=== PATIENT | female | born 1960 | race Caucasian/White ===

== ENCOUNTER → 2019-03-03 | Outpatient (CLI) | payer MEDICARE, MEDICAID, SELFPAY | PROVIDERS: PCP Internal Medicine; Visit Provider Obstetrics & Gynecology | DX: N95.9 Unspecified menopausal and perimenopausal disorder (principal); M79.10 Myalgia, unspecified site; R53.83 Other fatigue; E53.8 Deficiency of other specified B group vitamins | CPT/HCPCS: 86038; 85025; 86430; 84443; 36415; 82746; 82607; 84403; 85652; 84402; 85610; 86039 ==

== ENCOUNTER 2019-06-01 11:57 | Outpatient (RCR) | payer MEDICARE, MEDICAID, SELFPAY ==
[2019-04-03 13:41] LABS: INR 1.4; Prothrombin Time 16.4 Seconds (11.1-14.7)
[2019-04-26 13:43] LABS: INR 1.3; Prothrombin Time 15.7 Seconds (11.1-14.7)
[2019-06-01 12:40] LABS: INR 1.7; Prothrombin Time 19.4 Seconds (11.1-14.7)
== END 2019-07-02 23:59 | disposition home or self-care (01) ==
LOC: ANHWCLAB 11:57
PROVIDERS: PCP Internal Medicine; Visit Provider Internal Medicine
DX: Z51.81 Encounter for therapeutic drug level monitoring (principal); Z79.01 Long term (current) use of anticoagulants
CPT/HCPCS: 36415; 85610

== ENCOUNTER 2019-07-19 08:31 | Outpatient (CLI) | payer MEDICARE, MEDICAID, SELFPAY ==
[2019-07-19 13:38] LABS: Cholesterol 189 mg/dL (0-200); HDL Direct 54 mg/dL; Hematocrit 37.4 % (37.0-47.0); Hemoglobin 11.7 g/dL (12.0-15.0); Magnesium 1.3 mg/dL (1.6-2.3); Mean Corpuscular HGB Conc 31.3 g/dl (32-36); Mean Corpuscular Hemoglobin 28.9 pg (26-34); Mean Corpuscular Volume 92.3 fl (80-100); Mean Platelet Volume 8.9 fl (7.4-10.4); Platelet Count Result 399 k/mm3 (150-375); Red Blood Count 4.05 M/mm3 (4.2-5.4); Red Cell Distribution Width 14.7 % (11.5-14.5); Triglycerides 376 mg/dL (<150); White Blood Count 8.3 K/mm3 (4.5-10.0)
[2019-07-19 13:39] LABS: Rheumatoid Factor < 8.6 IU/ML (<12)
[2019-07-19 13:42] LABS: Hemoglobin A1C 7.7 % (<5.7)
[2019-07-19 13:49] LABS: LDL Cholesterol Direct 90 mg/dL
[2019-07-19 13:53] LABS: Free T4 Free Thyroxine 1.42 ng/mL (0.78-2.19); Vitamin D 25 Hydroxy 38.7 ng/mL
[2019-07-19 14:11] LABS: Erythrocyte Sedimentation Rate 101 mm/hr (0-20)
[2019-07-19 14:44] LABS: Alanine Aminotransferase 35 U/L (4-35); Albumin Level 4.3 g/dL (3.5-5.1); Alkaline Phosphatase 112 U/L (38-126); Aspartate Amino Transferase 34 U/L (14-36); Bilirubin,Total 0.3 mg/dL (0.2-1.3); Blood Urea Nitrogen 15 mg/dL (7-17); Carbon Dioxide 22 mmol/L (22-30); Chloride 95 mmol/L (98-107); Estimated Glomerular Filt Rate 57; Glucose 162 mg/dL (65-105); Potassium 4.2 mmol/L (3.4-5.0); Sodium 137 mmol/L (137-145)
[2019-07-19 15:48] LABS: Folic Acid > 20.0 ng/mL (2.76->20)
[2019-07-24 12:07] LABS: Anti Nuclear Antibody Titer 1:40 (Negative)
== END 2019-07-19 08:32 | disposition home or self-care (01) ==
PROVIDERS: Referring Provider Internal Medicine; Visit Provider Internal Medicine
DX: M79.10 Myalgia, unspecified site (principal); R53.83 Other fatigue; E11.9 Type 2 diabetes mellitus without complications; E78.5 Hyperlipidemia, unspecified; I10 Essential (primary) hypertension; E03.9 Hypothyroidism, unspecified; E53.8 Deficiency of other specified B group vitamins; E55.9 Vitamin D deficiency, unspecified; Z79.01 Long term (current) use of anticoagulants
CPT/HCPCS: 36415; 80053; 80061; 82306; 82607; 82746; 83036; 83735; 84439; 84443; 85027; 85652; 86038; 86039; 86430

== ENCOUNTER 2019-07-19 09:00 | Outpatient (RCR) | payer MEDICARE, MEDICAID, SELFPAY ==
[2019-07-03 13:12] LABS: INR 3.6
[2019-07-19 13:59] LABS: INR 3.5; Prothrombin Time 34.5 Seconds (11.1-14.7)
== END 2019-10-01 23:59 | disposition home or self-care (01) ==
LOC: ANHLAB 09:00
PROVIDERS: Referring Provider Internal Medicine Infectious Disease; Visit Provider Internal Medicine
DX: N39.0 Urinary tract infection, site not specified (principal); Z79.01 Long term (current) use of anticoagulants
CPT/HCPCS: 36415; 85610; 87086; 87088

== ENCOUNTER 2019-08-14 10:06 | Outpatient (RCR) | payer MEDICARE, MEDICAID, SELFPAY ==
[2019-08-14 11:15] LABS: INR 1.9; Prothrombin Time 20.9 Seconds (11.1-14.7)
== END 2019-11-12 23:59 | disposition home or self-care (01) ==
LOC: ANHWCLAB 10:06
PROVIDERS: Visit Provider Internal Medicine
DX: Z51.81 Encounter for therapeutic drug level monitoring (principal); Z79.01 Long term (current) use of anticoagulants
CPT/HCPCS: 36415; 85610

== ENCOUNTER 2019-10-08 11:37 | Emergency (ER) | payer MEDICARE, MEDICAID, SELFPAY ==
--- NOTE | 2019-10-08 11:56 | ED.NECK ---
HPI - Neck Pain/Injury General Stated Complaint: neck pain Time Seen by Provider: 10/08/19 11:45 Source: patient History of Present Illness HPI Narrative: Patient initially came to the desk, complaining of chest pain. Provider spoke to the patient regarding her chest pain and she changed her complaint from chest pain to upper shoulder and neck pain. Patient was advised to be taken to a room for an EKG and possible transfer to the emergency room. Patient refused an EKG and states that the chest pain was approximately 4 to 5 days ago and now it is just in her shoulders and neck. Patient was advised several times to be seen, even just to rule out the EKG. Patient was adamant and refused care and did not want to be seen at the [facility] or in the emergency room. Patient states that she has a follow-up with labs on Wednesday with her PCP and will discuss her symptoms then. Patient states that she does not want any other medication because she has several at home for both pain and muscle relaxers . Patient states that her daughter made her come to our facility . Again patient was advised several times to be seen and she refused. Patient was stable and in no apparent distress. Related Data Home Medications Medication Instructions Recorded Confirmed albuterol sulfate [ProAir HFA] 2 inh INHALATION Q4-6H 04/11/19 04/11/19 amlodipine 5 mg DAILY 04/11/19 04/11/19 baclofen 10 mg DAILY 04/11/19 04/11/19 celecoxib 200 mg DAILY 04/11/19 04/11/19 duloxetine 30 mg PO DAILY 04/11/19 04/11/19 levothyroxine 200 mcg DAILY 04/11/19 04/11/19 magnesium oxide 400 mg BID 04/11/19 04/11/19 nortriptyline 75 mg DAILY 04/11/19 04/11/19 oxycodone-acetaminophen 10 - 325 Q4-6H PRN 04/11/19 fluticasone fur. 100 mcg-umeclid 1 inhalation INHALATION DAILY 05/03/19 62.5 mcg-vilant 25 mcg inhalat.powder melatonin 5 mg capsule mg PO 05/03/19 sucralfate 1 gram tablet PO 05/03/19 travoprost 0.004 % eye drops 1 drop EACH EYE QPM 05/03/19 diclofenac sodium 2 % topical 1 packet TOPICAL BID PRN 07/05/19 solution in packet folic acid 1 mg tablet 1 mg PO DAILY 07/05/19 methotrexate sodium 2.5 mg tablet 7.5 mg PO WEEKLY tablet 07/05/19 hydroxychloroquine 200 mg tablet 200 mg PO BID 07/24/19 Allergies Allergy/AdvReac Type Severity Reaction Status Date / Time bupropion Allergy Mild Other Verified 07/24/19 14:24 ipratropium Allergy Mild Dyspnea / Verified 07/24/19 14:24 SOB adhesive Allergy Unknown unknown Verified 07/24/19 14:24 adhesive tape Allergy Unknown BLISTERS Verified 07/24/19 14:24 aloe vera Allergy Unknown unknpown Verified 07/24/19 14:24 benzocaine Allergy Unknown unknown Verified 07/24/19 14:24 cefuroxime Allergy Unknown unknown Verified 07/24/19 14:24 chlordiazepoxide Allergy Unknown unknown Verified 07/24/19 14:24 codeine Allergy Unknown unknown Verified 07/24/19 14:24 dextromethorphan Allergy Unknown unknown Verified 07/24/19 14:24 diazepam Allergy Unknown unknown Verified 07/24/19 14:24 guaifenesin Allergy Unknown unknown Verified 07/24/19 14:24 latex Allergy Unknown unknown Verified 07/24/19 14:24 meperidine Allergy Unknown unknown Verified 07/24/19 14:24 morphine Allergy Unknown unknwon Verified 07/24/19 14:24 nitrofurantoin Allergy Unknown unknown Verified 07/24/19 14:24 piroxicam Allergy Unknown MILD SIDE Verified 07/24/19 14:24 EFFECT PER DIAZEPAM TEXT pregabalin Allergy Unknown unknown Verified 07/24/19 14:24 resorcinol Allergy Unknown unknown Verified 07/24/19 14:24 simvastatin Allergy Unknown unknown Verified 07/24/19 14:24 Sulfa (Sulfonamide Allergy Unknown unknown Verified 07/24/19 14:24 Antibiotics) theophylline Allergy Unknown unknonw Verified 07/24/19 14:24 trimethoprim Allergy Unknown unknown Verified 07/24/19 14:24 valsartan Allergy Unknown unknown Verified 07/24/19 14:24 Xanthines Allergy Unknown unknown Verified 07/24/19 14:24 nickel AdvReac Unknown RASH Verified 07/24/19 14:24 CHLORDIAZEPOXIDE HCL Allergy M
--- NOTE | 2019-10-08 13:01 | PC.NURSE ---
provider spoke with pt. not seen in triage
== END 2019-10-08 12:15 | disposition left against medical advice (07) ==
PROVIDERS: Emergency Provider Nurse Practitioner Family
DX: M54.2 Cervicalgia (principal)
CPT/HCPCS: 99199

== ENCOUNTER 2019-10-10 01:19 | Emergency (ER) | payer MEDICARE, MEDICAID, SELFPAY ==
--- NOTE | ~2019-10-10 | CT_ITS ---
EXAMINATION: CTA chest PE protocol DATE: 10/10/2019 04:32 INDICATION: Chest pain and dyspnea with exertion. TECHNIQUE: Computed tomography (CT) pulmonary angiogram of the chest was performed with 100 mL Omnipa que-350 intravenous contrast. Additional 3D reconstructions utilizing coronal maximum intensity proje ction (MIP) were performed. Automated exposure control and iterative reconstruction technique were em ployed. The dose-length product was 936.70 mGy-cm. COMPARISON: 01/31/2016 FINDINGS: Excellent contrast opacification of the pulmonary arteries. There is mild streak artifact from dense contrast in the superior vena cava and right atrium. Minimal scattered respiratory motion artifact wh ich does not significantly limit evaluation. No pulmonary embolism. Mild emphysema at the apices. A f ew small calcified nodules in the right lung consistent with old granulomatous disease. Mild discoid atelectasis at the lingula. No pneumonia, pulmonary edema, pleural effusion or pneumothorax. Heart si ze is normal. No pericardial effusion. Thoracic aorta is normal in caliber with no dissection. No pat hologically enlarged thoracic lymphadenopathy. Diffuse hepatic steatosis. Mild thoracic spondylosis. IMPRESSION: 1. No pulmonary embolism or other acute cardiopulmonary disease. Reviewed, dictated and finalized at location A.
--- NOTE | ~2019-10-10 | XR_ITS ---
EXAMINATION: XR chest 2V DATE: 10/10/2019 02:24 INDICATION: Chest pain TECHNIQUE: PA and lateral views of the chest were obtained. COMPARISON: Chest radiograph dated Chest CT dated 10/31/2018 FINDINGS: Chronic mild lingular discoid atelectasis/scarring in the lingula. Remainder of the lungs are clear. No pulmonary edema, pleural effusion or pneumothorax. The cardiomediastinal silhouette is normal. Mil d thoracic spondylosis. IMPRESSION: 1. No acute cardiopulmonary disease. Reviewed, dictated and finalized at location A.
[2019-10-10 01:24] VITALS: BP 150/109; PULSE 115; RESP 20; TEMP 36.7; O2SAT 98; O2SAT 99
--- NOTE | 2019-10-10 01:36 | ECG_ITS ---
Measurements Intervals [place] Rate: 106 P: 52 VA: 163 QRS: -33 QRSD: 113 T: 41 QT: 313 QTc: 417 Interpretive Statements SINUS TACHYCARDIA LEFT AXIS DEVIATION INCOMPLETE RIGHT BUNDLE BRANCH BLOCK BASELINE WANDER- V3-V6 ABNORMAL ECG Electronically Signed On 10-10-2019 7:10:02 CDT by David Go D.O.
--- NOTE | 2019-10-10 01:38 | ED.CHESTPAIN ---
HPI - Chest Pain General Chief Complaint: Chest Pain Stated Complaint: chest neck pain Time Seen by Provider: 10/10/19 01:25 Source: RN notes reviewed History of Present Illness HPI narrative: Patient presents emergency department from home for chest pain. Patient states she has pain across the bilateral midsternal chest is described as aching. Patient states the pain began 4 days ago and has been constant since that time pain radiates up into the bilateral shoulders and the neck. Patient states that she sleeps in the recliner and the pain began upon awakening after sleeping in her recliner. Patient states that this time the pain is more in her shoulders and neck. Patient notes mild shortness of breath. She denies any fevers or chills cough abdominal pain nausea vomiting or any other symptoms. She states she has been taking her own pain medications for her chronic back and neck pain including Percocet muscle relaxers and Celebrex and is followed by pain management who she called this evening and was recommended come to the ER for further evaluation Related Data Home Medications Medication Instructions Recorded Confirmed albuterol sulfate [ProAir HFA] 2 inh INHALATION Q4-6H 04/11/19 04/11/19 amlodipine 5 mg DAILY 04/11/19 04/11/19 baclofen 10 mg DAILY 04/11/19 04/11/19 celecoxib 200 mg DAILY 04/11/19 04/11/19 duloxetine 30 mg PO DAILY 04/11/19 04/11/19 levothyroxine 200 mcg DAILY 04/11/19 04/11/19 magnesium oxide 400 mg BID 04/11/19 04/11/19 nortriptyline 75 mg DAILY 04/11/19 04/11/19 oxycodone-acetaminophen 10 - 325 Q4-6H PRN 04/11/19 fluticasone fur. 100 mcg-umeclid 1 inhalation INHALATION DAILY 05/03/19 62.5 mcg-vilant 25 mcg inhalat.powder melatonin 5 mg capsule mg PO 05/03/19 sucralfate 1 gram tablet PO 05/03/19 travoprost 0.004 % eye drops 1 drop EACH EYE QPM 05/03/19 diclofenac sodium 2 % topical 1 packet TOPICAL BID PRN 07/05/19 solution in packet folic acid 1 mg tablet 1 mg PO DAILY 07/05/19 methotrexate sodium 2.5 mg tablet 7.5 mg PO WEEKLY tablet 07/05/19 hydroxychloroquine 200 mg tablet 200 mg PO BID 07/24/19 Allergies Allergy/AdvReac Type Severity Reaction Status Date / Time bupropion Allergy Mild Other Verified 10/10/19 01:33 ipratropium Allergy Mild Dyspnea / Verified 10/10/19 01:33 SOB adhesive Allergy Unknown unknown Verified 10/10/19 01:33 adhesive tape Allergy Unknown BLISTERS Verified 10/10/19 01:33 aloe vera Allergy Unknown unknpown Verified 10/10/19 01:33 benzocaine Allergy Unknown unknown Verified 10/10/19 01:33 cefuroxime Allergy Unknown unknown Verified 10/10/19 01:33 chlordiazepoxide Allergy Unknown unknown Verified 10/10/19 01:33 codeine Allergy Unknown unknown Verified 10/10/19 01:33 dextromethorphan Allergy Unknown unknown Verified 10/10/19 01:33 diazepam Allergy Unknown unknown Verified 10/10/19 01:33 guaifenesin Allergy Unknown unknown Verified 10/10/19 01:33 latex Allergy Unknown unknown Verified 10/10/19 01:33 meperidine Allergy Unknown unknown Verified 10/10/19 01:33 morphine Allergy Unknown unknwon Verified 10/10/19 01:33 nitrofurantoin Allergy Unknown unknown Verified 10/10/19 01:33 piroxicam Allergy Unknown MILD SIDE Verified 10/10/19 01:33 EFFECT PER DIAZEPAM TEXT pregabalin Allergy Unknown unknown Verified 10/10/19 01:33 resorcinol Allergy Unknown unknown Verified 10/10/19 01:33 simvastatin Allergy Unknown unknown Verified 10/10/19 01:33 Sulfa (Sulfonamide Allergy Unknown unknown Verified 10/10/19 01:33 Antibiotics) theophylline Allergy Unknown unknonw Verified 10/10/19 01:33 trimethoprim Allergy Unknown unknown Verified 10/10/19 01:33 valsartan Allergy Unknown unknown Verified 10/10/19 01:33 Xanthines Allergy Unknown unknown Verified 10/10/19 01:33 nickel AdvReac Unknown RASH Verified 10/10/19 01:33 CHLORDIAZEPOXIDE HCL Allergy Mild READY TO Uncoded 10/10/19 01:33 [facility] VITAMIN D Allergy Unknown RASH Uncoded 10/10/19 01:33 THEOPHYLLIN
[2019-10-10 01:51] LABS: Basophils Absolute Auto 0.1 K/mm3 (0.0-0.1); Basophils Percent Auto 0.9 % (0.2-1.2); Eosinophils Absolute Auto 0.3 K/mm3 (0-0.3); Eosinophils Percent Auto 3.4 % (0-4.4); Hematocrit 37.7 % (37.0-47.0); Hemoglobin 12.1 g/dL (12.0-15.0); Immature Granulocyte Absolute 0.04 K/mm3 (0.00-0.031); Immature Granulocyte Percent A 0.4 % (0-0.5); Lymphocytes Absolute Auto 2.25 K/mm3 (0.9-3.2); Lymphocytes Percent Auto 23.7 % (18.3-44.2); Mean Corpuscular HGB Conc 32.1 g/dl (32-36); Mean Corpuscular Hemoglobin 29.2 pg (26-34); Mean Corpuscular Volume 90.8 fl (80-100); Monocytes Absolute Auto 1.1 K/mm3 (0.1-0.6); Monocytes Percent Auto 11.7 % (2.6-8.5); Neutrophils Absolute Auto 5.7 K/mm3 (1.3-6.7); Neutrophils Percent Auto 59.9 % (45.5-73.1); Platelet Count Result 363 k/mm3 (150-375); Red Blood Count 4.15 M/mm3 (4.2-5.4); Red Cell Distribution Width 15.3 % (11.5-14.5); White Blood Count 9.5 K/mm3 (4.5-10.0)
[2019-10-10 02:01] LABS: INR 2.6; Prothrombin Time 27.2 Seconds (11.1-14.7)
[2019-10-10 02:02] LABS: Partial Thromboplastin Time 48.7 SECONDS (22.3-36.8)
[2019-10-10 02:06] VITALS: BP 130/71; PULSE 109; RESP 19; O2SAT 97
[2019-10-10 02:08] LABS: Blood Urea Nitrogen 18 mg/dL (7-17); Calcium 9.1 mg/dL (8.4-10.2); Carbon Dioxide 25 mmol/L (22-30); Chloride 99 mmol/L (98-107); Estimated Glomerular Filt Rate 51; Glucose 160 mg/dL (65-105); Potassium 4.2 mmol/L (3.4-5.0); Sodium 135 mmol/L (137-145)
[2019-10-10 02:20] LABS: Troponin I < 0.012 ng/mL (0.000-0.034)
[2019-10-10 04:07] VITALS: PULSE 100; RESP 20; O2SAT 97
[2019-10-10 05:05] LABS: Troponin I < 0.012 ng/mL (0.000-0.034)
[2019-10-10 05:26] VITALS: BP 125/76; PULSE 94; RESP 20; O2SAT 98
== END 2019-10-10 05:29 | disposition home or self-care (01) ==
PROVIDERS: Emergency Provider Emergency Medicine; PCP Internal Medicine
DX: S16.1XXA Strain of muscle, fascia and tendon at neck level, initial encounter (principal); R07.89 Other chest pain; M19.90 Unspecified osteoarthritis, unspecified site; J44.9 Chronic obstructive pulmonary disease, unspecified; Z85.41 Personal history of malignant neoplasm of cervix uteri; E11.9 Type 2 diabetes mellitus without complications; Z86.718 Personal history of other venous thrombosis and embolism; N80.9 Endometriosis, unspecified; I10 Essential (primary) hypertension; K21.9 Gastro-esophageal reflux disease without esophagitis; M79.7 Fibromyalgia; H40.9 Unspecified glaucoma; E78.00 Pure hypercholesterolemia, unspecified; Z86.711 Personal history of pulmonary embolism; K58.9 Irritable bowel syndrome, unspecified; Z87.442 Personal history of urinary calculi; G47.30 Sleep apnea, unspecified; Z87.891 Personal history of nicotine dependence; F41.9 Anxiety disorder, unspecified; F32.9 Major depressive disorder, single episode, unspecified; R00.0 Tachycardia, unspecified; I45.10 Unspecified right bundle-branch block
CPT/HCPCS: 36415; 71046; 71275; 80048; 84484; 85025; 85610; 85730; 93005; 96374; 96375; 99284; J0131; J3010; Q9967

== ENCOUNTER 2019-11-23 19:57 | Emergency (ER) | payer MEDICARE, MEDICAID, SELFPAY ==
[2019-11-23 19:59] VITALS: BP 162/115; PULSE 128; RESP 18; TEMP 35.6; O2SAT 100
--- NOTE | 2019-11-23 20:02 | ED.GENADULT ---
HPI - General Adult General Chief complaint: Unspecified Stated complaint: breast is burning Time Seen by Provider: 11/23/19 20:01 Source: patient Mode of arrival: ambulatory Limitations: no limitations History of Present Illness HPI narrative: Patient is a 59-year-old female with a history of COPD, rheumatoid arthritis on Plaquenil, recurrent DVT, PE on Coumadin, who presents for evaluation of breast pain. Patient reports left-sided breast pain that begins in her axilla and radiates under the breast. She reports she has felt some associated swollen lymph nodes. She denies any rashes, blisters or lesions. No nipple discharge. No ecchymoses. Denies new soaps, lotions or detergents. Denies new chest pain or shortness of breath. No fever, chills, rhinorrhea. No new exposures with chemical cleaning agents or outside line agents that the patient has been in contact with. Patient states she spoke with her handle bender who urged her to seek care in an emergency department. Patient reports burning pain in the left breast that wraps around her side. Related Data Home Medications Medication Instructions Recorded Confirmed albuterol sulfate [ProAir HFA] 2 inh INHALATION Q4-6H 04/11/19 04/11/19 amlodipine 5 mg DAILY 04/11/19 04/11/19 baclofen 10 mg DAILY 04/11/19 04/11/19 celecoxib 200 mg DAILY 04/11/19 04/11/19 duloxetine 30 mg PO DAILY 04/11/19 04/11/19 levothyroxine 200 mcg DAILY 04/11/19 04/11/19 magnesium oxide 400 mg BID 04/11/19 04/11/19 nortriptyline 75 mg DAILY 04/11/19 04/11/19 oxycodone-acetaminophen 10 - 325 Q4-6H PRN 04/11/19 fluticasone fur. 100 mcg-umeclid 1 inhalation INHALATION DAILY 05/03/19 62.5 mcg-vilant 25 mcg inhalat.powder melatonin 5 mg capsule mg PO 05/03/19 sucralfate 1 gram tablet PO 05/03/19 travoprost 0.004 % eye drops 1 drop EACH EYE QPM 05/03/19 diclofenac sodium 2 % topical 1 packet TOPICAL BID PRN 07/05/19 solution in packet folic acid 1 mg tablet 1 mg PO DAILY 07/05/19 methotrexate sodium 2.5 mg tablet 7.5 mg PO WEEKLY tablet 07/05/19 hydroxychloroquine 200 mg tablet 200 mg PO BID 07/24/19 Allergies Allergy/AdvReac Type Severity Reaction Status Date / Time bupropion Allergy Mild Other Verified 10/10/19 01:33 ipratropium Allergy Mild Dyspnea / Verified 10/10/19 01:33 SOB adhesive Allergy Unknown unknown Verified 10/10/19 01:33 adhesive tape Allergy Unknown BLISTERS Verified 10/10/19 01:33 aloe vera Allergy Unknown unknpown Verified 10/10/19 01:33 benzocaine Allergy Unknown unknown Verified 10/10/19 01:33 cefuroxime Allergy Unknown unknown Verified 10/10/19 01:33 chlordiazepoxide Allergy Unknown unknown Verified 10/10/19 01:33 codeine Allergy Unknown unknown Verified 10/10/19 01:33 dextromethorphan Allergy Unknown unknown Verified 10/10/19 01:33 diazepam Allergy Unknown unknown Verified 10/10/19 01:33 guaifenesin Allergy Unknown unknown Verified 10/10/19 01:33 latex Allergy Unknown unknown Verified 10/10/19 01:33 meperidine Allergy Unknown unknown Verified 10/10/19 01:33 morphine Allergy Unknown unknwon Verified 10/10/19 01:33 nitrofurantoin Allergy Unknown unknown Verified 10/10/19 01:33 piroxicam Allergy Unknown MILD SIDE Verified 10/10/19 01:33 EFFECT PER DIAZEPAM TEXT pregabalin Allergy Unknown unknown Verified 10/10/19 01:33 resorcinol Allergy Unknown unknown Verified 10/10/19 01:33 simvastatin Allergy Unknown unknown Verified 10/10/19 01:33 Sulfa (Sulfonamide Allergy Unknown unknown Verified 10/10/19 01:33 Antibiotics) theophylline Allergy Unknown unknonw Verified 10/10/19 01:33 trimethoprim Allergy Unknown unknown Verified 10/10/19 01:33 valsartan Allergy Unknown unknown Verified 10/10/19 01:33 Xanthines Allergy Unknown unknown Verified 10/10/19 01:33 nickel AdvReac Unknown RASH Verified 10/10/19 01:33 CHLORDIAZEPOXIDE HCL Allergy Mild READY TO Uncoded 10/10/19 01:33 [facility] VITAMIN D Allergy Unknown RASH Uncoded 10/10/19 01:33 THEOPHYLLIN
[2019-11-23 20:27] LABS: Basophils Absolute Auto 0.1 K/mm3 (0.0-0.1); Eosinophils Absolute Auto 0.3 K/mm3 (0-0.3); Eosinophils Percent Auto 2.6 % (0-4.4); Hematocrit 38.1 % (37.0-47.0); Hemoglobin 12.5 g/dL (12.0-15.0); Immature Granulocyte Absolute 0.04 K/mm3 (0.00-0.031); Immature Granulocyte Percent A 0.4 % (0-0.5); Lymphocytes Absolute Auto 2.36 K/mm3 (0.9-3.2); Mean Corpuscular HGB Conc 32.8 g/dl (32-36); Mean Corpuscular Hemoglobin 29.3 pg (26-34); Mean Corpuscular Volume 89.2 fl (80-100); Mean Platelet Volume 8.7 fl (7.4-10.4); Monocytes Absolute Auto 1.3 K/mm3 (0.1-0.6); Monocytes Percent Auto 12.2 % (2.6-8.5); Neutrophils Absolute Auto 6.6 K/mm3 (1.3-6.7); Neutrophils Percent Auto 61.8 % (45.5-73.1); Platelet Count Result 379 k/mm3 (150-375); Red Blood Count 4.27 M/mm3 (4.2-5.4); Red Cell Distribution Width 15.1 % (11.5-14.5); White Blood Count 10.7 K/mm3 (4.5-10.0)
[2019-11-23 20:40] LABS: Alanine Aminotransferase 33 U/L (4-35); Albumin Level 4.5 g/dL (3.5-5.1); Alkaline Phosphatase 121 U/L (38-126); Aspartate Amino Transferase 41 U/L (14-36); Bilirubin,Total 0.1 mg/dL (0.2-1.3); Blood Urea Nitrogen 18 mg/dL (7-17); CRP 1.6 mg/dL (<1.0); Carbon Dioxide 22 mmol/L (22-30); Chloride 100 mmol/L (98-107); Estimated Glomerular Filt Rate 42; Glucose 168 mg/dL (65-105); Potassium 4.1 mmol/L (3.4-5.0); Sodium 137 mmol/L (137-145)
[2019-11-23 20:53] LABS: Erythrocyte Sedimentation Rate 70 mm/hr (0-20)
[2019-11-23 21:14] VITALS: BP 164/95; PULSE 101; RESP 20; TEMP 35.9; O2SAT 100
== END 2019-11-23 21:15 | disposition home or self-care (01) ==
PROVIDERS: Emergency Provider Emergency Medicine; PCP Internal Medicine
DX: N64.4 Mastodynia (principal); M79.2 Neuralgia and neuritis, unspecified; J44.9 Chronic obstructive pulmonary disease, unspecified; M06.9 Rheumatoid arthritis, unspecified; Z86.718 Personal history of other venous thrombosis and embolism; Z86.711 Personal history of pulmonary embolism; Z79.01 Long term (current) use of anticoagulants; Z85.41 Personal history of malignant neoplasm of cervix uteri; F41.9 Anxiety disorder, unspecified; F32.9 Major depressive disorder, single episode, unspecified; E78.00 Pure hypercholesterolemia, unspecified; E11.9 Type 2 diabetes mellitus without complications; I10 Essential (primary) hypertension; K58.9 Irritable bowel syndrome, unspecified; M81.0 Age-related osteoporosis without current pathological fracture; G47.30 Sleep apnea, unspecified; Z87.891 Personal history of nicotine dependence
CPT/HCPCS: 36415; 80053; 85025; 85652; 86140; 99283

== ENCOUNTER 2019-12-11 12:29 | Outpatient (CLI) | payer MEDICARE, MEDICAID, SELFPAY ==
--- NOTE | 2019-12-11 12:44 | ECG_ITS ---
Measurements Intervals [place] Rate: 104 P: 47 AK: 147 QRS: -28 QRSD: 106 T: 37 QT: 315 QTc: 415 Interpretive Statements SINUS TACHYCARDIA ATRIAL PREMATURE COMPLEX INCOMPLETE RIGHT BUNDLE BRANCH BLOCK ABNORMAL ECG Electronically Signed On 12-11-2019 14:12:03 CDT by David Go D.O.
== END 2019-12-11 12:30 | disposition home or self-care (01) ==
PROVIDERS: PCP Internal Medicine; Visit Provider Physician Assistant
DX: I45.10 Unspecified right bundle-branch block (principal)
CPT/HCPCS: 93005

== ENCOUNTER 2019-12-29 07:26 | Outpatient (RCR) | payer MEDICARE, MEDICAID, SELFPAY ==
[2019-12-14 13:14] VITALS: BMI 39.8
== END 2020-03-04 09:50 | disposition home or self-care (01) ==
LOC: ANHWOC 07:26
PROVIDERS: PCP Internal Medicine; Visit Provider Internal Medicine
DX: S21.002D Unspecified open wound of left breast, subsequent encounter (principal)
CPT/HCPCS: 99212; G0463

== ENCOUNTER 2020-06-05 12:20 | Outpatient (CLI) | payer MEDICARE, MEDICAID, SELFPAY ==
--- NOTE | 2020-06-07 06:19 | P.PCNPFT_ITS ---
PFT Interpretation This is a pulmonary function test with pre and post-bronchodilator spirometry, plethysmography and diffusing capacity. The test was performed and results interpreted in accordance with the 2019 and 2005 ATS/ERS Task Force guidelines respectively using the Bassam/Claribel reference equations. Findings: Spirometry: The contour of the inspiratory and expiratory flow tracing are normal. The pre-bronchodilator FVC is 2.85, 85% predicted. The pre- bronchodilator FEV1 is 2.26 L, 91% predicted. The FEV1:FVC ratio is 80%. The post-bronchodilator FVC is 2.76 L, representing a 3% decrease. The post- bronchodilator FEV1 is 2.31 L, representing a 2% increase. Plethysmography: The total lung capacity is 3.90 L, 73% predicted. The functional residual capacity is 1.29 L, 56% predicted. The residual volume is 1.06 L, 53% predicted. Diffusing capacity: The absolute diffusing capacity is 17.0, 62% predicted. The diffusing capacity corrected for alveolar volume is 4.21, 109% predicted. Impression: The spirometry is normal without evidence of an obstructive abnormality. There is no significant improvement after inhaling a single dose of albuterol. There is a mild restrictive ventilatory abnormality. The absolute diffusing capacity is mildly decreased but normalizes when corrected for alveolar volume. There are no prior studies for comparison
== END 2020-06-05 12:21 | disposition home or self-care (01) ==
PROVIDERS: PCP Internal Medicine; Visit Provider Internal Medicine Critical Care Medicine
DX: J44.9 Chronic obstructive pulmonary disease, unspecified (principal)
CPT/HCPCS: 94060; 94726; 94729

== ENCOUNTER 2020-07-10 11:13 | Outpatient (CLI) | payer MEDICARE, MEDICAID, SELFPAY ==
--- NOTE | ~2020-07-10 | US_ITS ---
US breast LT complete 07/10/2020 12:01 Indication: Palpable left breast mass Procedure: High-resolution ultrasound of the left breast. Patient refused mammography. Comparison: Mammogram dated 04/13/2013 Findings: At 3:00, 9 cm from the nipple there is an irregular shaped hypoechoic mass near the area of palpable concern. This mass measures 2.8 x 1.2 x 1.1 cm with mixed posterior attenuation. At 12:00 t here is a 5 mm cyst. Impression: 1: Complex predominantly hypoechoic lobulated left breast mass at 3:00, 9 cm from the nipple measurin g up to 2.8 cm maximum dimension. This corresponds to the area of palpable concern. BI-RADS CATEGORY 4-SUSPICIOUS ABNORMALITY RECOMMENDATION: Ultrasound-guided left breast biopsy recommended. Reviewed, dictated and finalized at location A. OPERATOR Impression: 1: Complex predominantly hypoechoic lobulated left breast mass at 3:00, 9 cm fr om the nipple measuring up to 2.8 cm maximum dimension. This corresponds to the area of palpable concern. BI-RADS CATEGORY 4-SUSPICIOUS ABNORMALITY RECOMMENDATION: Ultrasound-guided left breast biopsy recommended.
== END 2020-07-10 11:14 | disposition home or self-care (01) ==
PROVIDERS: PCP Internal Medicine; Visit Provider Surgery
DX: N64.59 Other signs and symptoms in breast (principal)
CPT/HCPCS: 76641

== ENCOUNTER 2020-07-26 09:55 | Outpatient (CLI) | payer MEDICARE, MEDICAID, SELFPAY ==
--- NOTE | ~2020-07-26 | MMUS_ITS ---
US breast biopsy LT w image, MM post biopsy invasive LT EXAMINATION: US GUIDED NEEDLE BIOPSY WITH VAC UUM ASSISTANCE DATE: 07/26/2020 11:49 SUBSTANCE ABUSE SPECIALIST INDICATION: Left breast mass seen on prior ultrasound. Ultrasound-guided core biopsy is requested to evaluate for malignancy. TECHNIQUE AND FINDINGS: The risks and potential benefits of the procedure were discussed with the patient, and written inform ed consent was obtained. After sterile preparation of the left breast, 1% lidocaine was utilized for local anesthesia. 1% lidocaine with epinephrine was used for deep anesthesia. A 10G vacuum-assisted biopsy gun needle was advanced through to the outer edge of the region of inter est from a lateral approach utilizing sonographic guidance. A total of three tissue core samples wer e obtained through the lesion. An Inrad tissue marker clip was then placed at the biopsy site. Hemos tasis was achieved. The patient tolerated procedure well and there was no evidence of immediate complication. The patien t was given verbal instructions partly is from the department. Left breast mammograms to document ti ssue marker clip placement. The tissue samples were submitted to surgical pathology for histologic an alysis. IMPRESSION: 1. Successful ultrasound-guided vacuum-assisted biopsy of left breast mass with tissue marker placem ent. Please refer to pathology report for histologic analysis. Reviewed, dictated and finalized at location A. TANCE ABUSE SPECIALIST IMPRESSION: 1. Successful ultrasound-guided vacuum-assisted biopsy of left breast mass wit h tissue marker placement. Please refer to pathology report for histologic anal ysis.
== END 2020-07-26 09:56 | disposition home or self-care (01) ==
PROVIDERS: PCP Internal Medicine; Visit Provider Surgery
DX: N63.21 Unspecified lump in the left breast, upper outer quadrant (principal); N64.1 Fat necrosis of breast
CPT/HCPCS: 19083; 88305; A4648

== ENCOUNTER 2020-07-27 13:38 | Emergency (ER) | payer MEDICARE, MEDICAID, SELFPAY ==
--- NOTE | 2020-07-27 13:40 | ED.GENADULT ---
HPI - General Adult General Chief complaint: Skin/Abscess/Foreign Body Stated complaint: Rash Time Seen by Provider: 07/27/20 13:59 Source: patient Mode of arrival: ambulatory Limitations: no limitations History of Present Illness HPI narrative: 60-year-old female patient presents to the [facility] with complaints of a rash to the face x1 week. Patient states it is been very itchy. Denies any trouble swallowing, swelling or trouble breathing. Patient also states she has had some psoriasis to bilateral bends of her elbows but states that that is not necessarily new. Denies trying to put any creams on the face but states she has been taking Benadryl that really has not helped much. Patient states that she has recently started using some disposable K N95 mask for the past week and a half prior to the rash starting. Related Data Home Medications Medication Instructions Recorded Confirmed albuterol sulfate [ProAir HFA] 2 inh INHALATION Q4-6H 04/11/19 07/05/20 baclofen 5 mg TID 04/11/19 07/05/20 duloxetine 60 mg PO DAILY 04/11/19 07/05/20 magnesium oxide 400 mg BID 04/11/19 07/05/20 nortriptyline 25 mg TID 04/11/19 07/05/20 fluticasone fur. 100 mcg-umeclid 1 inhalation INHALATION DAILY 05/03/19 07/05/20 62.5 mcg-vilant 25 mcg inhalat.powder melatonin 5 mg capsule 5 - 10 mg PO PRN PRN 05/03/19 07/05/20 travoprost 0.004 % eye drops 1 drop EACH EYE QPM 05/03/19 07/05/20 hydroxychloroquine 200 mg tablet 200 mg PO BID 07/24/19 07/05/20 Astepro 0.15%(205.5mcg) 1 spray INTRANASAL DAILY 12/14/19 07/05/20 cyanocobalamin (vitamin B-12) 1,000 mcg PO DAILY 12/14/19 07/05/20 [Vitamin B-12] doxycycline hyclate 100 mg PO DAILY 12/14/19 07/05/20 ferrous sulfate 325 mg PO DAILY 12/14/19 07/05/20 leflunomide 20 mg PO DAILY 12/14/19 07/05/20 oxycodone-acetaminophen 10 mg-325 1 tablet PO Q4-6H PRN tablet 04/17/20 07/05/20 mg tablet Allergies Allergy/AdvReac Type Severity Reaction Status Date / Time bupropion Allergy Mild Other Verified 07/05/20 09:59 ipratropium Allergy Mild Dyspnea / Verified 07/05/20 09:59 SOB adhesive Allergy Unknown unknown Verified 07/05/20 09:59 adhesive tape Allergy Unknown BLISTERS Verified 07/05/20 09:59 aloe vera Allergy Unknown unknpown Verified 07/05/20 09:59 benzocaine Allergy Unknown unknown Verified 07/05/20 09:59 cefuroxime Allergy Unknown unknown Verified 07/05/20 09:59 chlordiazepoxide Allergy Unknown unknown Verified 07/05/20 09:59 codeine Allergy Unknown unknown Verified 07/05/20 09:59 dextromethorphan Allergy Unknown unknown Verified 07/05/20 09:59 diazepam Allergy Unknown unknown Verified 07/05/20 09:59 guaifenesin Allergy Unknown unknown Verified 07/05/20 09:59 latex Allergy Unknown unknown Verified 07/05/20 09:59 meperidine Allergy Unknown unknown Verified 07/05/20 09:59 morphine Allergy Unknown unknwon Verified 07/05/20 09:59 nitrofurantoin Allergy Unknown unknown Verified 07/05/20 09:59 piroxicam Allergy Unknown MILD SIDE Verified 07/05/20 09:59 EFFECT PER DIAZEPAM TEXT pregabalin Allergy Unknown unknown Verified 07/05/20 09:59 resorcinol Allergy Unknown unknown Verified 07/05/20 09:59 simvastatin Allergy Unknown unknown Verified 07/05/20 09:59 Sulfa (Sulfonamide Allergy Unknown unknown Verified 07/05/20 09:59 Antibiotics) theophylline Allergy Unknown unknonw Verified 07/05/20 09:59 trimethoprim Allergy Unknown unknown Verified 07/05/20 09:59 valsartan Allergy Unknown unknown Verified 07/05/20 09:59 Xanthines Allergy Unknown unknown Verified 07/05/20 09:59 nickel AdvReac Unknown RASH Verified 07/05/20 09:59 CHLORDIAZEPOXIDE HCL Allergy Mild READY TO Uncoded 04/17/20 13:12 [facility] VITAMIN D Allergy Unknown RASH Uncoded 04/17/20 13:12 THEOPHYLLINE ANHYDROUS Allergy Unknown unknown Uncoded 04/17/20 13:12 DULOXETINE HCL AdvReac Unknown DIZZY Uncoded 04/17/20 13:12 Review of Systems Review of Systems: Narrative: CONSTITUTIONAL: Denies fever, chills, or sweats.
[2020-07-27 13:58] VITALS: BP 146/102; PULSE 110; RESP 18; TEMP 36.7; O2SAT 97
== END 2020-07-27 14:13 | disposition home or self-care (01) ==
PROVIDERS: Emergency Provider Nurse Practitioner Family; PCP Internal Medicine
DX: L24.9 Irritant contact dermatitis, unspecified cause (principal); Z87.891 Personal history of nicotine dependence; I20.9 Angina pectoris, unspecified; M19.90 Unspecified osteoarthritis, unspecified site; J45.909 Unspecified asthma, uncomplicated; Z85.41 Personal history of malignant neoplasm of cervix uteri; J44.9 Chronic obstructive pulmonary disease, unspecified; E11.9 Type 2 diabetes mellitus without complications; N80.9 Endometriosis, unspecified; I10 Essential (primary) hypertension; M79.7 Fibromyalgia; K21.9 Gastro-esophageal reflux disease without esophagitis; E11.39 Type 2 diabetes mellitus with other diabetic ophthalmic complication; H42 Glaucoma in diseases classified elsewhere; Z86.711 Personal history of pulmonary embolism; Z86.718 Personal history of other venous thrombosis and embolism; E78.00 Pure hypercholesterolemia, unspecified; M81.0 Age-related osteoporosis without current pathological fracture; G47.30 Sleep apnea, unspecified; Z96.659 Presence of unspecified artificial knee joint
CPT/HCPCS: 99213; G0463

== ENCOUNTER 2020-08-29 14:23 | Outpatient (CLI) | payer MEDICARE, MEDICAID, SELFPAY ==
[2020-08-29 15:22] LABS: Partial Thromboplastin Time 37.1 SECONDS (22.3-36.8); Prothrombin Time 22.9 Seconds (11.1-14.7)
== END 2020-08-29 14:24 | disposition home or self-care (01) ==
PROVIDERS: Anesthesiology; PCP Internal Medicine; Visit Provider Surgery
DX: Z01.812 Encounter for preprocedural laboratory examination (principal); Z51.81 Encounter for therapeutic drug level monitoring; Z79.899 Other long term (current) drug therapy
CPT/HCPCS: 36415; 85610; 85730

== ENCOUNTER → 2020-08-31 00:58 | Outpatient (CLI) | payer MEDICARE, MEDICAID, SELFPAY ==
[2020-08-31 18:53] LABS: SARS-CoV-2 RNA PCR Negative
== END ==
PROVIDERS: PCP Internal Medicine; Visit Provider Surgery
DX: Z01.812 Encounter for preprocedural laboratory examination (principal); Z20.822 Contact with and (suspected) exposure to COVID-19
CPT/HCPCS: C9803; U0003; U0005

== ENCOUNTER 2020-09-03 01:26 | Day surgery (SDC) | payer MEDICARE, MEDICAID, SELFPAY ==
[2020-08-27 15:03] VITALS: BMI 39.1
[2020-09-03] VITALS (8 sets, daily range): BP systolic 113–171; BP diastolic 67–96; PULSE 97–108; RESP 14–20; TEMP 36.3–36.5; O2SAT 94–100
[2020-09-03] MEDS: LACTATED RINGERS 1,000 ML 30 ML IV CONT (09:51)
[2020-09-03 10:03] LABS: Glucose Point of Care 158 (65-105)
[2020-09-03 10:12] LABS: INR 0.9; Prothrombin Time 12.9 Seconds (11.1-14.7)
[2020-09-03 10:13] LABS: Partial Thromboplastin Time 23.6 SECONDS (22.3-36.8)
--- NOTE | 2020-09-03 10:33 | WPDANESEPPF ---
Anes - Initial Pre Proc Eval Procedure: Operation Date: 09/03/20 11:00 Proposed Procedures p Excisional Debridement Chronic Non Healing Left Breast Wound - Philip Yost DO Date/Time: 09/03/20 10:33 Surgeon: Philip Yost DO Pre Op Diagnosis: Left breast skin ulcer Patient Data Age: 60 Gender: F Height: 5 ft 6 in Weight: 109.4 kg Last Vital Signs Temp 36.3 C L 09/03/20 09:02 Pulse 103 H 09/03/20 09:02 Resp 16 09/03/20 09:02 BP 152/67 H 09/03/20 09:02 Pulse Ox 98 09/03/20 09:02 Allergies Allergy/AdvReac Type Severity Reaction Status Date / Time pregabalin Allergy Severe Anaphylaxis Verified 09/03/20 09:19 codeine Allergy Intermediate Nausea Verified 09/03/20 09:19 diazepam Allergy Intermediate Agitated Verified 09/03/20 09:19 morphine Allergy Intermediate unknwon Verified 09/03/20 09:19 Sulfa (Sulfonamide Allergy Intermediate Hives Verified 09/03/20 09:19 Antibiotics) adhesive tape Allergy Mild BLISTERS Verified 09/03/20 09:19 bupropion Allergy Mild Other Verified 09/03/20 09:19 ipratropium Allergy Mild Dyspnea / Verified 09/03/20 09:19 SOB cefuroxime Allergy Unknown unknown Verified 09/03/20 09:19 chlordiazepoxide Allergy Unknown unknown Verified 09/03/20 09:19 dextromethorphan Allergy Unknown unknown Verified 09/03/20 09:19 guaifenesin Allergy Unknown unknown Verified 09/03/20 09:19 meperidine Allergy Unknown Hives Verified 09/03/20 09:19 nitrofurantoin Allergy Unknown unknown Verified 09/03/20 09:19 piroxicam Allergy Unknown MILD SIDE Verified 09/03/20 09:19 EFFECT PER DIAZEPAM TEXT resorcinol Allergy Unknown unknown Verified 09/03/20 09:19 simvastatin Allergy Unknown unknown Verified 08/12/20 14:23 theophylline Allergy Unknown unknonw Verified 09/03/20 09:19 trimethoprim Allergy Unknown unknown Verified 09/03/20 09:19 valsartan Allergy Unknown unknown Verified 09/03/20 09:19 Xanthines Allergy Unknown unknown Verified 09/03/20 09:19 nickel AdvReac Unknown RASH Verified 09/03/20 09:19 CHLORDIAZEPOXIDE HCL Allergy Mild READY TO Uncoded 09/03/20 09:19 [facility] V[facility] Allergy Unknown RASH Uncoded 09/03/20 09:19 THEOPHYLLINE ANHYDROUS Allergy Unknown unknown Uncoded 09/03/20 09:19 DULOXETINE HCL AdvReac Unknown DIZZY Uncoded 08/12/20 14:23 Home Medications Medication Instructions Recorded Confirmed Type albuterol sulfate [ProAir HFA] 2 inh INHALATION Q4-6H 04/11/19 09/03/20 History baclofen 5 mg PO TID PRN 04/11/19 09/03/20 History duloxetine 30 mg PO TID 04/11/19 09/03/20 History nortriptyline 25 mg PO TID 04/11/19 09/03/20 History fluticasone fur. 100 mcg-umeclid 1 inhalation INHALATION DAILY PRN 05/03/19 09/03/20 History 62.5 mcg-vilant 25 mcg inhalat.powder melatonin 5 mg capsule 10 mg PO PRN PRN 05/03/19 09/03/20 History travoprost 0.004 % eye drops 1 drop EACH EYE QPM 05/03/19 09/03/20 History azelastine 137 mcg (0.1 %) nasal 137 mcg NASAL Q12H #30 ml 05/26/19 09/03/20 Rx spray aerosol hydroxychloroquine 200 mg tablet 200 mg PO BID 07/24/19 09/03/20 History Astepro 0.15%(205.5mcg) 1 spray INTRANASAL DAILY 12/14/19 09/03/20 History cyanocobalamin (vitamin B-12) 1,000 mcg PO DAILY 12/14/19 09/03/20 History [Vitamin B-12] doxycycline hyclate 100 mg PO DAILY 12/14/19 09/03/20 History leflunomide 20 mg PO DAILY 12/14/19 09/03/20 History fluticasone propionate 50 1 spray NASAL BID PRN #18.2 ml 01/08/20 09/03/20 Rx mcg/actuation nasal spray,suspension oxycodone-acetaminophen 10 mg-325 2 tablet PO Q4-6H PRN tablet 04/17/20 09/03/20 History mg tablet lisinopril 20 20 - 25 tablet PO DAILY #90 tablet 04/29/20 09/03/20 Rx mg-hydrochlorothiazide 25 mg tablet omeprazole 40 mg capsule,delayed 40 mg PO BID #180 cap 05/06/20 09/03/20 Rx release warfarin 4 mg tablet 4 mg PO DAILY #30 tablet 05/14/20 09/03/20 Rx atorvastatin 10 mg tablet 10 mg PO DAILY #90 tablet 08/02/20 09/03/20 Rx betamethasone valerate 0.1 % 1 applic TO
--- NOTE | 2020-09-03 11:10 | SUR.PREOP ---
pt informed delay in procedure.
--- NOTE | 2020-09-03 11:18 | PM.IMHP ---
H&P: HPI History of Present Illness Date/Time: 09/03/20 11:18 Chief Complaint: left breast skin ulcer Narrative: 60-year-old woman presents for excisional debridement of left breast chronic nonhealing skin ulcer. Prior biopsies deep to this area showed evidence of fat necrosis and no evidence of cancer. She now presents for excision to cook helper meat with healing. Review of Systems Review of Systems: All systems reviewed & are unremarkable except as noted in HPI and below Constitutional: Constitutional: Denies chills, Denies fever(s), Denies headache(s) and Denies weight loss Eyes: Eyes: Denies change in vision ENT: Denies dizziness, Denies headache(s), Denies neck mass and Denies throat swelling Cardiovascular: Cardiovascular: Denies chest pain, Denies lightheadedness and Denies dyspnea Respiratory: Respiratory: Denies cough, Denies dyspnea and Denies wheezing Gastrointestinal: Gastrointestinal: Denies abdominal pain, Denies change in bowel habits, Denies nausea and Denies vomiting Genitourinary: Genitourinary: Denies hematuria and Denies dysuria Musculoskeletal: Musculoskeletal: Reports as per HPI Integumentary/Breasts: Skin/Breast: Reports as per HPI Neurologic: Denies dizziness and Denies headache(s) Allergic/Immunologic: Allergic/Immunologic: Denies throat swelling and Denies wheezing PMF Past Medical History Medical History Angina at rest Anxiety Arthritis Asthma Bronchitis Cervical cancer Chronic back pain COPD (chronic obstructive pulmonary disease) Degenerative disc disease Depression Diabetes DVT (deep venous thrombosis) Endometriosis Essential (primary) hypertension Fibromyalgia GERD (gastroesophageal reflux disease) Glaucoma Hx of pulmonary embolus Hypercholesterolemia Hypertension IBS (irritable bowel syndrome) Kidney stones Lupus Osteoporosis Other pulmonary embolism with acute cor pulmonale Ovarian cyst Panic disorder Postmenopausal Pulmonary embolism Sleep apnea Ventilatory defect Surgical History Surgical History H/O inguinal hernia repair H/O: hysterectomy History of bladder surgery History of knee replacement Hx of appendectomy Family History Family History Father Hypertension Family history of diabetes mellitus in first degree relative Family history of heart disease in male family member before age 55 Mother Hypertension Family history of diabetes mellitus in first degree relative Family history of heart disease in male family member before age 55 Diabetes mellitus, Onset Age: 62 Sibling Family history of malignant neoplasm of cervix Social History Social History Smoking packs per day: 3 Smoking cigarettes per day: 60.0 Years smoked: 10 Smoking pack-years: 30.00 Smoking status: Former smoker Tobacco type: cigarettes Second hand tobacco smoke exposure: No Smoking end date: 11/21/94 Alcohol intake: former Alcohol use details: FORMER ALCOHOLIC, STOPPED 25 YEARS AGO Substance use: never Substance use type: marijuana Living arrangements: alone Gender identity (if verbalized by the patient): Female Spiritual care concerns: No Meds Home Medications and Allergies Home Medications Medication Instructions Recorded Confirmed Type albuterol sulfate [ProAir HFA] 2 inh INHALATION Q4-6H 04/11/19 09/03/20 History baclofen 5 mg PO TID PRN 04/11/19 09/03/20 History duloxetine 30 mg PO TID 04/11/19 09/03/20 History nortriptyline 25 mg PO TID 04/11/19 09/03/20 History fluticasone fur. 100 mcg-umeclid 1 inhalation INHALATION DAILY PRN 05/03/19 09/03/20 History 62.5 mcg-vilant 25 mcg inhalat.powder melatonin 5 mg capsule 10 mg PO PRN PRN 05/03/19 09/03/20 History travoprost 0.004 % eye drops 1 lashon
--- NOTE | 2020-09-03 11:20 | WPDHPUPDATE1 ---
History and Physical Update Update Date/Time: 09/03/20 11:20 History and Physical has been reviewed, including an updated exam of the patient. There are NO changes in the patient's condition. Risks, benefits, and alternatives have been discussed and questions answered. Patient agrees to proceed with procedure.
[2020-09-03] MEDS: ACETAMINOPHEN 500 MG TABLET 1000 MG PO (11:36)
[2020-09-03] MEDS: CLINDAMYCIN 900 MG/D5W 50 ML 900 MG/50 ML PIGGYBACK 50 MG IVPB (11:51)
[2020-09-03] MEDS: BUPIVACAINE/EPINEPHRINE 0.5% 30 ML VIAL 25 ML INFILTRATE (12:07)
--- NOTE | 2020-09-03 12:19 | SUR.OPER ---
1219 left breast specimen to Pathology fresh per will Moore, given to Peppi in Pathology 12:20
[2020-09-03] MEDS: fentaNYL CITRATE INJ (*CRX) 100 MCG/2 ML VIAL 25 MCG IV PUSH ×8 (12:42→13:12)
--- NOTE | 2020-09-03 12:43 | P.OP_ITS ---
Procedure Note - Detailed Date of procedure: 09/03/20 Pre-op diagnosis: Left lower outer quadrant breast mass Post-op diagnosis: same Procedure performed: Left Breast Excisional Biopsy Description of procedure: * Procedure as well as risks, benefits, and alternatives were discussed with the patient. Written consent was obtained and placed in chart prior to procedure. Patient was brought back to surgical suite. She was placed supine on operating table. Time-out was done to confirm patient and procedure. IV sedation was then administered by the Anesthesia Department. Her left breast area was prepped and draped in sterile fashion using chlorhexidine prep. 1% lidocaine with epinephrine was infiltrated locally around the left breast wound. The chronic scar and ulcer were then excised in elliptical fashion using a 15 blade scalpel. There was a breast mass associated with this that was excised with the skin lesion using electrocautery. I dissected far enough into the subcu tissue to where I was within the breast tissue. The lump was excised completely using electrocautery. This was sent to the lab for pathology. Hemostasis was achieved with electrocautery. No other abnormalities were noted. The deep dermis was reapproximated using 3 0 Vicryl inverted interrupted sutures. The skin was then approximated using 4 Monocryl running subcuticular suture. Exofin glue was then applied on top. The patient was then awakened from anesthesia and transferred to recovery. Anesthesia: MAC and local (1% lidocaine with epinephrine) Surgeon: Philip Yost DO Estimated blood loss (mL): 10 Pathology: yes (Left breast mass and overlying skin) Complications: No immediate complications Condition: stable Disposition: same day Findings: This is a 60-year-old woman who presented with a painful left breast mass and overlying skin changes. She has previously dealt with an open wound on this area and it has been extremely painful to palpation. Previous imaging suggested a BI-RADS category 4 finding and ultrasound-guided biopsy was performed. This showed evidence of fat necrosis and fibrosis, but patient continued to have pain in the area. Discussions were made with the patient about treatment options and decision was made to proceed with left breast excisional biopsy, and I discussed excising the overlying skin to ensure that there is no malignancy invading into the skin. Left breast excisional biopsy was performed. The palpable area of concern with the overlying skin changes was noted in the left lower outer quadrant. An elliptical incision was made to include the skin changes and this was excised all the way down to the breast tissue where the palpable lump was noted. The lump was completely excised along with the skin and this was sent to the lab for pathology.
[2020-09-03 12:49] LABS: Glucose Point of Care 147 (65-105)
[2020-09-03] MEDS: oxyCODONE HCL (*CRX) 5 MG TAB IR PO (13:57)
== END 2020-09-03 15:05 | disposition home or self-care (01) ==
PROVIDERS: Anesthesiology; PCP Internal Medicine; Visit Provider Surgery
PROC: (CPT 19120; principal; 2020-09-03 11:00)
DX: L98.499 Non-pressure chronic ulcer of skin of other sites with unspecified severity (principal); N60.32 Fibrosclerosis of left breast; N60.42 Mammary duct ectasia of left breast; N60.82 Other benign mammary dysplasias of left breast; I10 Essential (primary) hypertension; J44.9 Chronic obstructive pulmonary disease, unspecified; E11.9 Type 2 diabetes mellitus without complications; K21.9 Gastro-esophageal reflux disease without esophagitis; F41.8 Other specified anxiety disorders; M79.7 Fibromyalgia; H40.9 Unspecified glaucoma; E78.00 Pure hypercholesterolemia, unspecified; K58.9 Irritable bowel syndrome, unspecified; M32.9 Systemic lupus erythematosus, unspecified; M81.0 Age-related osteoporosis without current pathological fracture; G47.30 Sleep apnea, unspecified; Z86.718 Personal history of other venous thrombosis and embolism; Z86.711 Personal history of pulmonary embolism; Z79.01 Long term (current) use of anticoagulants; Z79.84 Long term (current) use of oral hypoglycemic drugs; Z79.51 Long term (current) use of inhaled steroids; Z87.891 Personal history of nicotine dependence; E66.01 Morbid (severe) obesity due to excess calories; Z68.38 Body mass index [BMI] 38.0-38.9, adult
CPT/HCPCS: 19120; 36415; 82948; 85610; 85730; 88305; 88307; A9270; J2250; J2704; J3010; J7120

== ENCOUNTER 2020-09-19 17:39 | Outpatient (CLI) | payer MEDICARE, MEDICAID, SELFPAY ==
--- NOTE | ~2020-09-19 | CT_ITS ---
EXAMINATION: CT abdomen pelvis wo con DATE: 09/19/2020 18:12 INDICATION: Right lower quadrant abdominal pain. TECHNIQUE: Computed tomography (CT) of the abdomen and pelvis was performed without intravenous contr ast. Automated exposure control and iterative reconstruction technique were employed. The dose-length product was 1426.02 mGy-cm. COMPARISON: 08/18/2015 FINDINGS: Lung bases are clear. Heart size is normal. No pericardial or pleural effusion. Diffuse hepatic steat osis. Gallbladder, spleen, pancreas and bilateral adrenal glands are normal. Kidneys and ureters are normal with no urolithiasis, hydroureteronephrosis or perinephric/ureteral stranding. Bowels are norm al. The appendix is not visualized. No pericecal inflammatory change to suggest acute appendicitis. B ladder is normal. The uterus is not identified and has likely been surgically resected. Surgical clip s in the pelvis consistent with prior bilateral pelvic lymph node dissections. No free intraperitonea l gas or fluid. No pathologically enlarged abdominal or pelvic lymphadenopathy. Small amount of scatt ered atherosclerotic calcification along the aorta and bilateral iliac arteries. Mild to moderate lum bar spondylosis with grade 1 anterolisthesis L4 on L5. IMPRESSION: 1. No acute intra-abdominal/pelvic process. 2. Diffuse hepatic steatosis. Reviewed, dictated and finalized at location [facility].
--- NOTE | ~2020-09-19 | XR_ITS ---
EXAMINATION: XR abdomen/kub 1V DATE: 09/19/2020 17:59 INDICATION: Right lower quadrant abdominal pain. Nephrolithiasis. TECHNIQUE: A supine view of the abdomen on 2 radiographs was obtained. COMPARISON: CT dated 09/19/2020 and 08/18/2015 FINDINGS: Normal bowel gas pattern. Multiple surgical clips in the pelvis consistent with prior bilateral pelvi c lymph node dissection. No suspicious calcific lesions identified in the abdomen or pelvis. Lung bas es are clear. Heart size is normal. Moderate to severe lower lumbar facet osteoarthritis. IMPRESSION: 1. Normal bowel gas pattern. No evident urolithiasis. Reviewed, dictated and finalized at location [facility].
== END 2020-09-19 17:40 | disposition home or self-care (01) ==
PROVIDERS: PCP Internal Medicine; Visit Provider Nurse Practitioner Adult Health
DX: R10.31 Right lower quadrant pain (principal); K76.0 Fatty (change of) liver, not elsewhere classified
CPT/HCPCS: 74018; 74176

== ENCOUNTER 2020-11-05 16:13 | Emergency (ER) | payer MEDICARE, MEDICAID, SELFPAY ==
--- NOTE | ~2020-11-05 | CT_ITS ---
EXAMINATION: CT brain wo con DATE: 11/05/2020 19:16 INDICATION: Headache TECHNIQUE: Computed tomography (CT) of the head was performed without intravenous contrast. The mA wa s adjusted according to patient size. Iterative reconstruction technique was employed. Exam dose: 60 5.33 mGy-cm total exam DLP. COMPARISON: 12/28/2017 CT brain FINDINGS: No intracranial mass lesion or hemorrhage or cerebrovascular accident is evident. No midlin e shift or mass effect effect. No subdural or epidural hematoma. Vertebral and carotid siphon internal carotid artery calcifications are noted. There is nonspecific patchy diminished attenuation of cerebral white matter. No fracture or bone destruction of the cranial vault. Included paranasal sinuses and the mastoid air cells are normally developed and aerated. IMPRESSION: Nonspecific patchy diminished attenuation cerebral white matter, possibly due to chronic small vessel ischemic changes. Consider correlation with MR brain imaging. Reviewed, dictated and finalized at [facility]. Reviewed, dictated and finalized at location [facility]. IMPRESSION: Nonspecific patchy diminished attenuation cerebral white matter, p ossibly due to chronic small vessel ischemic changes. Consider correlation with MR brain imaging.
[2020-11-05 16:20] VITALS: BP 125/61; PULSE 95; RESP 16; TEMP 35.8; O2SAT 97
[2020-11-05 18:07] VITALS: BP 111/65; PULSE 85; RESP 16; O2SAT 97
[2020-11-05] MEDS: diphenhydrAMINE HCl INJ 50 MG/ML VIAL IV PUSH (18:47)
[2020-11-05] MEDS: PROCHLORPERAZINE EDISYLATE 10 MG/2 ML VIAL IV PUSH (18:47)
[2020-11-05] MEDS: LACTATED RINGERS 1,000 ML 999 ML IV CONT (18:47)
[2020-11-05 19:02] LABS: INR 0.9; Prothrombin Time 12.8 Seconds (11.1-14.7)
--- NOTE | 2020-11-05 19:15 | ED.HA ---
HPI - Headache General Chief Complaint: Headache Stated Complaint: headache, spinal injections yesterday Time Seen by Provider: 11/05/20 18:16 Source: patient Mode of arrival: ambulatory Limitations: no limitations History of Present Illness HPI Narrative: 60-year-old female History of diabetes She had some type of pain injection in her [facility] Do not have access to the record but there is no reason to suppose that it would have been an intentional intrathecal injection She woke up at 3 AM with a throbbing headache and a high blood sugar greater than 300 She is taking all of her pain medications but has not been able to relieve the headache, although her blood sugar has gone down to below 200 She does not have a fever, she does not have any neck pain, she does not have any focal neurologic symptoms, she does not have any visual changes Related Data Home Medications Medication Instructions Recorded Confirmed albuterol sulfate [ProAir HFA] 2 inh INHALATION Q4-6H 04/11/19 10/24/20 baclofen 5 mg PO TID PRN 04/11/19 10/24/20 duloxetine 30 mg PO TID 04/11/19 10/24/20 nortriptyline 25 mg PO TID 04/11/19 10/24/20 fluticasone fur. 100 mcg-umeclid 1 inhalation INHALATION DAILY PRN 05/03/19 10/24/20 62.5 mcg-vilant 25 mcg inhalat.powder melatonin 5 mg capsule 10 mg PO PRN PRN 05/03/19 10/24/20 travoprost 0.004 % eye drops 1 drop EACH EYE QPM 05/03/19 10/24/20 hydroxychloroquine 200 mg tablet 200 mg PO BID 07/24/19 10/24/20 Astepro 0.15%(205.5mcg) 1 spray INTRANASAL DAILY 12/14/19 10/24/20 cyanocobalamin (vitamin B-12) 1,000 mcg PO DAILY 12/14/19 10/24/20 [Vitamin B-12] leflunomide 20 mg PO DAILY 12/14/19 10/24/20 cranberry 4,200 mg PO TID 08/27/20 10/24/20 vitamin B complex [B 1 tablet PO DAILY 08/27/20 10/24/20 Complex-Vitamin B12] warfarin 5 mg tablet 5 mg PO DAILY 10/23/20 Allergies Allergy/AdvReac Type Severity Reaction Status Date / Time pregabalin Allergy Severe Anaphylaxis Verified 10/22/20 10:49 morphine Allergy Intermediate unknwon Verified 10/22/20 10:49 Sulfa (Sulfonamide Allergy Intermediate Hives Verified 10/22/20 10:49 Antibiotics) adhesive tape Allergy Mild BLISTERS Verified 10/22/20 10:49 bupropion Allergy Mild Other Verified 10/22/20 10:49 ipratropium Allergy Mild Dyspnea / Verified 10/22/20 10:49 SOB cefuroxime Allergy Unknown unknown Verified 10/22/20 10:49 chlordiazepoxide Allergy Unknown Irritable, Verified 11/05/20 18:31 AGGRESSION- SEE NOTE dextromethorphan Allergy Unknown unknown Verified 10/22/20 10:49 guaifenesin Allergy Unknown unknown Verified 10/22/20 10:49 meperidine Allergy Unknown Hives Verified 10/22/20 10:49 nitrofurantoin Allergy Unknown unknown Verified 10/22/20 10:49 resorcinol Allergy Unknown unknown Verified 10/22/20 10:49 simvastatin Allergy Unknown unknown Verified 10/22/20 10:49 theophylline Allergy Unknown unknonw Verified 10/22/20 10:49 trimethoprim Allergy Unknown unknown Verified 10/22/20 10:49 valsartan Allergy Unknown unknown Verified 10/22/20 10:49 Xanthines Allergy Unknown unknown Verified 10/22/20 10:49 codeine AdvReac Intermediate Nausea Verified 10/22/20 10:49 diazepam AdvReac Intermediate Agitated Verified 10/22/20 10:49 duloxetine AdvReac Unknown Dizziness Verified 11/05/20 18:31 nickel AdvReac Unknown RASH Verified 10/22/20 10:49 piroxicam AdvReac Unknown MILD SIDE Verified 10/22/20 10:49 EFFECT PER DIAZEPAM [facility] VITAMIN D Allergy Unknown RASH Uncoded 09/13/20 09:09 Review of Systems Review of Systems: All systems reviewed & are unremarkable except as noted in HPI and below Constitutional: Constitutional: Reports no additional constitutional complaints, Denies chills, Denies fever(s) and Denies headache(s) Eyes: Eyes: Reports no additional eye complaints and Denies change in vision ENT: Denies headache(s) and Denies sore throat Cardiovascular: Cardiovascular: Denies chest pain and Denies
[2020-11-05 19:47] LABS: Basophils Absolute Auto 0.1 K/mm3 (0.0-0.1); Basophils Percent Auto 0.4 % (0.2-1.2); Eosinophils Percent Auto 0.1 % (0-4.4); Hematocrit 37.5 % (37.0-47.0); Hemoglobin 12.1 g/dL (12.0-15.0); Immature Granulocyte Absolute 0.05 K/mm3 (0.00-0.031); Immature Granulocyte Percent A 0.4 % (0-0.5); Lymphocytes Absolute Auto 1.49 K/mm3 (0.9-3.2); Lymphocytes Percent Auto 12.5 % (18.3-44.2); Mean Corpuscular HGB Conc 32.3 g/dl (32-36); Mean Corpuscular Hemoglobin 31.3 pg (26-34); Mean Corpuscular Volume 97.2 fl (80-100); Mean Platelet Volume 8.5 fl (7.4-10.4); Monocytes Absolute Auto 1.3 K/mm3 (0.1-0.6); Monocytes Percent Auto 10.8 % (2.6-8.5); Neutrophils Absolute Auto 9.1 K/mm3 (1.3-6.7); Neutrophils Percent Auto 75.8 % (45.5-73.1); Platelet Count Result 384 k/mm3 (150-375); Red Blood Count 3.86 M/mm3 (4.2-5.4); Red Cell Distribution Width 15.3 % (11.5-14.5)
[2020-11-05 19:59] LABS: Anion Gap 8 mmol/L (8-16); Blood Urea Nitrogen 27 mg/dL (7-17); CRP 1.1 mg/dL (<1.0); Calcium 9.5 mg/dL (8.4-10.2); Carbon Dioxide 28 mmol/L (22-30); Chloride 99 mmol/L (98-107); Estimated CRCL calculation 52 ml/min; Estimated Glomerular Filt Rate 42; Glucose 184 mg/dL (65-105); Potassium 4.2 mmol/L (3.4-5.0); Sodium 135 mmol/L (137-145)
[2020-11-05 20:09] LABS: Erythrocyte Sedimentation Rate 53 mm/hr (0-20)
[2020-11-05] MEDS: KETOROLAC 30 MG/ML VIAL (*BKC) IV PUSH (20:11)
[2020-11-05 21:03] VITALS: BP 119/63; PULSE 87; RESP 16; O2SAT 98
== END 2020-11-05 21:04 | disposition home or self-care (01) ==
PROVIDERS: Emergency Provider Emergency Medicine; PCP Internal Medicine
DX: R51.9 Headache, unspecified (principal); G89.29 Other chronic pain; M54.9 Dorsalgia, unspecified; J44.9 Chronic obstructive pulmonary disease, unspecified; E11.9 Type 2 diabetes mellitus without complications; I10 Essential (primary) hypertension; E78.00 Pure hypercholesterolemia, unspecified; K21.9 Gastro-esophageal reflux disease without esophagitis; K58.9 Irritable bowel syndrome, unspecified; F41.9 Anxiety disorder, unspecified; F32.9 Major depressive disorder, single episode, unspecified; G47.30 Sleep apnea, unspecified; M79.7 Fibromyalgia; M81.0 Age-related osteoporosis without current pathological fracture; M19.90 Unspecified osteoarthritis, unspecified site; E07.9 Disorder of thyroid, unspecified; Z85.41 Personal history of malignant neoplasm of cervix uteri; Z86.718 Personal history of other venous thrombosis and embolism; Z86.711 Personal history of pulmonary embolism; Z79.84 Long term (current) use of oral hypoglycemic drugs; Z79.01 Long term (current) use of anticoagulants; H40.9 Unspecified glaucoma; Z87.442 Personal history of urinary calculi; Z96.659 Presence of unspecified artificial knee joint; Z87.891 Personal history of nicotine dependence
CPT/HCPCS: 36415; 70450; 80048; 85025; 85610; 85652; 86140; 96361; 96374; 96375; 99284; J0780; J1100; J1200; J1885; J7120

== ENCOUNTER 2020-11-19 13:08 | Emergency (ER) | payer MEDICARE, MEDICAID, SELFPAY ==
[2020-11-19 13:20] VITALS: BP 140/80; PULSE 86; RESP 20; TEMP 36.4; O2SAT 97
--- NOTE | 2020-11-19 13:23 | ED.GENADULT ---
HPI - General Adult General Chief complaint: Skin/Abscess/Foreign Body Stated complaint: infected ulcer on left breast Time Seen by Provider: 11/19/20 13:23 Source: patient and RN notes reviewed Mode of arrival: ambulatory Limitations: no limitations History of Present Illness HPI narrative: 60-year-old female presents with complaints of wounds to LT breast for the past 52 weeks. Dori reports increasing drainage, redness, swelling, and pain over the past 2 weeks. ?Routine care per wound nurse and PMD, removal of tape causes increasing irritation. History of diabetic ulcer current under treatment. ?No streaking. ?Denies fever or chills. ?Denies nausea, vomiting, and abdominal pain. Tolerating liquids well. Remains active. ?The patient reports she has not been diagnosed with COVID-19. ?The patient reports she is not waiting for the results of a COVID-19 lab test. ?The patient reports she does not have weakness, fatigue, or myalgia. ?The patient reports she does not have a new or worsening cough or shortness of breath. ?The patient reports she does not have any rhinorrhea, congestion, loss of taste, sore throat, and diarrhea. Denies recent traveling. Denies concerns for COVID-19 or exposures. ?At this time, the patient is not suspected of having COVID-19 Some parts of this dictation were generated by voice recognition software and may contain typographical and/or grammatical inaccuracies. Related Data Home Medications Medication Instructions Recorded Confirmed albuterol sulfate [ProAir HFA] 2 inh INHALATION Q4-6H 04/11/19 11/21/20 baclofen 5 mg PO TID PRN 04/11/19 11/21/20 duloxetine 30 mg PO TID 04/11/19 11/21/20 nortriptyline 25 mg PO TID 04/11/19 11/21/20 fluticasone fur. 100 mcg-umeclid 1 inhalation INHALATION DAILY PRN 05/03/19 11/21/20 62.5 mcg-vilant 25 mcg inhalat.powder melatonin 5 mg capsule 10 mg PO PRN PRN 05/03/19 11/21/20 travoprost 0.004 % eye drops 1 drop EACH EYE QPM 05/03/19 11/21/20 hydroxychloroquine 200 mg tablet 200 mg PO BID 07/24/19 11/21/20 Astepro 0.15%(205.5mcg) 1 spray INTRANASAL DAILY 12/14/19 11/21/20 cyanocobalamin (vitamin B-12) 1,000 mcg PO DAILY 12/14/19 11/21/20 [Vitamin B-12] leflunomide 20 mg PO DAILY 12/14/19 11/21/20 cranberry 4,200 mg PO TID 08/27/20 11/21/20 vitamin B complex [B 1 tablet PO DAILY 08/27/20 11/21/20 Complex-Vitamin B12] warfarin 5 mg tablet 5 mg PO DAILY 10/23/20 11/21/20 Allergies Allergy/AdvReac Type Severity Reaction Status Date / Time pregabalin Allergy Severe Anaphylaxis Verified 11/21/20 13:49 morphine Allergy Intermediate unknwon Verified 11/21/20 13:49 Sulfa (Sulfonamide Allergy Intermediate Hives Verified 11/21/20 13:49 Antibiotics) adhesive tape Allergy Mild BLISTERS Verified 11/21/20 13:49 bupropion Allergy Mild Other Verified 11/21/20 13:49 ipratropium Allergy Mild Dyspnea / Verified 11/21/20 13:49 SOB cefuroxime Allergy Unknown unknown Verified 11/21/20 13:49 chlordiazepoxide Allergy Unknown Irritable, Verified 11/21/20 13:49 AGGRESSION- SEE NOTE dextromethorphan Allergy Unknown unknown Verified 11/21/20 13:49 guaifenesin Allergy Unknown unknown Verified 11/21/20 13:49 meperidine Allergy Unknown Hives Verified 11/21/20 13:49 nitrofurantoin Allergy Unknown unknown Verified 11/21/20 13:49 resorcinol Allergy Unknown unknown Verified 11/21/20 13:49 simvastatin Allergy Unknown unknown Verified 11/21/20 13:49 theophylline Allergy Unknown unknonw Verified 11/21/20 13:49 trimethoprim Allergy Unknown unknown Verified 11/21/20 13:49 valsartan Allergy Unknown unknown Verified 11/21/20 13:49 Xanthines Allergy Unknown unknown Verified 11/21/20 13:49 codeine AdvReac Intermediate Nausea Verified 11/21/20 13:49 diazepam AdvReac Intermediate Agitated Verified 11/21/20 13:49 duloxetine AdvReac Unknown Dizziness Verified 11/21/20 13:49 nickel AdvReac Unknown RASH Verified 11/21/20 13:49 piroxicam AdvReac Unknown MILD SIDE Verified 11/21/20 13:49
== END 2020-11-19 13:58 | disposition home or self-care (01) ==
PROVIDERS: Emergency Provider Nurse Practitioner Family; PCP Internal Medicine
DX: N61.0 Mastitis without abscess (principal); S21.002A Unspecified open wound of left breast, initial encounter; X58.XXXA Exposure to other specified factors, initial encounter; F41.9 Anxiety disorder, unspecified; M19.90 Unspecified osteoarthritis, unspecified site; Z85.41 Personal history of malignant neoplasm of cervix uteri; J44.9 Chronic obstructive pulmonary disease, unspecified; F32.9 Major depressive disorder, single episode, unspecified; Z86.718 Personal history of other venous thrombosis and embolism; N80.9 Endometriosis, unspecified; I10 Essential (primary) hypertension; M79.7 Fibromyalgia; K21.9 Gastro-esophageal reflux disease without esophagitis; E11.622 Type 2 diabetes mellitus with other skin ulcer; E11.39 Type 2 diabetes mellitus with other diabetic ophthalmic complication; H40.9 Unspecified glaucoma; H42 Glaucoma in diseases classified elsewhere; Z86.711 Personal history of pulmonary embolism; E78.00 Pure hypercholesterolemia, unspecified; M81.0 Age-related osteoporosis without current pathological fracture; G47.30 Sleep apnea, unspecified; Z79.01 Long term (current) use of anticoagulants
CPT/HCPCS: 99213; G0463

== ENCOUNTER 2021-01-01 15:49 | Emergency (ER) | payer MEDICARE, MEDICAID, SELFPAY ==
--- NOTE | ~2021-01-01 | XR_ITS ---
EXAMINATION: XR chest 2V DATE: 01/01/2021 16:16 INDICATION: Shortness of breath and weakness TECHNIQUE: frontal and lateral views of the chest were obtained. COMPARISON: Chest radiograph and CT dated 10/10/2019 FINDINGS: Unchanged mild linear discoid atelectasis at the lingula. No other airspace opacities, pulmonary john a, pleural effusion or pneumothorax. The cardiomediastinal silhouette is normal. Mild thoracic spondy losis. IMPRESSION: 1. Chronic mild discoid atelectasis/scarring at the lingula. No other acute cardiopulmonary disease. Reviewed, dictated and finalized at location A. IMPRESSION: 1. Chronic mild discoid atelectasis/scarring at the lingula. No other acute car diopulmonary disease.
[2021-01-01 16:01] VITALS: BP 137/86; PULSE 106; RESP 20; TEMP 35.9; O2SAT 98
--- NOTE | 2021-01-01 16:04 | ECG_ITS ---
Measurements Intervals [place] Rate: 106 P: -1 NH: 152 QRS: -42 QRSD: 102 T: 28 QT: 318 QTc: 424 Interpretive Statements SINUS TACHYCARDIA VENTRICULAR PREMATURE COMPLEXES LEFT AXIS DEVIATION INCOMPLETE RIGHT BUNDLE BRANCH BLOCK CONSIDER INFERIOR INFARCT, AGE INDETERMINATE BASELINE ARTIFACT- I, II, III, AVR, AVL, AVF, V1-V6 ABNORMAL ECG Electronically Signed On 01-01-2021 20:10:42 CDT by David Go D.O.
[2021-01-01 16:17] LABS: Basophils Absolute Auto 0.1 K/mm3 (0.0-0.1); Basophils Percent Auto 1.3 % (0.2-1.2); Eosinophils Absolute Auto 0.1 K/mm3 (0-0.3); Eosinophils Percent Auto 1.7 % (0-4.4); Hematocrit 39.4 % (37.0-47.0); Hemoglobin 12.5 g/dL (12.0-15.0); Immature Granulocyte Absolute 0.03 K/mm3 (0.00-0.031); Immature Granulocyte Percent A 0.4 % (0-0.5); Lymphocytes Absolute Auto 1.64 K/mm3 (0.9-3.2); Lymphocytes Percent Auto 23.1 % (18.3-44.2); Mean Corpuscular HGB Conc 31.7 g/dl (32-36); Mean Corpuscular Hemoglobin 30.7 pg (26-34); Mean Corpuscular Volume 96.8 fl (80-100); Mean Platelet Volume 8.4 fl (7.4-10.4); Monocytes Absolute Auto 0.9 K/mm3 (0.1-0.6); Neutrophils Absolute Auto 4.3 K/mm3 (1.3-6.7); Neutrophils Percent Auto 60.5 % (45.5-73.1); Platelet Count Result 309 k/mm3 (150-375); Red Blood Count 4.07 M/mm3 (4.2-5.4); Red Cell Distribution Width 14.4 % (11.5-14.5); White Blood Count 7.1 K/mm3 (4.5-10.0)
[2021-01-01 16:28] LABS: Anion Gap 11 mmol/L (8-16); Blood Urea Nitrogen 17 mg/dL (7-17); Calcium 9.3 mg/dL (8.4-10.2); Carbon Dioxide 25 mmol/L (22-30); Chloride 99 mmol/L (98-107); Estimated CRCL calculation 58 ml/min; Estimated Glomerular Filt Rate 46; Glucose 237 mg/dL (65-110); Potassium 4.1 mmol/L (3.4-5.0); Sodium 135 mmol/L (137-145)
[2021-01-01 18:59] VITALS: BP 155/68; RESP 16; O2SAT 100
--- NOTE | 2021-01-01 19:25 | PCRCNOTE ---
Pt refused ABG. RN notified.
[2021-01-01 19:43] LABS: INR 2.4; Prothrombin Time 25.3 Seconds (11.1-14.7)
[2021-01-01 19:44] LABS: Partial Thromboplastin Time 46.2 SECONDS (22.3-36.8)
[2021-01-01 19:50] VITALS: BP 130/63; PULSE 102; RESP 15; O2SAT 96
[2021-01-01 19:50] LABS: NT Pro B Type Natriuretic Pept 20 pg/mL (5-100); Troponin I < 0.012 ng/mL (0.000-0.034)
--- NOTE | 2021-01-01 19:58 | ED.WEAKNESS ---
HPI - Weakness General Chief complaint: Weakness Stated complaint: weakness, sob, decreased energy Time Seen by Provider: 01/01/21 19:00 Source: patient and RN notes reviewed Mode of arrival: ambulatory Limitations: no limitations History of Present Illness HPI Narrative: This is a 60 year old female with history of DM, chronic anticoagulation, hypertension who presents for evaluation of fatigue and shortness of breath x 1 week. She reports shortness of breath with exertion and midsternal chest tightness. She reports chest tightness with exertion and it is nonradiating. Her tightness last for 1 hour and then it resolves. She denies fever but reports chills. She also reports left leg seems swollen but denies calf pain. She is also worried that she may have an infection. She has chronic left breast ulcer that she has been treating for several weeks. Stress test performed over 1 year ago. Related Data Home Medications Medication Instructions Recorded Confirmed baclofen 5 mg PO TID PRN 04/11/19 11/21/20 duloxetine 30 mg PO TID 04/11/19 11/21/20 nortriptyline 25 mg PO TID 04/11/19 11/21/20 fluticasone fur. 100 mcg-umeclid 1 inhalation INHALATION DAILY PRN 05/03/19 11/21/20 62.5 mcg-vilant 25 mcg inhalat.powder melatonin 5 mg capsule 10 mg PO PRN PRN 05/03/19 11/21/20 travoprost 0.004 % eye drops 1 drop EACH EYE QPM 05/03/19 11/21/20 hydroxychloroquine 200 mg tablet 200 mg PO BID 07/24/19 11/21/20 Astepro 0.15%(205.5mcg) 1 spray INTRANASAL DAILY 12/14/19 11/21/20 cyanocobalamin (vitamin B-12) 1,000 mcg PO DAILY 12/14/19 11/21/20 [Vitamin B-12] leflunomide 20 mg PO DAILY 12/14/19 11/21/20 cranberry 4,200 mg PO TID 08/27/20 11/21/20 vitamin B complex [B 1 tablet PO DAILY 08/27/20 11/21/20 Complex-Vitamin B12] warfarin 5 mg tablet 5 mg PO DAILY 10/23/20 11/21/20 Allergies Allergy/AdvReac Type Severity Reaction Status Date / Time pregabalin Allergy Severe Anaphylaxis Verified 01/01/21 19:02 morphine Allergy Intermediate unknwon Verified 01/01/21 19:02 Sulfa (Sulfonamide Allergy Intermediate Hives Verified 01/01/21 19:02 Antibiotics) adhesive tape Allergy Mild BLISTERS Verified 01/01/21 19:02 bupropion Allergy Mild Other Verified 01/01/21 19:02 ipratropium Allergy Mild Dyspnea / Verified 01/01/21 19:02 SOB cefuroxime Allergy Unknown unknown Verified 01/01/21 19:02 chlordiazepoxide Allergy Unknown Irritable, Verified 01/01/21 19:02 AGGRESSION- SEE NOTE dextromethorphan Allergy Unknown unknown Verified 01/01/21 19:02 guaifenesin Allergy Unknown unknown Verified 01/01/21 19:02 meperidine Allergy Unknown Hives Verified 01/01/21 19:02 nitrofurantoin Allergy Unknown unknown Verified 01/01/21 19:02 resorcinol Allergy Unknown unknown Verified 01/01/21 19:02 simvastatin Allergy Unknown unknown Verified 01/01/21 19:02 theophylline Allergy Unknown unknonw Verified 01/01/21 19:02 trimethoprim Allergy Unknown unknown Verified 01/01/21 19:02 valsartan Allergy Unknown unknown Verified 01/01/21 19:02 Xanthines Allergy Unknown unknown Verified 01/01/21 19:02 codeine AdvReac Intermediate Nausea Verified 01/01/21 19:02 diazepam AdvReac Intermediate Agitated Verified 01/01/21 19:02 duloxetine AdvReac Unknown Dizziness Verified 01/01/21 19:02 nickel AdvReac Unknown RASH Verified 01/01/21 19:02 piroxicam AdvReac Unknown MILD SIDE Verified 01/01/21 19:[address] [facility] VITAMIN D Allergy Unknown RASH Uncoded 01/01/21 19:02 Review of Systems Review of Systems: All systems reviewed & are unremarkable except as noted in HPI and below Constitutional: Constitutional: Reports fatigue Cardiovascular: Cardiovascular: Reports chest pain Respiratory: Respiratory: Reports cough and Reports dyspnea Gastrointestinal: Gastrointestinal: Denies abdominal pain, Denies nausea and Denies vomiting PMFSH Past Medical History Medical History (Reviewed 11/22/20 @ 09:31 by Oksana Guerrero
[2021-01-01 20:25] LABS: D Dimer < 0.22 ug/mL (<0.48)
[2021-01-01 21:16] LABS: Troponin I < 0.012 ng/mL (0.000-0.034)
[2021-01-01 21:59] VITALS: BP 167/90; PULSE 105; RESP 18; O2SAT 98
== END 2021-01-01 21:58 | disposition home or self-care (01) ==
PROVIDERS: Emergency Medicine; Emergency Provider General Practice; PCP Internal Medicine
DX: R06.00 Dyspnea, unspecified (principal); E11.9 Type 2 diabetes mellitus without complications; I10 Essential (primary) hypertension; M19.90 Unspecified osteoarthritis, unspecified site; J44.9 Chronic obstructive pulmonary disease, unspecified; E78.00 Pure hypercholesterolemia, unspecified; E07.9 Disorder of thyroid, unspecified; M79.7 Fibromyalgia; K21.9 Gastro-esophageal reflux disease without esophagitis; H40.9 Unspecified glaucoma; K58.9 Irritable bowel syndrome, unspecified; G47.30 Sleep apnea, unspecified; F41.9 Anxiety disorder, unspecified; F32.9 Major depressive disorder, single episode, unspecified; Z85.41 Personal history of malignant neoplasm of cervix uteri; Z86.718 Personal history of other venous thrombosis and embolism; Z86.711 Personal history of pulmonary embolism; Z79.01 Long term (current) use of anticoagulants; R00.0 Tachycardia, unspecified; I49.3 Ventricular premature depolarization; I45.10 Unspecified right bundle-branch block; R94.31 Abnormal electrocardiogram [ECG] [EKG]; F17.210 Nicotine dependence, cigarettes, uncomplicated; Z96.659 Presence of unspecified artificial knee joint; Z79.899 Other long term (current) drug therapy
CPT/HCPCS: 36415; 71046; 80048; 83880; 84484; 85025; 85380; 85610; 85730; 93005; 99284

== ENCOUNTER 2021-01-14 13:52 | Outpatient (CLI) | payer MEDICARE, MEDICAID, SELFPAY ==
--- NOTE | 2021-01-14 14:21 | ECHO_ITS ---
Patient Info Name: Dori Hayward Age: 60 years : 1960 Gender: Female Ht: 65 in Wt: 253 lbs BSA: 2.35 m2 HR: 107 bpm BP: 172 / 87 mmHg Heart Rhythm: Sinus Rhythm Technical Quality: Poor Exam Date: 01/14/2021 2:35 PM Exam Location: [facility] Patient Status: Outpatient Admit Date: 01/14/2021 Staff Ordering Physician: Norman Gaines APRN [employer] Water Installer: Michelle Lama RDCS Attending Provider: Norman Gaines APRN Referring Physician: Eder MARC; Exam Type: CA echo doppler color flow Study Info Indications R06.00 - Dyspnea, unspecified Complete two-dimensional, color flow and Doppler transthoracic echocardiogram is performed. Summary 1. Complete two-dimensional, color flow and Doppler transthoracic echocardiogram is performed. 2. Left ventricular chamber dimension is normal. 3. Left ventricular systolic function is normal, estimated at 55-60%. 4. The left ventricular diastolic function is grade I diastolic dysfunction. 5. E/e' 9 is minimally elevated. 6. There is small circumferential pericardial effusion. No cardiac tamponade. Left Ventricle E/e' 9 is minimally elevated. Left ventricular chamber dimension is normal. Left ventricular systolic function is normal, estimated at 55-60%. The left ventricular diastolic function is grade I diastolic dysfunction. Right Ventricle Right ventricular chamber dimension is normal. Right ventricular systolic function is normal. Left Atria Left atrial chamber dimension is normal. Right Atria Right atrial chamber dimension is normal. Aortic Valve The aortic valve is trileaflet. There is no aortic valve stenosis. There is no aortic valve regurgitation. Pulmonic Valve There is no pulmonic regurgitation. Mitral Valve There is no mitral valve stenosis. There is no mitral valve regurgitation. Tricuspid Valve There is no tricuspid valve regurgitation. Pericardium/Pleural There is small circumferential pericardial effusion. No cardiac tamponade. Inferior Vena Cava Normal inferior vena cava with >50% collapse upon inspiration consistent with normal right atrial pressure, 5 mmHg. Aorta The aortic root size at the sinus of Valsalva is normal. Left Ventricular Outflow Tract Name Value Normal LVOT 2D LVOT Diameter 2.0 cm LVOT Doppler LVOT Peak Gradient 5 mmHg LVOT Mean Gradient 2 mmHg LVOT VTI 21 cm LVOT VTI/AV VTI Ratio 0.7 LVOT Stroke Volume 68 ml LVOT CO 5.8 l/min LVOT CI 2.5 l/min/m2 Pulmonic Valve Name Value Normal RVOT Doppler RVOT Peak Gradient 2 mmHg PV Doppler
== END 2021-01-14 13:53 | disposition home or self-care (01) ==
LOC: ANHCARD 13:54
PROVIDERS: PCP Internal Medicine; Visit Provider Nurse Practitioner Family
DX: R06.00 Dyspnea, unspecified (principal); I31.3 Pericardial effusion (noninflammatory)
CPT/HCPCS: 93306

== ENCOUNTER 2021-02-17 16:22 | Outpatient (CLI) | payer MEDICARE, MEDICAID, SELFPAY ==
--- NOTE | ~2021-02-17 | US_ITS ---
US breast LT limited 02/17/2021 16:49 Indication: Breast pain. Procedure: High-resolution ultrasound of the left breast and axilla Comparison: 07/10/2020 Findings: At 3:00, 8 cm from the nipple, there is a complex mass with slightly irregular margins, and type parallel configuration measuring 1.7 x 1.7 cm. There is posterior acoustic enhancement. This is diminished in size compared with prior examination when it measured 2.8 x 1.2 x 1.1 cm. This was pre viously biopsied with diagnosis of fat necrosis. In the area of pain and burning sensation in the upp er outer quadrant of the left breast and axilla there is no discrete mass or edema. Impression: 1: No discrete mass identified in the area of patient's pain or symptoms. 2: Decreased size of complex mass at 3:00, 8 cm from the nipple in the area of ulceration, previousl y biopsy proven benign. Follow-up diagnostic mammogram is recommended for correlation. BI-RADS CATEGORY 0 - INCOMPLETE STUDY, NEED ADDITIONAL IMAGING EVALUATION. Reviewed, dictated and finalized at location A. Impression: 1: No discrete mass identified in the area of patient's pain or symptoms. 2: Decreased size of complex mass at 3:00, 8 cm from the nipple in the area of ulceration, previously biopsy proven benign. Follow-up diagnostic mammogram is recommended for correlation. BI-RADS CATEGORY 0 - INCOMPLETE STUDY, NEED ADDITIONAL IMAGING EVALUATION.
== END 2021-02-17 16:23 | disposition home or self-care (01) ==
LOC: ANHIMG 16:24
PROVIDERS: PCP Internal Medicine; Visit Provider Obstetrics & Gynecology
DX: N64.4 Mastodynia (principal)
CPT/HCPCS: 76642

== ENCOUNTER 2021-07-15 10:08 | Outpatient (CLI) | payer MEDICARE, MEDICAID, SELFPAY ==
--- NOTE | ~2021-07-15 | US_ITS ---
US breast LT limited DATE: 07/15/2021 10:45 INDICATION: Very tender left breast wound. Diabetic patient. TECHNIQUE: Real-time and color flow imaging targeted area of clinical complaint of left breast withou t COMPARISON: 02/17/2021 left breast Limited examination FINDINGS: There is diminished size of a previously reported complex mass in the lateral mid left r[address], 8 cm from nipple. The mass currently measures approximately 1.5 x 1.2 x 1.1 cm compared to previo us measurement of 1.7 x 1.7 cm on 02/17/2021 and 2.8 x 1.2 x 1.1 cm on 07/10/2020. This is reportedly b een biopsied with benign result, specifically fat necrosis. Currently there is a mixture of predomina ntly fatty and soft tissue density. There is some edge shadowing. IMPRESSION: Further decrease in size of mass at 02/17/2021, previously biopsied with diagnosis of fat necrosis. Serially decreasing size over time further suggests benign diagnosis. Reviewed, dictated and finalized at Location A. Reviewed, dictated and finalized at location A. ICULUM COACH IMPRESSION: Further decrease in size of mass at 02/17/2021, previously biopsied with diagnosis of fat necrosis. Serially decreasing size over time further sugg ests benign diagnosis.
== END 2021-07-15 10:09 | disposition home or self-care (01) ==
LOC: ANHIMG 10:09
PROVIDERS: PCP Internal Medicine
DX: S21.002D Unspecified open wound of left breast, subsequent encounter (principal); X58.XXXD Exposure to other specified factors, subsequent encounter; N60.12 Diffuse cystic mastopathy of left breast
CPT/HCPCS: 76642

== ENCOUNTER 2021-08-21 12:25 | Outpatient (CLI) | payer MEDICARE, MEDICAID, SELFPAY ==
--- NOTE | 2021-08-21 17:57 | WPDSIXMINUTE ---
Six Minute Walk Procedure Procedure Performed Pulmonary Stress Test (6 min walk) Six Minute Walk This is a 6 minute walk test. The test was performed and interpreted in accordance with the 2014 ERS/ATS task force guidelines. Of note the patient walked with a cane. The patient stopped the test at 4 minutes and 30 seconds due to shortness of breath, knee pain and hip pain. Findings: The patient's resting room air oxygen saturation measured by pulse oximetry was 99% and heart rate was 95 bpm. Patient ambulated for 152 meters and oxygen saturation remained 96 to 98%. Heart rate at the end of the study was 112 bpm. The patient did not qualify for supplemental oxygen at rest or with ambulation. There are no prior studies for comparison.
== END 2021-08-21 12:26 | disposition home or self-care (01) ==
PROVIDERS: PCP Internal Medicine; Visit Provider Physician Assistant
DX: J44.9 Chronic obstructive pulmonary disease, unspecified (principal)
CPT/HCPCS: 94618

== ENCOUNTER 2021-09-11 08:03 | Outpatient (CLI) | payer MEDICARE, MEDICAID, SELFPAY ==
[2021-09-11 08:54] LABS: Appearance Urine Clear (Clear); Bilirubin Urine Negative (Negative); Blood Urine Trace-lysed (Negative); Color Urine Yellow (Yellow); Glucose Urine UA Negative (Negative); Ketones Urine Negative (Negative); Leukocyte Esterase Ur Trace LEU/UL (Negative); Nitrate Urine Negative (Negative); Protein Urine Negative (Negative); Urobilinogen Urine 0.2 mg/dL (<2.0); pH Urine 5.5 (5.0-9.0)
[2021-09-11 09:00] LABS: Bacteria Urine Trace /hpf; Mucus Urine Rare /lpf; Squamous Epithelial Cell Urine Few /hpf (Few)
[2021-09-11 09:01] LABS: Add Urine Microscopic? YES
== END 2021-09-11 08:04 | disposition home or self-care (01) ==
LOC: ANHLAB 08:10
PROVIDERS: PCP Internal Medicine; Visit Provider Internal Medicine
DX: R30.0 Dysuria (principal)
CPT/HCPCS: 81001

== ENCOUNTER → 2022-02-14 00:44 | Outpatient (CLI) | payer MEDICARE, MEDICAID, SELFPAY ==
[2022-02-14 12:28] LABS: Influenza A QL RT-PCR Negative (Negative); Influenza B QL RT-PCR Negative (Negative); SARS-CoV-2 RNA PCR Negative
== END ==
PROVIDERS: PCP Internal Medicine; Visit Provider Internal Medicine
DX: R68.89 Other general symptoms and signs (principal); Z20.822 Contact with and (suspected) exposure to COVID-19
CPT/HCPCS: 87502; C9803; U0003; U0005

== ENCOUNTER 2022-03-03 10:00 | Outpatient (RCR) | payer MEDICARE, MEDICAID, SELFPAY ==
--- NOTE | 2022-01-08 10:44 | PTOPEVAL ---
PHYSICAL THERAPY INITIAL EVALUATION. Thank you for referring Dori Hayward to [facility].? The patient is scheduled to be seen for therapy? 2x/week for 4 weeks. Please review, sign, date and return this plan of care LUIS M. I agree with and certify that the following plan of care is medically necessary. Referring Physician Date Attending Provider: Kaleb Blum DPM *PT Outpatient Evaluation Start: 01/08/22 Evaluation Information Subjective Information Has had PT for knee Query Text:As Reported By Patient/ replacement on the same side. Family Has had pain in ankle ever since Reports had a cortisone shot and now the pain is no longer stabbing but throbs and is ache in nature. Has had a nn conduction test and states has some nn damage and also has neuropathy TKR 4 years ago, no therapy for foot. Cane started 2.5 years ago for pain on LEFT knee, will not be getting TKR for this side Feels unsteady with all the foot, and TOYIN knee pain Pain Assessment Right Foot/Feet Reported Pain Level 5 Pain Description Aching,Numbness,Shooting, Throbbing Pain Radiation Right Leg Radicular Pain Location numbness to medial calf Pain Frequency Chronic Other Pain Description current Lowest Pain Intensity 5 Greatest Pain Intensity 7 Pain Behaviors Guarding,Limping Additional Pain Comments Nothing makes it better, not STIM, topicals, ice or heat. Pain Score Pain Score 5: Self Report Additional Pain Score Comments Reports only able to stand 3 min then pain increases in knees and back Pain Relief Interventions Used By Heat,Ice,Position Change,TENS Patient Lower Extremity Range of Motion Ankle/Foot Range of Motion Right Reason Not Measured Pain Ankle Dorsiflexion With Knee Extension -20 active Ankle Dorsiflexion With Knee Extension -8 passive Ankle Dorsiflexion With Knee Flexed -6 active Ankle Dorsiflexion With Knee Flexed 0 passive Ankle Plantarflexion Range of Motion - 45 active Ankle Plantarflexion Range of Motion - 65 passive Ankle Eversion Range of Motion - Passive 15 Ankle Inversion Range of Motion - passive 17 Ankle/T
--- NOTE | 2022-01-16 11:45 | PCPTNOTE ---
Patient called & cancelled scheduled appointment this date due to food poisoning.
--- NOTE | 2022-02-10 12:53 | PTOPPROG ---
Assessment and note entered by Lubna Rees, PT, DPT Evaluation Information Assessment Status Progress Diagnosis R ankle pain and tarsal tunnel Subjective Information Pt states she is feeling crappy today. Pt states both knee and her COPD is bothering her today. She states her ankles gets better for a few days then it goes back to usual. Pt states her burning sensations have decreased. Pt reports 50% improvement in overall symptoms. She states whenever she has pain she can do her exercises and it will feel better. Pt reports hip, back, and knee pain after her assessment this date. She attributes her SOB, COPD, laziness, and deconditioning d/t the pandemic. Pt reports good compliance with her HEP but no activity outside of this. PT Clinical Summary Dori presents to therapy today for her progress report following 7 visits of therapy to treat her R ankle pain. Today she demonstrates improved active and passive ROM than is now almost equal to her L ankle. She also demonstrates improved strength but is still decreased comparably. She cannot perform a double leg heel raise without substitutions. Today she reports she is limited in her progress by knee, hip, and back pain, SOB, and decreased motivation. Continuation of skilled therapy services are indicated to improve functional ankle strength, improve functional mobility, and to return to baseline function. Treatment Frequency 1x/wk for 4 wks These treatments will address the objective and functional deficits as defined above. The patient will be advanced safely and appropriately in order for the patient to progress towards his/her prior level of function. Additional exercises will be introduced and as well as a comprehensive home exercise program upon discharge, if needed, ?to ensure carryover of functional gains achieved in the clinic. This treatment plan has been reviewed and agreement upon by the patient.
--- NOTE | 2022-03-03 10:51 | PTOPDC ---
Assessment and note entered by Lubna Rees, PT, DPT Evaluation Information Assessment Status Discharge Diagnosis R ankle pain and tarsal tunnel Subjective Information Pt states her ankles and knees are throbbing and she is out of breath today. She reports good compliance with her exercises at home, and states this keeps her ankle pain under control. She states she felt better last week when on an anti- inflammatory. Pt states she does not do any physical activity outside of her exercise because of her COPD. She states she only leaves her house for doctors appointments. Reported Pain Level Pain Score 6: Self Report Assessment PT Clinical Summary Dori presents to therapy today for her progress report following 10 visits of skilled therapy to treat her R ankle pain and tarsal tunnel . Today she demonstrates improved ankle ROM and improved ankle strength that is 80% of the uninvolved side. She demonstrates a good heel to toe pattern during ambulation. Her mobility is more limited by her L knee pain and SOB. Pt states she would like to be discharged at this time time and continue her HEP on her own. Therapist is agreeable with this POC and she will be discharged at this time. Pt also issued home walking program. Plan of Care PT Services Indicated No Treatment Frequency and to be discharged Duration
== END 2022-03-03 15:04 | disposition home or self-care (01) ==
LOC: ANHPT 10:00
PROVIDERS: PCP Internal Medicine; Referring Provider Physician Assistant Surgical; Visit Provider Podiatrist Foot & Ankle Surgery
DX: G57.51 Tarsal tunnel syndrome, right lower limb (principal)
CPT/HCPCS: 97014; 97110; 97112; 97140; 97161; 97530; G0283

== ENCOUNTER 2022-04-15 16:23 | Outpatient (CLI) | payer MEDICARE, MEDICAID, SELFPAY ==
--- NOTE | ~2022-04-15 | US_ITS ---
EXAMINATION: US pelvic complete w TV DATE: 04/15/2022 17:07 INDICATION: Pelvic pain. Status post hysterectomy and left oophorectomy. Comparison:No prior studies for comparison. TECHNIQUE: Multiple transabdominal and endovaginal sonographic images of the pelvis performed. FINDINGS: The uterus is surgically absent. The left ovary is surgically absent. The right ovary is no t visualized, likely atrophic. There is no free fluid in the pelvis. There are no abnormal masses se en on either side. IMPRESSION: 1. Unremarkable pelvic ultrasound. Reviewed, dictated and finalized at location A. 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
== END 2022-04-15 16:24 | disposition home or self-care (01) ==
LOC: ANHIMG 16:28
PROVIDERS: PCP Internal Medicine; Visit Provider Obstetrics & Gynecology
DX: R10.30 Lower abdominal pain, unspecified (principal)
CPT/HCPCS: 76830; 76856

== ENCOUNTER 2022-07-08 15:45 | Outpatient (RCR) | payer MEDICARE, MEDICAID, SELFPAY ==
--- NOTE | 2022-04-20 11:35 | PTOPEVAL1 ---
Assessment and note entered by Dinh Bella, PT Evaluation Information Assessment Status Evaluation Diagnosis L knee pain Onset chronic Subjective Information Butch reports that she has been dealing with multiple joint issues through the years involving the neck, back, R foot, R knee which she had replaced 4 years ago and reports it already breaking down, and most pressing is the L knee joint. She reports the knee is bone on bone and the doctor's want to do a replacement, but based on how short of time the R knee was feeling okay she does not want to do it. She has elected to do a genicular nerve ablation scheduled for . She has trouble with prolonged sitting, sleeping, and walking. 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 Reported Pain Level Pain Score 5,6: Self Report Additional Pain Score Comments Patient reports non radiating pain in the L knee, but does have radiating pain in the back and neck. Assessment PT Clinical Summary Butch is a 62 year old female coming into clinic with L knee pain. She also has chronic neck, back, R knee, hips, and R foot pain. She is trying to hold off getting a total knee replacement on the L knee even though she reports it is bone on bone. She is scheduled to get a L genicular nerve ablation on May 04, which this therapist is not familiar with. Plan is for the patient to be seen once a week to work on strengthening and stretching until the procedure and then re evaluate the patient after to see if there are new priorities. Modalities will also be done to help with reducing pain. Plan of Care Interventions Electrical Stimulation,Gait Training,Hot Pack/Cold Pack,Manual Therapy,Neuro Re-education,Patient/ Caregiver Education,Therapeutic Activities, Therapeutic Exercise,Ultrasound PT Services Indicated Yes Treatment Frequency and 1x/wk for 3 weeks Duration These treatments will address the objective and functional deficits as defined above. The patient will be advanced safely and appropriately in order for the patient to progress towards his/her prior level of function. Additional exercises will be introduced and as well as a comprehensive home exercise program upon discharge, if needed, ?to ensure carryover of functional gains achieved in the clinic. This treatment plan has been reviewed and agreement upon by the patient.
--- NOTE | 2022-04-27 16:38 | PCPTNOTE ---
Patient called & cancelled scheduled appointment this date due to not feeling well.
--- NOTE | 2022-06-03 15:48 | PTOPREEVAL ---
Assessment and note entered by Dinh Bella, PT Evaluation Information Assessment Status Re-evaluation Diagnosis L knee pain Onset chronic Subjective Information Patient reports that overall the pain in her knee is gone except for the inferior medial portion of the knee. She reports she has not had any call back or followup visit with the MD that did the knee ablation. L knee is more swollen than the R knee. Reported Pain Level Pain Score 6,5: Self Report Assessment PT Clinical Summary Butch is coming into the clinic for L knee pain. She was evaluated on April 20 and seen for one other visit before she had a knee ablation procedure on May 04. Compared to the evaluation the L knee is having significant decrease in range of motion and some decrease in strength. Patient also describing decreased stability in the knee and a potential meniscus tear, stating that she feels like there is a hooking feeling when she is bending and straightening out her L knee. Physical therapy recommends contacting the place she had the knee ablation done along with a referral for an ortho consult to have the knee checked out. Physical therapist feels okay with supine exercises, but would not want to progress to standing or balance activities. Plan of Care Interventions Electrical Stimulation,Gait Training,Hot Pack/Cold Pack,Manual Therapy,Neuro Re-education,Patient/ Caregiver Education,Therapeutic Activities, Therapeutic Exercise PT Services Indicated Yes Treatment Frequency and 1x/wk for 4 weeks Duration These treatments will address the objective and functional deficits as defined above. The patient will be advanced safely and appropriately in order for the patient to progress towards his/her prior level of function. Additional exercises will be introduced and as well as a comprehensive home exercise program upon discharge, if needed, ?to ensure carryover of functional gains achieved in the clinic. This treatment plan has been reviewed and agreement upon by the patient.
--- NOTE | 2022-06-16 16:09 | PCPTNOTE ---
Walked up to get Pt at 15:30. Pt was pale in complexion and clammy to the touch. Pt's Pulse 101 bpm, SpO2 98%, Temp 95.1 (tried several thermometers/forehead scanners temp was the same), BP mechanically 125/70, Manual 130/78;Per Pt her BP is usually higher. She stated her new medication causes decreased BP and has made her shaky, clammy, weak, thirsty, sleepy, forgetful, and unsteady. Encouraged Pt to go to ER due to Temp, symptoms, and decrease in her BP. She refused and chose to drive home against medical advice. Advised Pt she should go to ER.
--- NOTE | 2022-07-08 16:30 | PTOPDC ---
Assessment and note entered by Dinh Bella, PT Evaluation Information Assessment Status Discharge Diagnosis L knee pain Onset Chronic Subjective Information Patient had a L genicular ablation on May 04. The patient reports pain is better except on the medial portion of the knee. She is getting the procedure done again in another 6 months when they will do it again to see if the medial portion will be taken care of. Patient reports she feels the knee is as good as it will get right now and she is going to ask her doctor for a script to look at her R shoulder. Reported Pain Level Pain Score 5,5: Self Report Assessment PT Clinical Summary Butch is a 62 year old female coming in for L knee pain pre and post a genicular ablation. The patient has slightly better strength, but not as good of range of motion as initial evaluation. At this time the patient agree that it is best to just stick with her home exercise program and be discharged from physical therapy so she can do what is best for her pain tolerance on good days and bad days. Plan of Care PT Services Indicated No Treatment Frequency and discharged from skilled physical therapist. Duration
== END 2022-07-10 10:26 | disposition home or self-care (01) ==
LOC: ANHPT 15:45
PROVIDERS: PCP Internal Medicine; Visit Provider Physician Assistant Surgical
DX: M25.561 Pain in right knee (principal); M25.562 Pain in left knee
CPT/HCPCS: 97035; 97110; 97140; 97161

== ENCOUNTER 2022-08-25 12:30 | Outpatient (RCR) | payer MEDICARE, MEDICAID, SELFPAY ==
--- NOTE | 2022-07-27 10:56 | PTOPEVAL1 ---
Assessment and note entered by Kaylee Brown PT Evaluation Information Assessment Status Evaluation Diagnosis R shoulder Tendonitis Onset >1 month Subjective Information Pt wondering if pain is caused from using cane or how she is sleeping. They are wanting me to start using my walker' (referring to other therapist). Pt does not want to use a walker due to making her look old. Pt complains of shoulder pain with driving. Ho[place], pt did mention the shoulder pain goes to her neck. Reported Pain Level Pain Score 1: Self Report Additional Pain Score Comments Pt self reported pain lowest 1/10 and highest 5/10 Assessment PT Clinical Summary Pt is a 62 year old female who presents with R shoulder tendonitis. Pt demo reduce active R shoulder ROM when compared to the L. Pt reporting increase pain with active ROM. Pt has poor sitting /standing posture with rounded shoulders and forward head. Pt has a history of R chronic neck pain (pt noted to have pain from R side of neck to R glenohumeral joint). Pt educated on using walker vs cane to allow for not only a reduction in falls, but also better weight distribution between UE to reduce R shoulder pain - pt noted to lean heavily on cane which is used on R side. Pt educated on sleeping posture to decrease stress on joints. Pt will benefit from skilled therapy for increasing active R shoulder ROM, reducing R shoulder pain, improve posture and improving overall quality of active movements. Plan of Care Interventions Electrical Stimulation,Hot Pack/Cold Pack,Manual Therapy,Neuro Re-education,Therapeutic Activities, Therapeutic Exercise,Ultrasound PT Services Indicated Yes Treatment Frequency and 2x/week for 4 weeks. Duration These treatments will address the objective and functional deficits as defined above. The patient will be advanced safely and appropriately in order for the patient to progress towards his/her prior level of function. Additional exercises will be introduced and as well as a comprehensive home exercise program upon discharge, if needed, ?to ensure carryover of functional gains achieved in the clinic. This treatment plan has been reviewed and agreement upon by the patient.
--- NOTE | 2022-08-05 15:43 | PCPTNOTE ---
Patient called & cancelled scheduled appointment this date due to injuring her ankle.
--- NOTE | 2022-08-18 16:08 | PCPTNOTE ---
Pt cancelled her appt today due to plumbing issues.
--- NOTE | 2022-08-25 13:10 | PTOPDC ---
Assessment and note entered by Dinh Bella, PT Evaluation Information Assessment Status Discharge Diagnosis R rotator cuff tendinitis Onset >1 month Subjective Information Patient reports she is faithfully doing her exercises and not having issues with them, besides wall slides. Reports there is not much change in the pain as she has been sleeping at her daughter's house in a recliner and it puts her in a rounded posture. Reported Pain Level Pain Score 7,7,8: Self Report Assessment PT Clinical Summary Butch is a 62 year old female coming into the clinic with a diagnosis of R rotator cuff tendinitis. She was evaluated on 07/27/22 and attended 7 sessions with 2 cancelation. Patient has not met any goals and reports she would feel more comfortable doing the exercises at home. Discharged from skilled physical therapy. Plan of Care PT Services Indicated No
== END 2022-10-12 08:49 | disposition home or self-care (01) ==
LOC: ANHPT 12:30
PROVIDERS: PCP Internal Medicine
DX: M75.81 Other shoulder lesions, right shoulder (principal)
CPT/HCPCS: 97014; 97110; 97140; 97161; 97530; G0283

== ENCOUNTER 2022-11-19 13:21 | Outpatient (CLI) | payer MEDICARE, MEDICAID, SELFPAY ==
[2022-11-19 14:34] LABS: Appearance Urine Clear (Clear); Bacteria Urine None Seen /hpf; Bilirubin Urine Negative (Negative); Blood Urine Trace (Negative); Color Urine Yellow (Yellow); Glucose Urine UA Negative (Negative); Ketones Urine Negative (Negative); Leukocyte Esterase Ur Negative LEU/UL (Negative); Nitrate Urine Negative (Negative); Non Pathogenic Casts 0-2; Protein Urine Negative (Negative); RBC Urine 0-2 /hpf (0-2); Squamous Epithelial Cell Urine None seen /hpf (Few); Urobilinogen Urine 0.2 mg/dL (<2.0); WBC Urine 0-5 /hpf; pH Urine 5.5 (5.0-9.0)
[2022-11-19 14:36] LABS: Add Urine Microscopic? YES
[2022-11-19 14:42] LABS: INR 2.8; Prothrombin Time 31.4 Seconds (11.1-14.7)
== END 2022-11-19 13:22 | disposition home or self-care (01) ==
PROVIDERS: PCP Physician Assistant; Visit Provider Internal Medicine
DX: I82.409 Acute embolism and thrombosis of unspecified deep veins of unspecified lower extremity (principal); R30.0 Dysuria
CPT/HCPCS: 36415; 81001; 85610

== ENCOUNTER 2022-12-15 00:11 | Emergency (ER) | payer MEDICARE, MEDICAID, SELFPAY ==
[2022-12-15] VITALS (11 sets, daily range): BP systolic 114–167; BP diastolic 57–103; PULSE 97–102; RESP 12–22; TEMP 36.3; O2SAT 91–100
--- NOTE | ~2022-12-15 | XR_ITS ---
Clinical Indication: 01/01/2021 Dyspnea of the chest: Comparison: The lungs are clear, without focal consolidation or pleural effusion. Findings: The lungs are clear, without evidence of focal consolidation or pleural effusion. Cardiome diastinal silhouette is within normal limits. Bones and soft tissues are unremarkable. Impression: Normal chest. Reviewed, dictated and finalized at location . Impression: Normal chest.
--- NOTE | 2022-12-15 00:27 | ECG_ITS ---
Measurements Intervals [place] Rate: 97 P: 27 MD: 194 QRS: -36 QRSD: 98 T: 19 QT: 310 QTc: 395 Interpretive Statements SINUS RHYTHM LOW QRS VOLTAGE IN PRECORDIAL LEADS INCOMPLETE RIGHT BUNDLE BRANCH BLOCK POOR R WAVE PROGRESSION, ANTERIOR LEADS CONSIDER INFERIOR INFARCT, AGE INDETERMINATE ABNORMAL ECG COMPARED TO ECG 01/01/2021 19:02:25 SINUS RHYTHM NOW PRESENT Electronically Signed On 12-15-2022 6:39:12 CDT by David Go D.O.
[2022-12-15 01:05] LABS: Basophils Absolute Auto 0.1 K/mm3 (0.0-0.1); Basophils Percent Auto 0.8 % (0.2-1.2); Eosinophils Absolute Auto 0.1 K/mm3 (0-0.3); Eosinophils Percent Auto 1.2 % (0-4.4); Hematocrit 38.6 % (37.0-47.0); Immature Granulocyte Absolute 0.01 K/mm3 (0.00-0.031); Immature Granulocyte Percent A 0.2 % (0-0.5); Lymphocytes Absolute Auto 1.68 K/mm3 (0.9-3.2); Lymphocytes Percent Auto 27.8 % (18.3-44.2); Mean Corpuscular HGB Conc 33.7 g/dl (32-36); Mean Corpuscular Hemoglobin 31.7 pg (26-34); Mean Corpuscular Volume 94.1 fl (80-100); Mean Platelet Volume 9.5 fl (7.4-10.4); Monocytes Percent Auto 16.2 % (2.6-8.5); Neutrophils Absolute Auto 3.3 K/mm3 (1.3-6.7); Neutrophils Percent Auto 53.8 % (45.5-73.1); Platelet Count Result 259 k/mm3 (150-375); Red Cell Distribution Width 13.4 % (11.5-14.5)
--- NOTE | 2022-12-15 01:28 | ED.SOB ---
HPI - SOB/Dyspnea General Chief Complaint: Shortness of Breath/Dyspnea Stated Complaint: bilateral leg swelling, SOB Time Seen by Provider: 12/15/22 00:41 History of Present Illness HPI Narrative: This is a 62-year-old female, with past history of CKD, diastolic CHF, COPD, who presents to the emergency department with bilateral lower extremity swelling and progressive dyspnea on exertion for the past week. The patient denies associated chest pain, fevers or chills, cough or hemoptysis. She denies any known sick contacts or recent travel. Related Data Home Medications Medication Instructions Recorded Confirmed baclofen 10 mg tablet 5 mg PO TID PRN Muscle Spasm 04/11/19 10/25/22 duloxetine 30 mg capsule,delayed 30 mg PO TID 04/11/19 10/25/22 release nortriptyline 25 mg capsule 25 mg PO TID 04/11/19 10/25/22 melatonin 5 mg capsule 10 mg PO PRN PRN Insomnia 05/03/19 10/25/22 travoprost 0.004 % eye drops 1 drop ophthalmic (eye) QPM 05/03/19 10/25/22 (Travatan Z) hydroxychloroquine 200 mg tablet 200 mg PO BID 07/24/19 10/25/22 Astepro 0.15%(205.5mcg) 1 spray intranasal DAILY 12/14/19 10/25/22 cranberry 1,000 mg capsule 4,200 mg PO TID 08/27/20 10/25/22 oxycodone-acetaminophen 10 mg-325 1 tablet PO Q6H PRN 01/21/21 10/25/22 mg tablet gabapentin 100 mg capsule 100 mg PO TID 02/05/22 10/25/22 brimonidine 0.2 % eye drops 1 drp EACH EYE 03/18/22 10/25/22 dorzolamide 22.3 mg-timolol 6.8 1 drp EACH EYE 03/18/22 10/25/22 mg/mL eye drops Allergies Allergy/AdvReac Type Severity Reaction Status Date / Time pregabalin Allergy Severe Anaphylaxis Verified 10/23/22 09:18 morphine Allergy Intermediate unknwon Verified 10/23/22 09:18 Sulfa (Sulfonamide Allergy Intermediate Hives Verified 10/23/22 09:18 Antibiotics) adhesive tape Allergy Mild BLISTERS Verified 10/23/22 09:18 bupropion Allergy Mild Other Verified 10/23/22 09:18 ipratropium Allergy Mild Dyspnea / Verified 10/23/22 09:18 SOB cefuroxime Allergy Unknown unknown Verified 10/23/22 09:18 chlordiazepoxide Allergy Unknown Irritable, Verified 10/23/22 09:18 AGGRESSION- SEE NOTE dextromethorphan Allergy Unknown unknown Verified 10/23/22 09:18 guaifenesin Allergy Unknown unknown Verified 10/23/22 09:18 meperidine Allergy Unknown Hives Verified 10/23/22 09:18 nitrofurantoin Allergy Unknown unknown Verified 10/23/22 09:18 resorcinol Allergy Unknown unknown Verified 10/23/22 09:18 simvastatin Allergy Unknown unknown Verified 10/23/22 09:18 theophylline Allergy Unknown unknonw Verified 10/23/22 09:18 trimethoprim Allergy Unknown unknown Verified 10/23/22 09:18 valsartan Allergy Unknown unknown Verified 10/23/22 09:18 Xanthines Allergy Unknown unknown Verified 10/23/22 09:18 codeine AdvReac Intermediate Nausea Verified 10/23/22 09:18 diazepam AdvReac Intermediate Agitated Verified 10/23/22 09:18 duloxetine AdvReac Unknown Dizziness Verified 10/23/22 09:18 nickel AdvReac Unknown RASH Verified 10/23/22 09:18 piroxicam AdvReac Unknown MILD SIDE Verified 10/23/22 09:18 EFFECT PER [facility] VIT[facility] D Allergy Unknown RASH Uncoded 10/23/22 09:18 Review of Systems Review of Systems: CONSTITUTIONAL: Denies fever, chills, or sweats. EYES: Denies visual changes, redness, or discharge. ENT: Denies rhinorrhea, congestion, sore throat, or otalgia. CARDIOVASCULAR: Bilateral lower extremity swelling denies chest pain, palpitations RESPIRATORY: Dyspnea on exertion denies dyspnea. GASTROINTESTINAL: Denies abdominal pain, nausea, vomiting, or diarrhea. GENITOURINARY: Denies dysuria or hematuria. SKIN: Denies rash or itching. MUSCULOSKELETAL: Denies back pain, joint pain, or myalgia. NEUROLOGIC: Denies headache, numbness, dizziness, or weakness. PSYCHIATRIC: Denies anxiety or depression. [facility] Past Medical History Medical History Anemia Angina at rest Anxiety Arthritis Asthma Back pain of jailene
[2022-12-15 01:54] LABS: NT Pro B Type Natriuretic Pept 72 pg/mL (19.9-100); Troponin I < 0.012 ng/mL (0.000-0.034)
[2022-12-15 02:05] LABS: Alanine Aminotransferase 45 U/L (6-35); Albumin Level 4.1 g/dL (3.5-5.1); Alkaline Phosphatase 87 U/L (38-126); Anion Gap 9 mmol/L (8-16); Aspartate Amino Transferase 52 U/L (14-36); Bilirubin,Total 0.4 mg/dL (0.2-1.3); Blood Urea Nitrogen 19 mg/dL (7-17); Calcium 9.3 mg/dL (8.4-10.2); Carbon Dioxide 26 mmol/L (22-30); Chloride 97 mmol/L (98-107); Estimated CRCL calculation 69 ml/min; Estimated Glomerular Filt Rate 57; Glucose 274 mg/dL (65-110); Magnesium 1.4 mg/dL (1.6-2.3); Potassium 4.2 mmol/L (3.4-5.0); Sodium 132 mmol/L (137-145)
[2022-12-15] MEDS: FUROSEMIDE 20 MG TABLET PO (03:26)
== END 2022-12-15 03:45 | disposition home or self-care (01) ==
PROVIDERS: Emergency Provider Preventive Medicine Aerospace Medicine; PCP Physician Assistant
DX: R06.00 Dyspnea, unspecified (principal); R60.0 Localized edema; D64.9 Anemia, unspecified; R94.31 Abnormal electrocardiogram [ECG] [EKG]; I13.0 Hypertensive heart and chronic kidney disease with heart failure and stage 1 through stage 4 chronic kidney disease, or unspecified chronic kidney disease; E11.22 Type 2 diabetes mellitus with diabetic chronic kidney disease; N18.30 Chronic kidney disease, stage 3 unspecified; I50.9 Heart failure, unspecified; J44.9 Chronic obstructive pulmonary disease, unspecified; F32.A Depression, unspecified; K21.9 Gastro-esophageal reflux disease without esophagitis; Z79.01 Long term (current) use of anticoagulants; M19.90 Unspecified osteoarthritis, unspecified site; Z86.718 Personal history of other venous thrombosis and embolism; M32.9 Systemic lupus erythematosus, unspecified
CPT/HCPCS: 36415; 71046; 80053; 83735; 83880; 84484; 85025; 85380; 93005; 99284; A9270

== ENCOUNTER 2022-12-30 10:59 | Outpatient (CLI) | payer MEDICARE, MEDICAID, SELFPAY ==
[2022-12-30 12:16] LABS: Appearance Urine Clear (Clear); Bilirubin Urine Negative (Negative); Blood Urine Negative (Negative); Color Urine Yellow (Yellow); Glucose Urine UA Negative (Negative); Ketones Urine Negative (Negative); Leukocyte Esterase Ur Negative LEU/UL (NEGATIVE); Nitrate Urine Negative (Negative); Protein Urine Negative (Negative); Specific Grav Ur 1.012 (1.001-1.035); Urobilinogen Urine 0.2 mg/dL (<2.0); pH Urine 5.5 (5.0-9.0)
[2022-12-30 12:32] LABS: Add Urine Microscopic? NO
== END 2022-12-30 11:00 | disposition home or self-care (01) ==
PROVIDERS: PCP Internal Medicine; Visit Provider Physician Assistant
DX: R30.0 Dysuria (principal)
CPT/HCPCS: 36415; 81003; 85610; 87086

== ENCOUNTER 2022-12-30 11:35 | Outpatient (CLI) | payer MEDICARE, MEDICAID, SELFPAY ==
[2022-12-30 12:24] LABS: INR 2.2; Prothrombin Time 25.7 Seconds (11.1-14.7)
== END 2022-12-30 11:36 | disposition home or self-care (01) ==
PROVIDERS: PCP Internal Medicine; Visit Provider Physician Assistant
DX: I82.409 Acute embolism and thrombosis of unspecified deep veins of unspecified lower extremity (principal)
CPT/HCPCS: 36415; 85610

== ENCOUNTER 2023-01-06 12:39 | Emergency (ER) | payer MEDICARE, MEDICAID, SELFPAY ==
--- NOTE | ~2023-01-06 | CT_ITS ---
EXAMINATION: CT abdomen pelvis w con DATE: 01/06/2023 14:39 INDICATION: upper abdominal pain TECHNIQUE: Computed tomography (CT) of the abdomen and pelvis was performed with 100 mL Omnipaque-350 intravenous contrast. Automated exposure control and iterative reconstruction technique were employe d. The dose-length product was 1434.50 mGy-cm. COMPARISON: 09/19/2020. FINDINGS: Lower thorax: Coronary artery calcification. Liver: Enlarged. Diffuse fatty infiltration. Biliary/Gallbladder: Gallbladder is normal. No bile duct dilation. Pancreas: No mass or duct dilation. Spleen: Normal. Adrenals:No mass. Kidneys: No obstructing calculus. No hydronephrosis. No suspicious mass. Subcentimeter hypodensities, too small to characterize but most likely represent cysts. GI tract: No small or large bowel dilation. Appendix not visualized. Mesentery/Peritoneum: No ascites, mass, or free air. Retroperitoneum: No mass. Atherosclerotic abdominal aortic and/or arterial calcifications. Pelvis: Absent uterus. Bilateral pelvic surgical clips. Pelvic organs are otherwise within normal m[place]za its. Soft Tissues: Soft tissues and body wall unremarkable. Bones: No acute osseous finding. IMPRESSION: Hepatomegaly and steatosis. Otherwise unremarkable CT abdomen and pelvis findings. Reviewed, dictated and finalized at location K.
[2023-01-06 12:40] VITALS: BP 154/87; PULSE 104; RESP 18; TEMP 36.4; O2SAT 97
--- NOTE | 2023-01-06 12:48 | ECG_ITS ---
Measurements Intervals [place] Rate: 105 P: 42 AL: 161 QRS: -39 QRSD: 106 T: 28 QT: 346 QTc: 459 Interpretive Statements SINUS TACHYCARDIA WITH FREQUENT VENTRICULAR PREMATURE COMPLEXES MARKED LEFT AXIS DEVIATION [QRS AXIS < -30] S1-S2-S3 PATTERN, CONSISTENT WITH PULMONARY DISEASE, RVH, OR NORMAL VARIANT INCOMPLETE RIGHT BUNDLE BRANCH BLOCK [90+ ms QRS DURATION, TERMINAL R IN V1/V2, 40+ ms S IN I/aVL/V4/V5/V6] COMPARED TO ECG 12/15/2022 00:30:16 SINUS TACHYCARDIA NOW PRESENT Electronically Signed On 01-06-2023 15:26:14 CDT by Ray Driver M.D.
[2023-01-06 12:53] VITALS: BP 173/102; PULSE 107; RESP 24; O2SAT 98
[2023-01-06 13:31] VITALS: BP 161/83; PULSE 100; RESP 20; O2SAT 98
[2023-01-06] MEDS: ONDANSETRON INJ 4 MG/2 ML VIAL IV PUSH ×2 (13:34→16:11)
[2023-01-06] MEDS: SODIUM CHLORIDE 0.9% IV 1,000 ML 999 ML IV CONT (13:34)
[2023-01-06 13:36] LABS: Basophils Absolute Auto 0.1 K/mm3 (0.0-0.1); Basophils Percent Auto 0.9 % (0.2-1.2); Eosinophils Absolute Auto 0.1 K/mm3 (0-0.3); Eosinophils Percent Auto 0.9 % (0-4.4); Hematocrit 40.4 % (37.0-47.0); Hemoglobin 13.6 g/dL (12.0-15.0); Immature Granulocyte Absolute 0.02 K/mm3 (0.00-0.031); Immature Granulocyte Percent A 0.3 % (0-0.5); Lymphocytes Absolute Auto 1.52 K/mm3 (0.9-3.2); Lymphocytes Percent Auto 23.7 % (18.3-44.2); Mean Corpuscular HGB Conc 33.7 g/dl (32-36); Mean Corpuscular Hemoglobin 31.9 pg (26-34); Mean Corpuscular Volume 94.6 fl (80-100); Mean Platelet Volume 9.3 fl (7.4-10.4); Monocytes Percent Auto 15.1 % (2.6-8.5); Neutrophils Absolute Auto 3.8 K/mm3 (1.3-6.7); Neutrophils Percent Auto 59.1 % (45.5-73.1); Platelet Count Result 329 k/mm3 (150-375); Red Blood Count 4.27 M/mm3 (4.2-5.4); Red Cell Distribution Width 13.9 % (11.5-14.5); White Blood Count 6.4 K/mm3 (4.5-10.0)
[2023-01-06 13:46] LABS: INR 2.1; Partial Thromboplastin Time 37.8 SECONDS (22.3-36.8); Prothrombin Time 25.1 Seconds (11.1-14.7)
[2023-01-06 13:52] LABS: Alanine Aminotransferase 57 U/L (6-35); Albumin Level 4.2 g/dL (3.5-5.1); Alkaline Phosphatase 109 U/L (38-126); Anion Gap 11 mmol/L (8-16); Aspartate Amino Transferase 75 U/L (14-36); Bilirubin,Total 0.5 mg/dL (0.2-1.3); Blood Urea Nitrogen 9 mg/dL (7-17); Calcium 8.7 mg/dL (8.4-10.2); Carbon Dioxide 24 mmol/L (22-30); Chloride 102 mmol/L (98-107); Estimated Glomerular Filt Rate > 60; Glucose 198 mg/dL (65-110); Lipase 42 U/L (23-300); Potassium 3.2 mmol/L (3.4-5.0); Sodium 137 mmol/L (137-145)
--- NOTE | 2023-01-06 13:58 | ED.NAVMDI ---
HPI - Nausea/Vomiting/Diarrhea General Chief complaint: Nausea/Vomiting/Diarrhea Stated complaint: weakness/N/V Time Seen by Provider: 01/06/23 12:48 History of Present Illness HPI Narrative: Patient is a 62-year-old female who presents to the ER with nausea and vomiting. Ongoing for 6 days. Associated with diarrhea as well. She does have history of IBS. Due to her emesis she has been unable to keep down her chronic pain medication and her Coumadin. She reports last night she started having some chest pain that would last for 5 minutes at a time. Left side of her body overlying her breast. No pain with deep breath. No exertional chest discomfort. No aggravating or alleviating factors. Self-limiting. Patient has not been on antibiotics. Related Data Home Medications Medication Instructions Recorded Confirmed baclofen 10 mg tablet 5 mg PO TID PRN Muscle Spasm 04/11/19 12/30/22 duloxetine 30 mg capsule,delayed 30 mg PO TID 04/11/19 12/30/22 release nortriptyline 25 mg capsule 25 mg PO TID 04/11/19 12/30/22 melatonin 5 mg capsule 10 mg PO PRN PRN Insomnia 05/03/19 12/30/22 travoprost 0.004 % eye drops 1 drop ophthalmic (eye) QPM 05/03/19 12/30/22 (Travatan Z) hydroxychloroquine 200 mg tablet 200 mg PO BID 07/24/19 12/30/22 Astepro 0.15%(205.5mcg) 1 spray intranasal DAILY 12/14/19 12/30/22 cranberry 1,000 mg capsule 4,200 mg PO TID 08/27/20 12/30/22 oxycodone-acetaminophen 10 mg-325 1 tablet PO Q6H PRN 01/21/21 12/30/22 mg tablet gabapentin 100 mg capsule 100 mg PO TID 02/05/22 12/30/22 brimonidine 0.2 % eye drops 1 drp EACH EYE 03/18/22 12/30/22 dorzolamide 22.3 mg-timolol 6.8 1 drp EACH EYE 03/18/22 12/30/22 mg/mL eye drops Allergies Allergy/AdvReac Type Severity Reaction Status Date / Time pregabalin Allergy Severe Anaphylaxis Verified 01/06/23 17:38 morphine Allergy Intermediate unknwon Verified 01/06/23 17:38 Sulfa (Sulfonamide Allergy Intermediate Hives Verified 01/06/23 17:38 Antibiotics) adhesive tape Allergy Mild BLISTERS Verified 01/06/23 17:38 bupropion Allergy Mild Other Verified 01/06/23 17:38 ipratropium Allergy Mild Dyspnea / Verified 01/06/23 17:38 SOB cefuroxime Allergy Unknown unknown Verified 01/06/23 17:38 chlordiazepoxide Allergy Unknown Irritable, Verified 01/06/23 17:38 AGGRESSION- SEE NOTE dextromethorphan Allergy Unknown unknown Verified 01/06/23 17:38 guaifenesin Allergy Unknown unknown Verified 01/06/23 17:38 meperidine Allergy Unknown Hives Verified 01/06/23 17:38 nitrofurantoin Allergy Unknown unknown Verified 01/06/23 17:38 resorcinol Allergy Unknown unknown Verified 01/06/23 17:38 simvastatin Allergy Unknown unknown Verified 01/06/23 17:38 theophylline Allergy Unknown unknonw Verified 01/06/23 17:38 trimethoprim Allergy Unknown unknown Verified 01/06/23 17:38 valsartan Allergy Unknown unknown Verified 01/06/23 17:38 Xanthines Allergy Unknown unknown Verified 01/06/23 17:38 codeine AdvReac Intermediate Nausea Verified 01/06/23 17:38 diazepam AdvReac Intermediate Agitated Verified 01/06/23 17:38 duloxetine AdvReac Unknown Dizziness Verified 01/06/23 17:38 nickel AdvReac Unknown RASH Verified 01/06/23 17:38 piroxicam AdvReac Unknown MILD SIDE Verified 01/06/23 17:38 EFFECT PER [facility] VITAMIN D Allergy Unknown RASH Uncoded 01/06/23 17:38 Review of Systems Review of Systems: All systems reviewed & are unremarkable except as noted in HPI and below Constitutional: Constitutional: Reports chills, Reports fatigue and Reports fever(s) ENT: Denies nasal congestion and Denies sore throat Cardiovascular: Cardiovascular: Reports chest pain, Denies rapid heart rate and Denies radiating jaw, neck or arm pain Respiratory: Respiratory: Denies cough, Denies dyspnea and Denies wheezing Gastrointestinal: Gastrointestinal: Reports abdominal pain, Reports diarrhea, Reports nausea and Reports vomiting Genitourinary: Genitourinary: Denies dysuri
[2023-01-06] MEDS: PROMETHAZINE HCL 25 MG/ML AMPUL 12.5 MG IV PUSH (14:01)
[2023-01-06 14:03] LABS: Troponin I < 0.012 ng/mL (0.000-0.034)
[2023-01-06] MEDS: oxyCODONE/ACETAMINOPHEN (*CRX) 5-325 MG TABLET 1 TABLET PO (14:54)
[2023-01-06] MEDS: oxyCODONE HCL (*CRX) 5 MG TAB IR PO (14:54)
[2023-01-06 15:02] VITALS: BP 168/99; PULSE 96; RESP 20
[2023-01-06 17:33] VITALS: BP 135/120; PULSE 106; RESP 20; O2SAT 100
[2023-01-06 17:55] VITALS: BP 163/98; PULSE 112; RESP 23; O2SAT 97
== END 2023-01-06 18:00 | disposition home or self-care (01) ==
PROVIDERS: Emergency Provider Emergency Medicine; PCP Internal Medicine
DX: K52.9 Noninfective gastroenteritis and colitis, unspecified (principal); E11.22 Type 2 diabetes mellitus with diabetic chronic kidney disease; I12.9 Hypertensive chronic kidney disease with stage 1 through stage 4 chronic kidney disease, or unspecified chronic kidney disease; N18.30 Chronic kidney disease, stage 3 unspecified; J44.9 Chronic obstructive pulmonary disease, unspecified; N80.9 Endometriosis, unspecified; E11.39 Type 2 diabetes mellitus with other diabetic ophthalmic complication; H42 Glaucoma in diseases classified elsewhere; E07.9 Disorder of thyroid, unspecified; E53.8 Deficiency of other specified B group vitamins; E55.9 Vitamin D deficiency, unspecified; G47.33 Obstructive sleep apnea (adult) (pediatric); M32.9 Systemic lupus erythematosus, unspecified; M79.7 Fibromyalgia; M81.0 Age-related osteoporosis without current pathological fracture; K58.9 Irritable bowel syndrome, unspecified; K21.9 Gastro-esophageal reflux disease without esophagitis; F41.0 Panic disorder [episodic paroxysmal anxiety]; F32.A Depression, unspecified; Z96.659 Presence of unspecified artificial knee joint; Z90.710 Acquired absence of both cervix and uterus; Z85.41 Personal history of malignant neoplasm of cervix uteri; Z86.2 Personal history of diseases of the blood and blood-forming organs and certain disorders involving the immune mechanism; Z86.718 Personal history of other venous thrombosis and embolism; Z86.711 Personal history of pulmonary embolism; Z87.442 Personal history of urinary calculi; Z87.891 Personal history of nicotine dependence; Z79.01 Long term (current) use of anticoagulants; Z79.4 Long term (current) use of insulin; Z79.84 Long term (current) use of oral hypoglycemic drugs; R16.0 Hepatomegaly, not elsewhere classified; K76.0 Fatty (change of) liver, not elsewhere classified
CPT/HCPCS: 36415; 74177; 80053; 83690; 84484; 85025; 85610; 85730; 93005; 96361; 96374; 96375; 99284; A9270; J2405; J2550; J7030; Q9967

== ENCOUNTER 2023-01-08 12:02 | Inpatient (IN) | payer MEDICARE, MEDICAID, SELFPAY ==
[2023-01-08] VITALS (7 sets, daily range): BP systolic 141–212; BP diastolic 88–105; PULSE 93–110; RESP 14–19; TEMP 36.1–36.2; O2SAT 96–97; BMI 42.0
--- NOTE | ~2023-01-08 | US_ITS ---
EXAMINATION: US abdomen limited DATE: 01/09/2023 13:55 INDICATION: Abnormal liver function tests. TECHNIQUE: Multiple grayscale and Doppler ultrasound images of the abdomen were obtained. COMPARISON: CT abdomen and pelvis 01/06/2023 FINDINGS: The pancreas is obscured by bowel gas. There is diffuse hepatic steatosis. There is normal flow in main portal vein. The gallbladder is normal in size. No gallstones or gallbladder wall thicke fadi. The common duct is normal and measures 4 mm. IMPRESSION: 1. Diffuse hepatic steatosis. Reviewed, dictated and finalized at location A.
--- NOTE | 2023-01-08 15:11 | ECG_ITS ---
Measurements Intervals [place] Rate: 101 P: 40 TX: 176 QRS: -31 QRSD: 85 T: 18 QT: 339 QTc: 441 Interpretive Statements SINUS TACHYCARDIA LEFTWARD AXIS INCOMPLETE RIGHT BUNDLE BRANCH BLOCK ABNORMAL ECG COMPARED TO ECG 01/06/2023 12:51:58 PVCS ARE NO LONGER SEEN Electronically Signed On 01-09-2023 7:25:32 CDT by Amari Manuel M.D.
--- NOTE | 2023-01-08 15:16 | ED.NAVMDI ---
HPI - Nausea/Vomiting/Diarrhea General Chief complaint: Nausea/Vomiting/Diarrhea Stated complaint: n/v/diarrhea Time Seen by Provider: 01/08/23 14:50 Source: patient and RN notes reviewed Mode of arrival: ambulatory Limitations: no limitations History of Present Illness HPI Narrative: This is a 62 year old female who presents for evaluation of nausea and vomiting. She states she has been having nausea, vomiting and diarrhea for 8 days. She was evaluated in ER 2 days ago with labs and CT abdomen and pelvis. She given zofran, Phenergan and oxycodone in ER. She was prescribed Phenergan by her PCP 4 days ago. She has been taking Phenergan 12.5 mg bid without any relief of her nausea and vomiting. She states she is feeling weak due to her nausea, vomiting and unable to eat. She was able to take Imodium which helped her diarrhea. She states she was able to take her warfarin today. She takes warfarin for history of blood clots. She reports fleeting left chest pain that was mild. She denies chest pain now. She is concerned some of her symptoms may be due to withdrawal symptoms. She has been taking oxycodone for years and she has been unable take in 8 days. Related Data Home Medications Medication Instructions Recorded Confirmed baclofen 10 mg tablet 5 mg PO TID PRN Muscle Spasm 04/11/19 12/30/22 duloxetine 30 mg capsule,delayed 30 mg PO TID 04/11/19 12/30/22 release nortriptyline 25 mg capsule 25 mg PO TID 04/11/19 12/30/22 melatonin 5 mg capsule 10 mg PO PRN PRN Insomnia 05/03/19 12/30/22 travoprost 0.004 % eye drops 1 drop ophthalmic (eye) QPM 05/03/19 12/30/22 (Travatan Z) hydroxychloroquine 200 mg tablet 200 mg PO BID 07/24/19 12/30/22 Astepro 0.15%(205.5mcg) 1 spray intranasal DAILY 12/14/19 12/30/22 cranberry 1,000 mg capsule 4,200 mg PO TID 08/27/20 12/30/22 oxycodone-acetaminophen 10 mg-325 1 tablet PO Q6H PRN 01/21/21 12/30/22 mg tablet gabapentin 100 mg capsule 100 mg PO TID 02/05/22 12/30/22 brimonidine 0.2 % eye drops 1 drp EACH EYE 03/18/22 12/30/22 dorzolamide 22.3 mg-timolol 6.8 1 drp EACH EYE 03/18/22 12/30/22 mg/mL eye drops Allergies Allergy/AdvReac Type Severity Reaction Status Date / Time pregabalin Allergy Severe Anaphylaxis Verified 01/06/23 17:38 morphine Allergy Intermediate unknwon Verified 01/06/23 17:38 Sulfa (Sulfonamide Allergy Intermediate Hives Verified 01/06/23 17:38 Antibiotics) adhesive tape Allergy Mild BLISTERS Verified 01/06/23 17:38 bupropion Allergy Mild Other Verified 01/06/23 17:38 ipratropium Allergy Mild Dyspnea / Verified 01/06/23 17:38 SOB cefuroxime Allergy Unknown unknown Verified 01/06/23 17:38 chlordiazepoxide Allergy Unknown Irritable, Verified 01/06/23 17:38 AGGRESSION- SEE NOTE dextromethorphan Allergy Unknown unknown Verified 01/06/23 17:38 guaifenesin Allergy Unknown unknown Verified 01/06/23 17:38 meperidine Allergy Unknown Hives Verified 01/06/23 17:38 nitrofurantoin Allergy Unknown unknown Verified 01/06/23 17:38 resorcinol Allergy Unknown unknown Verified 01/06/23 17:38 simvastatin Allergy Unknown unknown Verified 01/06/23 17:38 theophylline Allergy Unknown unknonw Verified 01/06/23 17:38 trimethoprim Allergy Unknown unknown Verified 01/06/23 17:38 valsartan Allergy Unknown unknown Verified 01/06/23 17:38 Xanthines Allergy Unknown unknown Verified 01/06/23 17:38 codeine AdvReac Intermediate Nausea Verified 01/06/23 17:38 diazepam AdvReac Intermediate Agitated Verified 01/06/23 17:38 duloxetine AdvReac Unknown Dizziness Verified 01/06/23 17:38 nickel AdvReac Unknown RASH Verified 01/06/23 17:38 piroxicam AdvReac Unknown MILD SIDE Verified 01/06/23 17:38 EFFECT PER [facility] VITAMIN D Allergy Unknown RASH Uncoded 01/06/23 17:38 Review of Systems Constitutional: Constitutional: Reports weakness Cardiovascular: Cardiovascular: Denies syncope, Denies rapid heart rate, Denies irregular heart rhythm, Denies leg gaston
[2023-01-08] MEDS: SODIUM CHLORIDE 0.9% IV 1,000 ML 999 ML IV CONT (15:37)
[2023-01-08] MEDS: ONDANSETRON INJ 4 MG/2 ML VIAL IV PUSH ×2 (15:38→20:00)
[2023-01-08] MEDS: HYDROmorphone HCL INJ (*CRX) 1 MG/ML SYR 0.5 MG IV PUSH (15:41)
[2023-01-08 15:51] LABS: Basophils Percent Auto 0.6 % (0.2-1.2); Eosinophils Absolute Auto 0.1 K/mm3 (0-0.3); Eosinophils Percent Auto 0.8 % (0-4.4); Hematocrit 42.7 % (37.0-47.0); Hemoglobin 14.6 g/dL (12.0-15.0); Immature Granulocyte Absolute 0.03 K/mm3 (0.00-0.031); Immature Granulocyte Percent A 0.4 % (0-0.5); Lymphocytes Absolute Auto 1.62 K/mm3 (0.9-3.2); Lymphocytes Percent Auto 22.5 % (18.3-44.2); Mean Corpuscular HGB Conc 34.2 g/dl (32-36); Mean Corpuscular Hemoglobin 32.1 pg (26-34); Mean Corpuscular Volume 93.8 fl (80-100); Monocytes Percent Auto 13.2 % (2.6-8.5); Neutrophils Absolute Auto 4.5 K/mm3 (1.3-6.7); Neutrophils Percent Auto 62.5 % (45.5-73.1); Platelet Count Result 296 k/mm3 (150-375); Red Blood Count 4.55 M/mm3 (4.2-5.4); Red Cell Distribution Width 13.6 % (11.5-14.5); White Blood Count 7.2 K/mm3 (4.5-10.0)
[2023-01-08 16:01] LABS: Prothrombin Time 24.4 Seconds (11.1-14.7)
[2023-01-08 16:02] LABS: Alanine Aminotransferase 67 U/L (6-35); Albumin Level 4.5 g/dL (3.5-5.1); Alkaline Phosphatase 127 U/L (38-126); Anion Gap 12 mmol/L (8-16); Aspartate Amino Transferase 69 U/L (14-36); Bilirubin,Total 0.6 mg/dL (0.2-1.3); Blood Urea Nitrogen 10 mg/dL (7-17); Calcium 9.1 mg/dL (8.4-10.2); Carbon Dioxide 26 mmol/L (22-30); Chloride 99 mmol/L (98-107); Estimated CRCL calculation 96 ml/min; Estimated Glomerular Filt Rate > 60; Glucose 184 mg/dL (65-110); Lipase 48 U/L (23-300); Partial Thromboplastin Time 39.2 SECONDS (22.3-36.8); Potassium 2.9 mmol/L (3.4-5.0); Sodium 137 mmol/L (137-145)
[2023-01-08 16:12] LABS: Appearance Urine Clear (Clear); Bacteria Urine None Seen /hpf; Bilirubin Urine Negative (Negative); Blood Urine 1+ (Negative); Color Urine Yellow (Yellow); Glucose Urine UA Negative (Negative); Ketones Urine Negative (Negative); Leukocyte Esterase Ur Negative LEU/UL (Negative); Need Manual Microscopic Reviewed; Nitrate Urine Negative (Negative); Non Pathogenic Casts 0-2; Protein Urine 2+ mg/dL (Negative); Specific Grav Ur 1.016 (1.001-1.035); Squamous Epithelial Cell Urine Few /hpf (Few); WBC Urine 0-5 /hpf; pH Urine 6.5 (5.0-9.0)
[2023-01-08 16:14] LABS: Troponin I < 0.012 ng/mL (0.000-0.034)
[2023-01-08 16:16] LABS: Add Urine Microscopic? YES
[2023-01-08 16:33] LABS: Magnesium 1.3 mg/dL (1.6-2.3)
--- NOTE | 2023-01-08 16:47 | IVDEFINITY ---
Prior to administration of IV Definity the patient was educated on the risks and benefits of the imaging enhancing agent including potential adverse side effects. The patient verbalized understanding. Allergies were verified. No exclusion criteria were identified and at least one of the following inclusion criteria were met: 1) physician request, 2) patient technically difficult to image (per the [place] [employer] Echocardi[employer] guidelines of two or more segments not discernable within the apical view), or 3) questionable left ventricular function. ?
[2023-01-08] MEDS: lisinopriL 20 MG TABLET PO (16:59)
[2023-01-08] MEDS: amLODIPine BESYLATE 5 MG TABLET PO (16:59)
[2023-01-08] MEDS: MAGNESIUM SULF 4 GM/WATER100ML 4 GM/100 ML BAG IVPB (17:00)
[2023-01-08] MEDS: POTASSIUM CHLORIDE INJ 40 MEQ in SODIUM CHLORIDE 0.9% IV 500 ML 130 MEQ IVPB (17:40)
--- NOTE | 2023-01-08 18:00 | PM.IMHP ---
H&P: HPI History of Present Illness Date/Time: 01/08/23 16:30 Chief Complaint: Nausea and vomiting. Narrative: This is a 62-year-old female with multiple medical problems including chronic pain syndrome on long-term opiates, gastroesophageal reflux disease, hypertension, hyperlipidemia, DVT/PE on chronic anticoagulation, type 2 diabetes mellitus, and other comorbidities who presented to the emergency department for evaluation of nausea, vomiting, and diarrhea. The patient provides the following history. She gives an 8 day history of persistent nausea, vomiting, and diarrhea. She was seen in the ED on the afternoon of the for evaluation of these symptoms. CT of the abdomen and pelvis at that time showed hepatomegaly and steatosis without any acute findings. She was diagnosed with gastroenteritis, was she was supportive care, and she was discharged home. Unfortunately her symptoms have persisted. She estimates having 5 loose stools a day (no blood or mucus noted) and she is unable to keep down food or medication for longer than 20 to 30 minutes. She is wondering if some of her symptoms may be due to opiate withdrawal as she has not been able to hold down her oxycodone which she has taken every 8 hours for many years for her chronic pain. She called Dr. Vee's office today and she cannot get an appointment for weeks and she decided come back to the ER. She states that her GERD symptoms are as per usual and have not been worse. No history of peptic ulcers or gastroparesis. She denies sick contacts, recent travel, and antibiotic use. She denies fever, chills, sweats, melena, hematochezia, and hematemesis. Review of Systems Review of Systems: Twelve systems were reviewed and are negative except for as per HPI. [facility] Past Medical History Medical History (Updated 01/09/23 @ 00:23 by Jane Le PA-C) Anemia Anxiety Arthritis Asthma Bronchitis Cervical cancer Chronic anticoagulation Chronic kidney disease, stage 3 Chronic obstructive pulmonary disease Chronic pain syndrome Chronically on opiate therapy Deep venous thrombosis Degenerative disc disease Depression Endometriosis Essential (primary) hypertension Fibrocystic breast changes Fibromyalgia Gastro-esophageal reflux disease without esophagitis Glaucoma History of radioactive iodine thyroid ablation Hyperlipidemia Hypertension Irritable bowel syndrome Kidney stones Nasal septal deviation Neuroectodermal tumor Neuropathy Nocturnal hypoxia Obstructive sleep apnea Osteoporosis Ovarian cyst Panic disorder Postmenopausal Pulmonary embolism Systemic lupus erythematosus Type 2 diabetes mellitus Vitamin B12 deficiency Vitamin D deficiency, unspecified Surgical History Surgical History (Updated 01/09/23 @ 00:19 by Jane Le PA-C) History of appendectomy History of bladder surgery History of hysterectomy History of inguinal hernia repair History of knee replacement History of left breast biopsy History of oophorectomy Family History Family History Father Hypertension Family history of diabetes mellitus in first degree relative Family history of heart disease in male family member before age 55 Mother Hypertension Family history of diabetes mellitus in first degree relative Family history of heart disease in male family member before age 55 Diabetes mellitus, Onset Age: 62 Sibling Family history of malignant neoplasm of cervix Other CHF (congestive heart failure), NYHA class I Social History Social History (Updated 01/08/23 @ 20:55 by Jane Le PA-C) Social History: Code status: Full code. Smoking packs per day: 3 Smoking cigarettes per day: 60.0 Years smoked: 10 Smoking pack-years: 30.00 Smoking status: Former smoker Tobacco type: cigarettes Second hand tobacco smoke exposure: No Smoking end date: 11/21/94 Alcohol intake: never
[2023-01-08] MEDS: oxyCODONE/ACETAMINOPHEN (*CRX) 10-325 MG TABLET 1 TAB PO (19:57)
--- NOTE | 2023-01-08 21:37 | ADMGEN ---
This patient, Dori Hayward, was admitted to 3 Med Surg Room 302-01 @1930. Patient/family oriented to hospital policies and general routines including ID bracelet, bed and alarms, visiting hours, pain management, procedures, bathroom and other care routines, personal items, smoking policy, room service/diet, and visiting hours. Information on how to activate the Rapid Response Team has been discussed. Patient/Family are encouraged to report perceived risks to care and to ask questions if they do not understand what they are told or what they should do.
[2023-01-08] MEDS: HYDROmorphone HCL INJ (*CRX) 1 MG/ML SYR IV PUSH (23:08)
[2023-01-09] VITALS (13 sets, daily range): BP systolic 112–151; BP diastolic 68–95; PULSE 85–106; RESP 13–22; TEMP 36.1–36.9; O2SAT 92–98
[2023-01-09] MEDS: LACTATED RINGERS 1,000 ML 125 ML IV CONT ×2 (00:04→12:45)
[2023-01-09] MEDS: HYDROmorphone HCL INJ (*CRX) 1 MG/ML SYR IV PUSH ×4 (02:34→23:43)
[2023-01-09 02:36] LABS: Basophils Absolute Auto 0.1 K/mm3 (0.0-0.1); Basophils Percent Auto 0.7 % (0.2-1.2); Eosinophils Absolute Auto 0.1 K/mm3 (0-0.3); Hematocrit 43.4 % (37.0-47.0); Hemoglobin 14.7 g/dL (12.0-15.0); Immature Granulocyte Absolute 0.03 K/mm3 (0.00-0.031); Immature Granulocyte Percent A 0.4 % (0-0.5); Lymphocytes Absolute Auto 2.05 K/mm3 (0.9-3.2); Lymphocytes Percent Auto 28.4 % (18.3-44.2); Mean Corpuscular HGB Conc 33.9 g/dl (32-36); Mean Corpuscular Volume 94.6 fl (80-100); Mean Platelet Volume 9.3 fl (7.4-10.4); Monocytes Percent Auto 13.7 % (2.6-8.5); Neutrophils Percent Auto 55.8 % (45.5-73.1); Platelet Count Result 320 k/mm3 (150-375); Red Blood Count 4.59 M/mm3 (4.2-5.4); Red Cell Distribution Width 14.1 % (11.5-14.5); White Blood Count 7.2 K/mm3 (4.5-10.0)
[2023-01-09] MEDS: ONDANSETRON INJ 4 MG/2 ML VIAL IV PUSH ×4 (02:47→17:46)
[2023-01-09 02:48] LABS: INR 1.9; Prothrombin Time 22.7 Seconds (11.1-14.7)
[2023-01-09 02:53] LABS: Alanine Aminotransferase 66 U/L (6-35); Albumin Level 4.4 g/dL (3.5-5.1); Alkaline Phosphatase 128 U/L (38-126); Anion Gap 11 mmol/L (8-16); Aspartate Amino Transferase 77 U/L (14-36); Bilirubin,Total 0.6 mg/dL (0.2-1.3); Blood Urea Nitrogen 10 mg/dL (7-17); Carbon Dioxide 19 mmol/L (22-30); Chloride 103 mmol/L (98-107); Estimated CRCL calculation 85 ml/min; Estimated Glomerular Filt Rate > 60; Glucose 167 mg/dL (65-110); Magnesium 2.6 mg/dL (1.6-2.3); Potassium 3.3 mmol/L (3.4-5.0); Sodium 133 mmol/L (137-145)
[2023-01-09 04:08] LABS: Hepatitis B Surface Antigen Negative (Negative)
[2023-01-09 04:14] LABS: HAV RESULT Negative (Negative)
[2023-01-09 04:15] LABS: Hepatitis B Core IgM Result Negative (Negative)
[2023-01-09] MEDS: oxyCODONE/ACETAMINOPHEN (*CRX) 10-325 MG TABLET 1 TAB PO (04:25)
[2023-01-09 04:26] LABS: Hepatitis C Virus Antibody Negative (Negative)
[2023-01-09] MEDS: LEVOTHYROXINE SODIUM 25 MCG TABLET PO (06:07)
[2023-01-09] MEDS: LEVOTHYROXINE SODIUM 100 MCG TABLET 200 MCG PO (06:10)
[2023-01-09 06:14] LABS: Glucose Point of Care 153 mg/dl (65-105)
[2023-01-09] MEDS: amLODIPine BESYLATE 5 MG TABLET PO (09:16)
[2023-01-09] MEDS: DULoxetine HCL 60 MG CAPSULE.DR PO ×3 (09:17→18:48)
[2023-01-09] MEDS: BRIMONIDINE TARTRATE 0.2% OP SOLN 5 ML BTL 1 DROP RIGHT EYE ×2 (09:17→20:25)
[2023-01-09] MEDS: GABAPENTIN 300 MG CAPSULE PO ×3 (09:17→18:48)
[2023-01-09] MEDS: PANTOPRAZOLE 40 MG TABLET PO (09:17)
[2023-01-09] MEDS: MAGNESIUM OXIDE 400 MG TABLET PO (09:17)
[2023-01-09] MEDS: NORTRIPTYLINE HCL 25 MG CAPSULE PO ×3 (09:17→18:48)
[2023-01-09] MEDS: ROSUVASTATIN 20 MG TABLET 40 MG PO (09:17)
[2023-01-09] MEDS: GLIMEPIRIDE 2 MG TABLET PO ×2 (09:18→18:48)
[2023-01-09] MEDS: OMEGA 3 POLYUNSAT FATTY ACIDS 1 GM CAP 2 GM PO (09:18)
[2023-01-09] MEDS: HYDROXYCHLOROQUINE SULFATE 200 MG TABLET PO ×2 (09:18→18:48)
[2023-01-09] MEDS: INSULIN GLARGINE (*BKC) 100 UNITS/ML 10 UNITS SUB-Q (09:19)
[2023-01-09] MEDS: FLUTICASONE/UMECLIDIN/VILANTER 100-62.5-25 MCG ELLIPTA 1 PUFF INHALATION (09:25)
--- NOTE | 2023-01-09 10:24 | WPDGICN ---
Assessment and Plan Assessment and plan (1) Intractable vomiting with nausea: Code(s): R11.2 - Nausea with vomiting, unspecified Status: Acute Assessment and Plan: Patient admitted with a primary complaint of ongoing nausea vomiting. Differential diagnosis for this is quite broad. She is chronically on narcotics which may contribute to this. She states she has not taken them much over the last week and a half suggesting she may have some withdrawal. She has underlying diabetes ease raising the question of diabetic gastroparesis. She suffers with chronic pain as well. Plan for IV rehydration. Caution with narcotic pain control as as necessary for back pain. She likely would benefit from pain management follow-up. Correct her electrolytes which reveal a low potassium and low magnesium on presentation. We will follow with you as her treatment progresses. (2) Type 2 diabetes mellitus: Code(s): E11.9 - Type 2 diabetes mellitus without complications Status: Acute Assessment and Plan: Patient with underlying diabetes. Strict control of blood glucose may help with nausea and vomiting. If nausea vomiting persist after rehydration ultimate gastric emptying scan can be performed but would defer this still she is more imbalance with her electrolytes. (3) Chronic anticoagulation: Code(s): Z79.01 - [facility] (current) use of anticoagulants Status: Acute (4) Morbid obesity with BMI of 40.0-44.9, adult: Code(s): E66.01 - Morbid (severe) obesity due to excess calories; Z68.41 - Body mass index [BMI] 40.0-44.9, adult Status: Acute (5) Polypharmacy: Code(s): Z79.899 - Other longterm (current) drug therapy Status: Acute Assessment and Plan: Patient on multiple medications which likely contribute to some of her nausea vomiting and difficulties. Limit And consolidate medications as much as feasible. (6) Chronic back pain: Code(s): M54.9 - Dorsalgia, unspecified; G89.29 - Other chronic pain Status: Acute (7) Chronically on opiate therapy: Code(s): Z79.891 - [facility] (current) use of opiate analgesic Status: Acute (8) WICK (nonalcoholic steatohepatitis): Code(s): K75.81 - Nonalcoholic steatohepatitis (WICK) Status: Acute Assessment and Plan: very mild elevation of LFTs suggestive of fatty liver more than anything else. Hepatitis viral serologies are negative. Would encourage weight loss and continue to monitor this conservatively at present. GI Consult Note Consult date/time: 01/09/23 10:24 Reason for consult: Nausea and vomiting HPI: Dori Hayward is a 62 year old female I am asked to see at the request of the hospitalist service. Patient has multiple medical problems. She has chronic pain for which she typically is on oxycodone. Patient states she has had difficulty taking this over the last week or 2 because of significant nausea vomiting. Because of nausea vomiting she has been seen in the emergency room several days ago and then a week or 2 ago. Patient was found to have significant electrolyte imbalance was admitted the hospital for IV hydration replacement of electrolytes, and pain control. She has chronic back pain followed by Pain Clinic. She states it radiates down her right leg. She has diffuse body aches that she attributes to rheumatoid arthritis. 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 She has an underlying history of diabetes mellitus. She is obese is felt to have fatty liver. Pain is controlled with narcotics typically but these have not been as reliable over the last week or 2 that she has had nausea vomiting. Patient states some improvement after rehydration overnight. Review of Systems Review of Systems: Review of systems noncontributory. [facility] Past Medical History Medical History (Updated 01/09/23 @ 10:35 by Donato Vee MD) Anemia Anxiety Arth
[2023-01-09 11:59] LABS: Glucose Point of Care 152 mg/dl (65-105)
--- NOTE | 2023-01-09 13:02 | PM.IMPN ---
Progress Note: A&P Assessment and Plan (1) Intractable vomiting with nausea: Code(s): R11.2 - Nausea with vomiting, unspecified Status: Acute Assessment and Plan: Etiology of her symptoms is not entirely clear. I would suspect if she had a gastroenteritis that her symptoms would resolved by now. Differential of opiate withdrawal, gastroparesis, GERD, gastroenteritis, Marijuana induced... Recent CT did not reveal cause of N/V/D IV fluid hydration P.r.n. analgesics and antiemetics She is a patient of Dr. Vee and have asked him to see her in consultation per her request. (2) Hypokalemia: Code(s): E87.6 - Hypokalemia Status: Acute Assessment and Plan: Likely due to nausea vomiting diarrhea. Replace as necessary. (3) Hypomagnesemia: Code(s): E83.42 - Hypomagnesemia Status: Acute Assessment and Plan: Likely due to nausea vomiting diarrhea. Replace as necessary. (4) Type 2 diabetes mellitus: Qualifiers: Diabetes mellitus exterminator termite insulin use: without custodial use Diabetes mellitus complication status: with hyperglycemia Qualified Code(s): E11.65 - Type 2 diabetes mellitus with hyperglycemia Code(s): E11.9 - Type 2 diabetes mellitus without complications Status: Chronic Assessment and Plan: Insulin Lispro sliding scale, Accu-checks qAc and HS and Hold oral hypoglycemics Initiate hypoglycemic precautions Most recent A1c 7.5 (5) Chronically on opiate therapy: Code(s): Z79.891 - [facility] (current) use of opiate analgesic Status: Chronic Assessment and Plan: History of chronic pain. (6) Chronic anticoagulation: Code(s): Z79.01 - [facility] (current) use of anticoagulants Status: Chronic Assessment and Plan: On warfarin. INR 1.9. Patient does have history of DVT. Cannot find any history of AFib in her chart. (7) Abnormal LFTs: Code(s): R79.89 - Other specified abnormal findings of blood chemistry Status: Acute Assessment and Plan: Her LFTs are mildly elevated though her abdominal exam is benign. CT scan done last week showed hepatic steatosis which is likely the cause of her elevated liver enzymes however will check hepatitis panel for completeness sake. Subjective Date/time seen: 01/09/23 13:02 Interval history: Patient has not had any vomiting or diarrhea since being at the hospital. She states that her last episode of diarrhea was the morning prior to ED presentation and she had vomiting on the way to the ED. She continues to have nausea. She denies any hematochezia or melena or hematemesis. States that she was throwing up 3 times an hour for 9 days. Exam Narrative: GENERAL: Comfortable, no acute distress, morbid obesity HENMT: moist mucous membranes EYES: EOM intact b/l RESPIRATORY: clear to auscultation CARDIO: RRR GI: soft, nontender, bowel sounds present SKIN: no rashes EXTREMITIES: no edema, redness or tenderness Objective Data Vital Signs Vital Signs: Vital Signs - 24 hr 01/08/23 16:21 01/08/23 16:22 01/08/23 16:22 Temperature Pulse Rate 105 H 104 H 103 H Respiratory Rate 16 Blood Pressure 182/88 H 201/95 H 212/104 H Pulse Oximetry 96 Oxygen Delivery Fraction of Inspired Oxygen 01/08/23 16:26 01/08/23 17:47 01/08/23 18:15 Temperature Pulse Rate 110 H 104 H 96 Respiratory Rate 19 16 Blood Pressure 195/105 H 164/91 H 160/90 H Pulse Oximetry 96 97 Oxygen Delivery Fraction of Inspired Oxygen 01/08/23 21:41 01/09/23 02:25 01/09/23 00:00 Temperature 96.9 F L Pulse Rate 93 105 H 105 H Respiratory Rate 14 Blood Pressure 141/90 H 149/95 H Pulse Oximetry 96 Oxygen Delivery Fraction of Inspired Oxygen 01/09/23 04:20 01/09/23 05:37 01/09/23 04:00 Temperature 96.9 F L Pulse Rate 99 101 H 102 H Respiratory Rate 16 Blood Pressure 122/90 122/77 Pulse Oximetry 96 Oxygen Deliv
[2023-01-09 15:05] LABS: Potassium 3.1 mmol/L (3.4-5.0)
[2023-01-09] MEDS: POTASSIUM CHLORIDE INJ 40 MEQ in SODIUM CHLORIDE 0.9% IV 500 ML 130 MEQ IVPB (17:48)
[2023-01-09] MEDS: WARFARIN (*PBKC) 5 MG TABLET PO (18:48)
[2023-01-09 18:57] LABS: Glucose Point of Care 126 mg/dl (65-105)
[2023-01-09] MEDS: PANTOPRAZOLE SODIUM IV 40 MG VIAL IV PUSH (20:24)
[2023-01-09] MEDS: LATANOPROST 0.005% OP SOLN 2.5 ML BTL 1 DROP EACH EYE (20:26)
[2023-01-09] MEDS: DORZOLAMIDE/TIMOLOL OPHTH SOL 10 ML BOTTLE 1 DROP RIGHT EYE (20:35)
[2023-01-09 23:34] LABS: Glucose Point of Care 98 mg/dl (65-105)
[2023-01-10] VITALS (12 sets, daily range): BP systolic 117–142; BP diastolic 59–83; PULSE 83–109; RESP 13–18; TEMP 35.7–36.8; O2SAT 95–98
[2023-01-10] MEDS: BACLOFEN 5 MG TABLET PO (02:26)
[2023-01-10 04:45] LABS: Glucose Point of Care 94 mg/dl (65-105)
[2023-01-10] MEDS: LACTATED RINGERS 1,000 ML 100 ML IV CONT (06:03)
[2023-01-10] MEDS: LEVOTHYROXINE SODIUM 100 MCG TABLET 200 MCG PO (06:16)
[2023-01-10] MEDS: LEVOTHYROXINE SODIUM 25 MCG TABLET PO (06:16)
[2023-01-10] MEDS: HYDROmorphone HCL INJ (*CRX) 1 MG/ML SYR IV PUSH ×4 (06:24→21:03)
[2023-01-10 06:33] LABS: Hematocrit 36.2 % (37.0-47.0); Hemoglobin 11.9 g/dL (12.0-15.0); Mean Corpuscular HGB Conc 32.9 g/dl (32-36); Mean Corpuscular Volume 97.3 fl (80-100); Mean Platelet Volume 9.4 fl (7.4-10.4); Platelet Count Result 264 k/mm3 (150-375); Red Blood Count 3.72 M/mm3 (4.2-5.4); Red Cell Distribution Width 14.3 % (11.5-14.5)
[2023-01-10 06:43] LABS: Prothrombin Time 23.6 Seconds (11.1-14.7)
[2023-01-10 06:44] LABS: Alanine Aminotransferase 64 U/L (6-35); Albumin Level 3.6 g/dL (3.5-5.1); Alkaline Phosphatase 102 U/L (38-126); Anion Gap 5 mmol/L (8-16); Aspartate Amino Transferase 85 U/L (14-36); Bilirubin,Total 0.5 mg/dL (0.2-1.3); Blood Urea Nitrogen 9 mg/dL (7-17); Calcium 8.4 mg/dL (8.4-10.2); Carbon Dioxide 27 mmol/L (22-30); Chloride 104 mmol/L (98-107); Estimated CRCL calculation 85 ml/min; Estimated Glomerular Filt Rate > 60; Glucose 94 mg/dL (65-110); Potassium 3.2 mmol/L (3.4-5.0); Sodium 136 mmol/L (137-145)
[2023-01-10] MEDS: FLUTICASONE/UMECLIDIN/VILANTER 100-62.5-25 MCG ELLIPTA 1 PUFF INHALATION (09:02)
[2023-01-10] MEDS: BRIMONIDINE TARTRATE 0.2% OP SOLN 5 ML BTL 1 DROP RIGHT EYE ×2 (09:14→21:02)
[2023-01-10] MEDS: amLODIPine BESYLATE 5 MG TABLET PO (09:14)
[2023-01-10] MEDS: DULoxetine HCL 60 MG CAPSULE.DR PO ×3 (09:14→17:20)
[2023-01-10] MEDS: GABAPENTIN 300 MG CAPSULE PO ×3 (09:15→17:21)
[2023-01-10] MEDS: HYDROXYCHLOROQUINE SULFATE 200 MG TABLET PO ×2 (09:15→17:21)
[2023-01-10] MEDS: lisinopriL 20 MG TABLET PO (09:15)
[2023-01-10] MEDS: MAGNESIUM OXIDE 400 MG TABLET PO (09:15)
[2023-01-10] MEDS: OMEGA 3 POLYUNSAT FATTY ACIDS 1 GM CAP 2 GM PO (09:16)
[2023-01-10] MEDS: PANTOPRAZOLE SODIUM IV 40 MG VIAL IV PUSH ×2 (09:16→21:02)
[2023-01-10] MEDS: NORTRIPTYLINE HCL 25 MG CAPSULE PO ×3 (09:16→17:20)
[2023-01-10] MEDS: ROSUVASTATIN 20 MG TABLET 40 MG PO (09:16)
[2023-01-10] MEDS: POTASSIUM CHLORIDE INJ 40 MEQ in SODIUM CHLORIDE 0.9% IV 500 ML 130 MEQ IVPB (09:28)
--- NOTE | 2023-01-10 09:59 | WPDGIPROGNO ---
Progress Note: A&P Assessment and Plan (1) Intractable vomiting with nausea: Code(s): R11.2 - Nausea with vomiting, unspecified Status: Acute Assessment and Plan: Nausea and vomiting seems to have resolved with IV rehydration. Electrolytes being corrected. Plan to advance diet as tolerated. Patient allowed be up in room. (2) WICK (nonalcoholic steatohepatitis): Code(s): K75.81 - Nonalcoholic steatohepatitis (WICK) Status: Acute Assessment and Plan: Patient with apparent fatty liver. Modest elevation of transaminases noted. 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 Less nausea. Anxious to start diet. Will start with bland diet and advance as tolerated Review of Systems Review of Systems: review of systems noncontributory. Exam Narrative: Patient alert today she is afebrile. Vital signs stable. HEENT exam reveals no icterus. Lungs are clear. Heart without murmur. Abdomen obese bowel sounds present soft nontender. Objective Data Vital Signs Vital Signs: Vital Signs - 24 hr 01/09/23 10:31 01/09/23 12:00 01/09/23 14:00 Temperature 97.8 F Pulse Rate 106 H 89 94 Respiratory Rate 22 H 20 Blood Pressure 151/74 H 148/79 H Pulse Oximetry 97 98 Oxygen Delivery Fraction of Inspired Oxygen 01/09/23 21:39 01/09/23 23:40 01/09/23 20:00 Temperature 98.4 F Pulse Rate 96 89 94 Respiratory Rate 13 Blood Pressure 112/68 141/73 H Pulse Oximetry 98 Oxygen Delivery Fraction of Inspired Oxygen 01/10/23 00:00 01/10/23 02:24 01/10/23 04:54 Temperature 97.5 F L Pulse Rate 88 88 83 Respiratory Rate 13 Blood Pressure 134/68 142/74 H Pulse Oximetry 97 Oxygen Delivery Fraction of Inspired Oxygen 01/10/23 04:00 01/10/23 06:23 01/10/23 09:02 Temperature Pulse Rate 95 87 Respiratory Rate Blood Pressure 136/78 Pulse Oximetry 96 Oxygen Delivery Room Air Fraction of Inspired Oxygen 01/10/23 09:02 Temperature Pulse Rate 91 Respiratory Rate 18 Blood Pressure Pulse Oximetry Oxygen Delivery Fraction of Inspired Oxygen Intake/Output Intake/Output: Intake & Output 01/07/23 01/08/23 01/09/23 01/10/23 23:59 23:59 23:59 23:59 Intake Total 1100 2500 Balance 1100 2500 Meds/Results Medications: Active Medications Generic Name Dose Route Start Last Admin Trade Name Freq PRN Reason Stop Dose Admin Albuterol 2 puff 01/09/23 00:30 Albuterol Sulfate (*Sp) Aerosol 1 Puff INHALATION Q4-6H PRN Shortness Of Breath Amlodipine Besylate 5 mg 01/09/23 09:00 01/10/23 09:14 Amlodipine Besylate 5 Mg Tablet PO 5 mg DAILY PINA Administration Azelastine HCl 2 spray 01/09/23 00:30 Azelastine Hcl Nasal 0.1% 137 Mcg/Spr 30 Ml Btl NASAL DAILY PRN ALLERGIC RHINITIS Baclofen 5 mg 01/09/23 00:29 01/10/23 02:26 Baclofen 5 Mg Tablet PO 5 mg TID PRN Administration Muscle Spasm Brimonidine Tartrate 1 drop 01/09/23 09:00 01/10/23 09:14 Brimonidine Tartrate 0.2% Op Soln 5 Ml Btl RIGHT EYE 1 drop BID PINA Administration Dextrose 12.5 gm 01/09/23 00:27 Dextrose 50% 25 Gm/50 Ml Syringe IV PUSH PRN PRN Hypoglycemia Protocol Dorzolamide/Timolol 1 drop 01/09/23 21:00 01/09/23 20:35 Dorzolamide/Timolol Opht
--- NOTE | 2023-01-10 12:20 | PM.IMPN ---
Progress Note: A&P Assessment and Plan (1) Intractable vomiting with nausea: Code(s): R11.2 - Nausea with vomiting, unspecified Status: Acute Assessment and Plan: Etiology of her symptoms is not entirely clear. I would suspect if she had a gastroenteritis that her symptoms would resolved by now. Differential of opiate withdrawal, gastroparesis, GERD, gastroenteritis, Marijuana induced... Recent CT did not reveal cause of N/V/D IV fluid hydration P.r.n. analgesics and antiemetics She is a patient of Dr. Vee and have asked him to see her in consultation per her request. 01/10 symptoms improved. Advance diet as tolerated. (2) Hypokalemia: Code(s): E87.6 - Hypokalemia Status: Acute Assessment and Plan: Likely due to nausea vomiting diarrhea. Replace as necessary. (3) Hypomagnesemia: Code(s): E83.42 - Hypomagnesemia Status: Acute Assessment and Plan: Likely due to nausea vomiting diarrhea. Replace as necessary. (4) Type 2 diabetes mellitus: Qualifiers: Diabetes mellitus complication status: with hyperglycemia Diabetes mellitus halfway insulin use: without termite treater use Qualified Code(s): E11.65 - Type 2 diabetes mellitus with hyperglycemia Code(s): E11.9 - Type 2 diabetes mellitus without complications Status: Chronic Assessment and Plan: Insulin Lispro sliding scale, Accu-checks qAc and HS and Hold oral hypoglycemics Initiate hypoglycemic precautions Most recent A1c 7.5 (5) Chronically on opiate therapy: Code(s): Z79.891 - [facility] (current) use of opiate analgesic Status: Chronic Assessment and Plan: History of chronic pain. (6) Chronic anticoagulation: Code(s): Z79.01 - long term (current) use of anticoagulants Status: Chronic Assessment and Plan: On warfarin. INR 1.9. Patient does have history of DVT. Cannot find any history of AFib in her chart. (7) Abnormal LFTs: Code(s): R79.89 - Other specified abnormal findings of blood chemistry Status: Acute Assessment and Plan: Her LFTs are mildly elevated though her abdominal exam is benign. CT scan done last week showed hepatic steatosis which is likely the cause of her elevated liver enzymes however will check hepatitis panel for completeness sake. Subjective Date/time seen: 01/10/23 12:20 Interval history: Patients symptoms improved. Intermittent nausea but no vomiting or diarrhea. Advance diet as tolerated. Exam Narrative: GENERAL: Comfortable, no acute distress, morbid obesity HENMT: moist mucous membranes EYES: EOM intact b/l RESPIRATORY: clear to auscultation CARDIO: RRR GI: soft, nontender, bowel sounds present SKIN: no rashes EXTREMITIES: no edema, redness or tenderness Objective Data Vital Signs Vital Signs: Vital Signs - 24 hr 01/09/23 14:00 01/09/23 21:39 01/09/23 23:40 Temperature 97.8 F 98.4 F Pulse Rate 94 96 89 Respiratory Rate 20 13 Blood Pressure 148/79 H 112/68 141/73 H Pulse Oximetry 98 98 Oxygen Delivery Fraction of Inspired Oxygen 01/09/23 20:00 01/10/23 00:00 01/10/23 02:24 Temperature Pulse Rate 94 88 88 Respiratory Rate Blood Pressure 134/68 Pulse Oximetry Oxygen Delivery Fraction of Inspired Oxygen 01/10/23 04:54 01/10/23 04:00 01/10/23 06:23 Temperature 97.5 F L Pulse Rate 83 95 87 Respiratory Rate 13 Blood Pressure 142/74 H 136/78 Pulse Oximetry 97 Oxygen Delivery Fraction of Inspired Oxygen 01/10/23 09:02 01/10/23 09:02 01/10/23 08:00 Temperature Pulse Rate 91 Respiratory Rate 18 Blood Pressure Pulse Oximetry 96 97 Oxygen Delivery Room Air Room Air Fraction of Inspired Oxygen 21 01/10/23 08:00 Temperature Pulse Rate 95 Respiratory Rate Blood Pressure Pulse Oximetry Oxygen Delivery Fraction of Inspi
[2023-01-10 12:31] LABS: Glucose Point of Care 176 mg/dl (65-105)
[2023-01-10 16:49] LABS: Glucose Point of Care 125 mg/dl (65-105)
[2023-01-10 16:58] LABS: Potassium 3.8 mmol/L (3.4-5.0)
[2023-01-10] MEDS: GLIMEPIRIDE 2 MG TABLET PO (17:20)
[2023-01-10] MEDS: WARFARIN (*PBKC) 5 MG TABLET PO (17:21)
[2023-01-10] MEDS: ONDANSETRON INJ 4 MG/2 ML VIAL IV PUSH (18:45)
[2023-01-10] MEDS: oxyCODONE/ACETAMINOPHEN (*CRX) 10-325 MG TABLET 1 TAB PO (18:48)
[2023-01-10] MEDS: DORZOLAMIDE/TIMOLOL OPHTH SOL 10 ML BOTTLE 1 DROP RIGHT EYE (21:02)
[2023-01-10] MEDS: LATANOPROST 0.005% OP SOLN 2.5 ML BTL 1 DROP EACH EYE (21:02)
[2023-01-10] MEDS: MELATONIN 5 MG TABLET 10 MG PO (21:37)
[2023-01-11] VITALS (7 sets, daily range): BP systolic 102–149; BP diastolic 58–69; PULSE 84–96; RESP 16; TEMP 35.7–36.1; O2SAT 96–98
[2023-01-11] MEDS: ONDANSETRON INJ 4 MG/2 ML VIAL IV PUSH (00:07)
[2023-01-11] MEDS: LACTATED RINGERS 1,000 ML 100 ML IV CONT (00:07)
[2023-01-11 00:09] LABS: Glucose Point of Care 118 mg/dl (65-105)
[2023-01-11] MEDS: HYDROmorphone HCL INJ (*CRX) 1 MG/ML SYR IV PUSH (00:17)
[2023-01-11] MEDS: LEVOTHYROXINE SODIUM 25 MCG TABLET PO (06:02)
[2023-01-11] MEDS: LEVOTHYROXINE SODIUM 100 MCG TABLET 200 MCG PO (06:02)
[2023-01-11 06:50] LABS: Basophils Absolute Auto 0.1 K/mm3 (0.0-0.1); Basophils Percent Auto 1.2 % (0.2-1.2); Eosinophils Absolute Auto 0.1 K/mm3 (0-0.3); Hemoglobin 11.2 g/dL (12.0-15.0); Immature Granulocyte Absolute 0.02 K/mm3 (0.00-0.031); Immature Granulocyte Percent A 0.4 % (0-0.5); Lymphocytes Absolute Auto 1.57 K/mm3 (0.9-3.2); Lymphocytes Percent Auto 31.9 % (18.3-44.2); Mean Corpuscular Hemoglobin 31.9 pg (26-34); Mean Corpuscular Volume 99.7 fl (80-100); Mean Platelet Volume 9.4 fl (7.4-10.4); Monocytes Percent Auto 19.3 % (2.6-8.5); Neutrophils Absolute Auto 2.2 K/mm3 (1.3-6.7); Neutrophils Percent Auto 45.2 % (45.5-73.1); Platelet Count Result 249 k/mm3 (150-375); Red Blood Count 3.51 M/mm3 (4.2-5.4); Red Cell Distribution Width 14.6 % (11.5-14.5); White Blood Count 4.9 K/mm3 (4.5-10.0)
[2023-01-11 06:56] LABS: Alanine Aminotransferase 64 U/L (6-35); Albumin Level 3.2 g/dL (3.5-5.1); Alkaline Phosphatase 86 U/L (38-126); Anion Gap 0 mmol/L (8-16); Aspartate Amino Transferase 96 U/L (14-36); Bilirubin,Total 0.3 mg/dL (0.2-1.3); Blood Urea Nitrogen 9 mg/dL (7-17); Calcium 8.2 mg/dL (8.4-10.2); Carbon Dioxide 27 mmol/L (22-30); Chloride 105 mmol/L (98-107); Estimated CRCL calculation 87 ml/min; Estimated Glomerular Filt Rate > 60; Glucose 140 mg/dL (65-110); Potassium 3.1 mmol/L (3.4-5.0); Sodium 132 mmol/L (137-145)
[2023-01-11 06:57] LABS: INR 2.4; Prothrombin Time 28.2 Seconds (11.1-14.7)
[2023-01-11] MEDS: FLUTICASONE/UMECLIDIN/VILANTER 100-62.5-25 MCG ELLIPTA 1 PUFF INHALATION (08:04)
[2023-01-11] MEDS: POTASSIUM CHLORIDE INJ 40 MEQ in SODIUM CHLORIDE 0.9% IV 500 ML 130 MEQ IVPB (09:11)
[2023-01-11] MEDS: OMEGA 3 POLYUNSAT FATTY ACIDS 1 GM CAP 2 GM PO ×2 (09:15→16:22)
[2023-01-11] MEDS: oxyCODONE/ACETAMINOPHEN (*CRX) 10-325 MG TABLET 1 TAB PO (09:15)
[2023-01-11] MEDS: HYDROXYCHLOROQUINE SULFATE 200 MG TABLET PO ×2 (09:16→16:22)
[2023-01-11] MEDS: DULoxetine HCL 60 MG CAPSULE.DR PO ×3 (09:16→16:22)
[2023-01-11] MEDS: MAGNESIUM OXIDE 400 MG TABLET PO (09:16)
[2023-01-11] MEDS: BACLOFEN 5 MG TABLET PO (09:16)
[2023-01-11] MEDS: amLODIPine BESYLATE 5 MG TABLET PO (09:16)
[2023-01-11] MEDS: ROSUVASTATIN 20 MG TABLET 40 MG PO (09:16)
[2023-01-11] MEDS: GLIMEPIRIDE 2 MG TABLET PO ×2 (09:17→16:22)
[2023-01-11] MEDS: GABAPENTIN 300 MG CAPSULE PO ×3 (09:17→16:22)
[2023-01-11] MEDS: NORTRIPTYLINE HCL 25 MG CAPSULE PO ×3 (09:17→16:23)
[2023-01-11] MEDS: INSULIN GLARGINE (*BKC) 100 UNITS/ML 10 UNITS SUB-Q (09:18)
[2023-01-11] MEDS: lisinopriL 20 MG TABLET PO (09:18)
[2023-01-11] MEDS: BRIMONIDINE TARTRATE 0.2% OP SOLN 5 ML BTL 1 DROP RIGHT EYE (09:19)
[2023-01-11] MEDS: PANTOPRAZOLE SODIUM IV 40 MG VIAL IV PUSH (09:19)
[2023-01-11] MEDS: DORZOLAMIDE/TIMOLOL OPHTH SOL 10 ML BOTTLE 1 DROP RIGHT EYE (09:28)
--- NOTE | 2023-01-11 09:39 | WPDGIPROGNO ---
Progress Note: A&P Assessment and Plan (1) Intractable vomiting with nausea: Code(s): R11.2 - Nausea with vomiting, unspecified Status: Acute Assessment and Plan: Patient has nausea vomiting appear to have improved with correction of electrolytes and IV rehydration. Plan to advance to diabetic diet. Discharge if diet tolerated. (2) WICK (nonalcoholic steatohepatitis): Code(s): K75.81 - Nonalcoholic steatohepatitis (WICK) Status: Acute Assessment and Plan: Patient with non alcoholic fatty liver. Long-term encourage weight loss. Low-fat diet encouraged long-term. (3) Chronic anticoagulation: Code(s): Z79.01 - [facility] (current) use of anticoagulants Status: Chronic Assessment and Plan: Patient on anticoagulation long-term. Continue monitor hemoglobin intermittently. (4) Chronically on opiate therapy: Code(s): Z79.891 - [facility] (current) use of opiate analgesic Status: Chronic Assessment and Plan: Opioids likely contribute to patient's nausea vomiting. Limit opioids as much as feasible. (5) Type 2 diabetes mellitus: Code(s): E11.9 - Type 2 diabetes mellitus without complications Status: Acute (6) Morbid obesity with BMI of 40.0-44.9, adult: Code(s): E66.01 - Morbid (severe) obesity due to excess calories; Z68.41 - Body mass index [BMI] 40.0-44.9, adult Status: Acute Assessment and Plan: Weight loss strongly encourage with calorie restriction increase activity. Subjective Date/time seen: 01/11/23 09:39 Interval history: Patient alert much more comfortable today. She states her nausea vomiting has resolved. Anxious to try diabetic diet. She still states that she feels weak. Review of Systems Review of Systems: Review of systems noncontributory. Exam Narrative: Physical exam reveals patient be alert. Comfortable at rest. Sitting on the edge of the bed. HEENT exam reveals no icterus. Lungs are clear. Heart without murmur. Abdomen is obese. Bowel sounds present soft nontender no organomegaly. Objective Data Vital Signs Vital Signs: Vital Signs - 24 hr 01/10/23 12:00 01/10/23 14:00 01/10/23 16:00 Temperature 98.2 F Pulse Rate 106 H 109 H 87 Respiratory Rate 18 Blood Pressure 139/83 Pulse Oximetry 98 Oxygen Delivery 01/10/23 21:41 01/10/23 19:50 01/11/23 00:00 Temperature 96.3 F L Pulse Rate 88 88 85 Respiratory Rate 18 Blood Pressure 117/59 L Pulse Oximetry 95 Oxygen Delivery 01/11/23 04:00 01/11/23 06:00 01/11/23 08:06 Temperature 96.9 F L Pulse Rate 88 96 Respiratory Rate 16 Blood Pressure 149/69 H Pulse Oximetry 98 97 Oxygen Delivery Room Air Intake/Output Intake/Output: Intake & Output 01/08/23 01/09/23 01/10/23 01/11/23 23:59 23:59 23:59 23:59 Intake Total 1100 2500 2000 Balance 1100 2500 1999 Meds/Results Medications: Active Medications Generic Name Dose Route Start Last Admin Trade Name Freq PRN Reason Stop Dose Admin Albuterol 2 puff 01/09/23 00:30 Albuterol Sulfate (*Sp) Aerosol 1 Puff INHALATION Q4-6H PRN Shortness Of Breath Amlodipine Besylate 5 mg 01/09/23 09:00 01/11/23 09:16 Amlodipine Besylate 5 Mg Tablet PO 5 mg DAILY PINA Administration Azelastine HCl 2 spray 01/09/23 00:30 Azelastine Hcl Nasal 0.1% 137 Mcg/Spr 30 Ml Btl NASAL DAILY PRN ALLERGIC RHINITIS Baclofen 5 mg 01/09/23 00:29 01/11/23 09:16 Baclofen 5 Mg Tablet PO 5 mg TID PRN Administration Muscle Spasm Brimonidine Tartrate 1 drop 01/10/23 22:00 01/11/23 09:19 Brimonidine Tartrate 0.2% Op Soln 5 Ml Btl RIGHT EYE 1 drop BID@0900,2200 PINA Administration Dextrose 12.5 gm 01/09/23 00:27 Dextrose 50% 25 Gm/50 Ml Syringe IV PUSH PRN PRN Hypoglycemia Protocol Dorzolamide/Timolol 1 drop 01/09/23 21:00 01/11/23 09:28 Dorzolamid
[2023-01-11] MEDS: INSULIN ASPART (*BKC) 100 UNITS/ML SUB-Q (12:51)
[2023-01-11 13:09] LABS: Potassium 3.5 mmol/L (3.4-5.0)
--- NOTE | 2023-01-11 14:33 | PM.DS ---
DS: Admitting Diagnosis Discharge Date 01/11/23 Admitting Diagnosis Nausea, vomiting, diarrhea DS: Discharge Diagnosis Discharge Diagnosis (1) Intractable vomiting with nausea: Code(s): R11.2 - Nausea with vomiting, unspecified Status: Acute (2) Hypokalemia: Code(s): E87.6 - Hypokalemia Status: Acute (3) Hypomagnesemia: Code(s): E83.42 - Hypomagnesemia Status: Acute (4) Type 2 diabetes mellitus: Qualifiers: Diabetes mellitus assisted insulin use: without assisted use Diabetes mellitus complication status: with hyperglycemia Qualified Code(s): E11.65 - Type 2 diabetes mellitus with hyperglycemia Code(s): E11.9 - Type 2 diabetes mellitus without complications Status: Chronic (5) Chronically on opiate therapy: Code(s): Z79.891 - buttermaker (current) use of opiate analgesic Status: Chronic (6) Chronic anticoagulation: Code(s): Z79.01 - buttermaker (current) use of anticoagulants Status: Chronic (7) Abnormal LFTs: Code(s): R79.89 - Other specified abnormal findings of blood chemistry Status: Acute DS: Summary Hospital Course Hospital Course: This is a 62-year-old female with multiple medical problems including chronic pain and long-term opiate use, GERD, hypertension, hyperlipidemia, DVT/PE on chronic anticoagulation and type 2 diabetes of present to the ED on 01/08/2023 for evaluation of nausea vomiting and diarrhea. States that she has had the symptoms for 1 week and nothing has made her better. She had been seen in the ED 2 days prior and was given IV fluids in CT abdomen pelvis revealed hepatomegaly and steatosis without any acute findings related to her symptoms. She reported being unable to keep any food or medication down without throwing up. Due to that she was not getting any of her opioid. She contacted Dr. Valadez office and due to her her not being able to get appointment she came back to the ER. She was started on IV fluids, antiemetics and analgesics as needed. GI consulted. Patient was put on NPO diet. Patient did not have any episodes of diarrhea or vomiting during her hospital stay. Once nausea improved her diet was advanced. Patient did have some weakness and PT evaluated the patient. Home health was able to be set up for the patient. Patient refused to go to a rehab facility. Patient did well with her diet but will send her home on some Zofran. Labs and vital signs are stable and she is medically clear for discharge at this time. Time Spent with Patient Time attestation: Total time spent providing and/or coordinating discharge services: Exam Narrative: GENERAL: Comfortable, no acute distress, morbid obesity HENMT: moist mucous membranes EYES: EOM intact b/l RESPIRATORY: clear to auscultation CARDIO: RRR GI: soft, nontender, bowel sounds present SKIN: no rashes EXTREMITIES: no edema, redness or tenderness DS: Data Data Completed and Pending Labs on day of discharge: Labs from last 24 hours 01/11/23 01/11/23 01/11/23 12:49 06:10 00:06 WBC 4.9 RBC 3.51 L Hgb 11.2 L Hct 35.0 L MCV 99.7 MCH 31.9 MCHC 32.0 RDW 14.6 H Plt Count 249 MPV 9.4 Immature Gran % (Auto) 0.4 Neut % (Auto) 45.2 L Lymph % (Auto) 31.9 [place] % (Auto) 19.3 H Eos % (Auto) 2.0 Baso % (Auto) 1.2 Lymph # (Auto) 1.57 [place] # (Auto) 1.0 H Eos # (Auto) 0.1 Baso # (Auto) 0.1 Abs Immat Gran (auto) 0.02 Absolute Neuts (auto) 2.2 Absolute Nucleated RBC 0.0 Nucleated RBC % 0.0 PT 28.2 H INR 2.4 Sodium 132 L Potassium 3.5 3.1 L Chloride 105 Carbon Dioxide 27 Anion Gap 0 L BUN 9 Creatinine 0.80 Estim Creat Clear Calc 87 Estimated GFR > 60 Glucose 140 H POC Capillary Glucose 118 H Calcium 8.2 L Total Bilirubin 0.3 AST 96 H ALT 64 H Alkaline Phosphatase 86 Total Protein 6.0 L Alb
[2023-01-11] MEDS: WARFARIN (*PBKC) 5 MG TABLET PO (16:21)
[2023-01-11 17:08] LABS: Glucose Point of Care 203 mg/dl (65-105)
--- NOTE | 2023-01-11 18:05 | PC.NURSE ---
Pt discharged home with home health. Pt IV removed and pt tolerated well. Pt home medication was returned to pt prior to discharge. Pt was wheeled down to car by [employer]. Pt was monitored for any changes in status while here.
== END 2023-01-11 17:30 | disposition home health service (06) | DRG 641 ==
LOC: ANHED 14:58 → ANH3MEDSUR 18:16
PROVIDERS: Physician Assistant; Admitting Provider Hospitalist; Emergency Provider General Practice; PCP Internal Medicine; Visit Provider Internal Medicine Critical Care Medicine
DX: E87.6 Hypokalemia (principal); I13.0 Hypertensive heart and chronic kidney disease with heart failure and stage 1 through stage 4 chronic kidney disease, or unspecified chronic kidney disease; Z68.41 Body mass index [BMI] 40.0-44.9, adult; E83.42 Hypomagnesemia; R11.2 Nausea with vomiting, unspecified; E11.65 Type 2 diabetes mellitus with hyperglycemia; E11.22 Type 2 diabetes mellitus with diabetic chronic kidney disease; N18.30 Chronic kidney disease, stage 3 unspecified; R79.89 Other specified abnormal findings of blood chemistry; K21.9 Gastro-esophageal reflux disease without esophagitis; E78.5 Hyperlipidemia, unspecified; D64.9 Anemia, unspecified; F41.9 Anxiety disorder, unspecified; M19.90 Unspecified osteoarthritis, unspecified site; H40.9 Unspecified glaucoma; K58.9 Irritable bowel syndrome, unspecified; G47.33 Obstructive sleep apnea (adult) (pediatric); M81.0 Age-related osteoporosis without current pathological fracture; G89.4 Chronic pain syndrome; E03.9 Hypothyroidism, unspecified; E11.42 Type 2 diabetes mellitus with diabetic polyneuropathy; M06.9 Rheumatoid arthritis, unspecified; K75.81 Nonalcoholic steatohepatitis (NASH); M79.7 Fibromyalgia; M32.9 Systemic lupus erythematosus, unspecified; E66.01 Morbid (severe) obesity due to excess calories; Z96.659 Presence of unspecified artificial knee joint; Z79.891 Long term (current) use of opiate analgesic; Z79.01 Long term (current) use of anticoagulants; Z85.41 Personal history of malignant neoplasm of cervix uteri; Z86.718 Personal history of other venous thrombosis and embolism; Z86.711 Personal history of pulmonary embolism; Z90.49 Acquired absence of other specified parts of digestive tract; Z90.710 Acquired absence of both cervix and uterus; Z90.722 Acquired absence of ovaries, bilateral; Z87.891 Personal history of nicotine dependence
CPT/HCPCS: 36415; 74177; 76705; 80053; 80074; 81001; 82948; 83036; 83690; 83735; 84132; 84484; 85025; 85027; 85610; 85730; 93005; 94640; 96361; 96365; 96374; 96375; 97161; 99284; 99285; A9270; C9113; G0378; J1170; J1815; J2405; J2550; J3475; J3480; J7030; J7040; J7120; Q9967

== ENCOUNTER 2023-01-20 13:12 | Outpatient (NON) | payer MEDICARE, MEDICAID, SELFPAY ==
[2023-01-20 14:46] LABS: Alanine Aminotransferase 45 U/L (6-35); Albumin Level 4.2 g/dL (3.5-5.1); Alkaline Phosphatase 96 U/L (38-126); Anion Gap 13 mmol/L (8-16); Aspartate Amino Transferase 55 U/L (14-36); Bilirubin,Total 0.4 mg/dL (0.2-1.3); Blood Urea Nitrogen 16 mg/dL (7-17); Carbon Dioxide 26 mmol/L (22-30); Chloride 96 mmol/L (98-107); Estimated Glomerular Filt Rate 57; Glucose 153 mg/dL (65-110); Potassium 3.7 mmol/L (3.4-5.0); Sodium 135 mmol/L (137-145)
== END 2023-01-20 13:13 | disposition home or self-care (01) ==
PROVIDERS: PCP Internal Medicine; Visit Provider Physician Assistant
DX: E87.6 Hypokalemia (principal)
CPT/HCPCS: 80053

== ENCOUNTER 2023-01-26 12:34 | Outpatient (NON) | payer MEDICARE, MEDICAID, SELFPAY ==
[2023-01-28 08:23] LABS: Amphetamines NEGATIVE ng/mL (<500); Barbiturates NEGATIVE ng/mL (<300); Benzodiazepines NEGATIVE ng/mL (<100); Cocaine Metabolite NEGATIVE ng/mL (<150); Marijuana Metabolite NEGATIVE ng/mL (<20); Methadone Metabolite NEGATIVE ng/mL (<100); Opiates POSITIVE ng/mL (<100); Oxidant NEGATIVE mcg/mL (<200); pH 6.5 (4.5-9.0)
== END 2023-01-26 12:35 | disposition home or self-care (01) ==
PROVIDERS: PCP Internal Medicine; Visit Provider Internal Medicine
DX: F33.1 Major depressive disorder, recurrent, moderate (principal)
CPT/HCPCS: 80307

== ENCOUNTER 2023-02-02 16:02 | Outpatient (NON) | payer MEDICARE, MEDICAID, SELFPAY ==
[2023-02-02 16:37] LABS: INR 2.7; Prothrombin Time 30.3 Seconds (11.1-14.7)
== END 2023-02-02 16:03 | disposition home or self-care (01) ==
PROVIDERS: PCP Internal Medicine; Visit Provider Internal Medicine
DX: K75.81 Nonalcoholic steatohepatitis (NASH) (principal); I12.9 Hypertensive chronic kidney disease with stage 1 through stage 4 chronic kidney disease, or unspecified chronic kidney disease; N18.30 Chronic kidney disease, stage 3 unspecified; E11.65 Type 2 diabetes mellitus with hyperglycemia
CPT/HCPCS: 36415; 85610

== ENCOUNTER 2023-02-23 13:21 | Outpatient (CLI) | payer MEDICARE, MEDICAID, SELFPAY ==
--- NOTE | ~2023-02-23 | MR_ITS ---
MRI of the right ankle Clinical history: Achilles tendinitis Technique: Coronal proton-density and proton-density fat-sat images, axial proton-density and proton- density fat-sat images, and sagittal proton-density and proton-density fat-sat images were acquired. Findings: Syndesmotic ligaments are intact. Anterior and posterior talofibular ligaments, and calcane ofibular ligament are intact. Deltoid ligament is intact. Medial flexor tendons, peroneal tendons, and anterior extensor tendons are intact. There is moderate tendinosis of the distal Achilles tendon without high-grade partial or full-thickness tear. There is no osteochondral lesion of the talar dome. Bone marrow signals are unremarkable. Joint space s are preserved. Small tibiotalar joint effusion present. There is amorphous nonspecific soft tissue edema in Kager's fat pad. Plantar fascia is intact. Normal signal preserved in the sinus Tarsi. Impression: Moderate distal Achilles tendinosis. Amorphous soft tissue edema throughout Kager's fat pad, which could be reactive/related to underlying Achilles tendinosis. Reviewed, dictated and finalized at location M. Impression: Moderate distal Achilles tendinosis. Amorphous soft tissue edema throughout Kager's fat pad, which could be reactive /related to underlying Achilles tendinosis.
== END 2023-02-23 13:22 | disposition home or self-care (01) ==
PROVIDERS: PCP Internal Medicine
DX: M76.61 Achilles tendinitis, right leg (principal)
CPT/HCPCS: 73721

== ENCOUNTER 2023-05-13 13:30 | Outpatient (RCR) | payer MEDICARE, MEDICAID, SELFPAY ==
[2023-03-30 16:27] VITALS: BMI 42.7
[2023-04-21 14:45] VITALS: BMI 42.7
[2023-05-13 13:45] VITALS: BMI 42.7
== END 2023-05-20 12:49 | disposition home or self-care (01) ==
LOC: ANHDMC 13:30
PROVIDERS: PCP Internal Medicine; Visit Provider Internal Medicine Endocrinology, Diabetes & Metabolism
DX: E11.9 Type 2 diabetes mellitus without complications (principal); Z71.3 Dietary counseling and surveillance; Z71.89 Other specified counseling
CPT/HCPCS: 97802; 97803; G0108

== ENCOUNTER 2023-05-19 15:35 | Outpatient (CLI) | payer MEDICARE, MEDICAID, SELFPAY ==
--- NOTE | ~2023-05-19 | MM_ITS ---
EXAMINATION: MM screening aundrea BI w joan HISTORY: Screening mammogram TECHNIQUE: Craniocaudal and mediolateral oblique 3-D tomosynthesis images were obtained and synthetic 2-D images were generated. CAD analysis was submitted and interpreted. COMPARISON: July 15, 2021 and 02/17/2021 Limited left breast ultrasound examinations 07/26/2020 ultrasound-guided left breast biopsy 07/10/2020 left complete breast ultrasound 04/13/2013 bilateral diagnostic mammogram BREAST PARENCHYMAL COMPOSITION: There are scattered areas of fibroglandular density. FINDINGS: History of 3 prior benign breast biopsies. There is a focal area of partially calcified fat necrosis in the outer mid left breast. There are scattered benign calcifications, primarily arterial. There is no evidence of suspicious mass, calcification, or architectural distortion to suggest malign cyndi in either breast. There has been no suspicious interval change. IMPRESSION: 1. No mammographic evidence of malignancy. 2. Recommend routine screening mammography in one year. BI-RADS Category 2: Benign finding(s). Reviewed, dictated and finalized at location A. DENCE HALL DIRECTOR
== END 2023-05-19 15:36 | disposition home or self-care (01) ==
LOC: ANHIMG 15:37
PROVIDERS: PCP Internal Medicine; Visit Provider Obstetrics & Gynecology
DX: Z12.31 Encounter for screening mammogram for malignant neoplasm of breast (principal)
CPT/HCPCS: 77063; 77067

== ENCOUNTER 2023-05-25 13:02 | Outpatient (RCR) | payer MEDICARE, MEDICAID, SELFPAY | END 2023-08-23 09:20 | disposition home or self-care (01) | LOC: ANHDMC 13:02 | PROVIDERS: PCP Internal Medicine; Visit Provider Internal Medicine Endocrinology, Diabetes & Metabolism | DX: E11.65 Type 2 diabetes mellitus with hyperglycemia (principal); Z71.89 Other specified counseling | CPT/HCPCS: G0108 ==

== ENCOUNTER 2023-06-07 12:28 | Outpatient (CLI) | payer MEDICARE, MEDICAID, SELFPAY ==
--- NOTE | 2023-06-07 12:34 | ECHO_ITS ---
Patient Info Name: Dori Hayward Age: 63 years : 1960 Gender: Female Ht: 65 in Wt: 260 lbs BSA: 2.39 m2 HR: 84 bpm BP: 154 / 77 mmHg Heart Rhythm: Sinus Rhythm Technical Quality: Fair Exam Date: 06/07/2023 12:46 PM Exam Location: Echo Lab Patient Status: Outpatient Admit Date: 06/07/2023 Staff Ordering Physician: Real Díaz PA-C Assistant Unit Forester: Franca Goldsmith RDCS Attending Provider: Real Díaz PA-C Referring Physician: Bre CHENG; Exam Type: CA echo dop color flow w con Study Info Indications - Localized edema Complete two-dimensional, color flow and Doppler transthoracic echocardiogram is performed with contrast to opacify the left ventricle and to improve the deliniation of the left ventricle endocardial borders. Contrast/Agitated Saline Contrast/Ag. Saline: Definity Amount: 2.00 ml Administered By: Franca Goldsmith RDCS Existing IV Access: No New IV Access: Left Site Condition: IV removed Summary 1. Technically difficult study. 2. Left ventricular chamber dimension is normal. 3. Left ventricular systolic function is normal, estimated at >70%. 4. There is mildly increased left ventricular wall thickness. 5. The left ventricular diastolic function is grade I diastolic dysfunction. 6. Right ventricular systolic function is normal. 7. There is trivial pericardial effusion. 8. No significant valvular disease. Left Ventricle Left ventricular chamber dimension is normal. Left ventricular systolic function is normal, estimated at >70%. There is mildly increased left ventricular wall thickness. The left ventricular diastolic function is grade I diastolic dysfunction. Right Ventricle Right ventricular chamber dimension is normal. Right ventricular systolic function is normal. Left Atria Left atrial chamber dimension is normal. Right Atria Right atrial chamber dimension is normal. Atrial Septum Intact interatrial septum visualized by color flow imaging. Aortic Valve The aortic valve is not well visualized. There is no aortic valve stenosis. There is no aortic valve regurgitation. Pulmonic Valve The pulmonic valve is not well visualized. Mitral Valve There is trace mitral valve regurgitation. Tricuspid Valve There is trace tricuspid valve regurgitation. Pericardium/Pleural There is trivial pericardial effusion. Inferior Vena Cava Normal inferior vena cava with >50% collapse upon inspiration consistent with normal right atrial pressure, 3 mmHg. Aorta The aortic root size at the sinus of Valsalva is normal. Left Ventricular Outflow Tract Name Value Normal LVOT 2D LVOT Diameter 2.01 cm LVOT Doppler LVOT Peak Gradient 7 mmHg LVOT Mean Gradient 3 mmHg LVOT VTI 23.11 cm LVOT VTI/AV VTI Ratio 0.70 LVOT Stroke Volume 73.35 ml LVOT CO 6.12 l/min LVOT CI 2.56 L/min/m2 Pulmonic Valve Name
[2023-06-07] MEDS: PERFLUTREN LIPID MICROSPHERES 1.5 ML VIAL DILUTED TO 10 ML TOTAL VOLUME IV PUSH (13:20)
--- NOTE | 2023-06-07 14:59 | IVDEFINITY ---
Prior to administration of IV Definity the patient was educated on the risks and benefits of the imaging enhancing agent including potential adverse side effects. The patient verbalized understanding. Allergies were verified. No exclusion criteria were identified and at least one of the following inclusion criteria were met: 1) physician request, 2) patient technically difficult to image (per the [place] [employer]ocardi[employer] guidelines of two or more segments not discernable within the apical view), or 3) questionable left ventricular function. ?
== END 2023-06-07 12:29 | disposition home or self-care (01) ==
LOC: ANHCARD 12:31
PROVIDERS: PCP Internal Medicine; Visit Provider Physician Assistant
DX: R60.0 Localized edema (principal)
CPT/HCPCS: C8929; Q9957

== ENCOUNTER 2023-08-12 13:03 | Outpatient (CLI) | payer MEDICARE, MEDICAID, SELFPAY ==
--- NOTE | ~2023-08-12 | XR_ITS ---
EXAMINATION: XR hip BI wo pelvis INDICATION: Bilateral hip pain TECHNIQUE: Two views of each hip are obtained. COMPARISON: 12/28/2017 FINDINGS: Bone alignment is normal. There is no fracture. There is mild osteoarthritis of the hips. S urgical clips are noted in the pelvis. IMPRESSION: 1. Osteoarthritis without acute osseous abnormality. Reviewed, dictated and finalized at location F.
== END 2023-08-12 13:04 | disposition home or self-care (01) ==
PROVIDERS: PCP Internal Medicine; Visit Provider Nurse Practitioner Family
DX: M16.0 Bilateral primary osteoarthritis of hip (principal)
CPT/HCPCS: 73521

== ENCOUNTER 2023-08-24 10:22 | Outpatient (RCR) | payer MEDICARE, MEDICAID, SELFPAY | END 2023-11-09 14:16 | disposition home or self-care (01) | LOC: ANHDMC 10:22 | PROVIDERS: PCP Internal Medicine; Visit Provider Internal Medicine Endocrinology, Diabetes & Metabolism | DX: E11.65 Type 2 diabetes mellitus with hyperglycemia (principal); Z71.89 Other specified counseling | CPT/HCPCS: G0108 ==

== ENCOUNTER 2023-09-18 08:04 | Emergency (ER) | payer MEDICARE, MEDICAID, SELFPAY ==
--- NOTE | ~2023-09-18 | XR_ITS ---
XR wrist RT min 3V DATE: 09/18/2023 08:28 INDICATION: Medial pain for one day. No known injury. TECHNIQUE: 4 views COMPARISON: None FINDINGS: Prominent osteophytic changes noted at the first carpometacarpal joint. There is some narro wing at the radiocarpal joint consistent with osteoarthritis. No fracture, dislocation, periosteal reaction or bone destruction, erosive change or chondrocalcinosi s. IMPRESSION: Osteoarthritis involving particularly the first carpometacarpal joint, also the radiocarp al joint Reviewed, dictated and finalized at location A. IMPRESSION: Osteoarthritis involving particularly the first carpometacarpal courtney nt, also the radiocarpal joint
--- NOTE | 2023-09-18 08:07 | ED.EXTPRO ---
HPI - Extremity Problem General Chief complaint: Extremity Problem,Nontraumatic Stated complaint: Rt Wrist and Hand Pain Time Seen by Provider: 09/18/23 08:15 Source: patient, RN notes reviewed and old records reviewed Mode of arrival: ambulatory Limitations: no limitations History of Present Illness HPI Narrative: 63-year-old female presents to the [facility] with complaints of right wrist and hand pain since waking up yesterday morning. Reports using heat and ice, topicals as well as taking her Percocet pain with movement, Unknown injury. Onset (ago): day(s) (1) Exacerbating factors: range of motion Related Data Home Medications Medication Instructions Recorded Confirmed baclofen 10 mg tablet 5 mg PO TID PRN Muscle Spasm 04/11/19 09/18/23 duloxetine 30 mg capsule,delayed 60 mg PO TID 04/11/19 09/18/23 release nortriptyline 25 mg capsule 25 mg PO TID 04/11/19 09/18/23 melatonin 5 mg capsule 10 mg PO QHS PRN Insomnia 05/03/19 09/18/23 travoprost 0.004 % eye drops 1 drop ophthalmic (eye) QPM 05/03/19 09/18/23 (Travatan Z) hydroxychloroquine 200 mg tablet 200 mg PO BID 07/24/19 09/18/23 Astepro 0.15%(205.5mcg) 1 spray intranasal PRN 12/14/19 09/18/23 cranberry 1,000 mg capsule 4,200 mg PO TID 08/27/20 09/18/23 oxycodone-acetaminophen 10 mg-325 1 tablet PO Q6H PRN Pain 01/21/21 09/18/23 mg tablet gabapentin 100 mg capsule 300 mg PO TID 02/05/22 09/18/23 brimonidine 0.2 % eye drops 1 drp RIGHT EYE BID 03/18/22 09/18/23 dorzolamide 22.3 mg-timolol 6.8 1 drp RIGHT EYE BID 03/18/22 09/18/23 mg/mL eye drops azelastine 137 mcg (0.1 %) nasal 137 mcg intranasal PRN 01/08/23 09/18/23 spray aerosol warfarin 5 mg tablet 5 mg PO DAILY 02/24/23 09/18/23 Allergies Allergy/AdvReac Type Severity Reaction Status Date / Time pregabalin Allergy Severe Anaphylaxis Verified 09/18/23 08:23 morphine Allergy Intermediate unknwon Verified 09/18/23 08:23 Sulfa (Sulfonamide Allergy Intermediate Hives Verified 09/18/23 08:23 Antibiotics) adhesive tape Allergy Mild BLISTERS Verified 09/18/23 08:23 bupropion Allergy Mild Other Verified 09/18/23 08:23 ipratropium Allergy Mild Dyspnea / Verified 09/18/23 08:23 SOB cefuroxime Allergy Unknown unknown Verified 09/18/23 08:23 chlordiazepoxide Allergy Unknown Irritable, Verified 09/18/23 08:23 AGGRESSION- SEE NOTE dextromethorphan Allergy Unknown unknown Verified 09/18/23 08:23 guaifenesin Allergy Unknown unknown Verified 09/18/23 08:23 meperidine Allergy Unknown Hives Verified 09/18/23 08:23 nitrofurantoin Allergy Unknown unknown Verified 09/18/23 08:23 resorcinol Allergy Unknown unknown Verified 09/18/23 08:23 simvastatin Allergy Unknown unknown Verified 09/18/23 08:23 theophylline Allergy Unknown unknonw Verified 09/18/23 08:23 trimethoprim Allergy Unknown unknown Verified 09/18/23 08:23 valsartan Allergy Unknown unknown Verified 09/18/23 08:23 Xanthines Allergy Unknown unknown Verified 09/18/23 08:23 codeine AdvReac Intermediate Nausea Verified 09/18/23 08:23 diazepam AdvReac Intermediate Agitated Verified 09/18/23 08:23 insulin lispro-aabc AdvReac Mild Redness of Verified 09/18/23 08:23 [From Lyumjev U-100 Insulin] Skin duloxetine AdvReac Unknown Dizziness Verified 09/18/23 08:23 nickel AdvReac Unknown RASH Verified 09/18/23 08:23 piroxicam AdvReac Unknown MILD SIDE Verified 09/18/23 08:23 EFFECT PER [facility] VITAMIN D Allergy Unknown RASH Uncoded 09/18/23 08:23 Review of Systems Review of Systems: All systems reviewed & are unremarkable except as noted in HPI and below Constitutional: Constitutional: Reports no additional constitutional complaints Eyes: Eyes: Reports no additional eye complaints ENT: Reports system reviewed and no additional complaints, except as documented Cardiovascular: Cardiovascular: Reports no additional cardiovascular complaints, Denies chest pain and Denies dyspnea Respiratory: Respiratory: Reports no
[2023-09-18 08:16] VITALS: BP 140/54; PULSE 117; RESP 18; TEMP 36.9; O2SAT 95
== END 2023-09-18 08:40 | disposition home or self-care (01) ==
PROVIDERS: Emergency Provider Nurse Practitioner; PCP Internal Medicine
DX: M19.031 Primary osteoarthritis, right wrist (principal); Z87.891 Personal history of nicotine dependence; J44.9 Chronic obstructive pulmonary disease, unspecified; Z86.718 Personal history of other venous thrombosis and embolism; N80.9 Endometriosis, unspecified; I12.9 Hypertensive chronic kidney disease with stage 1 through stage 4 chronic kidney disease, or unspecified chronic kidney disease; E11.22 Type 2 diabetes mellitus with diabetic chronic kidney disease; N18.30 Chronic kidney disease, stage 3 unspecified; M79.7 Fibromyalgia; E11.39 Type 2 diabetes mellitus with other diabetic ophthalmic complication; H42 Glaucoma in diseases classified elsewhere; E78.5 Hyperlipidemia, unspecified; E11.40 Type 2 diabetes mellitus with diabetic neuropathy, unspecified; M81.0 Age-related osteoporosis without current pathological fracture; M32.9 Systemic lupus erythematosus, unspecified
CPT/HCPCS: 73110; 99213; G0463

== ENCOUNTER 2023-11-23 10:04 | Outpatient (CLI) | payer MEDICARE, MEDICAID, SELFPAY ==
[2023-11-23 10:54] LABS: INR 2.8
[2023-11-23 11:01] LABS: Alanine Aminotransferase 23 U/L (6-35); Albumin Level 4.1 g/dL (3.5-5.1); Alkaline Phosphatase 67 U/L (38-126); Anion Gap 7 mmol/L (4-12); Aspartate Amino Transferase 28 U/L (14-36); Bilirubin,Total 0.3 mg/dL (0.2-1.3); Blood Urea Nitrogen 17 mg/dL (7-17); Calcium 8.8 mg/dL (8.4-10.2); Carbon Dioxide 29 mmol/L (22-30); Chloride 102 mmol/L (98-107); Cholesterol 143 mg/dL (0-200); Estimated Glomerular Filt Rate > 60; Glucose 183 mg/dL (65-110); HDL Direct 49 mg/dL; Magnesium 1.3 mg/dL (1.6-2.3); Potassium 3.6 mmol/L (3.4-5.0); Sodium 138 mmol/L (137-145); Triglycerides 269 mg/dL (<150)
[2023-11-23 11:12] LABS: LDL Cholesterol Direct 68 mg/dL
== END 2023-11-23 10:05 | disposition home or self-care (01) ==
PROVIDERS: PCP Internal Medicine; Visit Provider Internal Medicine
DX: I82.409 Acute embolism and thrombosis of unspecified deep veins of unspecified lower extremity (principal); E78.5 Hyperlipidemia, unspecified; E83.42 Hypomagnesemia
CPT/HCPCS: 36415; 80053; 80061; 83735; 85610

== ENCOUNTER 2023-12-09 11:36 | Outpatient (CLI) | payer MEDICARE, MEDICAID, SELFPAY ==
--- NOTE | 2023-12-09 20:39 | WPDSIXMINUTE ---
Six Minute Walk Procedure Procedure Performed Pulmonary Stress Test (6 min walk) Six Minute Walk Six Minute Walk: DATE OF SERVICE: 12/09/2023 REQUESTING: Vicky Sepulveda PA-C REASON FOR TESTING: Shortness of breath SIX MINUTE WALK This test was conducted per ATS guidelines. The patient was breathing room air during testing. She used her own cane during testing. The initial saturation was 95%, and initial heart rate was 89 beats per minute. The patient walked until 5 minutes in 30 seconds, stopped due to shortness of breath and pain in the hip and knee. She walked a distance of 300 ft/91.4 meters. The saturation at the end of testing was 92%, and the heart rate was 96 beats per minute. The lowest saturation during testing was 89% for less than a half a minute. IMPRESSION: This study shows mild desaturation without ramandeep hypoxemia. The patient did not require supplemental oxygen with exertion. Distance walked is less than expected for age. Palma Lucas MD
== END 2023-12-09 11:37 | disposition home or self-care (01) ==
LOC: ANHPFT 11:37
PROVIDERS: PCP Internal Medicine; Visit Provider Physician Assistant
DX: R06.02 Shortness of breath (principal); E66.01 Morbid (severe) obesity due to excess calories; G47.34 Idiopathic sleep related nonobstructive alveolar hypoventilation; Z68.41 Body mass index [BMI] 40.0-44.9, adult
CPT/HCPCS: 94618

== ENCOUNTER 2023-12-09 11:40 | Outpatient (CLI) | payer MEDICARE, MEDICAID, SELFPAY ==
[2023-12-09 12:36] LABS: Basophils Absolute Auto 0.1 K/mm3 (0.0-0.1); Basophils Percent Auto 0.8 % (0.2-1.2); Eosinophils Absolute Auto 0.2 K/mm3 (0-0.3); Eosinophils Percent Auto 2.5 % (0-4.4); Hematocrit 40.8 % (37.0-47.0); Hemoglobin 13.4 g/dL (12.0-15.0); Immature Granulocyte Absolute 0.02 K/mm3 (0.00-0.031); Immature Granulocyte Percent A 0.3 % (0-0.5); Lymphocytes Absolute Auto 1.91 K/mm3 (0.9-3.2); Lymphocytes Percent Auto 32.2 % (18.3-44.2); Mean Corpuscular HGB Conc 32.8 g/dl (32-36); Mean Corpuscular Hemoglobin 31.9 pg (26-34); Mean Corpuscular Volume 97.1 fl (80-100); Mean Platelet Volume 9.2 fl (7.4-10.4); Monocytes Absolute Auto 0.8 K/mm3 (0.1-0.6); Monocytes Percent Auto 12.6 % (2.6-8.5); Neutrophils Absolute Auto 3.1 K/mm3 (1.3-6.7); Neutrophils Percent Auto 51.6 % (45.5-73.1); Platelet Count Result 288 k/mm3 (150-375); Red Cell Distribution Width 13.7 % (11.5-14.5); White Blood Count 5.9 K/mm3 (4.5-10.0)
[2023-12-09 12:52] LABS: Alanine Aminotransferase 22 U/L (6-35); Albumin Level 4.4 g/dL (3.5-5.1); Alkaline Phosphatase 66 U/L (38-126); Anion Gap 10 mmol/L (4-12); Aspartate Amino Transferase 29 U/L (14-36); Bilirubin,Total 0.3 mg/dL (0.2-1.3); Blood Urea Nitrogen 20 mg/dL (7-17); CRP < 0.5 mg/dL (<1.0); Carbon Dioxide 34 mmol/L (22-30); Chloride 93 mmol/L (98-107); Estimated Glomerular Filt Rate 46; Glucose 149 mg/dL (65-110); Potassium 3.7 mmol/L (3.4-5.0); Sodium 137 mmol/L (137-145)
[2023-12-09 13:35] LABS: Erythrocyte Sedimentation Rate 19 mm/hr (0-20)
== END 2023-12-09 11:41 | disposition home or self-care (01) ==
LOC: ANHLAB 11:44
PROVIDERS: PCP Internal Medicine; Visit Provider Nurse Practitioner Family
DX: M19.90 Unspecified osteoarthritis, unspecified site (principal); Z79.899 Other long term (current) drug therapy
CPT/HCPCS: 36415; 80053; 85025; 85652; 86140

== ENCOUNTER 2024-02-09 19:15 | Emergency (ER) | payer MEDICARE, MEDICAID, SELFPAY ==
--- NOTE | ~2024-02-09 | CT_ITS ---
CT abdomen pelvis w con Ordering provider: El Sethi MD History: 63 years Female with . right flank pain . Comparison: January 06, 2023 Technique: CT abdomen and pelvis with IV and without oral contrast. Automated exposure control and it erative reconstruction technique were employed. The dose-length product was 1343.73 mGy-cm. 100 mL Om nipaque 350 was given IV. Findings: VISUALIZED LOWER CHEST: Normal. UPPER ABDOMINAL ORGANS: Liver: Normal. Gallbladder: Normal. Spleen: Normal. Stomach/duodenum: Slightly thickened wall of the stomach which may indicate gastritis. Clinical evalu ation advised. Pancreas: Normal. Adrenals: Normal. Kidneys: Normal. PELVIC ORGANS: The bladder is underfilled with slightly thickened wall. BOWEL AND MESENTERY: Colon: No evidence diverticulitis. No evidence of appendicitis. The appendix is not demonstrated. Small Bowel: Normal. No obstruction. Peritoneum/mesentery: No free air or free fluid. No mesenteric lymphadenopathy. RETROPERITONEUM: Mild atheromatous disease of the abdominal aorta. No retroperitoneal lymphadenopat hy. MUSCULOSKELETAL: Superficial soft tissues: The superficial soft tissues are normal. Bones: Age appropriate degenerative changes of the spine. Minimal anterolisthesis at the level of L4- L5. IMPRESSION: 1. No evidence of appendicitis, diverticulitis or intestinal obstruction. 2. Slightly thickened wall of the stomach. Further evaluation advised. Reviewed, dictated and finalized at location A.
[2024-02-09 19:22] VITALS: BP 129/59; PULSE 85; RESP 15; TEMP 35.8; O2SAT 98
--- NOTE | 2024-02-09 19:42 | ED.BACK ---
HPI - Back Pain/Injury General Chief Complaint: Back Pain/Injury Stated Complaint: R flank pain Time Seen by Provider: 02/09/24 19:31 History of Present Illness HPI Narrative: 63-year-old female presenting to emergency department for evaluation for right flank pain. Patient states the pain did begin Wednesday night and has since increased. Patient does have associated nausea and vomiting. Patient does report a prior history of kidney stones years ago. Patient denies any associated abdominal pain denies any associated chest pain or shortness of breath. Related Data Home Medications Medication Instructions Recorded Confirmed baclofen 10 mg tablet 5 mg PO TID PRN Muscle Spasm 04/11/19 10/06/23 duloxetine 30 mg capsule,delayed 60 mg PO TID 04/11/19 10/06/23 release nortriptyline 25 mg capsule 25 mg PO TID 04/11/19 10/06/23 melatonin 5 mg capsule 10 mg PO QHS PRN Insomnia 05/03/19 10/06/23 travoprost 0.004 % eye drops 1 drop ophthalmic (eye) QPM 05/03/19 10/06/23 (Travatan Z) hydroxychloroquine 200 mg tablet 200 mg PO BID 07/24/19 10/06/23 Astepro 0.15%(205.5mcg) 1 spray intranasal PRN 12/14/19 10/06/23 cranberry 1,000 mg capsule 4,200 mg PO TID 08/27/20 10/06/23 gabapentin 100 mg capsule 300 mg PO TID 02/05/22 10/06/23 brimonidine 0.2 % eye drops 1 drp RIGHT EYE BID 03/18/22 10/06/23 dorzolamide 22.3 mg-timolol 6.8 1 drp RIGHT EYE BID 03/18/22 10/06/23 mg/mL eye drops azelastine 137 mcg (0.1 %) nasal 137 mcg intranasal PRN 01/08/23 10/06/23 spray warfarin 5 mg tablet 5 mg PO DAILY 02/24/23 10/06/23 prednisone 10 mg tablet 10 mg PO DIRECTED 10/04/23 10/06/23 Allergies Allergy/AdvReac Type Severity Reaction Status Date / Time pregabalin Allergy Severe Anaphylaxis Verified 02/09/24 19:57 morphine Allergy Intermediate unknwon Verified 02/09/24 19:57 Sulfa (Sulfonamide Allergy Intermediate Hives Verified 02/09/24 19:57 Antibiotics) adhesive tape Allergy Mild BLISTERS Verified 02/09/24 19:57 bupropion Allergy Mild Other Verified 02/09/24 19:57 ipratropium Allergy Mild Dyspnea / Verified 02/09/24 19:57 SOB cefuroxime Allergy Unknown unknown Verified 02/09/24 19:57 chlordiazepoxide Allergy Unknown Irritable, Verified 02/09/24 19:57 AGGRESSION- SEE NOTE dextromethorphan Allergy Unknown unknown Verified 02/09/24 19:57 guaifenesin Allergy Unknown unknown Verified 02/09/24 19:57 meperidine Allergy Unknown Hives Verified 02/09/24 19:57 nitrofurantoin Allergy Unknown unknown Verified 02/09/24 19:57 resorcinol Allergy Unknown unknown Verified 02/09/24 19:57 simvastatin Allergy Unknown unknown Verified 02/09/24 19:57 theophylline Allergy Unknown unknonw Verified 02/09/24 19:57 trimethoprim Allergy Unknown unknown Verified 02/09/24 19:57 valsartan Allergy Unknown unknown Verified 02/09/24 19:57 Xanthines Allergy Unknown unknown Verified 02/09/24 19:57 codeine AdvReac Intermediate Nausea Verified 02/09/24 19:57 diazepam AdvReac Intermediate Agitated Verified 02/09/24 19:57 insulin lispro-aabc AdvReac Mild Redness of Verified 02/09/24 19:57 [From Lyumjev U-100 Insulin] Skin duloxetine AdvReac Unknown Dizziness Verified 02/09/24 19:57 nickel AdvReac Unknown RASH Verified 02/09/24 19:57 piroxicam AdvReac Unknown MILD SIDE Verified 02/09/24 19:57 EFFECT PER [facility] VITAMIN D Allergy Unknown RASH Uncoded 02/09/24 19:57 Review of Systems Review of Systems: All systems reviewed & are unremarkable except as noted in HPI and below PMFSH Past Medical History Medical History Anemia Anxiety Arthritis Asthma Bronchitis Cervical cancer Chronic anticoagulation Chronic kidney disease, stage 3 Chronic obstructive pulmonary disease Chronic pain syndrome Chronically on opiate therapy Deep venous thrombosis Degenerative disc disease Depression Endometriosis Essential (primary) hypertension Fibrocystic breast changes Fibromyalg
[2024-02-09 19:50] LABS: Basophils Absolute Auto 0.1 K/mm3 (0.0-0.1); Basophils Percent Auto 0.7 % (0.2-1.2); Eosinophils Absolute Auto 0.2 K/mm3 (0-0.3); Hematocrit 40.3 % (37.0-47.0); Hemoglobin 13.4 g/dL (12.0-15.0); Immature Granulocyte Absolute 0.03 K/mm3 (0.00-0.031); Immature Granulocyte Percent A 0.3 % (0-0.5); Lymphocytes Absolute Auto 2.28 K/mm3 (0.9-3.2); Lymphocytes Percent Auto 24.8 % (18.3-44.2); Mean Corpuscular HGB Conc 33.3 g/dl (32-36); Mean Corpuscular Hemoglobin 32.6 pg (26-34); Mean Corpuscular Volume 98.1 fl (80-100); Mean Platelet Volume 8.3 fl (7.4-10.4); Monocytes Absolute Auto 0.9 K/mm3 (0.1-0.6); Monocytes Percent Auto 9.9 % (2.6-8.5); Neutrophils Absolute Auto 5.7 K/mm3 (1.3-6.7); Neutrophils Percent Auto 62.3 % (45.5-73.1); Platelet Count Result 306 k/mm3 (150-375); Red Blood Count 4.11 M/mm3 (4.2-5.4); Red Cell Distribution Width 12.9 % (11.5-14.5); White Blood Count 9.2 K/mm3 (4.5-10.0)
[2024-02-09] MEDS: fentaNYL CITRATE INJ (*CRX) 100 MCG/2 ML VIAL 50 MCG IV PUSH ×2 (19:55→21:07)
[2024-02-09 20:03] LABS: Alanine Aminotransferase 33 U/L (6-35); Albumin Level 4.5 g/dL (3.5-5.1); Alkaline Phosphatase 89 U/L (38-126); Anion Gap 10 mmol/L (4-12); Aspartate Amino Transferase 37 U/L (14-36); Bilirubin,Total 0.2 mg/dL (0.2-1.3); Blood Urea Nitrogen 30 mg/dL (7-17); Carbon Dioxide 30 mmol/L (22-30); Chloride 96 mmol/L (98-107); Estimated CRCL calculation 50 ml/min; Estimated Glomerular Filt Rate 42; Glucose 127 mg/dL (65-110); Potassium 4.1 mmol/L (3.4-5.0); Sodium 136 mmol/L (137-145)
[2024-02-09 21:14] LABS: Add Urine Microscopic? YES; Appearance Urine Clear (Clear); Bilirubin Urine Negative (Negative); Blood Urine Negative (Negative); Color Urine Yellow (Yellow); Glucose Urine UA Negative (Negative); Ketones Urine Negative (Negative); Leukocyte Esterase Ur 2+ LEU/UL (Negative); Nitrate Urine Negative (Negative); Non Pathogenic Casts 0-2; Protein Urine Negative (Negative); RBC Urine 0-2 /hpf (0-2); Specific Grav Ur 1.013 (1.001-1.035); Squamous Epithelial Cell Urine None Seen /hpf (Few); Urobilinogen Urine 0.2 mg/dL (<2.0); pH Urine 5.5 (5.0-9.0)
[2024-02-09 21:23] LABS: Bacteria Urine Trace /hpf
[2024-02-09 23:42] VITALS: BP 118/79; PULSE 87; RESP 16; TEMP 36.6; O2SAT 98
== END 2024-02-09 23:43 | disposition home or self-care (01) ==
PROVIDERS: Emergency Provider Emergency Medicine; PCP Internal Medicine
DX: R10.9 Unspecified abdominal pain (principal); I12.9 Hypertensive chronic kidney disease with stage 1 through stage 4 chronic kidney disease, or unspecified chronic kidney disease; E11.22 Type 2 diabetes mellitus with diabetic chronic kidney disease; N18.30 Chronic kidney disease, stage 3 unspecified; J44.9 Chronic obstructive pulmonary disease, unspecified; K21.9 Gastro-esophageal reflux disease without esophagitis; E11.39 Type 2 diabetes mellitus with other diabetic ophthalmic complication; H42 Glaucoma in diseases classified elsewhere; E11.40 Type 2 diabetes mellitus with diabetic neuropathy, unspecified; E53.8 Deficiency of other specified B group vitamins; E55.9 Vitamin D deficiency, unspecified; G89.4 Chronic pain syndrome; G47.33 Obstructive sleep apnea (adult) (pediatric); K58.9 Irritable bowel syndrome, unspecified; M79.7 Fibromyalgia; M32.9 Systemic lupus erythematosus, unspecified; M81.0 Age-related osteoporosis without current pathological fracture; Z96.659 Presence of unspecified artificial knee joint; Z87.442 Personal history of urinary calculi; Z86.718 Personal history of other venous thrombosis and embolism; Z86.711 Personal history of pulmonary embolism; Z87.891 Personal history of nicotine dependence; Z90.710 Acquired absence of both cervix and uterus; Z79.899 Other long term (current) drug therapy; Z79.01 Long term (current) use of anticoagulants; Z79.4 Long term (current) use of insulin
CPT/HCPCS: 36415; 74177; 80053; 81001; 85025; 87086; 96374; 96376; 99284; J3010; Q9967

== ENCOUNTER 2024-02-25 11:00 | Outpatient (RCR) | payer MEDICARE, MEDICAID, SELFPAY ==
--- NOTE | 2024-01-19 11:04 | OPREHPOC ---
Outpatient Therapy Plan of Care This is a Multidisciplinary Plan of Care that may contain components documented by all disciplines (PT, OT, and ST.) PT Problem 1 PT Problem #1 Knowledge Deficit PT Goal 1 Goal / Goal Update *indep with HEP Target Visit 8 PT Problem 2 PT Problem #2 Pain PT Goal 1 Goal / Goal Update 1* pt report pain at worst rating of 7/10 2* self assessment Oswestry rating of 64% limitation in activity 3* pt report sleeping 2 hours/night total Target Visit 8 PT Problem 3 PT Problem #3 Impaired Strength PT Goal 1 Goal / Goal Update increase strength of trunk and hips to support back and hips 1* pt perform sitting R LE exercises x 15 reps 2* pt perform sitting L LE exercises x 15 reps 3* sit/stand with use of 1 UE 4* 5 reps sit/stand time of 30 seconds 5* 2 minute walking test distance of 150' with cane Target Visit 8
--- NOTE | 2024-01-19 11:04 | PTOPEVAL1 ---
Assessment and note entered by Aditi Lazaro, PT Evaluation Information Assessment Status Evaluation ICD-10 Condition Codes (PT) Pain in low back M54.50,M54.16,Difficulty Walking R26.2,R26.9,Weakness R53.1 Other ICD-10 Condition Codes ( M79.18- myofascial pain; spinal stenosis lumbar/w PT) claudication M48.062 Onset October 2023 Subjective Information chronic back pain, gradual increase in pain in past few months; had a fall where landed backwards about 3 months ago and hurt her R heel- fractured, with walking boot; ortho dr told her she is NOT a surgical candidate- due to medical history; per pt- xray and MRI of R hip- arthritis chronic pain both knees, back and neck; recent R heel pain from fall; go to pain management dr--have pain injections in neck, shoulders, hip, back; activity: sleep in recliner, cannot tolerate lying flat; live alone, have helper who does grocery shopping, cleaning and home tasks; use cane PRN in home and always when go out of the house; previous PT for chronic pain and TKR: nothing really helped; did aquatic therapy- more pain after the sessions for several days; recently got into friends' pool and just stood and it hurt Reported Pain Level Pain Score Self Report Additional Pain Score Comments pain in back, hips and legs 7-9/10; back and into R hip and leg bad leg-- with knee and ankle pain ; some in L leg with R leg worse severe pain in R leg since nerves were cut with radicular hysterectomy, any activity wipes her out, takes all her energy; when take a shower it zaps her and drains her, have to rest at least 1 hour to recover reported activity tolerances: stand/walk 5 min at most; sleeping- about 1 hour total/night decrease pain: heat, pain meds-oxycodone 6-8x
--- NOTE | 2024-02-16 14:26 | PCPTNOTE ---
Patient called and cancelled this date due to increase in pain.
--- NOTE | 2024-02-18 12:52 | PCPTNOTE ---
Pt arrived for appt. but presented following a recent diagnosis (earlier in this week) of factured ribs. Pt presented with difficulty breathing and high pain complaints. Pt declined modalities and exercises.
--- NOTE | 2024-02-21 09:08 | PCPTNOTE ---
Pt canceled due to pain from broken ribs.
--- NOTE | 2024-02-25 11:37 | PTOPDC ---
Assessment and note entered by Aditi Lazaro, PT Discharge Report Assessment Status Discharge ICD-10 Condition Codes (PT) Pain in low back M54.50,M54.16,Difficulty Walking R26.2,R26.9,Weakness R53.1 Other ICD-10 Condition Codes ( M79.18- myofascical pain; spinal stenosis lumbar/w PT) claudication M48.062 Onset October 2023 Subjective Information coughed or cleared throat and fractured her rib on the R side ~ 5 days ago; having more pain in R side since then; cannot tolerate lying down, so doing leg exercises in sitting; not able to do much because of all of the pain everywhere in body agrees to d/c PT at this time. Reported Pain Level Pain Score Self Report Additional Pain Score Comments pain range of the back in the past week: 5-6/10; feels like pain in the bone from anterior- lateral to posterior hip; sometimes shoots down front of R leg to knee reported sleeping total time of 2& 1/2 to 3 hours use heat and ice, help a little but not much; taking oxycodone every 6 hours, about 8x /day; R side/ rib fracture 11/30; Assessment PT Clinical Summary Dori has received 4 PT sessions. She called/ canceled 2 appointments due to increase pain from fractured rib on R side. Compared to the initial evaluation: pain in back from 7-9/10 to 5-6/10, but the rib pain is getting more of her attention now. Self assessment Oswestry rating is the same at 78% limitation in activity level; increase strength with R and L sitting hip flexion and knee extension- from 5-6 to 10-11 reps of each; sit/ stand requires use of both UE's and more pain--did not want to perform the 5 reps sit/stand test due to pain; 2 minute walking test distance from 100 ' to 60' with use of cane; Education for HEP and activity completed. The goals were partially met. Discharge PT. Progress limited due to pain and recent rib fracture. She is to continue with HEP and activity as tolerated. Plan of Care PT Services Indicated No
== END 2024-02-25 12:31 | disposition home or self-care (01) ==
LOC: ANHPT 11:00
PROVIDERS: PCP Internal Medicine
DX: M48.062 Spinal stenosis, lumbar region with neurogenic claudication (principal); M79.18 Myalgia, other site
CPT/HCPCS: 97110; 97162; 97530

== ENCOUNTER 2024-03-29 14:10 | Outpatient (RCR) | payer MEDICARE, MEDICAID, SELFPAY ==
[2024-01-19 12:20] LABS: INR 1.8; Prothrombin Time 21.7 Seconds (11.1-14.7)
[2024-02-02 13:31] LABS: INR 1.7; Prothrombin Time 20.9 Seconds (11.1-14.7)
[2024-03-02 12:16] LABS: Prothrombin Time 39.5 Seconds (11.1-14.7)
[2024-03-29 15:39] LABS: INR 2.7
== END 2024-04-18 23:59 | disposition home or self-care (01) ==
LOC: ANHLAB 14:10
PROVIDERS: PCP Internal Medicine; Visit Provider Internal Medicine
DX: I82.409 Acute embolism and thrombosis of unspecified deep veins of unspecified lower extremity (principal)
CPT/HCPCS: 36415; 85610

== ENCOUNTER 2024-03-29 14:12 | Outpatient (CLI) | payer MEDICARE, MEDICAID, SELFPAY ==
--- NOTE | ~2024-03-29 | XR_ITS ---
AP and lateral views of the right hip Clinical history: Pain Findings: No acute fracture or dislocation is seen. Osseous alignment is anatomic. Right hip joint is intact. Soft tissues are unremarkable. Impression: No significant abnormality is seen. Reviewed, dictated and finalized at location M. MOTIVE SALESPERSON Impression: No significant abnormality is seen.
[2024-03-29 15:27] LABS: Basophils Absolute Auto 0.1 K/mm3 (0.0-0.1); Basophils Percent Auto 0.7 % (0.2-1.2); Eosinophils Absolute Auto 0.1 K/mm3 (0-0.3); Eosinophils Percent Auto 1.6 % (0-4.4); Hematocrit 41.8 % (37.0-47.0); Hemoglobin 13.9 g/dL (12.0-15.0); Immature Granulocyte Absolute 0.03 K/mm3 (0.00-0.031); Immature Granulocyte Percent A 0.4 % (0-0.5); Lymphocytes Absolute Auto 1.73 K/mm3 (0.9-3.2); Lymphocytes Percent Auto 22.6 % (18.3-44.2); Mean Corpuscular HGB Conc 33.3 g/dl (32-36); Mean Corpuscular Hemoglobin 32.4 pg (26-34); Mean Corpuscular Volume 97.4 fl (80-100); Mean Platelet Volume 8.6 fl (7.4-10.4); Monocytes Absolute Auto 0.9 K/mm3 (0.1-0.6); Monocytes Percent Auto 11.3 % (2.6-8.5); Neutrophils Absolute Auto 4.9 K/mm3 (1.3-6.7); Neutrophils Percent Auto 63.4 % (45.5-73.1); Platelet Count Result 319 k/mm3 (150-375); Red Blood Count 4.29 M/mm3 (4.2-5.4); Red Cell Distribution Width 13.2 % (11.5-14.5); White Blood Count 7.6 K/mm3 (4.5-10.0)
[2024-03-29 16:21] LABS: Erythrocyte Sedimentation Rate 30 mm/hr (0-20)
[2024-03-29 18:01] LABS: Alanine Aminotransferase 29 U/L (6-35); Albumin Level 4.3 g/dL (3.5-5.1); Alkaline Phosphatase 79 U/L (38-126); Anion Gap 8 mmol/L (4-12); Aspartate Amino Transferase 33 U/L (14-36); Bilirubin,Total 0.2 mg/dL (0.2-1.3); Blood Urea Nitrogen 23 mg/dL (7-17); CRP < 0.5 mg/dL (<1.0); Calcium 9.3 mg/dL (8.4-10.2); Carbon Dioxide 32 mmol/L (22-30); Chloride 96 mmol/L (98-107); Estimated Glomerular Filt Rate 38; Glucose 145 mg/dL (65-110); Potassium 4.5 mmol/L (3.4-5.0); Sodium 136 mmol/L (137-145)
== END 2024-03-29 14:13 | disposition home or self-care (01) ==
PROVIDERS: PCP Internal Medicine; Referring Provider Internal Medicine; Visit Provider Nurse Practitioner
DX: M19.90 Unspecified osteoarthritis, unspecified site (principal); Z79.899 Other long term (current) drug therapy
CPT/HCPCS: 36415; 73502; 80053; 85025; 85652; 86140

== ENCOUNTER 2024-04-17 14:12 | Outpatient (CLI) | payer MEDICARE, MEDICAID, SELFPAY ==
[2024-04-17 15:29] LABS: Basophils Absolute Auto 0.1 K/mm3 (0.0-0.1); Basophils Percent Auto 0.7 % (0.2-1.2); Eosinophils Absolute Auto 0.1 K/mm3 (0-0.3); Eosinophils Percent Auto 1.3 % (0-4.4); Hematocrit 39.9 % (37.0-47.0); Hemoglobin 13.1 g/dL (12.0-15.0); Immature Granulocyte Absolute 0.01 K/mm3 (0.00-0.031); Immature Granulocyte Percent A 0.1 % (0-0.5); Lymphocytes Absolute Auto 1.38 K/mm3 (0.9-3.2); Lymphocytes Percent Auto 19.6 % (18.3-44.2); Mean Corpuscular HGB Conc 32.8 g/dl (32-36); Mean Corpuscular Hemoglobin 31.9 pg (26-34); Mean Corpuscular Volume 97.1 fl (80-100); Mean Platelet Volume 8.8 fl (7.4-10.4); Monocytes Absolute Auto 0.8 K/mm3 (0.1-0.6); Monocytes Percent Auto 10.8 % (2.6-8.5); Neutrophils Absolute Auto 4.7 K/mm3 (1.3-6.7); Neutrophils Percent Auto 67.5 % (45.5-73.1); Platelet Count Result 307 k/mm3 (150-375); Red Blood Count 4.11 M/mm3 (4.2-5.4); Red Cell Distribution Width 12.8 % (11.5-14.5)
[2024-04-17 16:21] LABS: CRP 1.5 mg/dL (<1.0); Uric Acid 7.8 mg/dL (2.5-7.5)
== END 2024-04-17 14:13 | disposition home or self-care (01) ==
LOC: ANHLAB 14:16
PROVIDERS: PCP Internal Medicine; Visit Provider Podiatrist Foot & Ankle Surgery
DX: M10.072 Idiopathic gout, left ankle and foot (principal)
CPT/HCPCS: 36415; 84550; 85025; 86140

== ENCOUNTER 2024-06-04 11:53 | Outpatient (CLI) | payer MEDICARE, MEDICAID, SELFPAY ==
--- NOTE | ~2024-06-04 | MR_ITS ---
MRI of the brain Clinical History: Amnesia, CVA Technique: Axial and sagittal T1-weighted images were acquired. These were followed by axial T2-weigh shakira, diffusion weighted, gradient, and FLAIR images. Findings: There is no acute infarct, intracranial hemorrhage or mass lesion. There are moderate chron ic microvascular ischemic changes in the periventricular white matter bilaterally. Ventricles and subarachnoid spaces are unremarkable. Orbits are unremarkable. Paranasal sinuses and m astoid air cells are clear. Major vascular flow voids are grossly intact. Sagittal midline structures are intact. IMPRESSION: No acute abnormality. Moderate chronic microvascular ischemic changes. Reviewed, dictated and finalized at location M. UNTS PAYABLE PROCESSOR
== END 2024-06-04 11:54 | disposition home or self-care (01) ==
PROVIDERS: PCP Internal Medicine; Visit Provider Internal Medicine
DX: R41.3 Other amnesia (principal)
CPT/HCPCS: 70551

== ENCOUNTER 2024-06-08 08:35 | Outpatient (RCR) | payer MEDICARE, MEDICAID, SELFPAY ==
[2024-05-04 17:53] LABS: INR 3.8; Prothrombin Time 37.5 Seconds (11.1-14.7)
[2024-05-04 18:22] LABS: Thyroid Stimulating Hormone 0.726 uIU/mL (0.465-4.680)
[2024-06-08 09:41] LABS: INR 2.5; Prothrombin Time 27.9 Seconds (11.1-14.7)
== END 2024-08-02 23:59 | disposition home or self-care (01) ==
LOC: ANHLAB 08:35
PROVIDERS: PCP Internal Medicine; Visit Provider Internal Medicine
DX: I82.409 Acute embolism and thrombosis of unspecified deep veins of unspecified lower extremity (principal); E11.9 Type 2 diabetes mellitus without complications
CPT/HCPCS: 36415; 80053; 82607; 84443; 85025; 85610

== ENCOUNTER 2024-06-27 07:57 | Outpatient (CLI) | payer MEDICARE, SELFPAY ==
--- OUTSIDE RECORDS SUMMARY | 2024-06-27 08:05 | XMS_ITS | CONTINUITY OF CARE DOCUMENT ---
Author Name bryn clemente Address Unknown Organization [facility] Address [address] [place] [address] Phone [phone] Care Team Providers Care Pump Runner Name Role Phone bryn clemente Unavailable Unavailable
--- OUTSIDE RECORDS SUMMARY | 2024-06-27 08:05 | XMS_ITS | Data Portability ---
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 X-rays show some advancement of the osteoarthritis over time. We talked about treatment options in detail today I have discussed surgical intervention in detail the patient today as well however she has declined she does not want to go through surgery and due to the fact that she has multiple medical issues I think we both agree that it is better for her to get by with conservative measures. She really cannot take any anti-inflammatory medication so we will avoid this for now due the fact that she is on Coumadin chronically and has other multiple medication allergies. At her request under sterile conditions I injected the patient's right thumb CMC joint in the office with 2 cc 0.5% ropivacaine and 10 mg of Kenalog. Patient tolerated procedure well. I have advised her we can do this again in 3 months if necessary we will see how she does with activity modification ice and cortisone injections. She voiced understanding agrees above plan she will call for any further problems difficulties or questions. [email or web address] Not available 11/10/2022 16:41:56 12/29/2023 12/29/2023 63-year-old female presents for evaluation of her bilateral hands. She has bilateral thumb CMC arthritis that has been previously treated with Luther RIZZO with injections. She got her last set of injections 11/10/2022. Those worked quite well for a while and they started to wear off in the past couple weeks. She takes oxycodone for her back. She is unable to take NSAIDs because she is on a blood thinner. She is not using any braces. She rates her pain as 6/10. She is right-hand dominant. Review of systems per patient questionnaire Physical exam: She has tenderness palpation of bilateral thumb CMC joints. Positive grind. Sensation intact to light touch, brisk cap refill, 2+ radial pulse. X-rays reviewed, demonstrating bilateral thumb CMC arthritis She has basilar thumb arthritis bilaterally. We discussed conservative measures versus repeat cortisone injections versus surgery for CMC arthroplasty. She does not want surgery, and wants to get repeat injections. We perform those and she tolerated them well. She may follow-up as needed for repeat injections or if she wants to have different treatment. [email or web address] Not available 12/29/2023 14:47:28 Plan of Treatment Reminders Order Date Submit Date Provider Last Modified By Organization Details Last Modified Time Details Appointments None recorded. Lab None recorded. Referral None recorded. Procedures injection/a spiration joint/bursa (PROC) - in office procedure, administere d by provider 2022 023 [email or web address] In-Office Order, Internal Use Only DO Not Attach Compendium DO Not Attach Compendium, Do Not Delete/merge, [id number] 16:17:37 injection/a spiration joint/bursa (PROC) - in office procedure, administere d by provider 2023 024 [email or web address] In-Office Order, Internal Use Only DO Not Attach Compendium DO Not Attach Compendium, Do Not Delete/merge, [id number] 12:33:57 Surgeries None recorded. Imaging XR, hand 2022 023 [email or web address] [facility] [place], [address], [place], [address], 3 16:45:10 XR, hand, 3 or more view 2023 024 [facility] [place], [address], [place], [address], 4 08:25:28 Medication Orders Kenalog 10 mg/mL suspension for injection 2022 023 [email or web address] [facility] #[id number], [address] [place] [address], [id number], 3 16:45:10 ropivacaine (PF) 5 mg/mL (0.5 %) injection solution 2022 023 [email or web address] [facility] #[id number], [address] [facility] [address] [place] [address], [id number], 3 16:45:10 Kenalog 10 mg/mL suspension for injection 2023 024 [email or web address] [facility] #[id number], [address] [facility] [address] [place] [address], [id number], 4 16:47:48 Marcaine (PF) 0.5 % (5 mg/mL) injection solution 2023 024 [email or web address] Not available 4 16:47:48 Patient TargetsNo targets recorded. Patient InstructionsNo instructions recorded. Reason for Referral None Reported. Results Created Date Observation Date Name Description Value Unit Range Abnormal Flag Note LastModifiedBy Organization Detail LastModifiedTime 11/19/19 22 XR, ankle , 3 or more view No observ ation record ed. [id number] [facility] [place] [address], [place], [address], 07/22/2022 06:47:06 11/19/19 22 XR, knee, 3 view No observ ation record ed. [id number] [facility] [place] [address], [place], [address], 07/22/2022 06:47:06 11/11/19 23 XR, hand No observ ation record ed. [email or web address] [facility] [place] [address], [place], [address], 11/10/2022 16:43:45 12/29/19 24 XR, hand, 3 or more view No observ ation record ed. [email or web address] [facility] [place] [address], [place], [address], 12/29/2023 12:21:27 Result Notes None recorded. 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 5369176389942 9100 Active 2021 Not Available [facility] 3 06:42:47 Localized, primary osteoarthr itis of the hand 976792713 Active Not Available [facility] 3 06:42:47 Knee joint effusion 390802487 Active Not Available [facility] 3 06:42:47 Menopausal symptom 57254424 Active Not Available [facility] 3 06:42:47 Osteoarthr itis of knee 879365625 Active Not Available [facility] 3 06:42:47 Low back pain 138138303 Active Not Available [facility] 3 06:42:47 Current tear of medial cartilage AND/OR meniscus of knee Active Not Available [facility] 3 06:42:47 Enthesopat hy of hip region 08399338 Active Not Available [facility] 3 06:42:47 Knee pain Active Not Available [facility] 3 06:42:47 Tendinitis of right posterior tibial tendon 4164030148997 02 Active 2021 Not Available [facility] 3 06:42:47 Osteoarthr itis of left knee joint 8936358066407 09 Active 2021 Not Available [facility] 3 06:42:48 Inflammato ry disorder of extremity 640503772 Active Not Available [facility] 3 06:42:48 Osteoarthr osis of the carpometac arpal joint of the thumb 56251801 Active 2021 Not Available [facility] 3 06:42:48 Osteoarthr itis 766969200 Active Not Available [facility] 3 06:42:48 Arthropath y of joint of hand 440667252 Active Not Available [facility] 3 06:42:48 High antibody titer 419522934 Active Not Available [facility] 3 06:42:48 Pain of right knee joint 2884728423716 00 Active 2021 Not Available [facility] 3 06:42:48 Pain of left knee joint 8717749290521 07 Active 2021 Not Available [facility] 3 06:42:48 Pain of bilateral knee joints 5479951059150 04 Active 2021 Not Available [facility] 3 06:42:48 Dystrophy of vulva 61650716 Active Not Available [facility] 3 06:42:48 Urge incontinen ce of urine 22692462 Active Not Available [facility] 3 06:42:48 Breast lump 77296747 Active Not Available [facility] 3 06:42:48 Pain in limb 91886336 Active Not Available [facility] 3 06:42:49 Pain of right ankle joint 0325680909177 9106 Active 2022 PEYTON Tuttle null, [place] [facility] 3 15:55:48 Mechanical complicati on of implant 480098973 Active 2022 PEYTON Tuttle null, [facility] 3 15:57:30 Pain in right hand 2897281321846 09 Active 2022 PEYTON Tuttle null, [facility] 3 15:58:25 Bilateral thumb pain 7758693578032 9102 Active 2023 Aury Padgett null, [facility] 4 12:32:01 Problem Notes None recorded. Procedures Surgical History Date Name Laterality Status Provider Name and Address Organization Details Recorded Time 12/29/19 24 Ortho - Cortisone Injection completed Pastor Dickerson MD [address] [place] [address], [address], [facility] 12/29/2023 14:47:41 11/22/19 21 Breast Biopsy completed Not Available [facility] 2022 06:40:09 12/30/19 16 Drain/inj joint/bursa w/o us completed Not Available [facility] 07/22/2022 06:40:09 12/30/19 16 Orthopedic Surgery completed Not Available [facility] 07/22/2022 06:40:09 07/31/19 14 arthroplasty of knee completed Not Available [facility] 07/22/2022 06:40:09 05/24/19 14 biopsy of pancreas completed Not Available [facility] 07/22/2022 06:40:09 04/04/20 13 Most Recent Mammogram completed Not Available [facility] 07/22/2022 06:40:08 09/29/19 12 Date of Last Pap Smear completed Not Available [facility] 07/22/2022 06:40:08 05/24/18 96 CIRCULAR CLERK Surgery completed Not Available [facility] 07/23/19 23 06:40:09 05/24/18 93 CIRCULAR CLERK Surgery completed Not Available [facility] 07/23/19 23 06:40:09 05/24/18 92 other completed Not Available [facility] 3 06:40:09 05/24/18 78 Appendectomy completed Not Available [facility] 023 06:40:09 Hernia Repair completed Not Available [facility] 07/22/2022 06:40:09 Imaging Results Imaging Date Name Status LastModified by Organiz ation Details LastModified Time 11/18/2021 XR, ankle, 3 or more view completed [id number] [facility] [place] [address], [place], [address], 07/22/2022 06:47:06 11/18/2021 XR, knee, 3 view completed [id number] [facility] [place] [address], [place], [address], 07/22/2022 06:47:06 11/10/2022 XR, hand completed [email or web address] [facility] [place] [address], [place], [address], 11/10/2022 16:43:45 12/29/2023 XR, hand, 3 or more view completed [email or web address] [facility] [place] [address], [place], [address], 12/29/2023 12:21:27 Procedure Notes None recorded. Medical Equipment None Reported. Allergies Allergen ID Allergen Name Allergen Category Reaction Reaction Severity Criticality Documentation Date Start Date Code Code System Note Provider Name and Address Organization Details Recorded Time 05272 Zocor medicatio n anaphylax is severe Not available 07/22/2022 85323 3 RxNorm Not Available [facility] 3 06:46:59 42061 Product containin g methylate d xanthine derivativ e (product) food,medi cation Not available Not available Not available 07/22/2022 57990 9002 SNOMED Not Available [facility] 3 06:46:59 53977 pramoxine hydrochlo ride medicatio n itching Not available Not available 07/22/2022 19026 RxNorm vagin al swell ing and pain Not Available [facility] 3 06:46:59 34949 theophyll ine anhydrous medicatio n hives moderate Not available 07/22/2022 95330 RxNorm Not Available [facility] 3 06:46:59 01894 Substance with sulfonami de structure and antibacte rial mechanism of action (substanc e) medicatio n Not available Not available Not available 07/22/2022 23727 8003 SNOMED Not Available [facility] 3 06:46:59 92643 simvastat in medicatio n Not available Not available Not available 07/22/2022 33264 RxNorm Not Available [facility] 3 06:46:59 87336 piroxicam medicatio n Not available Not available Not available 07/22/2022 8356 RxNorm Not Available [facility] 3 06:47:00 74525 nitrofura ntoin medicatio n Not available Not available Not available 07/22/2022 7454 RxNorm Not Available [facility] 3 06:47:00 30873 morphine medicatio n hives severe Not available 07/22/2022 7052 RxNorm Not Available [facility] 3 06:47:00 98764 meperidin e medicatio n Not available Not available Not available 07/22/2022 6754 RxNorm Not Available [facility] 3 06:47:00 39456 Librium medicatio n other moderate Not available 07/22/2022 3804 RxNorm mood alter ation s Not Available [facility] 3 06:47:00 09193 latex environme nt,medica tion itching moderate Not available 07/22/2022 64379 91 RxNorm Not Available [facility] 3 06:47:00 28016 diazepam medicatio n Not available Not available Not available 07/22/2022 3322 RxNorm Not Available [facility] 3 06:47:00 23547 Demerol medicatio n hives severe Not available 07/22/2022 31384 1 RxNorm Not Available [facility] 3 06:47:00 12022 codeine medicatio n nausea moderate Not available 07/22/2022 2670 RxNorm Not Available [facility] 3 06:47:00 78609 chlordiaz epoxide medicatio n Not available Not available Not available 07/22/2022 2356 RxNorm Not Available [facility] 3 06:47:00 15778 Ceftin medicatio n vomiting Not available Not available 07/22/2022 45848 6 RxNorm diarr hea Not Available [facility] 3 06:47:00 62107 salicylat e medicatio n Not available Not available Not available 11/10/2022 9522 RxNorm Elma Dugan RMA null, [facility] [employer] [facility] 3 15:47:06 15693 valsartan medicatio n Not available Not available Not available 11/10/2022 02202 RxNorm Elma Dugan RMNatalie null, [facility] [employer] [facility] 3 15:47:40 Medications Name Sig Start Date Stop Date Status Note LastModified by Organization Details LastModified Time Seroquel 300 mg tablet Take 1 tablet every day by oral route. 2014 active Not Available Not Available Not Avai lable quetiapine 25 mg tablet TK 1 T PO D HS active Not Available Not Available No t Available celecoxib 200 mg capsule TK 1 C PO QD 09/26 completed Not Available Not Available Not Available cyclobenzap rine 10 mg tablet active Not Available Not Available Not Available amoxicillin 500 mg capsule TK ONE C PO Q 8 H FOR ONE WEEK 06/05 completed Not Available Not Available Not Available latanoprost 0.005 % eye drops INSTILL 1 DROP INTO BOTH EYES EVERY NIGHT AT BEDTIME active Not Available Not Available No t Available atorvastati n 40 mg tablet TAKE 1 TABLET BY MOUTH DAILY 10/16 completed Not Available Not Available Not Available metformin 500 mg tablet TK 1 T PO TID WITH MEALS 06/05 completed Not Available Not Available Not Available levothyroxi ne 175 mcg tablet TK 1 T PO QD 06/05 completed Not Available Not Available Not Available bupropion HCl SR 150 mg tablet,12 hr sustained-r elease 09/26 completed Not Available Not Available Not Available levothyroxi ne 137 mcg tablet Take 1 tablet every day by oral route. 06/05 completed Not Available Not Available Not Available Xanax 0.5 mg tablet Take 1 tablet 3 times a day by oral route. 2014 active Not Available Not Available Not Avai lable nystatin 100,000 unit/mL oral suspension 12/28 completed Not Available Not Available Not Available prednisone 10 mg tablet TK 1 T PO BID 10/16 completed Not Available Not Available Not Available nitrofurant oin macrocrysta l 50 mg capsule TK 1 C PO HS 05/31 completed Not Available Not Available Not Available doxycycline hyclate 100 mg capsule TAKE 1 CAPSULE BY MOUTH DAILY 12/28 completed Not Available Not Available Not Available atorvastati n 20 mg tablet TAKE 1 TABLET BY MOUTH DAILY 10/16 completed Not Available Not Available Not Available ipratropium 0.5 mg-albutero l 3 mg (2.5 mg base)/3 mL nebulizatio n soln INHALE 3 MLS NEBULIZED UP TO QID PRN FOR COPD 06/05 completed Not Available Not Available Not Available clindamycin HCl 300 mg capsule TAKE 1 CAPSULE BY MOUTH EVERY 8 HOURS FOR 5 DAYS 12/28 completed Not Available Not Available Not Available loperamide 2 mg capsule active Not Available Not Available Not Available atorvastati n 10 mg tablet TAKE 1 TABLET BY MOUTH DAILY 01/06 completed Not Available Not Available Not Available Pneumovax-2 3 25 mcg/0.5 mL injection solution ADM 0.5ML IM UTD 06/05 completed Not Available Not Available Not Available oxybutynin chloride ER 10 mg tablet,exte nded release 24 hr 12/26 completed Not Available Not Available Not Available azithromyci n 250 mg tablet active Not Available Not Available Not Available Lidocaine Viscous 2 % mucosal solution APPLY TO THE AFFECTED AREA TOPICALLY DAILY DIRECTED BY DOCTOR 11/10 completed Not Available Not Available Not Available ofloxacin 0.3 % eye drops INSTILL 5 DROPS INTO EACH EAR BID FOR 10 DAYS active Not Available Not Available No t Available tizanidine 4 mg tablet TAKE 1-2 TABLETS BY MOUTH THREE TIMES A DAY NEEDED FOR SPASMS. MAX OF 6 TABLETS PER DAY 05/31 completed Not Available Not Available Not Available fluconazole 150 mg tablet TAKE 1 TABLET BY MOUTH 1 TIME active Not Available Not Available No t Available valacyclovi r 1 gram tablet TK 2 TS PO Q 12 H 05/31 completed Not Available Not Available Not Available clarithromy phillip 500 mg tablet active Not Available Not Available Not Available cephalexin 250 mg capsule TK 1 C PO Q 6 H 09/26 completed Not Available Not Available Not Available prochlorper azine maleate 5 mg tablet 06/05 completed Not Available Not Available Not Available Avelox 400 mg tablet active Not Available Not Available No t Available fluconazole 200 mg tablet TAKE 1 TABLET BY MOUTH EVERY 72 HOURS active Not Available Not Available No t Available sucralfate 1 gram tablet TK 1 T PO QID 06/05 completed Not Available Not Available Not Available promethazin e 12.5 mg tablet TAKE 1 TABLET BY MOUTH TWICE DAILY 12/26 completed Not Available Not Available Not Available lisinopril 20 mg tablet 05/31 completed Not Available Not Available Not Available ondansetron HCl 4 mg tablet active Not Available Not Available Not Available prednisone 20 mg tablet TK 3 TS PO D FOR 5 DAYS active Not Available Not Available No t Available fluorouraci l 5 % topical cream APPLY TOPICALLY TO RED SPOTS ON LEGS TWICE DAILY FOR 4 TO 6 WEEKS 12/28 completed Not Available Not Available Not Available gabapentin 400 mg capsule TK ONE C PO D 05/31 completed Not Available Not Available Not Available prednisone 5 mg tablet active Not Available Not Available Not Available terconazole 0.8 % vaginal cream active Not Available Not Available Not Available Mag-Oxide 400 mg tablet Take by oral route. 2014 active Not Available Not Available Not Avai lable travoprost 0.004 % eye drops INSTILL 1 DROP IN BOTH EYES AT BEDTIME active Not Available Not Available No t Available leflunomide 10 mg tablet TAKE 1 TABLET BY MOUTH EVERY DAY 11/10 completed Not Available Not Available Not Available metronidazo le 500 mg tablet TAKE 1 TABLET BY MOUTH THREE TIMES DAILY. DO NOT DRINK ALCOHOL WHILE ON THIS MEDICATIO N active Not Available Not Available No t Available ciprofloxac in 250 mg tablet TK 1 T PO Q 12 H 03/29 completed Not Available Not Available Not Available Detrol LA 4 mg capsule,ext ended release TAKE ONE CAPSULE BY MOUTH ONCE DAILY 03/29 completed Not Available Not Available Not Available amlodipine 5 mg tablet TAKE 1 TABLET BY MOUTH DAILY active Not Available Not Available No t Available prochlorper azine maleate 10 mg tablet TK 1 T PO Q 12 H 06/05 completed Not Available Not Available Not Available trimethopri m 100 mg tablet TK 1 T PO BID 05/31 completed Not Available Not Available Not Available valacyclovi r 500 mg tablet TAKE 1 TABLET BY MOUTH EVERY 12 HOURS 12/28 completed Not Available Not Available Not Available ciprofloxac in 500 mg tablet TAKE 1 TABLET BY MOUTH TWICE DAILY FOR 5 DAYS 12/26 completed Not Available Not Available Not Available hydrocodone 10 mg-acetamin ophen 325 mg tablet active Not Available Not Available No t Available omeprazole 40 mg capsule,del ayed release TAKE 1 CAPSULE BY MOUTH TWICE DAILY active Not Available Not Available No t Available leflunomide 20 mg tablet TAKE 1 TABLET BY MOUTH EVERY DAY active Not Available Not Available No t Available triamcinolo ne acetonide 0.1 % topical cream APPLY TOPICALLY TO THE AFFECTED AREA TWICE DAILY 12/28 completed Not Available Not Available Not Available acyclovir 800 mg tablet active Not Available Not Available Not Available glimepiride 2 mg tablet 11/10 completed Not Available Not Available Not Available levothyroxi ne 25 mcg tablet TAKE 1 TABLET BY MOUTH DAILY. TOTAL DAILY DOSE 225 MCG active Not Available Not Available No t Available warfarin 4 mg tablet TAKE 1 TABLET BY MOUTH DAILY active Not Available Not Available No t Available glimepiride 1 mg tablet TAKE 2 TABLETS BY MOUTH TWICE DAILY 11/10 completed Not Available Not Available Not Available oxycodone 15 mg tablet 10/16 completed Not Available Not Available Not Available warfarin 3 mg tablet TK 1 T PO QD 03/29 completed Not Available Not Available Not Available tetracyclin e 250 mg capsule TK 1 C PO BID 03/29 completed Not Available Not Available Not Available prednisone 10 mg tablets in a dose pack Take 1 tab by mouth, 3 times a day for 3 daysTake 1 tab by mouth 2 times a day for 2 daysTake 1 tab by mouth once a day for 1 day 12/26 completed Not Available Not Available Not Available nystatin-tr iamcinolone 100,000 unit/gram-0 .1 % topical ointment APPLY TO THE AFFECTED AREA(S) BY TOPICAL ROUTE 2 TIMES PER DAY 06/05 completed Not Available Not Available Not Available nortriptyli ne 25 mg capsule TAKE 1 CAPSULE BY MOUTH THREE TIMES DAILY active Not Available Not Available No t Available oxycodone-a cetaminophe n 5 mg-325 mg tablet TAKE 1 TABLET BY MOUTH EVERY 4 HOURS NEEDED FOR PAIN 12/26 completed Not Available Not Available Not Available magnesium oxide 400 mg (241.3 mg magnesium) tablet TAKE 1 TABLET BY MOUTH DAILY active Not Available Not Available No t Available methotrexat e sodium 2.5 mg tablet 01/06 completed Not Available Not Available Not Available oxycodone-a cetaminophe n 10 mg-325 mg tablet TAKE 1 TO 2 TABLETS BY MOUTH EVERY 6 HOURS NEEDED FOR PAIN. MAX 8 A DAY active Not Available Not Available No t Available betamethaso ne valerate 0.1 % topical cream APPLY TOPICALLY TO THE AFFECTED AREA TWICE DAILY 09/26 completed Not Available Not Available Not Available Kenalog 10 mg/mL suspension for injection in office 2023 active [facility]: [phone] Not Available Not Available Not Available meclizine 25 mg tablet active Not Available Not Available Not Available baclofen 10 mg tablet TAKE 1/2 TABLET BY MOUTH THREE TIMES DAILY 12/26 completed Not Available Not Available Not Available hydrocortis one 1 % topical cream APPLY EXTERNALL Y TO THE AFFECTED AREA THREE TIMES DAILY NEEDED FOR RASH 12/26 completed Not Available Not Available Not Available gemfibrozil 600 mg tablet TK 1 T PO QD 30 MIN B DANIEL AND DINNER 05/31 completed Not Available Not Available Not Available cephalexin 500 mg capsule 09/26 completed Not Available Not Available Not Available erythromyci n 5 mg/gram (0.5 %) eye ointment 10/31 completed Not Available Not Available Not Available metformin 1,000 mg tablet TAKE 1 TABLET BY MOUTH TWICE DAILY 01/06 completed Not Available Not Available Not Available levothyroxi ne 125 mcg tablet active Not Available Not Available Not Available nitrofurant oin macrocrysta l 100 mg capsule TK 1 C PO Q 6 H WF FOR 7 DAYS active Not Available Not Available No t Available triamcinolo ne acetonide 0.1 % topical ointment APPLY TOPICALLY TO THE AFFECTED AREA DAILY 10/16 completed Not Available Not Available Not Available buspirone 10 mg tablet TK 1 T PO TID 05/31 completed Not Available Not Available Not Available clotrimazol e-betametha sone 1 %-0.05 % topical cream APPLY TOPICALLY TO THE AFFECTED AREA TWICE DAILY active Not Available Not Available No t Available glimepiride 4 mg tablet TAKE 1 TABLET BY MOUTH TWICE DAILY WITH BREAKFAST AND DINNER active Not Available Not Available No t Available promethazin e 25 mg tablet TK 1 T PO Q 4 TO 6 H PRF NAUSEA 06/05 completed Not Available Not Available Not Available warfarin 5 mg tablet TAKE 1 TABLET BY MOUTH DAILY active Not Available Not Available No t Available brimonidine 0.2 % eye drops INSTILL 1 DROP INTO THE RIGHT EYE TWICE DAILY active Not Available Not Available No t Available orphenadrin e citrate ER 100 mg tablet,exte nded release TK 1 T PO BID PRF SPASM 03/29 completed Not Available Not Available Not Available nystatin-tr iamcinolone 100,000 unit/g-0.1 % topical cream APPLY EXTERNALL Y TO THE AFFECTED AREA TWICE DAILY IN THE MORNING AND IN THE EVENING 12/28 completed Not Available Not Available Not Available gabapentin 300 mg capsule TAKE 1 CAPSULE BY MOUTH THREE TIMES DAILY WITH MEALS active Not Available Not Available No t Available omeprazole 20 mg capsule,del ayed release active Not Available Not Available Not Available lisinopril 20 mg-hydrochl orothiazide 25 mg tablet TAKE 1 TABLET BY MOUTH DAILY active Not Available Not Available No t Available folic acid 1 mg tablet 09/26 completed Not Available Not Available Not Available dorzolamide 22.3 mg-timolol 6.8 mg/mL eye drops INSTILL 1 DROP IN RIGHT EYE TWICE DAILY active Not Available Not Available No t Available montelukast 10 mg tablet TAKE 1 TABLET BY MOUTH DAILY active Not Available Not Available No t Available levothyroxi ne 200 mcg tablet TAKE 1 TABLET BY MOUTH DAILY. TOTAL DAILY DOSE 225 MCG active Not Available Not Available No t Available hydrochloro thiazide 25 mg tablet active Not Available Not Available No t Available mupirocin 2 % topical ointment APPLY TOPICALLY TO THE AFFECTED AREA DAILY 12/28 completed Not Available Not Available Not Available furosemide 20 mg tablet TAKE 1 TABLET BY MOUTH EVERY MORNING active Not Available Not Available No t Available Monurol 3 gram oral packet 09/26 completed Not Available Not Available Not Available gabapentin 100 mg capsule active Not Available Not Available Not Available ergocalcife rol (vitamin D2) 1,250 mcg (50,000 unit) capsule TAKE 1 CAPSULE BY MOUTH 1 TIME A WEEK active Not Available Not Available No t Available clobetasol 0.05 % topical ointment active Not Available Not Available Not Available lorazepam 1 mg tablet TK 1 T PO TID PRF SPASM 03/29 completed Not Available Not Available Not Available azelastine 137 mcg (0.1 %) nasal spray USE 1 SPRAY NASALLY EVERY 12 HOURS active Not Available Not Available No t Available warfarin 1 mg tablet TAKE 1 TABLET BY MOUTH DAILY active Not Available Not Available No t Available hydroxychlo roquine 200 mg tablet TAKE 1 TABLET BY MOUTH TWICE DAILY active Not Available Not Available No t Available cefuroxime axetil 500 mg tablet active Not Available Not Available No t Available polyethylen e glycol 3350 17 gram/dose oral powder active Not Available Not Available Not Available levofloxaci n 500 mg tablet TK 1 T PO D 05/31 completed Not Available Not Available Not Available oxycodone-a cetaminophe n 7.5 mg-325 mg tablet active Not Available Not Available Not Available zolpidem 10 mg tablet active Not Available Not Available No t Available methylpredn isolone 4 mg tablets in a dose pack FOLLOW PACKAGE DIRECTION S active Not Available Not Available No t Available albuterol sulfate HFA 90 mcg/actuati on aerosol inhaler INHALE 2 PUFFS BY MOUTH EVERY 4 TO 6 HOURS NEEDED active Not Available Not Available No t Available timolol maleate 0.5 % eye drops INSTILL 1 DROP INTO RIGHT EYE EVERY MORNING DIRECTED 12/28 completed Not Available Not Available Not Available doxycycline hyclate 20 mg tablet TAKE 2 TABLETS BY MOUTH DAILY 09/26 completed Not Available Not Available Not Available lisinopril 40 mg tablet active Not Available Not Available Not Available ondansetron 4 mg disintegrat ing tablet DISSOLVE 1 TABLET ON THE TONGUE EVERY 8 HOURS NEEDED FOR NAUSEA OR VOMITING active Not Available Not Available No t Available cefdinir 300 mg capsule 09/26 completed Not Available Not Available Not Available fluticasone propionate 50 mcg/actuati on nasal spray,suspe nsion SHAKE LQ AND U 1 TO 2 SPRAYS IEN D PRN 12/28 completed Not Available Not Available Not Available doxycycline hyclate 100 mg tablet TK 1 T PO QD AT DINNER TIME WITH FOOD FOR 3 WEEKS active Not Available Not Available No t Available nortriptyli ne 50 mg capsule active Not Available Not Available Not Available Microlet Lancet USE TO CHECK BLOOD SUGAR ONE TIME DAILY 12/28 completed Not Available Not Available Not Available metoclopram karin 10 mg tablet active Not Available Not Available Not Available amoxicillin 875 mg-potassiu m clavulanate 125 mg tablet TAKE 1 TABLET BY MOUTH TWICE DAILY 12/28 completed Not Available Not Available Not Available amoxicillin 500 mg-potassiu m clavulanate 125 mg tablet TK 1 T PO BID 10/31 completed Not Available Not Available Not Available tobramycin 0.3 %-dexametha sone 0.1 % eye drops,suspe nsion active Not Available Not Available Not Available enoxaparin 30 mg/0.3 mL subcutaneou s syringe INJECT 1 SYRINGE SUBCUTANE OUSLY Q 12 H active Not Available Not Available No t Available enoxaparin 100 mg/mL subcutaneou s syringe active Not Available Not Available No t Available enoxaparin 120 mg/0.8 mL subcutaneou s syringe active Not Available Not Available No t Available metformin ER 750 mg tablet,exte nded release 24 hr TAKE 1 TABLET BY MOUTH DAILY 01/06 completed Not Available Not Available Not Available rosuvastati n 40 mg tablet TAKE 1 TABLET BY MOUTH DAILY active Not Available Not Available No t Available Marcaine (PF) 0.5 % (5 mg/mL) injection solution in office 2023 active Not Available Not Available Not Avai lable calcium 315 mg (as citrate)-vi tamin D3 5 mcg (200 unit) tablet Take by oral route. 05/31 completed Not Available Not Available Not Available nitrofurant oin monohydrate /macrocryst als 100 mg capsule TK 1 C PO BID 01/06 completed Not Available Not Available Not Available duloxetine 20 mg capsule,del ayed release TK ONE C PO BID 03/29 completed Not Available Not Available Not Available duloxetine 30 mg capsule,del ayed release TAKE 2 CAPSULES BY MOUTH EVERY DAY IN THE MORNING active Not Available Not Available No t Available duloxetine 60 mg capsule,del ayed release TAKE 1 CAPSULE BY MOUTH EVERY DAY IN THE MORNING active Not Available Not Available No t Available docusate sodium active Not Available Not Available Not Available atorvastati n 12/28 completed Not Available Not Available Not Available oxymetazoli ne 05/31 completed Not Available Not Available Not Available buspirone 03/29 completed Not Available Not Available Not Available Zyrtec 05/31 completed Not Available Not Available Not Available Qvar 05/31 completed Not Available Not Available Not Available Diphenhydra mine 12/28 completed Not Available Not Available Not Available lidocaine (PF) 10 mg/mL (1 %) injection solution In office injection administe red by the provider 10/16 completed [facility]: [phone] Not Available Not Available Not Available OneTouch UltraMini kit USE UTD 05/31 completed Not Available Not Available Not Available quetiapine 50 mg tablet TK 1 T PO QHS 05/31 completed Not Available Not Available Not Available Twinrix (PF) 720 MAXIMUS unit-20 mcg/mL intramuscul ar suspension active Not Available Not Available N ot Available levocetiriz ine 5 mg tablet TAKE 1 TABLET BY MOUTH EVERY DAY 10/16 completed Not Available Not Available Not Available Combigan 0.2 %-0.5 % eye drops INSTILL 1 DROP INTO AFFECTED EYE(S) BY OPHTHALMI C ROUTE EVERY 12 HOURS 12/28 completed Not Available Not Available Not Available Humalog KwikPen (U-100) Insulin 100 unit/mL subcutaneou s active Not Available Not Available Not Available azelastine 205.5 mcg (0.15 %) nasal spray U 1 SPR IEN BID 10/31 completed Not Available Not Available Not Available Vagifem 10 mcg vaginal tablet active Not Available Not Available Not Available Prevnar 13 (PF) 0.5 mL intramuscul ar syringe ADM 0.5ML IM UTD active Not Available Not Available No t Available Dialyvite 800-Ultra D 0.8 mg-2,000 unit tablet TK 1 T PO D 06/05 completed Not Available Not Available Not Available Lumigan 0.01 % eye drops active Not Available Not Available Not Available Tradjenta 5 mg tablet TAKE 1 TABLET BY MOUTH EVERY MORNING 12/28 completed Not Available Not Available Not Available ropivacaine (PF) 5 mg/mL (0.5 %) injection solution Take 10 mg by injection route. 2022 active [facility] [phone] Not Available Not Available Not Available OneTouch Verio test strips USE TO CHECK BLOOD SUGAR THREE TIMES DAILY active Not Available Not Available No t Available lidocaine 5 % topical ointment APPLY TOPICALLY TO THE AFFECTED AREA TWICE DAILY 10/16 completed Not Available Not Available Not Available Myrbetriq 25 mg tablet,exte nded release TAKE 1 TABLET BY MOUTH AT BEDTIME 12/28 completed Not Available Not Available Not Available icosapent ethyl 1 gram capsule TAKE 2 CAPSULES BY MOUTH TWICE DAILY active Not Available Not Available No t Available Breo Ellipta 100 mcg-25 mcg/dose powder for inhalation INL 1 PUFF PO AT THE SAME TIME QD 10/31 completed Not Available Not Available Not Available Fluvirin 6243-6931 45 mcg (15 mcg x 3)/0.5 mL intramuscul ar suspension ADM 0.5ML UTD 05/31 completed Not Available Not Available Not Available dapaglifloz in propanediol 10 mg tablet TAKE 1 TABLET BY MOUTH EVERY MORNING active Not Available Not Available No t Available Fluvirin 3553-0017 45 mcg (15 mcg x 3)/0.5 mL intramuscul ar suspension INJECT 0.5 ML INTRAMUSC ULARLY DIRECTED. 05/31 completed Not Available Not Available Not Available Jardiance 10 mg tablet TAKE 1 TABLET BY MOUTH DAILY 01/06 completed Not Available Not Available Not Available Fluarix Quad (PF) 60 mcg (15 mcg x 4)/0.5 mL IM syringe active Not Available Not Available N ot Available Supartz FX 10 mg/mL intra-artic ular syringe Injection s given in the office by the doctor 12/26 completed N[facility]: [phone] Not Available Not Available Not Available Tresiba FlexTouch U-100 insulin 100 unit/mL (3 mL) subcutaneou s pen ADMINISTE R 16 UNITS UNDER THE SKIN DAILY active Not Available Not Available No t Available Narcan 4 mg/actuatio n nasal spray ERIN REP ALN 05/31 completed Not Available Not Available Not Available OneTouch Verio Flex Meter USE DIRECTED TO CHECK BLOOD SUGARS active Not Available Not Available No t Available Flulaval Quad 60 mcg (15 mcg x 4)/0.5 mL IM suspension ADM 0.5ML IM UTD 05/31 completed Not Available Not Available Not Available Restasis MultiDose 0.05 % eye drops INT 1 GTT IN OU BID UTD active Not Available Not Available No t Available Flucelvax Quad (PF) 60 mcg (15 mcg x 4)/0.5 mL IM syringe ADM 0.5ML IM UTD 05/31 completed Not Available Not Available Not Available Trelegy Ellipta 100 mcg-62.5 mcg-25 mcg powder for inhalation INHALE 1 PUFF BY MOUTH EVERY 24 HOURS RINSE AND SPIT active Not Available Not Available No t Available Shingrix (PF) 50 mcg/0.5 mL intramuscul ar suspension, kit ADMINISTE R 0.5ML IN THE MUSCLE DIRECTED 09/26 completed Not Available Not Available Not Available OneTouch Ultra Blue Test Strip TEST EVERY DAY 12/26 completed Not Available Not Available Not Available Fluarix Quad (PF) 60 mcg (15 mcg x 4)/0.5 mL IM syringe ADM 0.5ML IM UTD 05/31 completed Not Available Not Available Not Available BD Carmel 2nd Gen Pen Needle 32 gauge x 5/32 USE TO ADMINISTE R INSULIN 4 TO 6 TIMES DAILY active Not Available Not Available No t Available OneTouch Delica Plus Lancet 33 gauge USE TO TEST BLOOD SUGAR LEVELS THREE TIMES DAILY active Not Available Not Available No t Available Afluria Qd (36 mos up)(PF)60 mcg (15 mcg x4)/0.5 mL IM syringe ADM 0.5ML IM UTD 09/26 completed Not Available Not Available Not Available Baqsimi 3 mg/actuatio n nasal spray active Not Available Not Available Not Available Gvoke HypoPen 2-Pack 1 mg/0.2 mL subcutaneou s auto-inject or INJECT 1MG UNDER THE SKIN FOR ONE DOSE NEEDED. MAY REPEAT ONCE AFTER 15 MINUTES IF NO RESPONSE. active Not Available Not Available No t Available Lyumjev KwikPen U-100 Insulin 100 unit/mL subcutaneou s INJECT 35 UNITS UNDER THE SKIN DAILY PER SLIDING SCALE active Not Available Not Available No t Available Afluria Qd 2019- (36 mos up)(PF)60 mcg (15 mcg x4)/0.5 mL IM syringe ADM 0.5ML IM UTD 09/26 completed Not Available Not Available Not Available Vitals Date Recorded Body mass index (BMI) Body height Body height Body height Body weight Provider Name and Address Organization Details Last Updated DateTime 07/22/2022 43.9 kg/m2 165.1 cm 165.1 cm 165.1 cm 879485.3 9 g Not Available [facility] 07/22/2022 06:42:14 Date Recorded Body height Provider Name an d Address Organization Details Last Updated DateTime 11/10/2022 165.1 cm Elma Dugan [facility] [employer] 11/10/2022 15:44:53 Date Recorded Body height Body mass index (BMI) Body weight Pain severity - 0-10 verbal numeric rating [Score] - Reported Provider Name and Address Organization Details Last Updated DateTime 12/29/2023 170.18 cm 38.4 kg/m2 771667.13 g 6 Portia Virk [facility] [employer] 12/29/2023 12:19:24 Social History Question Answer Notes LastModified by Organizat ion Details LastModified Time Tobacco Smoking Status Former Smoker Not Available [facility] 07/22/2022 06:40:04 What Is Your Level Of Alcohol Consumption? None [id number] Information not available 07/22/2022 What Is Your Level Of Caffeine Consumption? None [id number] Information not available 07/22/2022 Which Illicit Or Recreational Drugs Have You Used? Marijuana Daily For Pain [id number] Information not available 07/22/2022 What Was The Date Of Your Most Recent Tobacco Screening? 10/16/2021 [id number] Information not available 07/22/2022 What Is Your Relationship Status? Single [id number] Information not available 07/22/2022 Do You Use Your Seat Belt Or Car Seat Routinely? Yes [id number] Information not available 07/22/2022 Do You Use Any Illicit Or Recreational Drugs? Yes [id number] Information not available 07/22/2022 Sex: Unknown Functional Status Question Answer Note LastModified by Organizat ion Details LastModified Time What is your exercise level? None [id number] Information not available 07/22/2022 Mental Status None recorded. Family History Relationship Description Onset Age of this Age Resolved Age Notes LastModified by Organization Details LastModified Time Mother Family history of malignant neoplasm [id number] Not available 07/22/2022 06:40:10 Mother Diabetes mellitus [id number] Not available 07/22/2022 06:40:10 Mother History of hypertension [id number] Not available 07/22/2022 06:40:10 Mother Heart disease [id number] Not available 07/22/2022 06:40:10 Father History of hypertension [id number] Not available 07/22/2022 06:40:10 Father Heart disease [id number] Not available 07/22/2022 06:40:10 Medical History Condition Response ARTHRITIS Y USE OF BLOOD THINNERS Y DIABETES, TYPE Y SKIN PROBLEMS Y LUNG DISEASE/DISORDER Y HEARTBURN / REFLUX Y COPD Y HIGH CHOLESTEROL / HYPERLIPIDEMIA Y BLOOD CLOTS Y DEPRESSION (INCLUDING POST ) Y BOWEL PROBLEMS Y HYPERTENSION Y CANCER: SPECIFY Y ANXIETY DISORDER Y ANEMIA/BLOOD DISORDER Y FIBROMYALGIA Y OSTEOPOROSIS Y AUTOIMMUNE DISEASE Y Gynecological History Statement/Question Response Abnormal Pap N Date of Last Pap Smear 09/29/2011 Current Control Method Hysterectom y Most Recent Mammogram 04/04/2013 Obstetrics History GPAL:G 3 P 2 0 1 2 Type Value Full Term 2 Spontaneous 1 Living 2 Total 3 Past Encounters Encounter ID Performer Location Encounter Start Date Encounter Closed Date Diagnosis/Indication Diagnosis SNOMED-CT Code Diagnosis ICD10 Code Diagnosis Note [id number] [facility] [address] [place] [address] 09/26/2020 00:00:00 09/26/2020 15:16:13 [id number] _ATHENA_M IGRATION_ DEFAULT_1 _1 , 01/06/2021 00:00:00 01/06/2021 15:57:50 [id number] [facility] [address] [place] [address] 01/16/2021 00:00:00 01/16/2021 15:47:07 [id number] [facility] [address] [place] [address] 02/14/2021 00:00:00 02/14/2021 14:25:15 [id number] [facility] [address] [place] [address] 04/24/2021 00:00:00 04/24/2021 10:04:13 [id number] [facility] [address] [place] [address] 10/16/2021 00:00:00 10/16/2021 15:39:25 [id number] [facility] [address] [place] [address] 10/23/2021 00:00:00 10/23/2021 15:22:43 [id number] [facility] [address] [place] [address] 11/05/2021 00:00:00 11/05/2021 11:42:40 [id number] [facility] [address] [place] [address] 11/11/2021 00:00:00 11/11/2021 15:31:01 [id number] [facility] [address] [place] [address] 11/18/2021 00:00:00 11/18/2021 16:00:11 [id number] [facility] [address] [place] [address] 01/05/2022 00:00:00 01/05/2022 09:56:15 [id number] [facility] [address] [place] [address] 02/02/2022 00:00:00 02/02/2022 11:51:39 [id number] MATTHIAS Ventura [facility] 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 [place] [address] 12/29/2023 11:45:53 12/29/2023 12:37:11 Pain in right thumb 6615991950 560173 M79.644 Pain in left thumb 88414 94530 875673 M79.645 Bilateral thumb pain 478 3522580 0291290 M79.644 M79.645 Health Concerns Section Related Observation LastModified by Organization Detai ls LastModified Time None Recorded Concern Status LastModified by Organization Details LastModified Time None Recorded Advance Directives Directive None Recorded Payers Encounter Date Sequence Insurance Name Policy Number Policy Dunn Covered Member ID Dunn Member ID Guarantor Name 11/10/2022 1 [place] Dori Hayward [id number] Dori Hayward 11/10/2022 2 [place] OR MEDICARE REPLACEMENT PRIMARY) Dori Hayward [id number] Dori Hayward 12/29/2023 1 [place] Dori Hayward [id number] Dori Hayward 12/29/2023 2 [place]PLACEMENT PRIMARY) Dori Hayward [id number] Dori Hayward Notes Date Note Type Note Provider Name and Address Organization Details Recorded Time 11/10/2022 text/html Patient returns complaining of right thumb CMC pain she has known chronic osteoarthritis here. She was last seen 9 months ago and had a shot of cortisone which gave her excellent relief. Recently her pain has started to flare up again. She states if she tries to do anything heavy in terms of pinching or lifting with her hand and wrist she has significant pain at the CMC joint. Recently she has been overdoing it a bit flared up once again. Has not fallen had no specific trauma has aching pain that limits her daily activities. She cannot take anti-inflammatories she is on chronic anticoagulation therapy and has multiple medication allergies. Her treatment options are somewhat limited due to this and the fact that she is not a great surgical candidate due to other multiple medical issues including COPD hypertension depression chronic pain diabetes rheumatologic disease depression and chronic pain and obesity.Today her past medical history sheet was reviewed and signed on the intake sheet today's date we discussed the above issues in detail today including drug allergies current medications family social history previous social history and 10 point review of systems.Patient comes in today requesting further evaluation treatment of her right basilar thumb pain is described, we will get new x-rays today as it has been about a year since her last ones. MATTHIAS Ventura [address] [facility], [facility] [address], [place], [address], [place] [employer] 11/10/2022 16:44:30 OBGyn Episode No OBEpisode recorded.
--- OUTSIDE RECORDS SUMMARY | 2024-06-27 08:05 | XMS_ITS | Clinical Summary ---
Author Organization [facility] Address [address], [facility] [address] [place] [address] Phone Care Team Providers Care Broadcast Journalist Name Role Phone Salo Matre DO Primary Care Provider Donato May DO Unavailable [phone] Ben RodCullen Unavailable [phone] Allergies Active Allergy Reactions Criticality Noted Date Comments Cefuroxime Axetil Unknown Chlordiazepoxide Hcl Unknown Meperidine Unknown Diazepam Unknown Latex Unknown Nitrofurantoin Unknown Morphine Sulfate Unknown Other Unknown Codeine Derivatives Xanthine Derivatives Piroxicam Unknown Simvastatin Unknown Sulfa Antibiotics Unknown Theophylline Unknown Medications Albuterol Sulfate 8 MG TABLET SR 12 HR Acti ve Emollient (CERAVE) Lotion Acti ve docusate sodium (COLACE) 50 MG Capsule Active fluticasone (FLONASE) 50 MCG/ACT Suspension as needed. Active levothyroxine (SYNTHROID) 150 MCG Tablet daily. Active atorvastatin (LIPITOR) 20 MG Tablet daily. Active lisinopril (PRINIVIL, ZESTRIL) 20 MG Tablet daily. Active nortriptyline (PAMELOR) 50 MG Capsule Active Omeprazole 20 MG Tablet Delayed Response daily. Active oxyCODONE-Acetam inophen (PERCOCET) 10-325 MG Tablet 1 Tab daily as needed. Active Cholecalciferol (PA VITAMIN D-3) 5000 UNIT Capsule 5,000 Units once a week. Active warfarin (COUMADIN) 4 MG Tablet Active ondansetron (ZOFRAN) 4 MG Tablet 4 mg every 6 hours as needed. Active Active Problems Problem Noted Date Diagnosed Date Hiatal hernia Abdominal pain Pancreatic neoplasm Social History Tobacco Use Types Packs/Day Years Used Date Smoking Tobacco: Never Assessed Comments Unknown Sex and Gender Information Value Date Recorded Sex Assigned at Not on file Legal Sex Female 12:21 AM CDT Gender Identity Not on file Sexual Orientation Not on file Plan of Treatment Health Maintenance Due Date Last Done Comments Hepatitis C Virus (HCV) Screening 1962 TdaP Immunization 1962 Pap Smear 1983 Cervical Cancer Screening (CCS) 1992 HPV/Cotest 1992 Cologuard 2012 Immunochemical Fecal Occult Blood 2012 Mammogram 2012 Zoster Immunization (1 of 2) 2012 Colonoscopy 04/13/2015 04/13/2005 Colorectal Cancer Screening 04/13/2015 Pneumococcal Immunization (50+ years) (2 of 2 - PPSV23) 04/10/2016 04/10/2015 Influenza Immunization (#1) 01/23/202402/21, 03/04/2016, 04/10/2015 SARS-COV-2 Immunization ( season) 2024 11/03/2021, 06/23/2021, 12/19/2020, Additional history exists Respiratory Syncytial Virus (RSV) Immunization (Adult) (1 - 1-dose 75+ series) 2037 04/13/2005 Hepatitis B Immunization Completed 013, 08/06/2012, 07/09/2012 Pneumococcal Immunization Combined Discontinued 04/10/2015 Meningococcal Immunization (ACWY) Aged Out No longer eligible based on patient's age to complete this topic Rotavirus Immunization Aged Out No lo nger eligible based on patient's age to complete this topic Procedures Procedure Name Priority Date/Time Associated Diagnosis Comments COLONOSCOPY Routine 04/13/2005 from Last 3 Months or Most Recently Relevant to Health Maintenance Results * COLONOSCOPY (04/13/2005) us Not On File Provider PROCEDURE/MINOR SURGICAL OR DERABLES Final Result from Last 3 Months or Most Recently Relevant to Health Maintenance Insurance [place]IC[place] Care Teams Broadcast Journalist Relationship Specialty Start Date End Date Salo Marte DO [address] [place], [place] [id number] PCP - General Internal Medicine 06/19/15 Donato May DO [address] [place], [place] [id number] Gastroenterology 06/19/15 Ben Rod [address] [place] [address] [phone] (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
[2024-06-27 08:48] LABS: Basophils Percent Auto 0.6 % (0.2-1.2); Eosinophils Absolute Auto 0.2 K/mm3 (0-0.3); Eosinophils Percent Auto 2.9 % (0-4.4); Hematocrit 39.3 % (37.0-47.0); Immature Granulocyte Absolute 0.01 K/mm3 (0.00-0.031); Immature Granulocyte Percent A 0.2 % (0-0.5); Lymphocytes Percent Auto 32.1 % (18.3-44.2); Mean Corpuscular HGB Conc 33.1 g/dl (32-36); Mean Corpuscular Hemoglobin 32.3 pg (26-34); Mean Corpuscular Volume 97.5 fl (80-100); Monocytes Absolute Auto 0.9 K/mm3 (0.1-0.6); Monocytes Percent Auto 13.6 % (2.6-8.5); Neutrophils Absolute Auto 3.2 K/mm3 (1.3-6.7); Neutrophils Percent Auto 50.6 % (45.5-73.1); Platelet Count Result 254 k/mm3 (150-375); Red Blood Count 4.03 M/mm3 (4.2-5.4); Red Cell Distribution Width 12.6 % (11.5-14.5); White Blood Count 6.2 K/mm3 (4.5-10.0)
[2024-06-27 09:03] LABS: Alanine Aminotransferase 26 U/L (6-35); Alkaline Phosphatase 74 U/L (38-126); Anion Gap 8 mmol/L (4-12); Aspartate Amino Transferase 28 U/L (14-36); Bilirubin,Total 0.4 mg/dL (0.2-1.3); Blood Urea Nitrogen 19 mg/dL (7-17); CRP < 0.5 mg/dL (<1.0); Calcium 9.4 mg/dL (8.4-10.2); Carbon Dioxide 29 mmol/L (22-30); Chloride 101 mmol/L (98-107); Estimated Glomerular Filt Rate 58; Glucose 162 mg/dL (65-110); Potassium 4.6 mmol/L (3.4-5.0); Sodium 138 mmol/L (137-145)
[2024-06-27 09:46] LABS: Erythrocyte Sedimentation Rate 29 mm/hr (0-20)
== END 2024-06-27 07:58 | disposition home or self-care (01) ==
PROVIDERS: PCP Internal Medicine; Visit Provider Nurse Practitioner Family
DX: M06.09 Rheumatoid arthritis without rheumatoid factor, multiple sites (principal); Z79.899 Other long term (current) drug therapy
CPT/HCPCS: 36415; 80053; 85025; 85652; 86140

== ENCOUNTER 2024-06-28 10:22 | Outpatient (CLI) | payer MEDICARE, MEDICAID, SELFPAY ==
--- NOTE | ~2024-06-28 | US_ITS ---
EXAMINATION: US renal BI DATE: 06/28/2024 11:03 INDICATION: Type 2 diabetes mellitus with diabetic chronic kidney disease TECHNIQUE: Multiple ultrasound grayscale images of the kidneys were obtained. COMPARISON: None. FINDINGS: The right kidney measures 11.0 x 5.3 x 5.2 cm. The left kidney measures 10.8 x 5.8 x 4.6 cm. The kidn eys demonstrate normal echogenicity. There is no hydronephrosis in either kidney. No stones identifi ed. The bladder is normal with bilateral ureteral jets visualized on color Doppler. IMPRESSION: 1. Normal kidneys without hydronephrosis. Reviewed, dictated and finalized at location A. 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
--- OUTSIDE RECORDS SUMMARY | 2024-06-28 11:41 | XMS_ITS | Clinical Summary ---
Author Organization [facility] Address [address], [facility] 1 [place] [address] Phone Care Team Providers Care Pc Support Specialist Name Role Phone Salo Marte DO Primary Care Provider Donato May DO Unavailable [phone] Ben RodCullen Unavailable [phone] Allergies Active Allergy Reactions Criticality Noted Date [...] [place] Care Teams Pc Support Specialist Relationship Specialty Start Date End Date Salo Marte DO [address] [place], [place] [phone] PCP - General Internal Medicine 06/19/15 Donato May DO [address] [place], [place] [address] Gastroenterology 06/19/15 Ben Rod [address] [place] [address] [phone] (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
--- OUTSIDE RECORDS SUMMARY | 2024-06-28 11:42 | XMS_ITS | CONTINUITY OF CARE DOCUMENT ---
Author Name bryn clemente Address Unknown Organization [facility] Address [address] [facility] [address] [place] [address] Phone [phone] Care Team Providers Care Exit Booth Agent Name Role Phone bryn clemente Unavailable Unavailable
--- OUTSIDE RECORDS SUMMARY | 2024-06-28 11:42 | XMS_ITS | Data Portability ---
Author Organization [place] [facility], Main Office Address [address] [place] [address] Assessment Encounter Date Assessment Date Assessment LastModified [...] DO Not Attach Compendium, Do Not Delete/merge, [id number] 3 16:17:37 injection/a spiration joint/bursa (PROC) - in office procedure, administere d by provider 2023 024 [email or web address] 3 In-Office Order, Internal Use Only DO Not Attach Compendium DO Not Attach Compendium, Do Not Delete/merge, [id number] 4 12:33:57 Surgeries None recorded. Imaging XR, hand 2022 023 [email or web address] [facility], [address], [place], [address], 3 16:45:10 XR, hand, 3 or more view 2023 024 [facility], [address], [place], [address], 4 08:25:28 Medication Orders Kenalog 10 mg/mL suspension for injection 2022 023 [email or web address] [facility] #67937, [address] [place] [address], [id number], 3 16:45:10 ropivacaine (PF) 5 mg/mL (0.5 %) injection solution 2022 023 [email or web address] [facility] #72330, [address] [facility] [address] [place] [address], [id number], 3 16:45:10 Kenalog 10 mg/mL suspension for injection 2023 024 [email or web address] [facility] #67182, [address] [facility] [address] [place] [address], [id number], 4 16:47:48 Marcaine (PF) 0.5 % (5 mg/mL) injection solution 2023 024 [email or web address] Not available 4 16:47:48 Patient TargetsNo targets recorded. Patient InstructionsNo instructions recorded. Reason for Referral None Reported. Results Created Date Observation Date Name Description Value Unit Range Abnormal Flag Note LastModifiedBy Organization Detail LastModifiedTime 11/19/19 22 XR, ankle , 3 or more view No observ ation record ed. [id number] [facility] [address], [place], [address], 07/22/2022 06:47:06 11/19/19 22 XR, knee, 3 view No observ ation record ed. [id number] [facility] [address], [place], [address], 07/22/2022 06:47:06 11/11/19 23 XR, hand No observ ation record ed. [email or web address] [facility] [address], [place], [address], 11/10/2022 16:43:45 12/29/19 24 XR, hand, 3 or more view No observ ation record ed. [email or web address] [facility] [address], [place], [address], 12/29/2023 12:21:27 Result Notes None recorded. 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 4967223040666 9100 Active 2021 Not Available [facility] 3 06:42:47 Localized, primary osteoarthr itis of the hand 177045184 Active Not Available [facility] 3 06:42:47 Knee joint effusion 777513400 Active Not Available [facility] 3 06:42:47 Menopausal symptom 27665290 Active Not Available [facility] 3 06:42:47 Osteoarthr itis of knee 822969473 Active Not Available [facility] 3 06:42:47 Low back pain 412253528 Active Not Available [facility] 3 06:42:47 Current tear of medial cartilage AND/OR meniscus of knee Active Not Available [facility] 3 06:42:47 Enthesopat hy of hip region 99274316 Active Not Available [facility] 3 06:42:47 Knee pain Active Not Available [facility] 3 06:42:47 Tendinitis of right posterior tibial tendon 2928944293012 02 Active 2021 Not Available [facility] 3 06:42:47 Osteoarthr itis of left knee joint 5336388667699 09 Active 2021 Not Available [facility] 3 06:42:48 Inflammato ry disorder of extremity 511434675 Active Not Available [facility] 3 06:42:48 Osteoarthr osis of the carpometac arpal joint of the thumb 62238802 Active 2021 Not Available [facility] 3 06:42:48 Osteoarthr itis 081033041 Active Not Available [facility] 3 06:42:48 Arthropath y of joint of hand 438203322 Active Not Available [facility] 3 06:42:48 High antibody titer 516782389 Active Not Available [facility] 3 06:42:48 Pain of right knee joint 2950257519878 00 Active 2021 Not Available [facility] 3 06:42:48 Pain of left knee joint 7062702671149 07 Active 2021 Not Available [facility] 3 06:42:48 Pain of bilateral knee joints 6121933282458 04 Active 2021 Not Available [facility] 3 06:42:48 Dystrophy of vulva 75517158 Active Not Available [facility] 3 06:42:48 Urge incontinen ce of urine 12085583 Active Not Available [facility] 3 06:42:48 Breast lump 53461032 Active Not Available [facility] 3 06:42:48 Pain in limb 54995195 Active Not Available [facility] 3 06:42:49 Pain of right ankle joint 3283232255680 9106 Active 2022 PEYTON Tuttle null, [place] [facility] 3 15:55:48 Mechanical complicati on of implant 393186605 Active 2022 PEYTON Tuttle null, [facility] 3 15:57:30 Pain in right hand 5503786536397 09 Active 2022 PEYTON Tuttle null, [facility] 3 15:58:25 Bilateral thumb pain 5746160358253 9102 Active 2023 Aury Padgett null, [facility] 4 12:32:01 Problem Notes None recorded. Procedures Surgical History Date Name Laterality Status Provider Name and Address Organization Details Recorded Time 12/29/19 24 Ortho - Cortisone Injection completed Pastor Dickerson MD [address] [place] [address], [address], [facility] 12/29/2023 14:47:41 11/22/19 21 Breast Biopsy completed Not Available [facility] 2022 06:40:09 12/30/19 16 Drain/inj joint/bursa w/o us completed Not Available [facility] 07/22/2022 06:40:09 12/30/19 16 Orthopedic Surgery completed Not Available [facility] 07/22/2022 06:40:09 07/31/19 14 arthroplasty of knee completed Not Available [facility] 07/22/2022 06:40:09 05/24/19 14 biopsy of pancreas completed Not Available [facility] 07/22/2022 06:40:09 04/04/20 13 Most Recent Mammogram completed Not Available [facility] 07/22/2022 06:40:08 09/29/19 12 Date of Last Pap Smear completed Not Available [facility] 07/22/2022 06:40:08 05/24/18 96 MERCHANDISE MANAGER Surgery completed Not Available [facility] 07/23/19 23 06:40:09 05/24/18 93 MERCHANDISE MANAGER Surgery completed Not Available [facility] 07/23/19 23 06:40:09 05/24/18 92 other completed Not Available [facility] 3 06:40:09 05/24/18 78 Appendectomy completed Not Available [facility] 023 06:40:09 Hernia Repair completed Not Available [facility] 07/22/2022 06:40:09 Imaging Results Imaging Date Name Status LastModified by Organiz ation Details LastModified Time 11/18/2021 XR, ankle, 3 or more view completed [id number] [facility] [address], [place], [address], 07/22/2022 06:47:06 11/18/2021 XR, knee, 3 view completed [id number] [facility] [address], [place], [address], 07/22/2022 06:47:06 11/10/2022 XR, hand completed [email or web address] [facility] [place] [address], [place], [address], 11/10/2022 16:43:45 12/29/2023 XR, hand, 3 or more view completed [email or web address] [facility] [address], [place], [address], 12/29/2023 12:21:27 Procedure Notes None recorded. Medical Equipment None Reported. Allergies Allergen ID Allergen Name Allergen Category Reaction Reaction Severity Criticality Documentation Date Start Date Code Code System Note Provider Name and Address Organization Details Recorded Time 92356 Zocor medicatio n anaphylax is severe Not available 07/22/2022 95671 3 RxNorm Not Available [facility] 3 06:46:59 00816 Product containin g methylate d xanthine derivativ e (product) food,medi cation Not available Not available Not available 07/22/2022 26008 9002 SNOMED Not Available [facility] 3 06:46:59 78676 pramoxine hydrochlo ride medicatio n itching Not available Not available 07/22/2022 18990 RxNorm vagin al swell ing and pain Not Available [facility] 3 06:46:59 60240 theophyll ine anhydrous medicatio n hives moderate Not available 07/22/2022 02353 RxNorm Not Available [facility] 3 06:46:59 15964 Substance with sulfonami de structure and antibacte rial mechanism of action (substanc e) medicatio n Not available Not available Not available 07/22/2022 12572 8003 SNOMED Not Available [facility] 3 06:46:59 93129 simvastat in medicatio n Not available Not available Not available 07/22/2022 52750 RxNorm Not Available [facility] 3 06:46:59 04039 piroxicam medicatio n Not available Not available Not available 07/22/2022 8356 RxNorm Not Available [facility] 3 06:47:00 61809 nitrofura ntoin medicatio n Not available Not available Not available 07/22/2022 7454 RxNorm Not Available [facility] 3 06:47:00 35624 morphine medicatio n hives severe Not available 07/22/2022 7052 RxNorm Not Available [facility] 3 06:47:00 15644 meperidin e medicatio n Not available Not available Not available 07/22/2022 6754 RxNorm Not Available [facility] 3 06:47:00 98665 Librium medicatio n other moderate Not available 07/22/2022 3804 RxNorm mood alter ation s Not Available [facility] 3 06:47:00 13805 latex environme nt,medica tion itching moderate Not available 07/22/2022 37515 91 RxNorm Not Available [facility] 3 06:47:00 19246 diazepam medicatio n Not available Not available Not available 07/22/2022 3322 RxNorm Not Available [facility] 3 06:47:00 15161 Demerol medicatio n hives severe Not available 07/22/2022 89797 1 RxNorm Not Available [facility] 3 06:47:00 13200 codeine medicatio n nausea moderate Not available 07/22/2022 2670 RxNorm Not Available [facility] 3 06:47:00 34251 chlordiaz epoxide medicatio n Not available Not available Not available 07/22/2022 2356 RxNorm Not Available [facility] 3 06:47:00 74138 Ceftin medicatio n vomiting Not available Not available 07/22/2022 70605 6 RxNorm diarr hea Not Available [facility] 3 06:47:00 34581 salicylat e medicatio n Not available Not available Not available 11/10/2022 9522 RxNorm Elma Dugan RMA null, [facility] [employer] [facility] 3 15:47:06 99622 valsartan medicatio n Not available Not available Not available 11/10/2022 71225 RxNorm Elma Dugan RMNatalie null, [facility] [employer] [facility] 3 15:47:40 Medications Name Sig [...] suspension for injection in office 2023 active [facility]: 0003- 0494- 20 Not Available Not Available [...] administe red by the provider 10/16 completed [facility]: 0409- 4276- 17 Not Available Not Available [...] 10 mg by injection route. 2022 active [facility] 58347 -064- 01 Not Available Not Available Not [...] Not Available Not Available Not Available Fluvirin 5541-2858 45 mcg (15 mcg x 3)/0.5 mL intramuscul ar suspension ADM 0.5ML UTD 05/31 completed Not Available Not Available Not Available dapaglifloz in propanediol 10 mg tablet TAKE 1 TABLET BY MOUTH EVERY MORNING active Not Available Not Available No t Available Fluvirin 5048-5943 45 mcg (15 mcg x 3)/0.5 mL [...] office by the doctor 12/26 completed NDC: [address] -1 Not Available Not Available Not [...] kg/m2 165.1 cm 165.1 cm 165.1 cm 577821.3 9 g Not Available [facility] 07/22/2022 06:42:14 Date Recorded Body height Provider Name an d Address Organization Details Last Updated DateTime 11/10/2022 165.1 cm Elma Dugan [facility] 11/10/2022 15:44:53 Date Recorded Body height Body mass index (BMI) Body weight Pain severity - 0-10 verbal numeric rating [Score] - Reported Provider Name and Address Organization Details Last Updated DateTime 12/29/2023 170.18 cm 38.4 kg/m2 786926.13 g 6 Portia Virk [facility] 12/29/2023 12:19:24 Social History Question Answer Notes LastModified by Organizat ion Details LastModified Time Tobacco Smoking Status Former Smoker Not Available [facility] 07/22/2022 06:40:04 What Is Your Level Of Alcohol Consumption? None [id number] Information not available 07/22/2022 What Is Your Level Of Caffeine Consumption? None [id number] Information not available 07/22/2022 Which Illicit Or Recreational Drugs Have You Used? Marijuana Daily For Pain MIGRATION.[id number] 1245 Information not available 07/22/2022 What Was The Date Of Your Most Recent Tobacco Screening? 10/16/2021 [id number] Information not available 07/22/2022 What Is Your Relationship Status? Single [id number].[id number] 8377 Information not available 07/22/2022 Do You Use Your Seat Belt Or Car Seat Routinely? Yes [id number] Information not available 07/22/2022 Do You Use Any Illicit Or Recreational Drugs? Yes [id number] 6125 Information not available 07/22/2022 Sex: Unknown Functional Status Question Answer Note LastModified by Organizat ion Details LastModified Time What is your exercise level? None [id number] Information not available 07/22/2022 Mental Status None recorded. Family History Relationship Description Onset Age of this Age Resolved Age Notes LastModified by Organization Details LastModified Time Mother Family history of malignant neoplasm MIGRATION.277 [id number] Not available 07/22/2022 06:40:10 Mother Diabetes mellitus MIGRATION.647 [id number] Not available 07/22/2022 06:40:10 Mother History of hypertension MIGRATION.208 [id number] Not available 07/22/2022 06:40:10 Mother Heart disease MIGRATION.755 [id number] Not available 07/22/2022 06:40:10 Father History of hypertension MIGRATION.771 [id number] Not available 07/22/2022 06:40:10 Father Heart disease MIGRATION.864 [id number] Not available 07/22/2022 06:40:10 Medical History Condition Response ARTHRITIS Y USE OF BLOOD THINNERS Y SKIN PROBLEMS Y DIABETES, TYPE Y LUNG DISEASE/DISORDER Y HEARTBURN / REFLUX Y HYPERTENSION Y COPD Y HIGH CHOLESTEROL / HYPERLIPIDEMIA Y CANCER: SPECIFY Y ANXIETY DISORDER Y BLOOD CLOTS Y ANEMIA/BLOOD DISORDER Y FIBROMYALGIA Y OSTEOPOROSIS Y AUTOIMMUNE DISEASE Y DEPRESSION (INCLUDING POST ) Y BOWEL PROBLEMS Y Gynecological History Statement/Question Response Abnormal Pap [...] SNOMED-CT Code Diagnosis ICD10 Code Diagnosis Note [id number] [facility] [address] [place] [address] 09/26/2020 00:00:00 09/26/2020 15:16:13 [id number] _ATHENA_M IGRATION_ DEFAULT_1 _1 , 01/06/2021 00:00:00 01/06/2021 15:57:50 [id number] [facility] [address] [place] [address] 01/16/2021 00:00:00 01/16/2021 15:47:07 [id number] [facility] [address] [place] [address] 02/14/2021 00:00:00 02/14/2021 14:25:15 [id number] [facility] [address] [place] [address] 04/24/2021 00:00:00 04/24/2021 10:04:13 [id number] [facility] [address] [place] [address] 10/16/2021 00:00:00 10/16/2021 15:39:25 [id number] [facility] [address] [place] [address] 10/23/2021 00:00:00 10/23/2021 15:22:43 [id number] [facility] [address] [place] [address] 11/05/2021 00:00:00 11/05/2021 11:42:40 [id number] [facility] [address] [place] [address] 11/11/2021 00:00:00 11/11/2021 15:31:01 [id number] [facility] [address] [place] [address] 11/18/2021 00:00:00 11/18/2021 16:00:11 [id number] [facility] [address] [place] [address] 01/05/2022 00:00:00 01/05/2022 09:56:15 [id number] [facility] [address] [place] [address] 02/02/2022 00:00:00 02/02/2022 11:51:39 [id number] MATTHIAS Ventura [facility] [address] [place] [address] 11/10/2022 15:14:55 11/12/2022 15:51:01 Osteoarthritis of left knee joint 6023092897 01816 M17.12 Contusion of right knee 1732420737 0673837 S80.01XD Contusion of left knee 9045470841 7408660 S80.02XD Pain in right thumb 1076 722173 772005 M79.644 Osteoarthr osis of the carpometacarpal joint of the thumb 29322135 M18.0 History of right total knee replacement 4990165324 884273 Z96.651 Pain of ri ght ankle joint 4478207758 1922873 M25.571 Tendinitis of right posterior tibial tendon 1477711191 81654 M76.821 Chronic pa in following right total knee arthroplasty 3115001138 6433536 T84.84XD Mechanical complication of implant 902833513 T85.698D Pain of bi lateral knee joints 1102038095 53989 M25.561 M25.562 Pain in right hand 14497 57512 36316 M79.707 [id number] Pastor Dickerson MD [facility] [address] [place] [address] 12/29/2023 11:45:53 12/29/2023 12:37:11 Pain in right thumb 5812769849 156612 M79.644 Pain in left thumb 54374 67313 976011 M79.645 Bilateral thumb pain 813 6740352 9698435 M79.644 M79.645 Health Concerns Section Related Observation LastModified by Organization Detai ls LastModified Time None Recorded Concern Status LastModified by Organization Details LastModified Time None Recorded Advance Directives Directive None Recorded Payers Encounter Date Sequence Insurance Name Policy Number Policy Dunn Covered Member ID Dunn Member ID Guarantor Name 11/10/2022 1 [place] Dori Hayward [id number] Dori Hayward 11/10/2022 2 [place] WHEN MED[place]ARE OR MEDICARE REPLACEMENT PRIMARY) Dori Hayward [id number] Dori Hayward 12/29/2023 1 [place] Dori Hayward [id number] Dori Hayward 12/29/2023 2 [place] WHEN [place]ARE OR MEDICARE REPLACEMENT PRIMARY) Dori Hayward [id number] Dori Hayward Notes Date Note Type Note [...] since her last ones. MATTHIAS Ventura [address] [facility], [facility] [address], [place], [address], [place] [facility] 11/10/2022 16:44:30 OBGyn Episode No OBEpisode recorded.
== END 2024-06-28 10:23 | disposition home or self-care (01) ==
PROVIDERS: PCP Internal Medicine; Visit Provider Internal Medicine Nephrology
DX: E11.22 Type 2 diabetes mellitus with diabetic chronic kidney disease (principal); I12.9 Hypertensive chronic kidney disease with stage 1 through stage 4 chronic kidney disease, or unspecified chronic kidney disease; N18.31 Chronic kidney disease, stage 3a
CPT/HCPCS: 76775

== ENCOUNTER 2024-08-16 13:05 | Outpatient (CLI) | payer MEDICARE, MEDICAID, SELFPAY ==
--- OUTSIDE RECORDS SUMMARY | 2024-08-16 14:10 | XMS_ITS | CONTINUITY OF CARE DOCUMENT ---
Author Name bryn clemente Address Unknown Organization [facility] Address [address] [place] [address] Phone [phone] Care Team Providers Care Cash Register Mechanic Name Role Phone bryn clemente Unavailable Unavailable
--- OUTSIDE RECORDS SUMMARY | 2024-08-16 14:10 | XMS_ITS | Encounter Summary ---
Author Organization [facility] Healthcare Address [address] [place] [address] Care Team Providers Care Theater Technician Name Role Phone Salo Marte MD Primary Care Provider + [phone] Real Díaz Unavailable [phone] Fernando Sherman DO Primary Care Provider [phone] Encounter Details Date Type Department Care Team (Late st Contact Info) Description 07/12/2020 Telephone [facility] [address] [place] [id number] Bashir Diaz, RT Social History Tobacco Use Types Packs/Day Years Used Date Smoking Tobacco: Former Smokeless Tobacco: Never Alcohol Use Standard Drinks/Week Comments No 0 (1 standard drink = 0.6 oz pur e alcohol) Comments Unknown Sex and Gender Information Value Date Recorded Sex Assigned at Not on file Legal Sex Female 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 Gender Identity Not on file Sexual Orientation Not on file documented as of this encounter Plan of Treatment Not on file documented as of this encounter Visit Diagnoses Not on filedocumented in this encounter Care Teams Theater Technician Relationship Specialty Start Date End Date Salo Marte MD [address] [place], [place] [id number] PCP - General 07/31/16 01/09/24 Fernando Sherman DO [address] [place] [address] PCP - General Internal Medicine 01/10/24 Real Díaz PA [address] [facility] [address] [facility] [address] [place], [place] [id number] Physician Brewery Worker Physician Brewery Worker 03/19/21 documented as of this encounter
--- OUTSIDE RECORDS SUMMARY | 2024-08-16 14:10 | XMS_ITS | Clinical Summary ---
Author Organization [facility] Address [address], [facility] [address] [place] [address] Phone Care Team Providers Care Horse Racing Analyst Name Role Phone Salo Marte DO Primary Care Provider Donato May DO Unavailable [phone] Ben RodCullen Unavailable -[phone] Allergies Active [...] 04/10/2016 04/10/2015 Influenza Immunization (#1) 01/23/202402/21, 03/04/2016, 04/10/2015, Additional history exists SARS-COV-2 Immunization ( season) 2024 11/03/2021, 06/23/2021, [...] [place] Care Teams Horse Racing Analyst Relationship Specialty Start Date End Date Salo Marte DO [address] [place] [address] PCP - General Internal Medicine 06/19/15 Donato May DO [address] [place] [address] Gastroenterology 06/19/15 Ben Rod [address] [place] [address] [phone] (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
--- OUTSIDE RECORDS SUMMARY | 2024-08-16 14:10 | XMS_ITS | Data Portability ---
Author Organization [facility] Main Office Address [address] [place] [address] Assessment Encounter Date Assessment Date Assessment LastModified [...] DO Not Attach Compendium, Do Not Delete/merge, [id number] 4 12:33:57 injection/a spiration joint/bursa (PROC) - in office procedure, administere d by provider 2022 023 [email or web address] In-Office Order, Internal Use Only DO Not Attach Compendium DO Not Attach Compendium, Do Not Delete/merge, [id number] 3 16:17:37 Surgeries None recorded. Imaging XR, hand, 3 or more view 2023 024 [facility] [place], [address], [place], [address], 4 08:25:28 XR, hand 2022 023 [email or web address] [facility] [place], [address], [place], [address], 3 16:45:10 Medication Orders Kenalog 10 mg/mL suspension for injection 2023 024 [email or web address] [facility] #[id number], [address] [place] [address], [id number], 4 16:47:48 Marcaine (PF) 0.5 % (5 mg/mL) injection solution 2023 024 [email or web address] Not available 4 16:47:48 Kenalog 10 mg/mL suspension for injection 2022 023 [email or web address] [facility] #[id number], [address], [id number], 3 16:45:10 ropivacaine (PF) 5 mg/mL (0.5 %) injection solution 2022 023 [email or web address] [facility] #[id number], [address], [id number], 3 16:45:10 Patient TargetsNo targets recorded. Patient InstructionsNo instructions recorded. Reason for Referral None Reported. Results Created Date Observation Date Name Description Value Unit Range Abnormal Flag Note LastModifiedBy Organization Detail LastModifiedTime 11/19/19 22 XR, ankle , 3 or more view No observ ation record ed. [id number] [facility] [place] [address], [place], [address], 07/22/2022 06:47:06 11/19/19 22 XR, knee, 3 view No observ ation record ed. [id number] [facility] [place] [address], [place], [address], 07/22/2022 06:47:06 11/11/19 23 XR, hand No observ ation record ed. [email or web address] [facility] [place] [address], [place], [address], 11/10/2022 16:43:45 12/29/19 24 XR, hand, 3 or more view No observ ation record ed. [email or web address] [facility] [place] [address], [place], [address], 12/29/2023 12:21:27 Result Notes None recorded. 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 9357525335278 9100 Active 2021 Not Available [facility] 3 06:42:47 Localized, primary osteoarthr itis of the hand 694809488 Active Not Available [facility] 3 06:42:47 Knee joint effusion 933330465 Active Not Available [facility] 3 06:42:47 Menopausal symptom 41724401 Active Not Available [facility] 3 06:42:47 Osteoarthr itis of knee 300762002 Active Not Available [facility] 3 06:42:47 Low back pain 058708695 Active Not Available [facility] 3 06:42:47 Current tear of medial cartilage AND/OR meniscus of knee Active Not Available [facility] 3 06:42:47 Enthesopat hy of hip region 83996698 Active Not Available [facility] 3 06:42:47 Knee pain Active Not Available [facility] 3 06:42:47 Tendinitis of right posterior tibial tendon 2561781211414 02 Active 2021 Not Available [facility] 3 06:42:47 Osteoarthr itis of left knee joint 2449552402316 09 Active 2021 Not Available [facility] 3 06:42:48 Inflammato ry disorder of extremity 726405099 Active Not Available [facility] 3 06:42:48 Osteoarthr osis of the carpometac arpal joint of the thumb 45639194 Active 2021 Not Available [facility] 3 06:42:48 Osteoarthr itis 199588685 Active Not Available [facility] 3 06:42:48 Arthropath y of joint of hand 591234689 Active Not Available [facility] 3 06:42:48 High antibody titer 632432143 Active Not Available [facility] 3 06:42:48 Pain of right knee joint 7890148724594 00 Active 2021 Not Available [facility] 3 06:42:48 Pain of left knee joint 0096364394595 07 Active 2021 Not Available [facility] 3 06:42:48 Pain of bilateral knee joints 6674313355326 04 Active 2021 Not Available [facility] 3 06:42:48 Dystrophy of vulva 67648011 Active Not Available [facility] 3 06:42:48 Urge incontinen ce of urine 89133320 Active Not Available [facility] 3 06:42:48 Breast lump 29392046 Active Not Available [facility] 3 06:42:48 Pain in limb 72744887 Active Not Available [facility] 3 06:42:49 Pain of right ankle joint 8917192787705 9106 Active 2022 PEYTON Tuttle null, [facility] 3 15:55:48 Mechanical complicati on of implant 206050725 Active 2022 PEYTON Tutlte null, [facility] 3 15:57:30 Pain in right hand 9405158682742 09 Active 2022 PEYTON Tuttle null, [facility] 3 15:58:25 Bilateral thumb pain 4476184657827 9102 Active 2023 Aury Padgett null, [facility] 4 12:32:01 Problem Notes None recorded. Procedures Surgical History Date Name Laterality Status Provider Name and Address Organization Details Recorded Time 12/29/19 24 Ortho - Cortisone Injection completed Pastor Dickerson MD [address] [place] [address], [address], [facility] 12/29/2023 14:47:41 11/22/19 21 Breast Biopsy completed Not Available Counts include 234 beds at the [facility] 2022 06:40:09 12/30/19 16 Drain/inj joint/bursa w/o us completed Not Available Counts include 234 beds at the [facility] 07/22/2022 06:40:09 12/30/19 16 Orthopedic Surgery completed Not Available Counts include 234 beds at the [facility] 07/22/2022 06:40:09 07/31/19 14 arthroplasty of knee completed Not Available Counts include 234 beds at the [facility] 07/22/2022 06:40:09 05/24/19 14 biopsy of pancreas completed Not Available Counts include 234 beds at the [facility] 07/22/2022 06:40:09 04/04/20 13 Most Recent Mammogram completed Not Available Counts include 234 beds at the [facility] 07/22/2022 06:40:08 09/29/19 12 Date of Last Pap Smear completed Not Available [facility] 07/22/2022 06:40:08 05/24/18 96 SMT OPERATOR Surgery completed Not Available [facility] 07/23/19 23 06:40:09 05/24/18 93 SMT OPERATOR Surgery completed Not Available [facility] 07/23/19 23 06:40:09 05/24/18 92 other completed Not Available [facility] 3 06:40:09 05/24/18 78 Appendectomy completed Not Available [facility] 023 06:40:09 Hernia Repair completed Not Available [facility] 07/22/2022 06:40:09 Imaging Results Imaging Date Name Status LastModified by Organiz ation Details LastModified Time 11/18/2021 XR, ankle, 3 or more view completed [id number] [facility] [place] [address], [place], [address], 07/22/2022 06:47:06 11/18/2021 XR, knee, 3 view completed [id number] [facility] [place] [address], [place], [address], 07/22/2022 06:47:06 11/10/2022 XR, hand completed [email or web address] [facility] [place] [address], [place], [address], 11/10/2022 16:43:45 12/29/2023 XR, hand, 3 or more view completed [email or web address] [facility] [place] [address], [place], [address], 12/29/2023 12:21:27 Procedure Notes None recorded. Medical Equipment None Reported. Allergies Allergen ID Allergen Name Allergen Category Reaction Reaction Severity Criticality Documentation Date Start Date Code Code System Note Provider Name and Address Organization Details Recorded Time 27581 Zocor medicatio n anaphylax is severe Not available 07/22/2022 72931 3 RxNorm Not Available Counts include 234 beds at the [facility] 3 06:46:59 60274 Product containin g methylate d xanthine derivativ e (product) food,medi cation Not available Not available Not available 07/22/2022 00577 9002 SNOMED Not Available Counts include 234 beds at the [facility] 3 06:46:59 58007 pramoxine hydrochlo ride medicatio n itching Not available Not available 07/22/2022 98448 RxNorm vagin al swell ing and pain Not Available Counts include 234 beds at the [facility] 3 06:46:59 40299 theophyll ine anhydrous medicatio n hives moderate Not available 07/22/2022 33690 RxNorm Not Available [facility] 3 06:46:59 79014 Substance with sulfonami de structure and antibacte rial mechanism of action (substanc e) medicatio n Not available Not available Not available 07/22/2022 07593 8003 SNOMED Not Available [facility] 3 06:46:59 21913 simvastat in medicatio n Not available Not available Not available 07/22/2022 62524 RxNorm Not Available [facility] 3 06:46:59 40093 piroxicam medicatio n Not available Not available Not available 07/22/2022 8356 RxNorm Not Available [facility] 3 06:47:00 95725 nitrofura ntoin medicatio n Not available Not available Not available 07/22/2022 7454 RxNorm Not Available [facility] 3 06:47:00 98135 morphine medicatio n hives severe Not available 07/22/2022 7052 RxNorm Not Available [facility] 3 06:47:00 76584 meperidin e medicatio n Not available Not available Not available 07/22/2022 6754 RxNorm Not Available [facility] 3 06:47:00 78594 Librium medicatio n other moderate Not available 07/22/2022 3804 RxNorm mood alter ation s Not Available [facility] 3 06:47:00 37076 latex environme nt,medica tion itching moderate Not available 07/22/2022 94922 91 RxNorm Not Available [facility] 3 06:47:00 44889 diazepam medicatio n Not available Not available Not available 07/22/2022 3322 RxNorm Not Available [facility] 3 06:47:00 07131 Demerol medicatio n hives severe Not available 07/22/2022 62716 1 RxNorm Not Available [facility] 3 06:47:00 30617 codeine medicatio n nausea moderate Not available 07/22/2022 2670 RxNorm Not Available Counts include 234 beds at the [facility] 3 06:47:00 00847 chlordiaz epoxide medicatio n Not available Not available Not available 07/22/2022 2356 RxNorm Not Available Counts include 234 beds at the [facility] 3 06:47:00 97466 Ceftin medicatio n vomiting Not available Not available 07/22/2022 76871 6 RxNorm diarr hea Not Available Counts include 234 beds at the [facility] 3 06:47:00 35798 salicylat e medicatio n Not available Not available Not available 11/10/2022 9522 RxNorm Elma Dugan RMA null, [facility] [employer] [facility] 3 15:47:06 62150 valsartan medicatio n Not available Not available Not available 11/10/2022 12121 RxNorm Elma Dugan RMNatalie null, [facility] [employer] [facility] 3 15:47:40 Medications Name Sig Start Date [...] suspension for injection in office 2023 active [facility]: 0003- 0494- 20 Not Available Not Available [...] administe red by the provider 10/16 completed [facility]: 0409- 4276- 17 Not Available Not Available [...] 10 mg by injection route. 2022 active [facility] [address]0868 -064- 01 Not Available Not Available Not [...] Not Available Not Available Not Available Fluvirin 9469-5762 45 mcg (15 mcg x 3)/0.5 mL intramuscul ar suspension ADM 0.5ML UTD 05/31 completed Not Available Not Available Not Available dapaglifloz in propanediol 10 mg tablet TAKE 1 TABLET BY MOUTH EVERY MORNING active Not Available Not Available No t Available Fluvirin 8479-8111 45 mcg (15 mcg x 3)/0.5 mL [...] office by the doctor 12/26 completed NDC: [address] -1 Not Available Not Available Not [...] Body mass index (BMI) Body height Body weight Provider Name and Address Organization Details Last Updated DateTime 11/18/2021 43.9 kg/m2 165.1 cm 586284.39 g Not Available [facility] 07/22/2022 06:42:14 Date Recorded Body height Provider Name an d Address Organization Details Last Updated DateTime 01/05/2022 165.1 cm Not Available [facility] 3 06:42:13 Date Recorded Body height Provider Name an d Address Organization Details Last Updated DateTime 02/02/2022 165.1 cm Not Available [facility] 3 06:42:13 Date Recorded Body height Provider Name an d Address Organization Details Last Updated DateTime 11/10/2022 165.1 cm Elma Dugan [facility] 11/10/2022 15:44:53 Date Recorded Body height Body mass index (BMI) Body weight Pain severity - 0-10 verbal numeric rating [Score] - Reported Provider Name and Address Organization Details Last Updated DateTime 12/29/2023 170.18 cm 38.4 kg/m2 850621.13 g 6 Portia Virk [facility] 12/29/2023 12:19:24 Social History Question Answer Notes LastModified by Organizat ion Details LastModified Time Tobacco Smoking Status Former Smoker Not Available Counts include 234 beds at the [facility] 07/22/2022 06:40:04 What Is Your Level Of Alcohol Consumption? None [id number] Information not available 07/22/2022 What Is Your Level Of Caffeine Consumption? None [id number] [id number] Information not available 07/22/2022 Which Illicit Or Recreational Drugs Have You Used? Marijuana Daily For Pain [id number] 0176 Information not available 07/22/2022 What Was The Date Of Your Most Recent Tobacco Screening? 10/16/2021 [id number] Information not available 07/22/2022 What Is Your Relationship Status? Single [id number] 7392 Information not available 07/22/2022 Do You Use Your Seat Belt Or Car Seat Routinely? Yes [id number].512705 8892 Information not available 07/22/2022 Do You Use Any Illicit Or Recreational Drugs? Yes [id number].[id number] 6266 Information not available 07/22/2022 Sex: Unknown Functional Status Question Answer Note LastModified by Organizat ion Details LastModified Time What is your exercise level? None [id number] Information not available 07/22/2022 Mental Status None recorded. Family History Relationship Description Onset Age of this Age Resolved Age Notes LastModified by Organization Details LastModified Time Mother Family history of malignant neoplasm [id number] Not available 07/22/2022 06:40:10 Mother Diabetes mellitus MIGRATION.046 [id number] Not available 07/22/2022 06:40:10 Mother History of hypertension MIGRATION.627 [id number] Not available 07/22/2022 06:40:10 Mother Heart disease MIGRATION.897 [id number] Not available 07/22/2022 06:40:10 Father History of hypertension MIGRATION.136 [id number] Not available 07/22/2022 06:40:10 Father Heart disease MIGRATION.604 [id number] Not available 07/22/2022 06:40:10 Medical History Condition Response ARTHRITIS Y USE OF BLOOD THINNERS Y DIABETES, TYPE Y SKIN PROBLEMS Y LUNG DISEASE/DISORDER Y HEARTBURN / REFLUX Y HYPERTENSION Y COPD Y HIGH CHOLESTEROL / HYPERLIPIDEMIA Y CANCER: SPECIFY Y ANXIETY DISORDER Y BLOOD CLOTS Y ANEMIA/BLOOD DISORDER Y FIBROMYALGIA Y OSTEOPOROSIS Y AUTOIMMUNE DISEASE Y BOWEL PROBLEMS Y DEPRESSION (INCLUDING POST ) Y Gynecological History Statement/Question Response Abnormal Pap [...] SNOMED-CT Code Diagnosis ICD10 Code Diagnosis Note [id number] [facility] [place] [address] [place] [address] 09/26/2020 00:00:00 09/26/2020 15:16:13 [id number] _ATHENA_M IGRATION_ DEFAULT_1 _1 , 01/06/2021 00:00:00 01/06/2021 15:57:50 [id number] [facility] [place] [address] [place] [address] 01/16/2021 00:00:00 01/16/2021 15:47:07 [id number] [facility] [place] [address] [place] [address] 02/14/2021 00:00:00 02/14/2021 14:25:15 [id number] [facility] [place] [address] [place] [address] 04/24/2021 00:00:00 04/24/2021 10:04:13 [id number] [facility] [place] [address] [place] [address] 10/16/2021 00:00:00 10/16/2021 15:39:25 [id number] [facility] [place] [address] [place] [address] 10/23/2021 00:00:00 10/23/2021 15:22:43 [id number] [facility] [place] [address] [place] [address] 11/05/2021 00:00:00 11/05/2021 11:42:40 [id number] [facility] [place] [address] [place] [address] 11/11/2021 00:00:00 11/11/2021 15:31:01 [id number] [facility] [place] [address] [place] [address] 11/18/2021 00:00:00 11/18/2021 16:00:11 [id number] [facility] [place] [address] [place] [address] 01/05/2022 00:00:00 01/05/2022 09:56:15 [id number] [facility] [place] [address] [place] [address] 02/02/2022 00:00:00 02/02/2022 11:51:39 [id number] MATTHIAS Ventura [facility] [place] [address] [place] [address] 11/10/2022 15:14:55 11/12/2022 15:51:01 Osteoarthritis of left knee joint 1030465128 15037 M17.12 Contusion of right knee 1465689807 5578151 S80.01XD Contusion of left knee 3204805517 6913751 S80.02XD Pain in right thumb 1076 979507 391132 M79.644 Osteoarthr osis of the carpometacarpal joint of the thumb 44881826 M18.0 History of right total knee replacement 2837345815 731375 Z96.651 Pain of ri ght ankle joint 6368086978 2574762 M25.571 Tendinitis of right posterior tibial tendon 4193414641 04599 M76.821 Chronic pa in following right total knee arthroplasty 0994754925 0095896 T84.84XD Mechanical complication of implant 677939591 T85.698D Pain of bi lateral knee joints 9969592158 43222 M25.561 M25.562 Pain in right hand 17705 76668 64376 M79.836 [id number] Pastor Dickerson MD [facility] [place] [address] [place] [address] 12/29/2023 11:45:53 12/29/2023 12:37:11 Pain in right thumb 2715817044 713368 M79.644 Pain in left thumb 07273 18180 058220 M79.645 Bilateral thumb pain 429 5875417 6911884 M79.644 M79.645 Health Concerns Section Related Observation LastModified by Organization Detai ls LastModified Time None Recorded Concern Status LastModified by Organization Details LastModified Time None Recorded Advance Directives Directive None Recorded Payers Encounter Date Sequence Insurance Name Policy Number Policy Dunn Covered Member ID Dunn Member ID Guarantor Name 11/10/2022 1 [place] Dori Hayward [id number] Dori Hayward 11/10/2022 2 [place] WHEN [place]ARE OR MEDICARE REPLACEMENT PRIMARY) Dori Hayward [id number] Dori Hayward 12/29/2023 1 [place] Dori Hayward [id number] Dori Hayward 12/29/2023 2 [place] OR MEDIC[place] REPLACEMENT PRIMARY) Dori Hayward [id number] Dori Hayward Notes Date Note Type Note [...] since her last ones. MATTHIAS Ventura [address] [facility] [address], [place], [address], [facility] [employer] 11/10/2022 16:44:30 OBGyn Episode No OBEpisode recorded.
--- OUTSIDE RECORDS SUMMARY | 2024-08-16 14:10 | XMS_ITS | Referral Summary ---
Author Organization [facility] al Address [address] [place] [address] Care Team Providers Care Steel Rigger Name Role Phone Real Díaz PA Unavailable [phone] Fernando Sherman DO Primary Care Provider [phone] Encounters Date Type Department Care Team Description 07/24/2024 2:40 PM MEDICAL FRONT DESK SPECIALIST Office Visit [facility] Orthopaedic Surgery [facility] Medicine 6th [place] [address] [place] [id number] Eleuterio Wiggins MD Trochanteric bursitis of both hips (Primary Dx) from Last 3 Months Allergies Active Allergy Reactions Criticality Noted Date Comments Benzocaine Benzodiazepines Unknown 05/23/2013 Cefuroxime Chlordiazepoxide Other (See comments) Medium Chlordiazepoxide Hcl Unknown 05/23/2013 Codeine Nausea only Low Codeine Phosphate Nausea only Low 05/23/2013 Dextromethorphan Diazepam Doxycycline Rash Medium 08/01/2021 Latex Rash Medium Rash and blisters. Meperidine Itching,Rash Medium Meperidine Hcl Unknown 05/23/2013 Morphine Itching,Rash Medium Morphine Sulfate Unknown 05/23/2013 Nitrofurantoin Nsaids (Non-Steroidal Anti-Inflammatory Drug) Unknown 05/23/2013 She avoids NSAIDs dur to coumadin therapy Opioids - Morphine Analogues Unknown 05/23/2013 Opioids-Meperidine And Related Unknown 05/23/2013 Apremilast Swelling Medium 05/28/2021 & sores on gums Piroxicam Unknown 05/23/2013 Pramoxine Hcl Itching Low 10/11/2023 Salicylates Unknown 05/23/2013 Avods due to Coumadin therapy. Simvastatin Unknown 05/23/2013 Closed throat up . Othaahj-Ifa-Vrr Reductase Inhibitors Unknown 05/23/2013 Sulfa (Sulfonamide Antibiotics) Ruben-Dur Hives Medium 04/22/2020 My throat closed. Theophylline Anhydrous Unknown 05/23/2013 Valsartan Xanthines Unknown 05/23/2013 Xanthinol Niacinate Unknown 05/23/2013 Medications warfarin (COUMADIN) 4 mg tablet take 1 tablet by oral route every day 0 0 4 Active amLODIPine (NORVASC) 5 mg tablet Take 1 tablet (5 mg total) by mouth daily 8 Active diphenhydrAMIN E (BENADRYL) 25 mg capsule TAKE 1 TABLET EVERY 4 HOURS NEEDED. 8 Active lisinopril-hyd roCHLOROthiazi de (PRINZIDE,ZEST ORETIC) 20-25 mg per tabletIndicati ons:hypertensi on Take 1 tablet by mouth daily 1 8 Active nortriptyline (PAMELOR) 25 mg capsule Take 1 capsule (25 mg total) by mouth 3 (three) times a day 2 8 Active omeprazole (PriLOSEC) 40 mg capsule Take 1 capsule (40 mg total) by mouth daily 1 8 Active docusate sodium (COLACE) 100 mg capsuleIndicat ions:constipat ion daily. 5 Active albuterol HFA (PROVENTIL HFA,VENTOLIN HFA,PROAIR HFA) 90 mcg/actuation inhaler INHALE 1 TO 2 PUFFS EVERY 4 TO 6 HOURS NEEDED. 5 Active levothyroxine (SYNTHROID) 200 mcg tablet Take 225 mcg by mouth daily Active azelastine 0.15 % (205.5 mcg) spray,non-aero mariann azelastine hcl 0.15 % soln Active fluticasone-um eclidin-vilant er (TRELEGY ELLIPTA) 100-62.5-25 mcg inhaler trelegy ellipta 100-62.5-25 mcg/inh aepb Active TRAVATAN Z 0.004 % drops INT 1 GTT IN OU HS 11 9 Active ONETOUCH ULTRA BLUE TEST STRIP strip 6 9 Active hydrOXYchloroQ UINE (PLAQUENIL) 200 mg tablet Take 1 tablet (200 mg total) by mouth 2 (two) times a day 1 Active fluticasone propionate (FLONASE) 50 mcg/actuation nasal spray 1 Active Combigan 0.2-0.5 % ophthalmic solution 1 drop 2 (two) times a day 1 Active montelukast (SINGULAIR) 10 mg tablet Take 1 tablet (10 mg total) by mouth daily as needed 1 Active rosuvastatin (CRESTOR) 40 mg tablet Take 1 tablet (40 mg total) by mouth daily 1 Active Microlet Lancet misc 1 Active atorvastatin (LIPITOR) 40 mg tablet Take 1 tablet (40 mg total) by mouth daily 2 Active brimonidine (ALPHAGAN) 0.2 % ophthalmic solution brimonidine 0.2 % eye drops INSTILL 1 DROP INTO THE RIGHT EYE TWICE DAILY Active dorzolamide-ti moloL (COSOPT) 22.3-6.8 mg/mL ophthalmic solution dorzolamide 22.3 mg-timolol 6.8 mg/mL eye drops INSTILL 1 DROP IN RIGHT EYE TWICE DAILY Active latanoprost (XALATAN) 0.005 % ophthalmic solution INSTILL 1 DROP INTO BOTH EYES EVERY NIGHT AT BEDTIME 3 Active TRESIBA 100 unit/mL (3 mL) pen for injection [address] (CYMBALTA) 60 mg capsule Take 1 capsule (60 mg total) by mouth every morning 3 Active gabapentin (NEURONTIN) 300 mg capsule TAKE 1 CAPSULE BY MOUTH THREE TIMES DAILY WITH MEALS 3 Active baclofen (LIORESAL) 10 mg tabletIndicati ons:Hereditary and idiopathic peripheral neuropathy,Tro chanteric bursitis of both hips,Lumbar spondylosis,Ra dicular pain 1/2 TAB PO TID 90 tablet 2 3 Active LYUMJEV 100 unit/mL pen for injection INJECT 35 UNITS UNDER THE SKIN DAILY PER SLIDING SCALE 3 Active furosemide (LASIX) 20 mg tablet Take 1 tablet (20 mg total) by mouth 2 (two) times a day Active cycloSPORINE (Restasis MultiDose) 0.05 % drops INT 1 GTT IN OU BID UTD Active HumaLOG 100 unit/mL pen for injection 4 Active magnesium oxide (MAG-OX) 400 mg (241.3 mg elemental magnesium) tablet Take 1 tablet (400 mg total) by mouth daily 4 Active lisinopriL (PRINIVIL,ZEST RIL) 30 mg tablet Take 1 tablet (30 mg total) by mouth daily 4 Active oxyCODONE-acet aminophen (PERCOCET) 10-325 mg per tabletIndicati ons:Pain Take 1-2 tablets by mouth every 6 (six) hours as needed for pain MAX 8 A DAY 240 tablet 5 Active oxyCODONE-acet aminophen (PERCOCET) 10-325 mg per tabletIndicati ons:Pain Take 1-2 tablets by mouth every 6 (six) hours as needed for pain MAX 8 A DAY 240 tablet 5 08/09/19 25 Discontin u([facility]) [facility], Clinic, or Other Facility Administered Medication Ordered Dose Route Frequency Start Date End Date Status lidocaine (XYLOCAINE) 10 mg/mL (1 %) injection 4 mLIndications:Admi nistration of Local Anesthesia 4 mL One-Time Injection 07/24/2024 07/24/2024 Ended lidocaine (XYLOCAINE) 10 mg/mL (1 %) injection 4 mLIndications:Admi nistration of Local Anesthesia 4 mL One-Time Injection 07/24/2024 07/24/2024 Ended triamcinolone (KENALOG) 40 mg/mL injection 40 mgIndications:Troc hanteric bursitis of both hips 40 mg intra-artic One-Time Injection 07/24/2024 07/24/2024 Ended triamcinolone (KENALOG) 40 mg/mL injection 40 mgIndications:Troc hanteric bursitis of both hips 40 mg intra-artic One-Time Injection 07/24/2024 07/24/2024 Ended Active Problems Problem Noted Date Diagnosed Date Neuroendocrine tumor of pancreas 03/11/2022 Chronic pain of left knee 03/04/2022 Surgical wound, non healing 08/19/2021 Assessment & Plan (09/30/2021 3:15 PM CDT): Summary: patient with obesity, diabetes and on leflunomide for SLE with a chronic, non-healing wound. - skin biopsy surgical pathology (November 2020): Fat necrosis, hemorrhage, and fibrosis - Skin fungal culture (08/29/21): negative - Skin mycobacterial tissue cultures (08/29/21): NGTD Unclear etiology, but lack of progression, no consistent findings on surg-path to suggest infection or neutrophilic dermatosis and negative fungal / AFB cultures (prior negative bacterial) make infection unlikely. Patient see's Dr. Jang from dermatology, but she would like a second opinion from dermatology. PLAN - no empirical antimicrobial therapy warranted - will send a referral for dermatology RTC PRN Assessment & Plan (08/19/2021 3:08 PM CDT): Summary: patient with obesity, diabetes and on leflunomide for SLE with a chronic, non-healing wound. Although the wound looks clean, and the poor wound healing could be related to the factors above, the pain and slight progression in the last few months raise some concern for atypical infection such as nontuberculous mycobacteria, nocardia, or fungal. The lack of cellulitis, more rapid progression or systemic symptoms make regular bacterial infection like Staph or Strep unlikely. A skin biopsy for surgical pathology evaluation (granulomatous inflammation), plus fungal and mycobacterial tissue cultures would help clarify the etiology. PLAN - will reach to the patient's e commerce architect (Dr. Livan Jang / [phone]) to see if they can help getting a skin biopsy for sarah-path + mycobacterial, and fungal cultures. - CMP, CBC, CRP today. - no empirical antimicrobial therapy at this time. RTC in 6 weeks. Breast abscess 12/26/2020 Morbid obesity with BMI of 40.0-44.9, adult 01/22 Exertional dyspnea 10/26/2017 Other chest pain 10/26/2017 Social History Tobacco Use Types Packs/Day Years Used Date Smoking Tobacco: Former Cigarettes 1.5 29 1 963 - 1991 Smokeless Tobacco: Never Tobacco Cessation:Counseling Given: Not Answered Alcohol Use Standard Drinks/Week Comments No 0 (1 standard drink = 0.6 oz pur e alcohol) AUDIT-C Answer Date Recorded Q1: How often do you have a drink containing alcohol? Never 05/04/2022 Q2: How many drinks containi ng alcohol do you have on a typical day when you are drinking? Patient does not drink Frequency of Binge Drinking Not on file 04/23 Comments No Sex and Gender Information Value Date Recorded Sex Assigned at Not on file Legal Sex Female 2:24 AM MEDICAL FRONT DESK SPECIALIST Gender Identity Not on file Sexual Orientation Not on file Last Filed Vital Signs Vital Sign Reading Time Taken Comments Blood Pressure 142/75 12/01/2022 11:23 AM CDT Pulse 87 12/01/2022 11:23 AM CDT Temperature 36.2 C (97.1 F) 12/01/2022 9:35 AM CDT Respiratory Rate 16 12/01/2022 11:23 AM CDT Oxygen Saturation 94% 12/01/2022 11:23 AM CDT Inhaled Oxygen Concentration - - Weight 119.7 kg (264 lb) 12/11/2023 8:24 AM CDT Height 165.1 cm (5' 5 ) 12/11/2023 8:24 AM CDT Body Mass Index 43.93 12/11/2023 8:24 AM CDT Plan of Treatment Not on file Goals Goal Patient Goal Type Associated Problems Recent Progress Patient-Stated? Author CCM Chronic Pain Care Plan Chronic Care Management Worsening( 10:43 AM MEDICAL FRONT DESK SPECIALIST) Asay Aparicio, RN Note: Problem: Chronic Pain Goals: 1. Minimize further functional decline 2. Maximize quality of life 3. Control pain Strategies: - Activity/exercise program recommendation - Conservative stepwise pain medicine strategy with multi-disciplinary approach - Recommend healthy lifestyle strategies and compensatory methods as needed Medical Devices Implanted Type Area Woodworking Shop Laborer Device Identifier Shelf Expiration Date Model / Serial / Lot [place] In Abdomen Abdomen Procedures Procedure Name Priority Date/Time Associated Diagnosis Comments MA ARTHROCENTESIS ASPIR&/INJ MAJOR JT/BURSA W/O US Routine 07/24/2024 2:40 PM MEDICAL FRONT DESK SPECIALIST Trochanteric bursitis of both hips from Last 3 Months Results * MA ARTHROCENTESIS ASPIR&/INJ MAJOR JT/BURSA W/O US (07/24/2024 2:40 PM MEDICAL FRONT DESK SPECIALIST) Narrative Eleuterio Wiggins MD - 07/24/2024 2:40 PM MEDICAL FRONT DESK SPECIALIST Eleuterio Wiggins MD 07/24/2024 6:15 PM Large Joint Injection: bilateral greater trochanteric bursa Performed by: Eleuterio Wiggins MD Authorized by: Eleuterio Wiggins MD Large Joint Injection/Aspiration: Consent Given by: Patient Supporting Documentation: Indications: Pain Procedure Details: Location: Hip Site: Bilateral greater trochanteric bursa Needle Size: 25 G Approach: Lateral Ultrasound guided: No Fluroscopic guidance: No Medications Right Large Joint Injection: 4 mL lidocaine 10 mg/mL (1 %); 40 mg triamcinolone 40 mg/mL Medications Left Large Joint Injection: 4 mL lidocaine 10 mg/mL (1 %); 40 mg triamcinolone 40 mg/mL Eleuterio Wiggins MD IN CLINIC/BEDSIDE ORDERABLE S Final Result from Last 3 Months Insurance IDPA [facility] MEDICARE ADVANTAGE [facility] MEDIC[facility] Address: [address] [address] [place] [address] MEDICARE [facility] MEDICARE ADVANTAGE Care Teams Steel Rigger Relationship Specialty Start Date End Date Fernando Sherman DO [address] [place], [place] [id number] PCP - General Internal Medicine 01/10/24 Real Díaz PA [address] [place], [place] [id number] Physician Well Logger Physician Well Logger 03/19/21
--- OUTSIDE RECORDS SUMMARY | 2024-08-16 14:10 | XMS_ITS | Clinical Summary ---
Author Organization [facility] Address [address] [place] [address] Care Team Providers Care Lifestyle Director Name Role Phone Real Díaz PA Unavailable [phone] Fernando Sherman DO Primary Care Provider [phone] Allergies Active Allergy Reactions Criticality Noted Date [...] Simvastatin Unknown 05/23/2013 Closed throat up . Kuitnnm-Oet-Tsc Reductase Inhibitors Unknown 05/23/2013 Sulfa (Sulfonamide Antibiotics) [...] DAY 240 tablet 5 08/09/19 25 Discontin [facility] Clinic, or Other Facility Administered Medication Ordered [...] PLAN - will reach to the patient's retail equipment associate (Dr. Livan Jang / [phone]) to see if they can help getting a skin biopsy for sarah-path + mycobacterial, and fungal cultures. - CMP, CBC, CRP today. - no empirical antimicrobial therapy at this time. RTC in 6 weeks. Breast abscess 12/26/2020 Morbid obesity with BMI of 40.0-44.9, adult 01/22 Exertional dyspnea 10/26/2017 Other chest pain 10/26/2017 Encounters Date Type Department Care Team Description 07/24/2024 2:40 PM PROTECTIVE SIGNAL REPAIRER Office Visit [facility] Orthopaedic Surgery [address] [facility] [address] [place] [address] [place] [address] Eleuterio Wiggins MD Trochanteric bursitis of both hips (Primary Dx) from Last 3 Months Surgical History Surgery Date Site/Laterality Comments FL FLUORO GUIDED LUMBAR PUNCTURE 02/12/2020 Right FL FLUORO GUIDED LUMBAR PUNCTURE 04/23/2020 Right FL FLUORO GUIDED LUMBAR PUNCTURE 07/16/2020 Right FL FLUORO GUIDED LUMBAR PUNCTURE 11/04/2020 Right TOTAL ABDOMINAL HYSTERECTOMY W/ BILATERAL SALPINGOOPHORECTOMY APPENDECTOMY 1985? BREAST SURGERY Biopsy two of them HERNIA REPAIR Two stomach repairs JOINT REPLACEMENT 2019? Right Knee replacement INSERT / REPLACE / REMOVE PACEMAKER Medical History Medical History Date Comments Hypertension Hypothyroidism Generalized headaches Cervical cancer (HCC) Chronic back pain DVT (deep venous thrombosis) (HCC) GERD (gastroesophageal reflux disease) 2014 Anxiety Arthritis Asthma Osteoporosis Clotting disorder Depression 1995 Diabetes mellitus (HCC) 2019 ? Glaucoma Sleep apnea Knee pain, left Family History Medical History Relation Name Comments Depression Daughter Teresa Guillory Arthritis Father Allen Garrison Heart attack Father Allen Garrison Kidney disease Father Allen Garrison COPD Maternal Grandfather Edinson Meek Alzheimer's disease Maternal Grandmother Caron Meek Arthritis Maternal Grandmother Caron Meek Cervical cancer Maternal Grandmother Caron Meek Arthritis Mother Loly Rolan Blood Clot Mother Loly Rolan brain Cancer Mother Loly Rolan Cervical cancer Mother Loly Rolan Depression Mother Loly Rolan Diabetes Mother Loly Rolan Hypertension Mother Loly Rolan Kidney disease Mother Loly Rolan Memory loss Mother Loly Rolan Mental illness Mother Loly Rolan Obesity Mother Loly Rolan Rashes / Skin problems Mother Loly Rolan Cancer Paternal Grandmother Caron Meek Cancer Sister Jamilah Gongora Cervical cancer Sister Jamilah Gongora Developmental delay Son Jenaro Hayward . Drug abuse Son Jenaro Riberajer hodgson. Learning disabilities Son Jenaro Riberajer hodgson . Relation Name Status Comments Paul Guillory Father Allen Garrison Maternal Grandfather Edinson Meek Maternal Grandmother Caron Meek Mother Loly Rolan Paternal Grandmother Caron Meek Sister Jamilah Gongora Son Jenaro Hayward . Social History Tobacco Use Types Packs/Day Years Used Date Smoking Tobacco: Former Cigarettes 1.5 29 1 963 - 1992 Smokeless Tobacco: Never Tobacco Cessation:Counseling Given: Not [...] on file Legal Sex Female 2:24 AM PROTECTIVE SIGNAL REPAIRER Gender Identity Not on file Sexual Orientation Not on file Obstetrics History Last Filed Vital Signs Vital Sign Reading [...] 12/11/2023 8:24 AM CDT Plan of Treatment Health Maintenance Due Date Last Done Comments Breast Cancer Screening-Mammogram 1962 Colon Cancer Screening-Colonoscopy 1962 Depression Screening 1962 Hepatitis C Screening 1962 Regular Well Visit/Exam 18-64 1980 Covid-19 Vaccine (2023-2 5 season) 2024 06/23/2021, 12/19/2020, 11/21/2020 Influenza Vaccine (#1) 2024 , 03/23/2020, 01/29/2019, Additional history exists Pneumococcal vaccine <65 (3 of 3 - PPSV23, PCV20 or PCV21) 04/03/2024 04/03/2019, 04/10/2015 DTaP/Tdap/Td Vaccine (2 - Td or Tdap) 04/11/2029 04/11/2019 Hepatitis B Screening Completed 01/06/2013 , 08/06/2012, 07/09/2012 Zoster Vaccine Completed 06/26/2020, 03/23/2020 Goals Goal Patient Goal Type Associated Problems Recent Progress Patient-Stated? Author CCM Chronic Pain Care Plan Chronic Care Management Worsening( 10:43 AM PROTECTIVE SIGNAL REPAIRER) Asya Aparicio, RN Note: Problem: Chronic Pain Goals: 1. Minimize further functional decline 2. Maximize quality of life 3. Control pain Strategies: - Activity/exercise program recommendation - Conservative stepwise pain medicine strategy with multi-disciplinary approach - Recommend healthy lifestyle strategies and compensatory methods as needed Medical Devices Implanted Type Area Auto Tech Device Identifier Shelf Expiration Date Model / Serial / Lot [employer] In Abdomen Abdomen Procedures Procedure Name Priority Date/Time Associated Diagnosis Comments DC ARTHROCENTESIS ASPIR&/INJ MAJOR JT/BURSA W/O US Routine 07/24/2024 2:40 PM PROTECTIVE SIGNAL REPAIRER Trochanteric bursitis of both hips from Last 3 Months Results * DC ARTHROCENTESIS ASPIR&/INJ MAJOR JT/BURSA W/O US (07/24/2024 2:40 PM PROTECTIVE SIGNAL REPAIRER) Narrative Eleuterio Wiggins MD - 07/24/2024 2:40 PM PROTECTIVE SIGNAL REPAIRER Eleuterio Wiggins MD 07/24/2024 6:15 PM Large [...] (1 %); 40 mg triamcinolone 40 mg/mL Result [facility] Eleuterio Wiggins MD IN CLINIC/BEDSIDE ORDERABLE S Final Result from Last 3 Months Insurance IDPA [facility] MEDICARE AD[facility]ANTAGE [facility] Address: [address] [address] [place] [address] MEDICARE [facility] IDPA [facility] MEDICARE ADVANTAGE Care Teams Lifestyle Director Relationship Specialty Start Date End Date Fernando Sherman DO [address] [place] [address] PCP - General Internal Medicine 01/10/24 Real Díaz PA [address] [place] [address] Physician Media Job Titles Physician Media Job Titles 03/19/21
[2024-08-16 14:13] LABS: Albumin Level 4.3 g/dL (3.5-5.1); Anion Gap 11 mmol/L (4-12); Blood Urea Nitrogen 23 mg/dL (7-17); Calcium 9.3 mg/dL (8.4-10.2); Carbon Dioxide 27 mmol/L (22-30); Chloride 99 mmol/L (98-107); Estimated Glomerular Filt Rate 54; Glucose 78 mg/dL (65-110); Phosphorus 4.8 mg/dL (2.5-4.5); Potassium 4.6 mmol/L (3.4-5.0); Sodium 137 mmol/L (137-145)
[2024-08-16 14:16] LABS: Total Protein Urine Random 8 mg/dL; Ur Ttl Prot Creatinine Ratio 0.16 mg/mg (0-0.20)
[2024-08-16 14:25] LABS: Parathyroid Intact 96.5 pg/mL (14.5-75.2)
[2024-08-16 14:28] LABS: Vitamin D 25 Hydroxy 85.6 ng/mL
[2024-08-17 07:09] LABS: Protein, Total 6.8 g/dL (6.1-8.1)
[2024-08-21 11:53] LABS: Albumin 3.8 g/dL (3.8-4.8); Alpha 1 Globulin 0.3 g/dL (0.2-0.3); Alpha 2 Globulin 0.8 g/dL (0.5-0.9); Beta 1 Globulin 0.6 g/dL (0.4-0.6); Gamma Globulin 0.7 g/dL (0.8-1.7)
== END 2024-08-16 13:06 | disposition home or self-care (01) ==
PROVIDERS: PCP Internal Medicine; Visit Provider Internal Medicine Nephrology
DX: E11.22 Type 2 diabetes mellitus with diabetic chronic kidney disease (principal); I12.9 Hypertensive chronic kidney disease with stage 1 through stage 4 chronic kidney disease, or unspecified chronic kidney disease; N18.31 Chronic kidney disease, stage 3a; N25.81 Secondary hyperparathyroidism of renal origin; E55.9 Vitamin D deficiency, unspecified
CPT/HCPCS: 36415; 80069; 82306; 82570; 83970; 84155; 84156; 84165; 84166

== ENCOUNTER 2024-08-31 12:32 | Outpatient (CLI) | payer MEDICARE, MEDICAID, SELFPAY ==
--- NOTE | ~2024-08-31 | US_ITS ---
EXAMINATION: US soft tissue LE RT DATE: 08/31/2024 13:28 INDICATION: Tenderness and swelling at the bilateral upper inner thighs TECHNIQUE: Multiple grayscale and Doppler ultrasound images of the regions of concern at the anterome dial aspect of the right upper thigh were obtained. COMPARISON: CT abdomen pelvis dated 02/09/2024 FINDINGS: There is a 2.6 x 1.0 x 3.1 cm ovoid echogenic lesion in the subcutaneous fat at the region of concern at the upper right thigh. This could represent a lipoma or inflammation within the subcutaneous fat. Correlation with prior CT imaging demonstrates a normal-sized right inguinal lymph node which is vicente rly identical in size, orientation and location when compared with the deeper femoral vessels as well as the surrounding fascial pattern within the subcutaneous fat. IMPRESSION: 1. 2.6 x 1.0 x 3.1 cm ovoid echogenic lesion at the region of concern most likely representing a norm al inguinal lymph node is seen at this location on CT from several months prior. Reviewed, dictated and finalized at location B. IMPRESSION: 1. 2.6 x 1.0 x 3.1 cm ovoid echogenic lesion at the region of concern most like ly representing a normal inguinal lymph node is seen at this location on CT fro m several months prior.
--- NOTE | ~2024-08-31 | US_ITS ---
Left Lower extremity soft tissue ULTRASOUND (Doppler ultrasound interrogation techniques used as need ed for this exam.) Ordering provider: Fernando Sherman DO History: . R22.43 - Localized swelling, mass and lump, lower limb, b... . Comparison: None. FINDINGS/impression: Echogenic areas seen in both sides which measure on the right 2.5 x 1 x 3.1 cm a nd on the left measures 3.5 x 1.2 x 2.2 cm. This may represent lipomas. Follow-up advised. Reviewed, dictated and finalized at location A.
--- OUTSIDE RECORDS SUMMARY | 2024-08-31 12:52 | XMS_ITS | Clinical Summary ---
Author Organization [facility] Address [address] [place] [address] Care Team Providers Care Director Education Name Role Phone Real Díaz PA Unavailable [phone] Fernando Sherman DO Primary Care Provider [phone] Allergies Active Allergy Reactions Criticality Noted Date [...] Simvastatin Unknown 05/23/2013 Closed throat up . Xfjgvtl-Ban-Cax Reductase Inhibitors Unknown 05/23/2013 Sulfa (Sulfonamide Antibiotics) Ruben-Dur Hives Medium 04/22/2020 My throat closed. Theophylline Anhydrous Unknown 05/23/2013 Valsartan Xanthines Unknown 05/23/2013 Xanthinol Niacinate Unknown 05/23/2013 Medications warfarin (COUMADIN) 4 mg tablet take 1 tablet by oral route every day 0 0 08/05/19 14 Active amLODIPine (NORVASC) 5 mg tablet Take 1 tablet (5 mg total) by mouth daily 10/21/19 18 Active lisinopril-hy droCHLOROthia zide (PRINZIDE,ZES TORETIC) 20-25 mg per tabletIndicat ions:hyperten debby Take 1 tablet by mouth daily 1 10/20/19 18 Active nortriptyline (PAMELOR) 25 mg capsule Take 1 capsule (25 mg total) by mouth 3 (three) times a day 2 10/01/19 18 Active omeprazole (PriLOSEC) 40 mg capsule Take 1 capsule (40 mg total) by mouth daily 1 10/12/19 18 Active docusate sodium (COLACE) 100 mg capsuleIndica tions:constip ation daily. 05/30/19 15 Active albuterol HFA (PROVENTIL HFA,VENTOLIN HFA,PROAIR HFA) 90 mcg/actuation inhaler INHALE 1 TO 2 PUFFS EVERY 4 TO 6 HOURS NEEDED. 05/30/19 15 Active levothyroxine (SYNTHROID) 200 mcg tablet Take 225 mcg by mouth daily Active azelastine 0.15 % (205.5 mcg) spray,non-aer osol azelastine hcl 0.15 % soln Active fluticasone-u meclidin-bienvenido nter (TRELEGY ELLIPTA) 100-62.5-25 mcg inhaler trelegy ellipta 100-62.5-25 mcg/inh aepb Active ONETOUCH ULTRA BLUE TEST STRIP strip 6 01/05/20 19 Active hydrOXYchloro QUINE (PLAQUENIL) 200 mg tablet Take 1 tablet (200 mg total) by mouth 2 (two) times a day 02/22/20 21 Active fluticasone propionate (FLONASE) 50 mcg/actuation nasal spray 03/17/20 21 Active montelukast (SINGULAIR) 10 mg tablet Take 1 tablet (10 mg total) by mouth daily as needed 04/30/20 21 Active rosuvastatin (CRESTOR) 40 mg tablet Take 1 tablet (40 mg total) by mouth daily 05/20/20 21 Active Microlet Lancet misc 05/15/20 21 Active atorvastatin (LIPITOR) 40 mg tablet Take 1 tablet (40 mg total) by mouth daily 06/20/19 22 Active brimonidine (ALPHAGAN) 0.2 % ophthalmic solution brimonidine 0.2 % eye drops INSTILL 1 DROP INTO THE RIGHT EYE TWICE DAILY Active dorzolamide-t imoloL (COSOPT) 22.3-6.8 mg/mL ophthalmic solution dorzolamide 22.3 mg-timolol 6.8 mg/mL eye drops INSTILL 1 DROP IN RIGHT EYE TWICE DAILY Active TRESIBA 100 unit/mL (3 mL) pen for injection 06/23/[address] (CYMBALTA) 60 mg capsule Take 1 capsule (60 mg total) by mouth every morning 11/14/19 23 Active gabapentin (NEURONTIN) 300 mg capsule TAKE 1 CAPSULE BY MOUTH THREE TIMES DAILY WITH MEALS 11/13/19 23 Active baclofen (LIORESAL) 10 mg tabletIndicat ions:Heredita ry and idiopathic peripheral neuropathy,Tr ochanteric bursitis of both hips,Lumbar spondylosis,R adicular pain 1/2 TAB PO TID 90 tablet 2 01/22/20 23 Active furosemide (LASIX) 20 mg tablet Take 1 tablet (20 mg total) by mouth 2 (two) times a day Active HumaLOG 100 unit/mL pen for injection 10/07/19 24 Active magnesium oxide (MAG-OX) 400 mg (241.3 mg elemental magnesium) tablet Take 1 tablet (400 mg total) by mouth daily 11/26/19 24 Active lisinopriL (PRINIVIL,ZES TRIL) 30 mg tablet Take 1 tablet (30 mg total) by mouth daily 04/19/20 24 Active oxyCODONE-devin taminophen (PERCOCET) 10-325 mg per tabletIndicat ions:Pain Take 1-2 tablets by mouth every 6 (six) hours as needed for pain MAX 8 A DAY 240 tablet 08/09/19 25 Active diphenhydrAMI NE (BENADRYL) 25 mg capsule TAKE 1 TABLET EVERY 4 HOURS NEEDED. 06/07/19 18 08/21/ 025 Discontinued TRAVATAN Z 0.004 % drops INT 1 GTT IN OU HS 11 01/10/20 19 025 Discontinued Combigan 0.2-0.5 % ophthalmic solution 1 drop 2 (two) times a day 04/07/20 21 025 Discontinued latanoprost (XALATAN) 0.005 % ophthalmic solution INSTILL 1 DROP INTO BOTH EYES EVERY NIGHT AT BEDTIME 07/10/19 025 Discontinued LYUMJEV 100 unit/mL pen for injection INJECT 35 UNITS UNDER THE SKIN DAILY PER SLIDING SCALE 02/16/20 025 Discontinued cycloSPORINE (Restasis MultiDose) 0.05 % drops INT 1 GTT IN OU BID UTD 025 Discontinued oxyCODONE-devin taminophen (PERCOCET) 10-325 mg per tabletIndicat ions:Pain Take 1-2 tablets by mouth every 6 (six) hours as needed for pain MAX 8 A DAY 240 tablet 07/11/19 025 Discontinued(Re order) Active Problems Problem Noted Date Diagnosed Date [...] PLAN - will reach to the patient's blending plant operator (Dr. Livan Jang / [phone]) to see if they can help getting a skin biopsy for sarah-path + mycobacterial, and fungal cultures. - CMP, CBC, CRP today. - no empirical antimicrobial therapy at this time. RTC in 6 weeks. Breast abscess 12/26/2020 Morbid obesity with BMI of 40.0-44.9, adult 01/22 Exertional dyspnea 10/26/2017 Other chest pain 10/26/2017 Encounters Date Type Department Care Team Description 08/22/2024 Results Follow-Up [facility] Orthopaedic Surgery [address] [place] [address] [facility] 6th [place] [address] [place] [address] Eleuterio Wiggins MD 08/21/2024 2:22 PM CDT - 08/21/2024 11:59 PM CDT Hospital Encounter [facility] [address] [place] [address] Eleuterio Wiggins MD Coccyx pain Discharge Disposition: Discharge to home or self care 08/21/2024 1:20 PM CDT Office Visit [facility] Orthopaedic Surgery [address] [place] [address] [place] [address] [place] [address] Eleuterio Wiggins MD Coccyx pain (Primary Dx) 07/24/2024 2:40 PM BODY SHOP WORKER Office Visit [facility] Orthopaedic Surgery [address] [place] [address] [place] [address] [place] [address] Eleuterio Wiggins MD Trochanteric bursitis of both [...] venous thrombosis) (HCC) GERD (gastroesophageal reflux disease) 2013 Anxiety Arthritis Asthma Osteoporosis Clotting disorder Depression 1995 Diabetes mellitus (HCC) 2019 ? Glaucoma Sleep apnea Knee pain, left Family History Medical History Relation Name Comments Depression Paul Guillory Arthritis Father Allen Garrison Heart attack [...] Sister Jamilah Gongora Developmental delay Son Jenaro Mainor hodgson. Drug abuse Son Jenaro Mainor hodgson. Learning disabilities Son Jenaro Mainor hodgson . Relation Name Status Comments Paul Guillory Father Allen Garrison Maternal Grandfather Edinson Meek Maternal Grandmother Caron Meek Mother Loly Rolan Paternal Grandmother Caron Meek Sister Jamilah Gongora Son Jenaro Mainor hodgson. Social History Tobacco Use Types Packs/Day Years [...] on file Legal Sex Female 2:24 AM BODY SHOP WORKER Gender Identity Not on file Sexual Orientation [...] (2023-2 5 season) 2024 06/23/2021, 12/19/2020, 11/21/2020 Pneumococcal vaccine <65 (3 of 3 - PPSV23, PCV20 or PCV21) 04/03/2024 04/03/2019, 04/10/2015 Influenza Vaccine (Season Ended) 2025 03/31/2021, 03/23/2020, 01/29/2019, Additional history exists DTaP/Tdap/Td Vaccine (2 - Td or Tdap) 04/11/2029 04/11/2019 Hepatitis B Screening Completed 01/06/2013 , 08/06/2012, 07/09/2012 Zoster Vaccine Completed 06/26/2020, 03/23/2020 Goals Goal Patient Goal Type Associated Problems Recent Progress Patient-Stated? Author CCM Chronic Pain Care Plan Chronic Care Management Worsening( 10:43 AM BODY SHOP WORKER) No Asya Tran, RN Note: Problem: Chronic Pain Goals: 1. Minimize further functional decline 2. Maximize quality of life 3. Control pain Strategies: - Activity/exercise program recommendation - Conservative stepwise pain medicine strategy with multi-disciplinary approach - Recommend healthy lifestyle strategies and compensatory methods as needed Medical Devices Implanted Type Area Motor Transport Inspector Device Identifier Shelf Expiration Date Model / Serial / Lot José Miguel In Abdomen Abdomen Procedures Procedure Name Priority Date/Time Associated Diagnosis Comments XR SACRUM COCCYX 2 OR MORE VIEWS Schedule Routine, Read Routine (OP Routine) 08/21/2024 2:37 PM CDT Coccyx pain OK ARTHROCENTESIS ASPIR&/INJ MAJOR JT/BURSA W/O US Routine 07/24/2024 2:40 PM BODY SHOP WORKER Trochanteric bursitis of both hips from Last 3 Months Results * X-ray sacrum and coccyx (08/21/2024 2:37 PM CDT) Anatomical Region Laterality Modality Pelvis, Body N/A Computed Radiogr aphy 08/21/2024 3:55 PM CDT Impressions 08/21/2024 3:55 PM CDT 1. No acute displaced fracture of the sacrum/coccyx Electronically signed by: Shaneka Polanco MD Narrative 08/21/2024 3:55 PM CDT EXAMINATION: XR SACRUM COCCYX 2 OR MORE VIEWS HISTORY: Coccyx pain FINDINGS: 4 radiographs of the sacrum/coccyx are compared to radiographs dated 01/10/[address] 03/09/2022. Mild angulation along the anterior cortex of the 1st coccygeal segment appears unchanged when compared to 2021. There is no acute displaced fracture. Alignment appears normal. There is lower lumbar facet arthropathy. Numerous surgical clips project over the patient's pelvis. Procedure Note Rhona Polanco MD - 08/21/2024 EXAMINATION: XR SACRUM COCCYX 2 OR MORE VIEWS HISTORY: Coccyx pain FINDINGS: 4 radiographs of the sacrum/coccyx are compared to radiographs dated 01/10/[address] 03/09/2022. Mild angulation along the anterior cortex of the 1st coccygeal segment appears unchanged when compared to 2021. There is no acute displaced fracture. Alignment appears normal. There is lower lumbar facet arthropathy. Numerous surgical clips project over the patient's pelvis. IMPRESSION: 1. No acute displaced fracture of the sacrum/coccyx Electronically signed by: Shaneka Polanco MD us Eleuteiro Wiggins MD IMG XR PROCEDURES Final Res ult * OK ARTHROCENTESIS ASPIR&/INJ MAJOR JT/BURSA W/O US (07/24/2024 2:40 PM BODY SHOP WORKER) Narrative Eleuterio Wiggins MD - 07/24/2024 2:40 PM BODY SHOP WORKER Eleuterio Wiggins MD 07/24/2024 6:15 PM Large [...] (1 %); 40 mg triamcinolone 40 mg/mL us Eleuterio Wiggins MD IN CLINIC/BEDSIDE ORDERABLE S Final Result from Last 3 Months Insurance IDPA [facility] MEDICARE [facility] Address: [address] [address] [place] [address] MEDICARE [facility] Address: [address] [address] [place] [address] [facility] MEDICARE [facility] Address: [address] [address] [place] [address] Care Teams Director Education Relationship Specialty Start Date End Date Fernando Sherman DO [address] [place] [address] PCP - General Internal Medicine 01/10/24 Real Díaz PA [address] [place] [address] Physician Feed Research Aide Physician Feed Research Aide 03/19/21
--- OUTSIDE RECORDS SUMMARY | 2024-08-31 12:52 | XMS_ITS | Encounter Summary ---
Author Organization [facility] Address [address] [place] [address] Care Team Providers Care Senior Firmware Engineer Name Role Phone Salo Marte MD Primary Care Provider [phone] Real Díaz Unavailable [phone] Fernando Sherman DO Primary Care Provider [phone] Encounter Details Date Type Department Care Team (Late st Contact Info) Description 07/12/2020 Telephone [facility]) [address] [place] [address] Bashir Diaz, RT Social History Tobacco Use Types Packs/Day Years Used Date Smoking Tobacco: Former Smokeless Tobacco: Never Alcohol Use Standard Drinks/Week Comments No 0 (1 standard drink = 0.6 oz pur e alcohol) Comments Unknown Sex and Gender Information Value Date Recorded Sex Assigned at Not on file 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 Gender Identity Not on file Sexual Orientation Not on file documented as of this encounter Plan of Treatment Not on file documented as of this encounter Visit Diagnoses Not on filedocumented in this encounter Care Teams Senior Firmware Engineer Relationship Specialty Start Date End Date Salo Marte MD [address] [place], [place] [id number] PCP - General 07/31/16 01/09/24 Fernando Sherman DO [address] [place] [address] PCP - General Internal Medicine 01/10/24 Real Díaz PA [address] [facility] [address] [facility] [address] [place], [place] [id number] Physician Supervisor Roller Shop Physician Supervisor Roller Shop 03/19/21 documented as of this encounter
--- OUTSIDE RECORDS SUMMARY | 2024-08-31 12:52 | XMS_ITS | Referral Summary ---
Author Organization [facility] Address [address] [place] [address] Care Team Providers Care Svp Digital Sales Food & Cooking Name Role Phone Real Díaz PA Unavailable [phone] Fernando Sherman DO Primary Care Provider [phone] Encounters Date Type Department Care Team Description 08/22/2024 Results Follow-Up [facility] Orthopaedic Surgery [address] [place] [address] [facility] 6th [place] [address] [place] [address] Eleuterio Wiggins MD 08/21/2024 2:22 PM CDT - 08/21/2024 11:59 PM CDT Hospital Encounter [facility]) [address] [place] [address] Eleuterio Wiggins MD Coccyx pain Discharge Disposition: Discharge to home or self care 08/21/2024 1:20 PM CDT Office Visit [facility] Orthopaedic Surgery [address] [place] [address] [place] [address] [place] [address] Eleuterio Wiggins MD Coccyx pain (Primary Dx) 07/24/2024 2:40 PM FARM DEMONSTRATOR Office Visit [facility] Orthopaedic Surgery [address] [place] [address] [place] [address] [place] [address] Eleuterio Wiggins MD Trochanteric bursitis of both [...] Simvastatin Unknown 05/23/2013 Closed throat up . Nvvdgwt-Pyk-Mzn Reductase Inhibitors Unknown 05/23/2013 Sulfa (Sulfonamide Antibiotics) [...] TABLET EVERY 4 HOURS NEEDED. 06/07/19 18 025 Discontinued TRAVATAN Z 0.004 % drops INT 1 GTT IN OU HS 11 01/10/20 19 025 Discontinued Combigan 0.2-0.5 % ophthalmic solution 1 drop 2 (two) times a day 04/07/20 21 025 Discontinued latanoprost (XALATAN) 0.005 % ophthalmic solution INSTILL 1 DROP INTO BOTH EYES EVERY NIGHT AT BEDTIME 07/10/19 23 025 Discontinued LYUMJEV 100 unit/mL pen for injection INJECT 35 UNITS UNDER THE SKIN DAILY PER SLIDING SCALE 02/16/20 23 025 Discontinued cycloSPORINE (Restasis MultiDose) 0.05 % drops INT 1 GTT IN OU BID UTD 025 Discontinued oxyCODONE-devin taminophen (PERCOCET) 10-325 mg per tabletIndicat ions:Pain Take 1-2 tablets by mouth every 6 (six) hours as needed for pain MAX 8 A DAY 240 tablet 07/11/19 25 025 Discontinued(Re order) Active Problems Problem Noted [...] PLAN - will reach to the patient's threshing machine operator (Dr. Livan Jang / [phone]) to see if they can help getting [...] on file Legal Sex Female 2:24 AM FARM DEMONSTRATOR Gender Identity Not on file Sexual Orientation [...] Plan Chronic Care Management Worsening( 10:43 AM FARM DEMONSTRATOR) No Asya Tran, RN Note: Problem: Chronic Pain Goals: 1. Minimize further functional decline 2. Maximize quality of life 3. Control pain Strategies: - Activity/exercise program recommendation - Conservative stepwise pain medicine strategy with multi-disciplinary approach - Recommend healthy lifestyle strategies and compensatory methods as needed Medical Devices Implanted Type Area Quality Control Device Identifier Shelf Expiration Date Model / Serial / Lot Newcomb In Abdomen Abdomen Procedures Procedure Name Priority Date/Time Associated Diagnosis Comments XR SACRUM COCCYX 2 OR MORE VIEWS Schedule Routine, Read Routine (OP Routine) 08/21/2024 2:37 PM CDT Coccyx pain DC ARTHROCENTESIS ASPIR&/INJ MAJOR JT/BURSA W/O US Routine 07/24/2024 2:40 PM FARM DEMONSTRATOR Trochanteric bursitis of both hips from Last [...] Electronically signed by: Shaneka Polanco MD us Eleuterio Wiggins MD IMG XR PROCEDURES Final Res ult * DC ARTHROCENTESIS ASPIR&/INJ MAJOR JT/BURSA W/O US (07/24/2024 2:40 PM FARM DEMONSTRATOR) Narrative Eleuterio Wiggins MD - 07/24/2024 2:40 PM FARM DEMONSTRATOR Eleuterio Wiggins MD 07/24/2024 6:15 PM Large [...] Last 3 Months Insurance IDPA [facility] MEDICARE AD[facility]ANTAGE [facility] MEDIC[facility] Address: [address] [address] [place] [address] MEDICARE [facility] Address: [address] [address] [place] [address] [facility] IDGA [facility] MEDICARE ADVANTAGE [facility] MEDICARE Address: [facility] [address] [place] [address] Care Teams Svp Digital Sales Food & Cooking Relationship Specialty Start Date End Date Fernando Sherman DO [address] [place] [address] PCP - General Internal Medicine 01/10/24 Real Díaz PA [address] [place] [address] Physician Italian Lecturer Physician Italian Lecturer 03/19/21
--- OUTSIDE RECORDS SUMMARY | 2024-08-31 12:52 | XMS_ITS | Clinical Summary ---
Author Organization [facility] Address [address], [facility] [address] [place] [address] Phone Care Team Providers Care Prop Maker Name Role Phone Salo Marte DO Primary Care Provider Donato May DO Unavailable [phone] Ben RodCullen [phone] Allergies Active [...] [place] Care Teams Prop Maker Relationship Specialty Start Date End Date Salo Marte DO [address] [place] [address] PCP - General Internal Medicine 06/19/15 Donato May DO [address] [place] [address] Gastroenterology 06/19/15 Ben Rod [address] [place] [phone] -[phone] (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
--- OUTSIDE RECORDS SUMMARY | 2024-08-31 12:52 | XMS_ITS | CONTINUITY OF CARE DOCUMENT ---
Author Name bryn clemente Address Unknown Organization [facility] Address [address] [facility] [address] [place] [address] Phone [phone] Care Team Providers Care Supervisor Cigar Processing Name Role Phone bryn clemente Unavailable Unavailable
== END 2024-08-31 12:33 | disposition home or self-care (01) ==
PROVIDERS: PCP Internal Medicine; Visit Provider Internal Medicine
DX: R22.43 Localized swelling, mass and lump, lower limb, bilateral (principal)
CPT/HCPCS: 76882

== ENCOUNTER 2024-09-07 12:57 | Outpatient (CLI) | payer MEDICARE, MEDICAID, SELFPAY ==
--- NOTE | ~2024-09-07 | XR_ITS ---
XR wrist RT 2V Ordering provider: Laura Sloan, CLOCK MAKER History: . INFLAMMATORY ARTHRITIS . Comparison: None. FINDINGS: BONES: No acute fracture or dislocation. No definite scaphoid fracture. JOINT SPACES: Osteoarthritic changes of the first carpometacarpal joint. SOFT TISSUES: Normal. IMPRESSION: No acute osseous abnormality right wrist. Osteoarthritic changes of the first carpometacarpal joint. Reviewed, dictated and finalized at location A.
--- NOTE | ~2024-09-07 | XR_ITS ---
XR wrist LT 2V Ordering provider: Laura Sloan, OTA History: . INFLAMMATORY ARTHRITIS . Comparison: None. FINDINGS: BONES: No acute fracture or dislocation. No definite scaphoid fracture. JOINT SPACES: Osteoarthritic changes of the first carpometacarpal joint. SOFT TISSUES: Normal. IMPRESSION: No acute osseous abnormality left wrist. Reviewed, dictated and finalized at location A.
--- NOTE | ~2024-09-07 | XR_ITS ---
XR hand BI arthritis min 3V Ordering provider: Laura Sloan, FIELD SALES TRAINER History: . INFLAMMATORY ARTHRITIS PAIN ALL OVER . Comparison: None. FINDINGS: RIGHT HAND: --BONES: No acute fracture or dislocation. No osteopenia. --JOINT SPACES: Narrowing of the proximal and distal interphalangeal joints. Osteoarthritic changes o f the first carpometacarpal joint. Otherwise, Well maintained. No erosion, osteophytosis or sclerosis . --SOFT TISSUES: Unremarkable. No soft tissue swelling or nodules. LEFT HAND: --BONES: No acute fracture or dislocation. --JOINT SPACES: Narrowing of the proximal and distal interphalangeal joints. Osteoarthritic changes o f the first carpometacarpal joint. Otherwise, Well maintained. No erosion, osteophytosis or sclerosis . --SOFT TISSUES: Unremarkable. No soft tissue swelling or nodules. IMPRESSION: 1. No acute osseous abnormality bilateral hands. 2. Bilateral osteoarthritic changes of the carpometacarpal joints. 3. Polyarticular osteoarthritic changes bilaterally. Reviewed, dictated and finalized at location A.
--- NOTE | ~2024-09-07 | XR_ITS ---
EXAMINATION: XR ankle LT 2V, XR foot LT min 3V, XR foot RT min 3V, XR ankle RT 2V DATE: 09/07/2024 14:11 INDICATION: Inflammatory arthritis TECHNIQUE: 1. Anteroposterior and lateral view of the left ankle were obtained. 2. Dorsoplantar, oblique and lateral views of the left foot were obtained. 3. Anteroposterior and lateral view of the right ankle were obtained. 4. Dorsoplantar and lateral views of the right foot were obtained. COMPARISON: 04/28/2019 FINDINGS: Left foot and ankle: Alignment of the left foot and ankle is normal. No fracture. Polyarticular osteoarthritis, moderate s everity at the second and third tarsal metatarsal joints and at a few of the interphalangeal joints. Mild osteoarthritis at the left ankle and many of the remaining joints in the left foot. No erosions to suggest inflammatory arthritis. Enthesophyte and small enthesopathic ossification at the calcaneal insertion of the distal Achilles tendon. Soft tissues are unremarkable. No ankle joint effusion. Right foot and ankle: Alignment of the right foot and ankle is normal. No fracture. Similar pattern of polyarticular osteoa rthritis, moderate severity at the second and third tarsal metatarsal joints and a few of the interph alangeal joints and mild at the right ankle and majority the remaining joints in the right foot. Larg e amount of enthesopathic ossification at the thickened distal Achilles tendon with small Achilles ca lcaneal spur. Additional prominent likely enthesopathic ossification along the dorsal medial rim of t he proximal margin of the navicula. No erosions to suggest inflammatory arthritis. Soft tissues are u nremarkable with no ankle joint effusion. IMPRESSION: 1. No significant interval change in a relatively symmetric pattern of mild to moderate polyarticular osteoarthritis at the right foot and ankle. No erosions to suggest inflammatory arthritis. 2. Chronic enthesopathy with enthesophytes and enthesopathic ossification at the calcaneal insertions of the bilateral Achilles tendons, more prominent and with interval progression on the right. Reviewed, dictated and finalized at location A. IMPRESSION: 1. No significant interval change in a relatively symmetric pattern of mild to moderate polyarticular osteoarthritis at the right foot and ankle. No erosions to suggest inflammatory arthritis. 2. Chronic enthesopathy with enthesophytes and enthesopathic ossification at th e calcaneal insertions of the bilateral Achilles tendons, more prominent and wi th interval progression on the right. IMPRESSION: 1. No significant interval change in a relatively symmetric pattern of mild to moderate polyarticular osteoarthritis at the right foot and ankle. No erosions to suggest inflammatory arthritis. 2. Chronic enthesopathy with enthesophytes and enthesopathic ossification at th e calcaneal insertions of the bilateral Achilles tendons, more prominent and wi th interval progression on the right. IMPRESSION: 1. No significant interval change in a relatively symmetric pattern of mild to moderate polyarticular osteoarthritis at the right foot and ankle. No erosions to suggest inflammatory arthritis. 2. Chronic enthesopathy with enthesophytes and enthesopathic ossification at th e calcaneal insertions of the bilateral Achilles tendons, more prominent and wi th interval progression on the right.
--- NOTE | ~2024-09-07 | XR_ITS ---
XR sacroiliac joints min 3V Ordering provider: Laura Sloan, VALUE ANALYSIS COORDINATOR History: . INFLAMMATORY ARTHRITIS . Comparison: None. FINDINGS: BONES: No acute fracture or dislocation. Degenerative changes of the spine. JOINTS: The bilateral sacroiliac joint spaces shows left sacroiliitis. No bony fusion of the sacroili ac joints or bony erosions. Bilateral hip mild osteoarthritic changes. SOFT TISSUES: Unremarkable. IMPRESSION: NO ACUTE OSSEOUS ABNORMALITY. Left sacroiliitis. Mild bilateral hip osteoarthritic changes. Reviewed, dictated and finalized at location A.
--- OUTSIDE RECORDS SUMMARY | 2024-09-07 13:19 | XMS_ITS | Referral Summary ---
Author Organization [facility] al Address [address] [place] [address] Care Team Providers Care Migratory Game Bird Biologist Name Role Phone Real Díaz PA Unavailable [phone] Fernando Sherman DO Primary Care Provider [phone] Encounters Date Type Department Care Team Description 08/22/2024 Results Follow-Up [facility] Orthopaedic Surgery [address] [place] [address] Advanced Medicine [facility] [place] [address] [place] [address] Eleuterio Wiggins MD 08/21/2024 2:22 PM CDT - 08/21/2024 11:59 PM CDT Hospital Encounter [facility] [address] [place] [address] Eleuterio Wiggins MD Coccyx pain Discharge Disposition: Discharge to home or self care 08/21/2024 1:20 PM CDT Office Visit [facility] Orthopaedic Surgery [address] [place] [address] [place] [address] [place] [address] Eleuterio Wiggins MD Coccyx pain (Primary Dx) 07/24/2024 2:40 PM CONTACT CENTRE SUPERVISOR Office Visit [facility] Orthopaedic Surgery [address] [place] [address] [place] [address] [place] [address] Eleuterio Wiggins MD Trochanteric bursitis of both [...] Simvastatin Unknown 05/23/2013 Closed throat up . Crcxaye-Met-Fif Reductase Inhibitors Unknown 05/23/2013 Sulfa (Sulfonamide Antibiotics) [...] pain MAX 8 A DAY 240 tablet 09/07/19 25 Active diphenhydrAMI NE (BENADRYL) 25 mg [...] 8 A DAY 240 tablet 08/09/19 25 025 Discontinued(Re order) Active Problems Problem [...] PLAN - will reach to the patient's reed repairer (Dr. Livan Jang / [phone]) to see if they can help getting [...] on file Legal Sex Female 2:24 AM CONTACT CENTRE SUPERVISOR Gender Identity Not on file Sexual Orientation [...] Plan Chronic Care Management Worsening( 10:43 AM CONTACT CENTRE SUPERVISOR) No Asya Tran, RN Note: Problem: Chronic Pain Goals: 1. Minimize further functional decline 2. Maximize quality of life 3. Control pain Strategies: - Activity/exercise program recommendation - Conservative stepwise pain medicine strategy with multi-disciplinary approach - Recommend healthy lifestyle strategies and compensatory methods as needed Medical Devices Implanted Type Area Pin Worker Device Identifier Shelf Expiration Date Model / Serial / Lot [place] In Abdomen Abdomen Procedures Procedure Name Priority Date/Time Associated Diagnosis Comments XR SACRUM COCCYX 2 OR MORE VIEWS Schedule Routine, Read Routine (OP Routine) 08/21/2024 2:37 PM CDT Coccyx pain CO ARTHROCENTESIS ASPIR&/INJ MAJOR JT/BURSA W/O US Routine 07/24/2024 2:40 PM CONTACT CENTRE SUPERVISOR Trochanteric bursitis of both hips from Last [...] IMG XR PROCEDURES Final Res ult * CO ARTHROCENTESIS ASPIR&/INJ MAJOR JT/BURSA W/O US (07/24/2024 2:40 PM CONTACT CENTRE SUPERVISOR) Narrative Eleuterio Wiggins MD - 07/24/2024 2:40 PM CONTACT CENTRE SUPERVISOR Eleuterio Wiggins MD 07/24/2024 6:15 PM Large [...] Insurance IDPA [facility] MEDICARE [facility] Address: [address] [address] [place] [address] [facility] Address: [address] [address] [place] [address] [facility] IDCO [facility] MEDICARE ADVANTAGE [facility] Address: [facility] [address] [place] [address] Care Teams Migratory Game Bird Biologist Relationship Specialty Start Date End Date Fernando Sherman DO [address] [place] [address] PCP - General Internal Medicine 01/10/24 Real Díaz PA [address] [place] [address] Physician Water Engineer Physician Water Engineer 03/19/21
--- OUTSIDE RECORDS SUMMARY | 2024-09-07 13:20 | XMS_ITS | CONTINUITY OF CARE DOCUMENT ---
Author Name bryn clemente Address Unknown Organization [facility] Address [address] [facility] [address] [place] [address] Phone [phone] Care Team Providers Care Airline Lounge Receptionist Name Role Phone bryn clemente Unavailable Unavailable
--- OUTSIDE RECORDS SUMMARY | 2024-09-07 13:20 | XMS_ITS | Clinical Summary ---
Author Organization [facility] Address [address], [facility] [address] [place] [address] Phone Care Team Providers Care Chemistry Lecturer Name Role Phone Salo Marte DO Primary Care Provider Donato May DO Unavailable [phone] Ben RodCullen Unavailable [phone] Allergies Active [...] [place] Care Teams Chemistry Lecturer Relationship Specialty Start Date End Date Salo Marte DO [address] [place] [address] PCP - General Internal Medicine 06/19/15 Donato May DO [address] [place] [address] Gastroenterology 06/19/15 Ben Rod [address] [place] [address] [phone] (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
--- OUTSIDE RECORDS SUMMARY | 2024-09-07 13:20 | XMS_ITS | Clinical Summary ---
Author Organization [facility] Address [address] [place] [address] Care Team Providers Care Global Analytics Head Name Role Phone Real Díaz PA Unavailable [phone] Fernando Sherman DO Primary Care Provider [phone] Allergies Active Allergy Reactions Criticality Noted Date [...] Simvastatin Unknown 05/23/2013 Closed throat up . Jozudqg-Jvr-Hvs Reductase Inhibitors Unknown 05/23/2013 Sulfa (Sulfonamide Antibiotics) [...] MAX 8 A DAY 240 tablet 08/09/19 025 Discontinued(Re order) Active Problems Problem Noted [...] PLAN - will reach to the patient's roustabout crew (Dr. Livan Jang / [phone]) to see if they can help getting a skin biopsy for sarah-path + mycobacterial, and fungal cultures. - CMP, CBC, CRP today. - no empirical antimicrobial therapy at this time. RTC in 6 weeks. Breast abscess 12/26/2020 Morbid obesity with BMI of 40.0-44.9, adult 01/22 Exertional dyspnea 10/26/2017 Other chest pain 10/26/2017 Encounters Date Type Department Care Team Description 08/22/2024 Results Follow-Up [facility] Orthopaedic Surgery [address] [place] [address] Advanced [facility] 6th [place] [address] [place] [address] Eleuterio Wiggins MD 08/21/2024 2:22 PM CDT - 08/21/2024 11:59 PM CDT Hospital Encounter [facility]) [address] [place] [address] Eleuterio Wiggins MD Coccyx pain Discharge Disposition: Discharge to home or self care 08/21/2024 1:20 PM CDT Office Visit [facility] Orthopaedic Surgery [address] [place] [address] [place] [address] [place] [address] Eleuterio Wiggins MD Coccyx pain (Primary Dx) 07/24/2024 2:40 PM MOLD STRIPPER Office Visit [facility] Orthopaedic Surgery [address] [place] [address] [place] [address] [place] [address] Eleuterio Wiggins MD Trochanteric bursitis of both [...] Sister Jamilah Gongora Developmental delay Son Jenaro Mainro hodgson. Drug abuse Son Jenaro Mainor hodgson. [...] on file Legal Sex Female 2:24 AM MOLD STRIPPER Gender Identity Not on file Sexual Orientation [...] Plan Chronic Care Management Worsening( 10:43 AM MOLD STRIPPER) No Asya Tran, RN Note: Problem: Chronic Pain Goals: 1. Minimize further functional decline 2. Maximize quality of life 3. Control pain Strategies: - Activity/exercise program recommendation - Conservative stepwise pain medicine strategy with multi-disciplinary approach - Recommend healthy lifestyle strategies and compensatory methods as needed Medical Devices Implanted Type Area Theoretical Physics Teacher Device Identifier Shelf Expiration Date Model / Serial / Lot [place] Miguel In Abdomen Abdomen Procedures Procedure Name Priority Date/Time Associated Diagnosis Comments XR SACRUM COCCYX 2 OR MORE VIEWS Schedule Routine, Read Routine (OP Routine) 08/21/2024 2:37 PM CDT Coccyx pain MS ARTHROCENTESIS ASPIR&/INJ MAJOR JT/BURSA W/O US Routine 07/24/2024 2:40 PM MOLD STRIPPER Trochanteric bursitis of both hips from Last [...] IMG XR PROCEDURES Final Res ult * MS ARTHROCENTESIS ASPIR&/INJ MAJOR JT/BURSA W/O US (07/24/2024 2:40 PM MOLD STRIPPER) Narrative Eleuterio Wiggins MD - 07/24/2024 2:40 PM MOLD STRIPPER Eleuterio Wiggins MD 07/24/2024 6:15 PM Large [...] Result from Last 3 Months Insurance IDPA [facility] MEDICARE ADVANTAGE MEDICARE [employer] [facility] MEDICARE ADVANTAGE Care Teams Global Analytics Head Relationship Specialty Start Date End Date Fernando Sherman DO [address] [place] [address] PCP - General Internal Medicine 01/10/24 Real Díaz PA [address] [place] [address] Physician Knifeman Physician Knifeman 03/19/21
--- OUTSIDE RECORDS SUMMARY | 2024-09-07 13:20 | XMS_ITS | Encounter Summary ---
Author Organization [facility] Healthcare Address [address] [place] [address] Care Team Providers Care Critical Care Clinical Nurse Specialist Name Role Phone Salo Marte MD Primary Care Provider [phone] Real Díaz Unavailable [phone] Fernando Shreman DO Primary Care Provider [phone] Encounter Details Date Type Department Care Team (Late st Contact Info) Description 07/12/2020 Telephone [facility]) [address] [place] [address] Bashir Diaz, RT Social History Tobacco Use Types Packs/Day Years Used Date Smoking Tobacco: Former Smokeless Tobacco: Never Alcohol Use Standard Drinks/Week Comments No 0 (1 standard drink = 0.6 oz pur e alcohol) Comments Unknown Sex and Gender Information Value Date Recorded Sex Assigned at Not on file 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 Gender Identity Not on file Sexual Orientation Not on file documented as of this encounter Plan of Treatment Not on file documented as of this encounter Visit Diagnoses Not on filedocumented in this encounter Care Teams Critical Care Clinical Nurse Specialist Relationship Specialty Start Date End Date Salo Marte MD [address] [place], [place] [id number] PCP - General 07/31/16 01/09/24 Fernando Sherman DO [address] [place] [address] PCP - General Internal Medicine 01/10/24 Real Díaz PA [address] [facility] [address] [facility] [address] [place], [place] [id number] Physician Software Validation Technician Physician Software Validation Technician 03/19/21 documented as of this encounter
[2024-09-07 14:05] LABS: Basophils Percent Auto 0.6 % (0.2-1.2); Eosinophils Absolute Auto 0.2 K/mm3 (0-0.3); Eosinophils Percent Auto 2.1 % (0-4.4); Hematocrit 40.8 % (37.0-47.0); Hemoglobin 12.7 g/dL (12.0-15.0); Immature Granulocyte Absolute 0.02 K/mm3 (0.00-0.031); Immature Granulocyte Percent A 0.3 % (0-0.5); Lymphocytes Absolute Auto 1.65 K/mm3 (0.9-3.2); Lymphocytes Percent Auto 23.4 % (18.3-44.2); Mean Corpuscular HGB Conc 31.1 g/dl (32-36); Mean Corpuscular Volume 99.5 fl (80-100); Monocytes Absolute Auto 0.8 K/mm3 (0.1-0.6); Monocytes Percent Auto 11.8 % (2.6-8.5); Neutrophils Absolute Auto 4.4 K/mm3 (1.3-6.7); Neutrophils Percent Auto 61.8 % (45.5-73.1); Platelet Count Result 247 k/mm3 (150-375); Red Cell Distribution Width 13.5 % (11.5-14.5); White Blood Count 7.1 K/mm3 (4.5-10.0)
[2024-09-07 14:35] LABS: Bilirubin,Total 0.2 mg/dL (0.2-1.3); Calcium 8.8 mg/dL (8.4-10.2); Chloride 103 mmol/L (98-107); Glucose 130 mg/dL (65-110); Potassium 3.9 mmol/L (3.4-5.0); Sodium 138 mmol/L (137-145)
[2024-09-07 14:38] LABS: Rheumatoid Factor < 12.0 IU/ML (<12)
[2024-09-07 16:34] LABS: Alanine Aminotransferase 28 U/L (6-35); Albumin Level 4.2 g/dL (3.5-5.1); Alkaline Phosphatase 79 U/L (38-126); Anion Gap 7 mmol/L (4-12); Aspartate Amino Transferase 29 U/L (14-36); Blood Urea Nitrogen 24 mg/dL (7-17); CRP 0.7 mg/dL (<1.0); Carbon Dioxide 28 mmol/L (22-30); Estimated Glomerular Filt Rate 53
[2024-09-07 17:24] LABS: Erythrocyte Sedimentation Rate 27 mm/hr (0-20)
[2024-09-08 07:58] LABS: SS-A <1.0 NEG AI (<1.0 NEG); SS-B <1.0 NEG AI (<1.0 NEG)
[2024-09-09 03:35] LABS: Scleroderma 70 Antibody <1.0 NEG AI (<1.0 NEG)
[2024-09-09 13:33] LABS: ANCA Screen NEGATIVE (NEGATIVE)
[2024-09-11 17:04] LABS: Cyclic Citrullinated Peptide 18 UNITS
== END 2024-09-07 12:58 | disposition home or self-care (01) ==
PROVIDERS: PCP Internal Medicine; Visit Provider Nurse Practitioner Family
DX: M53.3 Sacrococcygeal disorders, not elsewhere classified (principal); M16.0 Bilateral primary osteoarthritis of hip; M19.041 Primary osteoarthritis, right hand; M19.042 Primary osteoarthritis, left hand; M19.031 Primary osteoarthritis, right wrist; M19.032 Primary osteoarthritis, left wrist; M77.31 Calcaneal spur, right foot; M77.32 Calcaneal spur, left foot
CPT/HCPCS: 36415; 72202; 73100; 73130; 73600; 73630; 80053; 85025; 85652; 86036; 86038; 86039; 86140; 86200; 86225; 86235; 86430

== ENCOUNTER 2024-09-17 13:15 | Emergency (ER) | payer MEDICARE, MEDICAID, SELFPAY ==
[2024-09-17 13:30] VITALS: BP 140/59; PULSE 83; RESP 18; TEMP 35.8; O2SAT 98
--- NOTE | 2024-09-17 14:45 | ED_ITS ---
HPI - Extremity Problem General Chief complaint: Extremity Problem,Nontraumatic Stated complaint: Right Hand Pain Time Seen by Provider: 09/17/24 14:20 Source: patient, RN notes reviewed and old records reviewed Mode of arrival: ambulatory Limitations: no limitations History of Present Illness HPI Narrative: 64 year old female who presents to express care with complaints of one week duration of right hand pain with no injury reported. Patient reports that she has used ice, heat, Biofreeze and also took 2 oxycodone at 1030 this morning with no pain relief. Patient reports had xray done of bilateral hand on the of this month and has appointment with her orthopedic doctor tomorrow to review report. 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 MD Complaint: other (right hand pain) Onset (ago): week(s) (increased pain for one week) Pain Consistency: constant Location: right and upper extremity (hand) Severity scale (1-10): 7 Quality: aching and constant Related Data Home Medications ?Medication ?Instructions ?Recorded ?Confirmed ?Last Taken ?Type baclofen 10 mg tablet 5 mg PO TID PRN Muscle Spasm 04/11/19 08/30/24 08/27/20 History duloxetine 30 mg capsule,delayed 60 mg PO TID 04/11/19 08/30/24 09/02/20 History release nortriptyline 25 mg capsule 25 mg PO TID 04/11/19 08/30/24 09/02/20 History melatonin 5 mg capsule 10 mg PO QHS PRN Insomnia 05/03/19 08/30/24 09/02/20 History travoprost 0.004 % eye drops 1 drop ophthalmic (eye) QPM 05/03/19 08/30/24 09/01/20 History (Travatan Z) hydroxychloroquine 200 mg tablet 200 mg PO BID 07/24/19 08/30/24 09/02/20 History Astepro 0.15%(205.5mcg) 1 spray intranasal PRN 12/14/19 08/30/24 09/01/20 History cranberry fruit 1,000 mg capsule 4,200 mg PO TID 08/27/20 08/30/24 08/30/20 History brimonidine 0.2 % eye drops 1 drp RIGHT EYE BID 03/18/22 08/30/24 1 Day Ago History ~01/07/23 dorzolamide 22.3 mg-timolol 6.8 1 drp RIGHT EYE BID 03/18/22 08/30/24 01/07/23 11:00 History mg/mL eye drops warfarin 5 mg tablet 5 mg PO DAILY 02/24/23 08/30/24 Unknown History Allergies Allergy/AdvReac Type Severity Reaction Status Date / Time pregabalin Allergy Severe Anaphylaxis Verified 09/17/24 13:23 doxycycline Allergy Intermediate Rash Verified 09/17/24 13:23 morphine Allergy Intermediate unknwon Verified 09/17/24 13:23 Sulfa (Sulfonamide Allergy Intermediate Hives Verified 09/17/24 13:23 Antibiotics) adhesive tape Allergy Mild BLISTERS Verified 09/17/24 13:23 bupropion Allergy Mild Other Verified 09/17/24 13:23 ipratropium Allergy Mild Dyspnea / Verified 08/30/24 16:04 SOB cefuroxime Allergy Unknown unknown Verified 09/17/24 13:23 chlordiazepoxide Allergy Unknown Irritable, Verified 09/17/24 13:23 AGGRESSION- SEE NOTE dextromethorphan Allergy Unknown unknown Verified 09/17/24 13:23 guaifenesin Allergy Unknown unknown Verified 09/17/24 13:23 meperidine Allergy Unknown Hives Verified 09/17/24 13:23 nitrofurantoin Allergy Unknown unknown Verified 09/17/24 13:23 resorcinol Allergy Unknown unknown Verified 09/17/24 13:23 simvastatin Allergy Unknown unknown Verified 09/17/24 13:23 theophylline Allergy Unknown unknonw Verified 09/17/24 13:23 trimethoprim Allergy Unknown unknown Verified 09/17/24 13:23 valsartan Allergy Unknown unknown Verified 09/17/24 13:23 Xanthines Allergy Unknown unknown Verified 09/17/24 13:23 codeine AdvReac Intermediate Nausea Verified 09/17/24 13:23 diazepam AdvReac Intermediate Agitated Verified 09/17/24 13:23 insulin lispro-aabc (From AdvReac Mild Redness of Verified 09/17/24 13:23 Lyumjev U-100 Insulin) Skin duloxetine AdvReac Unknown Dizziness Verified 09/17/24 13:23 nickel AdvReac Unknown RASH Verified 09/17/24 13:23 piroxicam AdvReac Unknown MILD SIDE Verified 09/17/24 13:23 EFFECT PER DIAZEPAM TEXT [place] VITAMIN D Allergy Unknown RASH Uncoded 09/17/24 13:23 Review of Systems Review of Systems: CONSTITUTIONAL: Denies fever, chills, or sweats. EYES: Denies visual changes, redness, or discharge. ENT: Denies rhinorrhea, congestion, sore throat, or otalgia. CARDIOVASCULAR: Denies chest pain, palpitations, or edema. RESPIRATORY: Denies cough or dyspnea. GASTROINTESTINAL: Denies abdominal pain, nausea, vomiting, or diarrhea. GENITOURINARY: Denies dysuria or hematuria. SKIN: Denies rash or itching. MUSCULOSKELETAL: report chronic back pain, positive for right hand pain and to fingers for one week duration with no injury or obvious deformity., or myalgia. NEUROLOGIC: Denies headache, numbness, or weakness. PSYCHIATRIC: Reports anxiety or depression. All systems reviewed & are unremarkable except as noted in HPI and below PMFSH Past Medical History Medical History Cerebrovascular disease Minimal cognitive impairment Chronic anticoagulation Chronically on opiate therapy Irritable bowel syndrome History of radioactive iodine thyroid ablation Obstructive sleep apnea Systemic lupus erythematosus Deep venous thrombosis Type 2 diabetes mellitus Chronic obstructive pulmonary disease Chronic kidney disease, stage 3 Chronic pain syndrome Vitamin D deficiency, unspecified Vitamin B12 deficiency Hyperlipidemia Gastro-esophageal reflux disease without esophagitis Anemia Nocturnal hypoxia Neuropathy Neuroectodermal tumor Fibrocystic breast changes Nasal septal deviation Essential (primary) hypertension Cervical cancer Panic disorder Depression Anxiety Degenerative disc disease Osteoporosis Arthritis Fibromyalgia Kidney stones Postmenopausal Ovarian cyst Endometriosis Bronchitis Asthma Pulmonary embolism Hypertension Glaucoma Surgical History Surgical History History of left breast biopsy History of hysterectomy History of inguinal hernia repair History of oophorectomy History of appendectomy History of knee replacement History of bladder surgery Family History Family History Father Hypertension Family history of diabetes mellitus in first degree relative Family history of heart disease in male family member before age 55 Mother Hypertension Family history of diabetes mellitus in first degree relative Family history of heart disease in male family member before age 55 Diabetes mellitus, Onset Age: 62 Sibling Family history of malignant neoplasm of cervix Other CHF (congestive heart failure), NYHA class I Social History Social History (Updated 09/18/24 @ 22:23 by Goldie Horne NP) Social History: Code status: Full code. Smoking packs per day: 3 Smoking cigarettes per day: 60.0 Years smoked: 10 Smoking pack-years: 30.00 Smoking status: Former smoker Tobacco type: cigarettes Second hand tobacco smoke exposure: No Smoking end date: 11/21/94 Alcohol intake: never Alcohol use details: Alcoholic, no alcohol in 25 years. Substance use: current Substance use type: opiates Last use: oxycodone for pain Do You Feel Safe in your Home?: Yes Lack of Transportation: No Lack of Food: Never True Current Housing: Decline to Answer Concerned About Future Housing: Decline to Answer Difficulty Paying Gas/Electric Bills: No Difficulty Paying for Meds: YES Currently Unemployed: Decline to Answer Education: High School Diploma/GED Difficulty w/ Childcare or Family Care: No Living arrangements: alone Occupation/Education: unemployed Spiritual care concerns: No Comments At time of signature, agree with nursing past medical, surgical, social and family history. There is no relevant family history pertinent to the presenting complaint Exam Narrative: GENERAL: chronic ill appearing, well-nourished, obese,and in no acute distress. HEAD: Normocephalic, atraumatic. EYES: PERRLA and EOMI. ENT: Nares clear, no rhinorrhea or epistaxis. Mucous membranes moist.TM's normal throat pink with no swelling NECK: Supple.no lymphadenopathy CHEST: Clear to auscultation. No respiratory distress. no cough noted SAO2 98% on room air HEART: Regular rate and rhythm. No murmur heard. Normal peripheral pulses. ABDOMEN: Soft, nontender, nondistended, normal active bowel sounds. EXTREMITIES: Normal range of motion. No edema. Reports constant pain to right hand and finger for the past week, has been using her pain medication,ice and heat and Biofreeze without relief, full mobility of right hand and wrist noted no edema or any redness or heat to hand or fingers, strong right radial pulse no complaints of numbness or tingling SKIN: Warm, dry, no rash. NEURO: No focal deficits. Alert and oriented x3. Course Course Emergency Course: Patient is aware of diagnosis, understands and agrees to treatment plan.? Anticipatory guidance given.? Patient agrees to follow-up as directed and is aware of reasons to seek care at the emergency department. Portions of this record may have been created with voice recognition software Level of Care: Express Care Visit Vital Signs Vital signs: Vital Signs Temperature 35.8 C L 09/17/24 13:30 Pulse Rate 83 09/17/24 13:30 Respiratory Rate 18 09/17/24 13:30 Blood Pressure 140/59 L 09/17/24 13:30 Pulse Oximetry 98 09/17/24 13:30 Oxygen Delivery Room Air 09/17/24 13:30 Temperature 35.8 C L 09/17/24 13:30 Pulse Rate 83 09/17/24 13:30 Respiratory Rate 18 09/17/24 13:30 Blood Pressure 140/59 L 09/17/24 13:30 Pulse Oximetry 98 09/17/24 13:30 Oxygen Delivery Room Air 09/17/24 13:30 Reviewed MDM - Extremity (Nontraumatic) Differential Diagnosis Differential diagnosis: Likely other (right hand and finger pain, osteoarthritic changes per xray report, psoriatic arthritis, RA, ) Medical Records Attestation: I reviewed the patient's medical records. Critical Care Time Critical Care Time Critical Care Time: No Discharge Plan Discharge Clinical Impression: Hand pain, right Patient Disposition: Home Condition: Stable Instructions: Antibiotic Form, Arthralgia (ED) Additional Instructions: Elastic wrap to right hand Follow up with PCP tomorrow Tylenol for lesser pain Use the medication you have at home for severe pain--caution each tablet contains 325 mg of Tylenol--the maximum dose of Tylenol is 4000 mg in 24 hours. This medication may cause constipation consider starting a laxative at this time Follow-up with orthopedic surgeon as arranged tomorrow Follow-up with PCP if further problems or concerns Ice to the area 20-30 minutes 4-6 times a day Elevate above heart prednisone 5mg one tab po BID for 5 days If your symptoms persist, change or worsen significantly before you can contact your personal physician then please, without delay, go to the emergency department for further evaluation. Follow-up with PCP in 7-10 days or sooner if needed Follow up with PCP soon in regards to your blood pressure which is elevated above threshold for referral. Blood pressure above 120/80 may indicate pre- hypertension. 140/59 Monitor your glucose closely while taking this medication maintain dietary restrictions and sliding scale Patient Language: Ghanaian Prescriptions: New prednisone 5 mg tablet 5 mg PO BID Qty: 10 0RF Rx Instructions: take with food No Action baclofen 10 mg tablet 5 mg PO TID PRN (Reason: Muscle Spasm) nortriptyline 25 mg capsule 25 mg PO TID duloxetine 30 mg capsule,delayed release(DR/EC) 60 mg PO TID melatonin 5 mg capsule 10 mg PO QHS PRN (Reason: Insomnia) Travatan Z 0.004 % drops 1 drop EACH EYE QPM hydroxychloroquine 200 mg tablet 200 mg PO BID (DME) [employer] G7 Sensor Device See Rx Instructions .ROUTE .MEDSUPPLY Qty: 9 3RF Rx Instructions: Use to monitor glcuose ondansetron 4 mg tablet,disintegrating 4 mg PO Q8H PRN (Reason: nausea and vomiting) Qty: 10 0RF dorzolamide-timolol 22.3-6.8 mg/mL drops 1 drp RIGHT EYE BID brimonidine 0.2 % drops 1 drp RIGHT EYE BID warfarin 5 mg tablet 5 mg PO DAILY Astepro 0.15%(205.5mcg) nasal spray syringe 1 spray intranasal PRN cranberry fruit 1,000 mg Capsule 4,200 mg PO TID fluticasone propionate 50 mcg/actuation spray,suspension See Rx Instructions .ROUTE .COMPLEX Qty: 16 11RF Dose Instruction: SPRAY 1 SPRAY NASALLY TWICE DAILY NEEDED FOR NASAL CONGESTION; ADMINISTER INTO EACH NOSTRIL Rx Instructions: SPRAY 1 SPRAY NASALLY TWICE DAILY NEEDED FOR NASAL CONGESTION; ADMINISTER INTO EACH NOSTRIL lancets [Microlet Lancet] Misc See Rx Instructions .ROUTE .COMPLEX Qty: 100 3RF Dose Instruction: USE TO CHECK BLOOD SUGAR ONE TIME DAILY Rx Instructions: USE TO CHECK BLOOD SUGAR ONE TIME DAILY (DME) lancets 32 gauge misc See Rx Instructions .Route Qty: 300 1RF Rx Instructions: use to check blood sugar 3 times daily promethazine 12.5 mg tablet 12.5 mg PO BID Qty: 10 0RF montelukast 10 mg tablet See Rx Instructions .ROUTE .COMPLEX Qty: 90 3RF Dose Instruction: TAKE 1 TABLET BY MOUTH DAILY Rx Instructions: TAKE 1 TABLET BY MOUTH DAILY nystatin-triamcinolone 100,000-0.1 unit/g-% cream 1 applic topical BID Qty: 60 1RF Trelegy Ellipta 100-62.5-25 mcg blister with device See Rx Instructions .ROUTE .COMPLEX Qty: 60 5RF Dose Instruction: INHALE 1 PUFF BY MOUTH EVERY 24 HOURS; RINSE AND SPIT AFTER EACH USE Rx Instructions: INHALE 1 PUFF BY MOUTH EVERY 24 HOURS; RINSE AND SPIT AFTER EACH USE levothyroxine 25 mcg tablet 25 mcg PO DAILY 90 Days Qty: 90 2RF Rx Instructions: TDD 225 mcg albuterol sulfate 90 mcg/actuation HFA aerosol inhaler See Rx Instructions .ROUTE .COMPLEX Qty: 18 2RF Dose Instruction: INHALE 2 PUFFS BY MOUTH EVERY 4 TO 6 HOURS NEEDED Rx Instructions: INHALE 2 PUFFS BY MOUTH EVERY 4 TO 6 HOURS NEEDED insulin degludec [Tresiba FlexTouch U-100] 100 unit/mL (3 mL) insulin pen 16 unit subcut DAILY 90 Days Qty: 15 3RF warfarin 1 mg tablet 1 mg PO DAILY Qty: 90 2RF rosuvastatin 40 mg tablet See Rx Instructions .ROUTE .COMPLEX Qty: 90 4RF Dose Instruction: TAKE 1 TABLET BY MOUTH DAILY Rx Instructions: TAKE 1 TABLET BY MOUTH DAILY magnesium oxide 400 mg (241.3 mg magnesium) tablet 400 mg PO DAILY Qty: 90 3RF omeprazole 40 mg capsule,delayed release(DR/EC) 40 mg PO BID Qty: 180 2RF insulin lispro [Humalog KwikPen Insulin] 100 unit/mL insulin pen 6 unit subcut TID MDD 40 Qty: 30 3RF Rx Instructions: 6 units pre meal (do not blood glucose is less than 80) + Sliding scale 150-200: 2 unit = 8 units 201-250: 4 units = 10 units 251-300: 6 units = 12 units 301-350: 8 units = 14 units 351-400: 10 units = 16 units >401: 12 units = 18 units azelastine 137 mcg (0.1 %) spray,non-aerosol See Rx Instructions .ROUTE .COMPLEX Qty: 30 5RF Dose Instruction: USE 1 SPRAY IN EACH NOSTRIL EVERY 12 HOURS Rx Instructions: USE 1 SPRAY IN EACH NOSTRIL EVERY 12 HOURS (DME) OneTouch Verio test strips Strip See Rx Instructions .Route Qty: 100 1RF Rx Instructions: Use to check blood sugar 3 times daily lisinopril 30 mg tablet 30 mg PO DAILY Qty: 90 2RF levothyroxine 200 mcg tablet 200 mcg PO DAILY 90 Days Qty: 90 2RF Rx Instructions: TDD 225 mcg amlodipine 5 mg tablet 5 mg PO DAILY Qty: 90 3RF furosemide 20 mg tablet 20 mg PO QAM Qty: 30 5RF warfarin 5 mg tablet 5 mg PO DAILY Qty: 30 5RF Protocol: Dose Management Condition: Wednesday Dose/Route: 5 mg Instruction: 1 x 5 mg tablet Condition: Wednesday Dose/Route: 5 mg Instruction: 1 x 5 mg tablet Condition: Wednesday Dose/Route: 5 mg Instruction: 1 x 5 mg tablet Condition: Wednesday Dose/Route: 5 mg Instruction: 1 x 5 mg tablet Condition: Dose/Route: 5 mg Instruction: 1 x 5 mg tablet Condition: Wednesday Dose/Route: 5 mg Instruction: 1 x 5 mg tablet Condition: Wednesday Dose/Route: 5 mg Instruction: 1 x 5 mg tablet Protocol Text: Adjustment Start Date: Wednesday02/03/23 INR Value: 2.7 INR Date: 02/02/23 Recheck Date: 03/05/23 (DME) pen needle, diabetic 32 gauge x 5/32 needle See Rx Instructions .Route Qty: 1200 3RF Rx Instructions: Use to admister insulin 4-6 times a day Follow-up/Referrals: Fernando Sherman DO [Primary Care Provider] - Time of Disposition: 14:53 Quality [place] Coma Scale Eyes: Open Verbal: Oriented and Alert Motor: Follows Commands [place] Coma Total Score: 15
== END 2024-09-17 15:00 | disposition home or self-care (01) ==
PROVIDERS: Emergency Provider Registered Nurse; PCP Internal Medicine
DX: M79.641 Pain in right hand (principal); Z87.891 Personal history of nicotine dependence; M32.9 Systemic lupus erythematosus, unspecified; L40.50 Arthropathic psoriasis, unspecified; I12.9 Hypertensive chronic kidney disease with stage 1 through stage 4 chronic kidney disease, or unspecified chronic kidney disease; E11.22 Type 2 diabetes mellitus with diabetic chronic kidney disease; N18.30 Chronic kidney disease, stage 3 unspecified; Z79.4 Long term (current) use of insulin; J44.9 Chronic obstructive pulmonary disease, unspecified; E78.5 Hyperlipidemia, unspecified; K21.9 Gastro-esophageal reflux disease without esophagitis; I67.9 Cerebrovascular disease, unspecified; K58.9 Irritable bowel syndrome, unspecified; Z86.718 Personal history of other venous thrombosis and embolism; E11.40 Type 2 diabetes mellitus with diabetic neuropathy, unspecified; M81.0 Age-related osteoporosis without current pathological fracture; M19.90 Unspecified osteoarthritis, unspecified site; M79.7 Fibromyalgia; N80.9 Endometriosis, unspecified; Z86.711 Personal history of pulmonary embolism; E11.39 Type 2 diabetes mellitus with other diabetic ophthalmic complication; H42 Glaucoma in diseases classified elsewhere; Z79.01 Long term (current) use of anticoagulants
CPT/HCPCS: 99213; G0463

== ENCOUNTER 2024-10-07 16:57 | Emergency (ER) | payer MEDICARE, MEDICAID, SELFPAY ==
--- NOTE | ~2024-10-07 | XR_ITS ---
XR ribs LT 2V Ordering provider: EULOGIO Box History: . pain to Left rib x 3 days . Comparison: December 15, 2022 FINDINGS: BONES: No acute left rib fracture or fracture of the visualized osseous structures. Healing fracture in the left fifth rib. LEFT LUNG: No effusions or infiltrates. No pneumothorax. SOFT TISSUES: Normal. IMPRESSION: No left rib fracture. Old fracture in the left fifth rib. Reviewed, dictated and finalized at location A.
--- OUTSIDE RECORDS SUMMARY | 2024-10-07 17:00 | XMS_ITS | Clinical Summary ---
Author Organization [facility] Address [address] [place] [address] Care Team Providers Care Solar Power Installer Name Role Phone Real Díaz PA Unavailable [phone] Fernando Sherman DO Primary Care Provider [phone] Allergies Active Allergy Reactions Criticality Noted Date [...] Simvastatin Unknown 05/23/2013 Closed throat up . Asantyt-Jvn-Mvm Reductase Inhibitors Unknown 05/23/2013 Sulfa (Sulfonamide Antibiotics) Ruben-Dur Hives Medium 04/22/2020 My throat closed. Theophylline Anhydrous Unknown 05/23/2013 Valsartan Xanthines Unknown 05/23/2013 Xanthinol Niacinate Unknown 05/23/2013 Medications warfarin (COUMADIN) 4 mg tablet take 1 tablet by oral route every day 0 0 4 Active amLODIPine (NORVASC) 5 mg tablet Take 1 tablet (5 mg total) by mouth daily 8 Active lisinopril-hyd roCHLOROthiazi de (PRINZIDE,ZEST ORETIC) [...] (FLONASE) 50 mcg/actuation nasal spray 1 Active montelukast (SINGULAIR) 10 mg tablet [...] PO TID 90 tablet 2 3 Active furosemide (LASIX) 20 mg tablet [...] MAX 8 A DAY 240 tablet 5 05/16/20 25 Discontin ued(Reord er) Hospital, Clinic, or Other Facility Administered Medication Ordered Dose Route Frequency Start Date End Date Status lidocaine (XYLOCAINE) 10 mg/mL (1 %) injection 5 mLIndications:Admini stration of Local Anesthesia 5 mL One-Time Injection 09/18/2024 09/18/2024 Ended Active Problems Problem Noted Date Diagnosed [...] PLAN - will reach to the patient's benefit authorizer (Dr. Livan Jang / [phone]) to see if they can help getting a skin biopsy for sarah-path + mycobacterial, and fungal cultures. - CMP, CBC, CRP today. - no empirical antimicrobial therapy at this time. RTC in 6 weeks. Breast abscess 12/26/2020 Morbid obesity with BMI of 40.0-44.9, adult 01/22 Exertional dyspnea 10/26/2017 Other chest pain 10/26/2017 Encounters Date Type Department Care Team Description 09/18/2024 4:38 PM CDT - 09/18/2024 11:59 PM CDT Hospital Encounter [facility] ([facility]) [address] [place] [address] Discharge Disposition: Discharge to home or self care 09/18/2024 4:38 PM CDT - 09/18/2024 11:59 PM CDT Hospital Encounter [facility] ([facility]) [address] [place] [address] Discharge Disposition: Discharge to home or self care 09/18/2024 4:36 PM CDT - 09/18/2024 11:59 PM CDT Hospital Encounter [facility] ([facility]) [address] [place] [address] Discharge Disposition: Discharge to home or self care 09/18/2024 4:35 PM CDT - 09/18/2024 11:59 PM CDT Hospital Encounter [facility] ([facility]) [address] [place] [address] Discharge Disposition: Discharge to home or self care 09/18/2024 4:32 PM CDT - 09/18/2024 11:59 PM CDT Hospital Encounter [facility] ([facility]) [address] [place] [address] Discharge Disposition: Discharge to home or self care 09/18/2024 4:31 PM CDT - 09/18/2024 11:59 PM CDT Hospital Encounter [facility] ([facility]) [address] [place] [address] Discharge Disposition: Discharge to home or self care 09/18/2024 4:21 PM CDT - 09/18/2024 11:59 PM CDT Hospital Encounter [facility] ([facility]) [address] [place] [address] Discharge Disposition: Discharge to home or self care 09/18/2024 4:21 PM CDT - 09/18/2024 11:59 PM CDT Hospital Encounter [facility] ([facility]) [address] [place] [address] Discharge Disposition: Discharge to home or self care 09/18/2024 2:20 PM CDT Office Visit [facility] Orthopaedic Surgery [address] [place] [address] Advanced Medicine [facility] [place] [address] [place] [address] Eleuterio Wiggins MD Myofascial pain (Primary Dx) 09/12/2024 Telephone [facility] Cardiology [address] [place] [address] Amari Manuel MD 08/22/2024 Results Follow-Up [facility] Orthopaedic Surgery [address] [place] [address] [place] [address] [place] [address] Eleuterio Wiggins MD 08/21/2024 2:22 PM CDT - 08/21/2024 11:59 PM CDT Hospital Encounter [facility] ([facility]) [address] [place] [address] Eleuterio Wiggins MD Coccyx pain Discharge Disposition: Discharge to home or self care 08/21/2024 1:20 PM CDT Office Visit [facility] Orthopaedic Surgery [address] [place] [address] Advanced Medicine [facility] [place] [address] [place] [address] Eleuterio Wiggins MD Coccyx pain (Primary Dx) 07/24/2024 2:40 PM FREELANCE MAKEUP ARTIST Office Visit [facility] Orthopaedic Surgery [address] [place] [address] [place] [address] [place] [address] Eleuterio Wiggins MD Trochanteric bursitis of both [...] Caron Meek Sister Jamilah Gongora Son Jenaro Riberajer hodgson. Social History Tobacco Use Types Packs/Day [...] on file Legal Sex Female 2:24 AM FREELANCE MAKEUP ARTIST Gender Identity Not on file Sexual Orientation [...] Plan Chronic Care Management Worsening( 10:43 AM FREELANCE MAKEUP ARTIST) No Asya Tran, RN Note: Problem: Chronic Pain Goals: 1. Minimize further functional decline 2. Maximize quality of life 3. Control pain Strategies: - Activity/exercise program recommendation - Conservative stepwise pain medicine strategy with multi-disciplinary approach - Recommend healthy lifestyle strategies and compensatory methods as needed Medical Devices Implanted Type Area Special Warfare Combatant Crewman Device Identifier Shelf Expiration Date Model / Serial / Lot José Miguel In Abdomen Abdomen Procedures Procedure Name Priority Date/Time Associated Diagnosis Comments XR TRANSFER OF OUTSIDE FILMS Routine 09/18/2024 4:38 PM CDT XR TRANSFER OF OUTSIDE FILMS Routine 09/18/2024 4:38 PM CDT XR TRANSFER OF OUTSIDE FILMS Routine 09/18/2024 4:36 PM CDT XR TRANSFER OF OUTSIDE FILMS Routine 09/18/2024 4:35 PM CDT XR TRANSFER OF OUTSIDE FILMS Routine 09/18/2024 4:32 PM CDT XR TRANSFER OF OUTSIDE FILMS Routine 09/18/2024 4:31 PM CDT XR TRANSFER OF OUTSIDE FILMS Routine 09/18/2024 4:21 PM CDT XR TRANSFER OF OUTSIDE FILMS Routine 09/18/2024 4:21 PM CDT NV INJECTION SINGLE/EXTRUDER OPERATOR TRIGGER POINT 1/2 MUSCLES Routine 09/18/2024 2:20 PM CDT Myofascial pain XR SACRUM COCCYX 2 OR MORE VIEWS Schedule Routine, Read Routine (OP Routine) 08/21/2024 2:37 PM CDT Coccyx pain NV ARTHROCENTESIS ASPIR&/INJ MAJOR JT/BURSA W/O US Routine 07/24/2024 2:40 PM FREELANCE MAKEUP ARTIST Trochanteric bursitis of both hips from Last 3 Months Results * XR Outside Reference (09/18/2024 4:38 PM CDT) Impressions [facility] - 09/18/2024 4:38 PM CDT These images are for Reference purposes only and have not been reviewed by [facility]. There will be no report generated by a [facility] Radiologist. Narrative [facility] - 09/18/2024 4:38 PM CDT EXAMINATION: Images For Reference Purposes Only Eleuterio Wiggins MD IMG XR PROCEDURES Final Res ult Performing Organization Address [facility] de Phone Number [email or web address] * XR Outside Reference (09/18/2024 4:38 PM CDT) Impressions [facility] - 09/18/2024 4:38 PM CDT These images are for Reference purposes only and have not been reviewed by [facility]. There will be no report generated by a [facility] Radiologist. Narrative [facility] - 09/18/2024 4:38 PM CDT EXAMINATION: Images For Reference Purposes Only Eleuterio Wiggins MD IMG XR PROCEDURES Final Res ult Performing Organization Address [facility] de Phone Number [email or web address] * XR Outside Reference (09/18/2024 4:36 PM CDT) Impressions [facility] - 09/18/2024 4:36 PM CDT These images are for Reference purposes only and have not been reviewed by [facility]. There will be no report generated by a [facility] Radiologist. Narrative [facility] - 09/18/2024 4:36 PM CDT EXAMINATION: Images For Reference Purposes Only Eleuterio Wiggins MD IMG XR PROCEDURES Final Res ult Performing Organization Address [facility] de Phone Number [email or web address] * XR Outside Reference (09/18/2024 4:35 PM CDT) Impressions [facility] - 09/18/2024 4:35 PM CDT These images are for Reference purposes only and have not been reviewed by [facility]. There will be no report generated by a [facility] Radiologist. Narrative [facility] - 09/18/2024 4:35 PM CDT EXAMINATION: Images For Reference Purposes Only Eleuterio Wiggins MD IMG XR PROCEDURES Final Res ult Performing Organization Address [facility] de Phone Number [email or web address] * XR Outside Reference (09/18/2024 4:32 PM CDT) Impressions [facility] - 09/18/2024 4:32 PM CDT These images are for Reference purposes only and have not been reviewed by [facility]. There will be no report generated by a [facility] Radiologist. Narrative [facility] - 09/18/2024 4:32 PM CDT EXAMINATION: Images For Reference Purposes Only Eleuterio Wiggins MD IMG XR PROCEDURES Final Res ult Performing Organization Address [facility] de Phone Number [email or web address] * XR Outside Reference (09/18/2024 4:31 PM CDT) Impressions [facility] - 09/18/2024 4:31 PM CDT These images are for Reference purposes only and have not been reviewed by [facility]. There will be no report generated by a [facility] Radiologist. Narrative [facility] - 09/18/2024 4:31 PM CDT EXAMINATION: Images For Reference Purposes Only Eleuterio Wiggins MD IMG XR PROCEDURES Final Res ult Performing Organization Address [facility] de Phone Number [email or web address] * XR Outside Reference (09/18/2024 4:21 PM CDT) Impressions [facility] - 09/18/2024 4:21 PM CDT These images are for Reference purposes only and have not been reviewed by [facility]. There will be no report generated by a [facility] Radiologist. Narrative [facility] - 09/18/2024 4:21 PM CDT EXAMINATION: Images For Reference Purposes Only us Eleuterio Wiggins MD IMG XR PROCEDURES Final Res ult Performing Organization Address [facility] Co de Phone Number [email or web address] * XR Outside Reference (09/18/2024 4:21 PM CDT) Impressions [facility] - 09/18/2024 4:21 PM CDT These images are for Reference purposes only and have not been reviewed by [facility]. There will be no report generated by a [facility] Radiologist. Narrative [facility] - 09/18/2024 4:21 PM CDT EXAMINATION: Images For Reference Purposes Only Eleuterio Wiggins MD IMG XR PROCEDURES Final Res ult Performing Organization Address [facility] de Phone Number [facility] * NV INJECTION SINGLE/EXTRUDER OPERATOR TRIGGER POINT 1/2 MUSCLES (09/18/2024 2:20 PM CDT) Narrative Eleuterio Wiggins MD - 09/18/2024 2:20 PM CDT Eleuterio Wiggins MD 09/19/2024 10:13 AM Trigger Point Injection Performed by: Eleuterio Wiggins MD Authorized by: Eleuterio Wiggins MD Consent Given by: Patient Location: L upper trapezius and R upper trapezius Ultrasound guidance: No Needle size: 25 G Number of muscles: 1 or 2 Medications: 5 mL lidocaine 10 mg/mL (1 %) Eleuterio Wiggins MD IN CLINIC/BEDSIDE ORDERABLE S Final Result * X-ray sacrum and coccyx (08/21/2024 2:37 [...] of the sacrum/coccyx Electronically signed by: Shaneka Ploanco MD us Eleuterio Wiggins MD IMG XR PROCEDURES Final Res ult * NV ARTHROCENTESIS ASPIR&/INJ MAJOR JT/BURSA W/O US (07/24/2024 2:40 PM FREELANCE MAKEUP ARTIST) Narrative Eleuterio Wiggins MD - 07/24/2024 2:40 PM FREELANCE MAKEUP ARTIST Eleuterio Wiggins MD 07/24/2024 6:15 PM Large [...] Final Result from Last 3 Months Insurance [facility] MEDICARE ADVANTAGE MEDICARE [facility] IDPA [facility] MEDICARE ADVANTAGE Care Teams Solar Power Installer Relationship Specialty Start Date End Date Fernando Sherman DO [address] [place] [address] PCP - General Internal Medicine 01/10/24 Real Díaz PA [address] [address] Physician Precision Machine Operator Physician Precision Machine Operator 03/19/21
--- OUTSIDE RECORDS SUMMARY | 2024-10-07 17:00 | XMS_ITS | Referral Summary ---
Author Organization [facility] Address [address] [place] [address] Care Team Providers Care Parts Clerk Plant Maintenance Name Role Phone Real Díaz PA Unavailable [phone] Fernando Sherman DO Primary Care Provider [phone] Encounters Date Type Department Care Team Description 09/18/2024 4:38 PM CDT - 09/18/2024 11:59 PM CDT Hospital Encounter [facility] [address] [place] [address] Discharge Disposition: Discharge to home or self care 09/18/2024 4:38 PM CDT - 09/18/2024 11:59 PM CDT Hospital Encounter [facility] ([facility]) [address] [place] [address] Discharge Disposition: Discharge to home or self care 09/18/2024 4:36 PM CDT - 09/18/2024 11:59 PM CDT Hospital Encounter [facility] ([facility]) [address] [place] [address] Discharge Disposition: Discharge to home or self care 09/18/2024 4:35 PM CDT - 09/18/2024 11:59 PM CDT Hospital Encounter [facility] ([facility]) [address] [place] [address] Discharge Disposition: Discharge to home or self care 09/18/2024 4:32 PM CDT - 09/18/2024 11:59 PM CDT Hospital Encounter [facility] ([facility]) [address] [place] [address] Discharge Disposition: Discharge to home or self care 09/18/2024 4:31 PM CDT - 09/18/2024 11:59 PM CDT Hospital Encounter [facility] ([facility]) [address] [place] [address] Discharge Disposition: Discharge to home or self care 09/18/2024 4:21 PM CDT - 09/18/2024 11:59 PM CDT Hospital Encounter [facility] ([facility]) [address] [place] [address] Discharge Disposition: Discharge to home or self care 09/18/2024 4:21 PM CDT - 09/18/2024 11:59 PM CDT Hospital Encounter [facility] ([facility]) [address] [place] [address] Discharge Disposition: Discharge to home or self care 09/18/2024 2:20 PM CDT Office Visit [facility] Orthopaedic Surgery [address] [facility] 6th [place] [address] [place] [address] Eleuterio Wiggins MD Myofascial pain (Primary Dx) 09/12/2024 Telephone [facility] Cardiology [address] [place] [address] Amari Manuel MD 08/22/2024 Results Follow-Up [facility] Orthopaedic Surgery [address] [facility] 6th [place] [address] [place] [address] Eleuterio Wiggins MD 08/21/2024 2:22 PM CDT - 08/21/2024 11:59 PM CDT Hospital Encounter [facility] ([facility]) [address] [place] [address] Eleuterio Wiggins MD Coccyx pain Discharge Disposition: Discharge to home or self care 08/21/2024 1:20 PM CDT Office Visit [facility] Orthopaedic Surgery [address] [facility] 6th [place] [address] [place] [address] Eleuterio Wiggins MD Coccyx pain (Primary Dx) 07/24/2024 2:40 PM ENGINEERING MODEL MAKER Office Visit [facility] Orthopaedic Surgery [address] [facility] 6th [place] [address] [place] [address] Eleuterio Wiggins MD Trochanteric bursitis of both [...] Simvastatin Unknown 05/23/2013 Closed throat up . Hqndkjv-Jgd-Byl Reductase Inhibitors Unknown 05/23/2013 Sulfa (Sulfonamide Antibiotics) [...] MAX 8 A DAY 240 tablet 5 10/07/19 25 Discontin u([facility]) Hospital, Clinic, or Other Facility Administered Medication [...] PLAN - will reach to the patient's canal equipment maintenance supervisor (Dr. Livan Jang / [phone]) to see if they can help getting [...] on file Legal Sex Female 2:24 AM ENGINEERING MODEL MAKER Gender Identity Not on file Sexual Orientation [...] Plan Chronic Care Management Worsening( 10:43 AM ENGINEERING MODEL MAKER) No Asya Tran, RN Note: Problem: Chronic Pain Goals: 1. Minimize further functional decline 2. Maximize quality of life 3. Control pain Strategies: - Activity/exercise program recommendation - Conservative stepwise pain medicine strategy with multi-disciplinary approach - Recommend healthy lifestyle strategies and compensatory methods as needed Medical Devices Implanted Type Area Inventory Coordinator Device Identifier Shelf Expiration Date Model / Serial / Lot [place] In Abdomen Abdomen Procedures Procedure Name Priority [...] OUTSIDE FILMS Routine 09/18/2024 4:21 PM CDT [place] INJECTION SINGLE/MATERIAL MOVERS TRIGGER POINT 1/2 MUSCLES Routine 09/18/2024 2:20 PM CDT Myofascial pain XR SACRUM COCCYX 2 OR MORE VIEWS Schedule Routine, Read Routine (OP Routine) 08/21/2024 2:37 PM CDT Coccyx pain [place] ARTHROCENTESIS ASPIR&/INJ MAJOR JT/BURSA W/O US Routine 07/24/2024 2:40 PM ENGINEERING MODEL MAKER Trochanteric bursitis of both hips from Last [...] MD IMG XR PROCEDURES Final Res ult [facility] * XR Outside Reference (09/18/2024 4:38 [...] PROCEDURES Final Res ult Performing Organization Address [facility] Co de Phone Number [email or web address] * XR [...] PROCEDURES Final Res ult Performing Organization Address [facility] de Phone Number [email or web address] * [...] PROCEDURES Final Res ult Performing Organization Address [facility] Co de Phone Number [email or web address] * XR [...] PROCEDURES Final Res ult Performing Organization Address [facility] Co de Phone Number [email or web address] * XR [...] PROCEDURES Final Res ult Performing Organization Address [facility] de Phone Number [email or web address] * [...] PROCEDURES Final Res ult Performing Organization Address [facility] Co de Phone Number [email or web address] * XR [...] MD IMG XR PROCEDURES Final Res ult [facility] * TN INJECTION SINGLE/MATERIAL MOVERS TRIGGER POINT 1/2 MUSCLES (09/18/2024 2:20 PM [...] 5 mL lidocaine 10 mg/mL (1 %) us Eleuterio Wiggins MD IN CLINIC/BEDSIDE ORDERABLE [...] IMG XR PROCEDURES Final Res ult * [place] ARTHROCENTESIS ASPIR&/INJ MAJOR JT/BURSA W/O US (07/24/2024 2:40 PM ENGINEERING MODEL MAKER) Narrative Eleuterio Wiggins MD - 07/24/2024 2:40 PM ENGINEERING MODEL MAKER Eleuterio Wiggins MD 07/24/2024 6:15 PM Large [...] Result from Last 3 Months Insurance IDPA [facility] MEDICARE ADVANTAGE MEDICARE [facility] IDPA [facility] MEDICARE ADVANTAGE Care Teams Parts Clerk Plant Maintenance Relationship Specialty Start Date End Date Fernanod Sherman DO [address] [facility] [address] [place] [address] PCP - General Internal Medicine 01/10/24 Real Díaz PA [address] [place] [address] Physician Conveyor Belt Installer Physician Conveyor Belt Installer 03/19/21
--- OUTSIDE RECORDS SUMMARY | 2024-10-07 17:01 | XMS_ITS | Clinical Summary ---
Author Organization [facility] Address [address], [facility] [address] [place] [address] Phone Care Team Providers Care Parole Supervisor Name Role Phone Salo Marte DO Primary Care Provider Donato May DO Unavailable [phone] Ben RodCullen Unavailable [phone] Allergies Active Allergy Reactions Criticality Noted [...] [place] Care Teams Parole Supervisor Relationship Specialty Start Date End Date Salo Marte DO [address] [place] [address] PCP - General Internal Medicine 06/19/15 Donato May DO [address] [place] [address] Gastroenterology 06/19/15 Ben Rod [address] [place] [phone] -[phone] (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
--- OUTSIDE RECORDS SUMMARY | 2024-10-07 17:01 | XMS_ITS | Data Portability ---
Author Organization [facility], Main Office Address [address] [place] [address] Assessment Encounter Date Assessment Date Assessment LastModified [...] DO Not Attach Compendium, Do Not Delete/merge, [id number] 4 12:33:57 injection/a spiration joint/bursa (PROC) - in office procedure, administere d by provider 2022 023 [email or web address] In-Office Order, Internal Use Only DO Not Attach Compendium DO Not Attach Compendium, Do Not Delete/merge, [id number] 3 16:17:37 Surgeries None recorded. Imaging XR, hand, 3 or more view 2023 024 [facility] [place], [address], [place], [address], 4 08:25:28 XR, hand 2022 023 [email or web address] [facility] [place], [address], [place], [address], 3 16:45:10 Medication Orders Kenalog 10 mg/mL suspension for injection 2023 024 [email or web address] [facility] #[id number], [address] [facility] [address] [place] [address], [id number], 4 16:47:48 Marcaine (PF) 0.5 % (5 mg/mL) injection solution 2023 024 [email or web address] Not available 4 16:47:48 Kenalog 10 mg/mL suspension for injection 2022 023 [email or web address] [facility] #[id number], [address], [id number], 3 16:45:10 ropivacaine (PF) 5 mg/mL (0.5 %) injection solution 2022 023 [email or web address] [facility] #[id number], [address] [facility] [address] [place] [address], [id number], 3 16:45:10 Patient TargetsNo targets recorded. Patient InstructionsNo instructions recorded. Reason for Referral None Reported. Results Created Date Observation Date Name Description Value Unit Range Abnormal Flag Note LastModifiedBy Organization Detail LastModifiedTime 11/19/19 22 XR, ankle , 3 or more view No observ ation record ed. [id number] [facility] [place] [address], [place], [address], 07/22/2022 06:47:06 11/19/19 22 XR, knee, 3 view No observ ation record ed. [id number] [facility] [place] [address], [place], [address], 07/22/2022 06:47:06 11/11/19 23 XR, hand No observ ation record ed. [email or web address] [facility] [place] [address], [place], [address], 11/10/2022 16:43:45 12/29/19 24 XR, hand, 3 or more view No observ ation record ed. [email or web address] [facility] [place] [address], [place], [address], 12/29/2023 12:21:27 Result Notes None recorded. 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 1982635452211 9100 Active 2021 Not Available [facility] 3 06:42:47 Localized, primary osteoarthr itis of the hand 215826443 Active Not Available [facility] 3 06:42:47 Knee joint effusion 787764579 Active Not Available [facility] 3 06:42:47 Menopausal symptom 81962709 Active Not Available [facility] 3 06:42:47 Osteoarthr itis of knee 409891833 Active Not Available [facility] 3 06:42:47 Low back pain 311370670 Active Not Available [facility] 3 06:42:47 Current tear of medial cartilage AND/OR meniscus of knee Active Not Available [facility] 3 06:42:47 Enthesopat hy of hip region 48555990 Active Not Available [facility] 3 06:42:47 Knee pain Active Not Available [facility] 3 06:42:47 Tendinitis of right posterior tibial tendon 9299501702163 02 Active 2021 Not Available [facility] 3 06:42:47 Osteoarthr itis of left knee joint 6797525445083 09 Active 2021 Not Available [facility] 3 06:42:48 Inflammato ry disorder of extremity 969158965 Active Not Available [facility] 3 06:42:48 Osteoarthr osis of the carpometac arpal joint of the thumb 87070637 Active 2021 Not Available [facility] 3 06:42:48 Osteoarthr itis 221254617 Active Not Available [facility] 3 06:42:48 Arthropath y of joint of hand 248377793 Active Not Available [facility] 3 06:42:48 High antibody titer 672696710 Active Not Available [facility] 3 06:42:48 Pain of right knee joint 2114918216891 00 Active 2021 Not Available [facility] 3 06:42:48 Pain of left knee joint 2458951151384 07 Active 2021 Not Available [facility] 3 06:42:48 Pain of bilateral knee joints 1587628819172 04 Active 2021 Not Available [facility] 3 06:42:48 Dystrophy of vulva 92846801 Active Not Available [facility] 3 06:42:48 Urge incontinen ce of urine 04976591 Active Not Available [facility] 3 06:42:48 Breast lump 05336637 Active Not Available [facility] 3 06:42:48 Pain in limb 23762784 Active Not Available [facility] 3 06:42:49 Pain of right ankle joint 7012973686088 9106 Active 2022 PEYTON Tuttle null, [facility] 3 15:55:48 Mechanical complicati on of implant 629751081 Active 2022 PEYTON Tuttle null, [facility] [employer] [facility] 3 15:57:30 Pain in right hand 2867111629423 09 Active 2022 PEYTON Tuttle null, [facility] 3 15:58:25 Bilateral thumb pain 9998314139534 9102 Active 2023 Aury Padgett null, [facility] 4 12:32:01 Problem Notes None recorded. Procedures Surgical History Date Name Laterality Status Provider Name and Address Organization Details Recorded Time 12/29/19 24 Ortho - Cortisone Injection completed Pastor Dickerson MD [address] [place] [address], [address], [facility] [employer] [facility] 12/29/2023 14:47:41 11/22/19 21 Breast Biopsy completed Not Available [facility] 2022 06:40:09 12/30/19 16 Drain/inj joint/bursa w/o us completed Not Available [facility] 07/22/2022 06:40:09 12/30/19 16 Orthopedic Surgery completed Not Available [facility] 07/22/2022 06:40:09 07/31/19 14 arthroplasty of knee completed Not Available [facility] 07/22/2022 06:40:09 05/24/19 14 biopsy of pancreas completed Not Available [facility] 07/22/2022 06:40:09 04/04/20 13 Most Recent Mammogram completed Not Available [facility] 07/22/2022 06:40:08 09/29/19 12 Date of Last Pap Smear completed Not Available [facility] 07/22/2022 06:40:08 05/24/18 96 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 Not Available [facility] 07/23/19 23 06:40:09 05/24/18 93 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, [place], [address], 07/22/2022 06:47:06 11/18/2021 XR, knee, 3 view completed [id number] [facility] [place] [address], [place], [address], 07/22/2022 06:47:06 11/10/2022 XR, hand completed [email or web address] [facility] [place] [address], [place], [address], 11/10/2022 16:43:45 12/29/2023 XR, hand, 3 or more view completed [email or web address] [facility] [place] [address], [place], [address], 12/29/2023 12:21:27 Procedure Notes None recorded. Medical Equipment None Reported. Allergies Allergen ID Allergen Name Allergen Category Reaction Reaction Severity Criticality Documentation Date Start Date Code Code System Note Provider Name and Address Organization Details Recorded Time 20896 Zocor medicatio n anaphylax is severe Not available 07/22/2022 83145 3 RxNorm Not Available [facility] 3 06:46:59 36792 Product containin g methylate d xanthine derivativ e (product) food,medi cation Not available Not available Not available 07/22/2022 00149 9002 SNOMED Not Available [facility] 3 06:46:59 90530 pramoxine hydrochlo ride medicatio n itching Not available Not available 07/22/2022 51121 RxNorm vagin al swell ing and pain Not Available [facility] 3 06:46:59 06511 theophyll ine anhydrous medicatio n hives moderate Not available 07/22/2022 37006 RxNorm Not Available [facility] 3 06:46:59 78715 Substance with sulfonami de structure and antibacte rial mechanism of action (substanc e) medicatio n Not available Not available Not available 07/22/2022 06854 8003 SNOMED Not Available [facility] 3 06:46:59 25655 simvastat in medicatio n Not available Not available Not available 07/22/2022 39250 RxNorm Not Available [facility] 3 06:46:59 68837 piroxicam medicatio n Not available Not available Not available 07/22/2022 8356 RxNorm Not Available [facility] 3 06:47:00 35230 nitrofura ntoin medicatio n Not available Not available Not available 07/22/2022 7454 RxNorm Not Available [facility] 3 06:47:00 62040 morphine medicatio n hives severe Not available 07/22/2022 7052 RxNorm Not Available [facility] 3 06:47:00 12479 meperidin e medicatio n Not available Not available Not available 07/22/2022 6754 RxNorm Not Available [facility] 3 06:47:00 22130 Librium medicatio n other moderate Not available 07/22/2022 3804 RxNorm mood alter ation s Not Available [facility] 3 06:47:00 62953 latex environme nt,medica tion itching moderate Not available 07/22/2022 97878 91 RxNorm Not Available [facility] 3 06:47:00 59015 diazepam medicatio n Not available Not available Not available 07/22/2022 3322 RxNorm Not Available [facility] 3 06:47:00 50615 Demerol medicatio n hives severe Not available 07/22/2022 67385 1 RxNorm Not Available [facility] 3 06:47:00 47785 codeine medicatio n nausea moderate Not available 07/22/2022 2670 RxNorm Not Available [facility] 3 06:47:00 82368 chlordiaz epoxide medicatio n Not available Not available Not available 07/22/2022 2356 RxNorm Not Available [facility] 3 06:47:00 62585 Ceftin medicatio n vomiting Not available Not available 07/22/2022 25946 6 RxNorm diarr hea Not Available [facility] 3 06:47:00 31765 salicylat e medicatio n Not available Not available Not available 11/10/2022 9522 RxNorm Elma Dugan RMA null, [facility] 3 15:47:06 29300 valsartan medicatio n Not available Not available Not available 11/10/2022 09698 RxNorm Elma Dugan RMNatalie null, [facility] [employer] [facility] 3 15:47:40 Medications Name Sig Start Date [...] suspension for injection in office 2023 active [facility]: 0003- 0494- 20 Not Available Not Available [...] levothyroxi ne 200 mcg tablet TAKE 1 T 046898|[id number]|2024-10-07 17:01:00|2024-10-07 17:01:00|XMS_ITS|ALISHA LAKHANI|External Medical Summaries|[id number]|" Encounter Summary Created on: October 07, 2024 Dori Hayward : 1960 Sex: Female Author Organization [facility] Healthcare Address [address] [place] [address] Care Team Providers Care Pt Skilled Name Role Phone Salo Marte MD Primary Care Provider [phone] Real Díaz Unavailable [phone] Fernando Sherman DO Primary Care Provider [phone] Encounter Details Date Type Department Care Team (Late st Contact Info) Description 07/12/2020 Telephone [facility] [address] [place] [address] Bashir Diaz, RT Social History Tobacco Use Types Packs/Day Years Used Date Smoking Tobacco: Former Smokeless Tobacco: Never Alcohol Use Standard Drinks/Week Comments No 0 (1 standard drink = 0.6 oz pur e alcohol) Comments Unknown Sex and Gender Information Value Date Recorded Sex Assigned at Not on file Legal Sex Female 2:24 AM [employer] Gender Identity Not on file Sexual Orientation Not on file documented as of this encounter Plan of Treatment Not on file documented as of this encounter Visit Diagnoses Not on filedocumented in this encounter Care Teams Pt Skilled Relationship Specialty Start Date End Date Salo Marte MD [address] [place] [address] PCP - General 07/31/16 01/09/24 Fernando Sherman DO [address] [place] [address] PCP - General Internal Medicine 01/10/24 Real Díaz PA [address] [place] [address] Physician Protective Signal Operator Physician Protective Signal Operator 03/19/21 documented as of this encounter "
--- OUTSIDE RECORDS SUMMARY | 2024-10-07 17:08 | XMS_ITS | CONTINUITY OF CARE DOCUMENT ---
Author Name bryn clemente Address Unknown Organization [facility] Address [address] [facility] [address] [place] [address] Phone [phone] Care Team Providers Care Teradata Architect Name Role Phone bryn clemente Unavailable Unavailable
--- NOTE | 2024-10-07 17:14 | ED_ITS ---
HPI - General Adult General Chief complaint: Extremity Problem,Nontraumatic Stated complaint: ?Fracuted Rib Time Seen by Provider: 10/07/24 17:14 Source: patient Mode of arrival: ambulatory Limitations: no limitations History of Present Illness HPI narrative: 64-year-old female patient presents to the [facility] with complaints of left-sided rib pain. Patient states about 2 days ago she reached over to the si de of her wheelchair to get her napkin that she had dropped and immediately started having pain to the rib area. Patient states she is concerned about a rib fracture because she has fractured ribs before but does not remember how. Patient also presents stating she needs an updated tetanus shot because she took a razor to her right foot 2 days ago to shave off the callus and now has an open wound. Patient is type 2 diabetic. Related Data Home Medications Medication Instructions Recorded Confirmed Last Taken Type baclofen 10 mg tablet 5 mg PO TID PRN Muscle Spasm 04/11/19 09/19/24 08/27/20 History duloxetine 30 mg capsule,delayed 60 mg PO TID 04/11/19 09/19/24 09/02/20 History release nortriptyline 25 mg capsule 25 mg PO TID 04/11/19 09/19/24 09/02/20 History melatonin 5 mg capsule 10 mg PO QHS PRN Insomnia 05/03/19 09/19/24 09/02/20 History travoprost 0.004 % eye drops 1 drop ophthalmic (eye) QPM 05/03/19 09/19/24 09/01/20 History (Travatan Z) hydroxychloroquine 200 mg tablet 200 mg PO BID 07/24/19 09/19/24 09/02/20 History Astepro 0.15%(205.5mcg) 1 spray intranasal PRN 12/14/19 09/19/24 09/01/20 History cranberry fruit 1,000 mg capsule 4,200 mg PO TID 08/27/20 09/19/24 08/30/20 History brimonidine 0.2 % eye drops 1 drp RIGHT EYE BID 03/18/22 09/19/24 1 Day Ago History ~01/07/23 dorzolamide 22.3 mg-timolol 6.8 1 drp RIGHT EYE BID 03/18/22 09/19/24 01/07/23 11:00 History mg/mL eye drops warfarin 5 mg tablet 5 mg PO DAILY 02/24/23 09/19/24 Unknown History Allergies Allergy/AdvReac Type Severity Reaction Status Date / Time pregabalin Allergy Severe Anaphylaxis Verified 10/07/24 17:03 doxycycline Allergy Intermediate Rash Verified 10/07/24 17:03 morphine Allergy Intermediate unknwon Verified 10/07/24 17:03 Sulfa (Sulfonamide Allergy Intermediate Hives Verified 10/07/24 17:03 Antibiotics) adhesive tape Allergy Mild BLISTERS Verified 10/07/24 17:03 bupropion Allergy Mild Other Verified 10/07/24 17:03 ipratropium Allergy Mild Dyspnea / Verified 10/07/24 17:03 SOB cefuroxime Allergy Unknown unknown Verified 10/07/24 17:03 chlordiazepoxide Allergy Unknown Irritable, Verified 10/07/24 17:03 AGGRESSION- SEE NOTE dextromethorphan Allergy Unknown unknown Verified 10/07/24 17:03 guaifenesin Allergy Unknown unknown Verified 10/07/24 17:03 meperidine Allergy Unknown Hives Verified 10/07/24 17:03 nitrofurantoin Allergy Unknown unknown Verified 10/07/24 17:03 resorcinol Allergy Unknown unknown Verified 10/07/24 17:03 simvastatin Allergy Unknown unknown Verified 10/07/24 17:03 theophylline Allergy Unknown unknonw Verified 10/07/24 17:03 trimethoprim Allergy Unknown unknown Verified 10/07/24 17:03 valsartan Allergy Unknown unknown Verified 10/07/24 17:03 Xanthines Allergy Unknown unknown Verified 10/07/24 17:03 codeine AdvReac Intermediate Nausea Verified 10/07/24 17:03 diazepam AdvReac Intermediate Agitated Verified 10/07/24 17:03 insulin lispro-aabc (From AdvReac Mild Redness of Verified 10/07/24 17:03 Lyumjev U-100 Insulin) Skin duloxetine AdvReac Unknown Dizziness Verified 10/07/24 17:03 nickel AdvReac Unknown RASH Verified 10/07/24 17:03 piroxicam AdvReac Unknown MILD SIDE Verified 10/07/24 17:03 EFFECT PER [facility] VITAMIN D Allergy Unknown RASH Uncoded 10/07/24 17:03 Review of Systems Review of Systems: CONSTITUTIONAL: Denies fever, chills, or sweats. EYES: Denies visual changes, redness, or discharge. ENT: Denies rhinorrhea, congestion, sore throat, or otalgia. CARDIOVASCULAR: Denies chest pain, palpitations, or edema. RESPIRATORY: Denies cough or dyspnea. GASTROINTESTINAL: Denies abdominal pain, nausea, vomiting, or diarrhea. GENITOURINARY: Denies dysuria or hematuria. SKIN: Denies rash or itching. Positive wound to right foot MUSCULOSKELETAL: Denies back pain, joint pain, or myalgia. positive left-sided rib pain NEUROLOGIC: Denies headache, numbness, or weakness. PSYCHIATRIC: Denies anxiety or depression. [facility] Past Medical History Medical History Cerebrovascular disease Minimal cognitive impairment Chronic anticoagulation Chronically on opiate therapy Irritable bowel syndrome History of radioactive iodine thyroid ablation Obstructive sleep apnea Systemic lupus erythematosus Deep venous thrombosis Type 2 diabetes mellitus Chronic obstructive pulmonary disease Chronic kidney disease, stage 3 Chronic pain syndrome Vitamin D deficiency, unspecified Vitamin B12 deficiency Hyperlipidemia Gastro-esophageal reflux disease without esophagitis Anemia Nocturnal hypoxia Neuropathy Neuroectodermal tumor Fibrocystic breast changes Nasal septal deviation Essential (primary) hypertension Cervical cancer Panic disorder Depression Anxiety Degenerative disc disease Osteoporosis Arthritis Fibromyalgia Kidney stones Postmenopausal Ovarian cyst Endometriosis Bronchitis Asthma Pulmonary embolism Hypertension Glaucoma Surgical History Surgical History History of left breast biopsy History of hysterectomy History of inguinal hernia repair History of oophorectomy History of appendectomy History of knee replacement History of bladder surgery Family History Family History Father Hypertension Family history of diabetes mellitus in first degree relative Family history of heart disease in male family member before age 55 Mother Hypertension Family history of diabetes mellitus in first degree relative Family history of heart disease in male family member before age 55 Diabetes mellitus, Onset Age: 62 Sibling Family history of malignant neoplasm of cervix Other CHF (congestive heart failure), NYHA class I Social History Social History Social History: Code status: Full code. Smoking packs per day: 3 Smoking cigarettes per day: 60.0 Years smoked: 10 Smoking pack-years: 30.00 Smoking status: Former smoker Tobacco type: cigarettes Second hand tobacco smoke exposure: No Smoking end date: 11/21/94 Alcohol intake: never Alcohol use details: Alcoholic, no alcohol in 25 years. Substance use: current Substance use type: opiates Last use: oxycodone for pain Do You Feel Safe in your Home?: Yes Lack of Transportation: No Lack of Food: Never True Current Housing: Decline to Answer Concerned About Future Housing: Decline to Answer Difficulty Paying Gas/Electric Bills: No Difficulty Paying for Meds: YES Currently Unemployed: Decline to Answer Education: High School Diploma/GED Difficulty w/ Childcare or Family Care: No Living arrangements: alone Occupation/Education: unemployed Spiritual care concerns: No Comments At the time of my signature I agree with nursing past medical history, surgical, social, and family history. There is no relevant family history pertinent to the presenting complaint. Exam Narrative: GENERAL: Well-appearing, well-nourished, and in no acute distress. HEAD: Normocephalic, atraumatic. EYES: PERRLA and EOMI. ENT: Nares clear, no rhinorrhea or epistaxis. Mucous membranes moist. NECK: Supple. No lymphadenopathy CHEST: Clear to auscultation. No respiratory distress. patient has no bruising noted to the left chest. Patient complains of rib pain under the left breast around the 4th or 5th rib on the left lateral side. HEART: Regular rate and rhythm. No murmur heard. Normal peripheral pulses. ABDOMEN: Soft, nontender, nondistended, normal active bowel sounds. EXTREMITIES: Normal range of motion. No edema. SKIN: Warm, dry, no rash. Patient has approximately 1 cm in diameter open wound to the head of the 1st metatarsal with surrounding erythema but no active discharge present. NEURO: No focal deficits. Alert and oriented x3. Course Course Level of Care: Express Care Visit Vital Signs Vital signs: Vital Signs Temperature 36.2 C L 10/07/24 17: Pulse Rate 82 10/07/24 17:25 Respiratory Rate 20 10/07/24 17: Blood Pressure 128/66 10/07/24 17: Pulse Oximetry 98 10/07/24 17:25 Oxygen Delivery Room Air 10/07/24 17: Temperature 36.2 C L 10/07/24 17:25 Pulse Rate 82 10/07/24 17:25 Respiratory Rate 20 10/07/24 17:25 Blood Pressure 128/66 10/07/24 17:25 Pulse Oximetry 98 10/07/24 17:25 Oxygen Delivery Room Air 10/07/24 17:25 vital signs reviewed. Medical Decision Making MDM Narrative Medical decision making narrative: Care for patient is to x-ray the left ribs to assess for any acute fracture as per patient request. We will also update her tetanus shot put her on some antibiotics for the foot wound since she is type 2 diabetic. Differential Diagnosis Differential Diagnosis: Differential diagnosis: Foot fracture, crush injury, compartment syndrome, contusion, sprain, tendinitis,lisfranc sprain or fracture, avulsion fracture, grown toenail, diabetic ulcer. STEMI/ACS, AAA, PE, spontaneous pneumothorax, cardiac tamponade, esophageal rupture, pneumonia, GERD, muscle-skeletal pain or trauma, endocarditis, cocaine-related ischemia, pericarditis, URI, bronchitis. Vital Signs Vital Signs: Vital Signs Temperature 36.2 C L 10/07/24 17:25 Pulse Rate 82 10/07/24 17:25 Respiratory Rate 20 10/07/24 17:25 Blood Pressure 128/66 10/07/24 17:25 Pulse Oximetry 98 10/07/24 17:25 Oxygen Delivery Room Air 10/07/24 17:25 Temperature 36.2 C L 10/07/24 17:25 Pulse Rate 82 10/07/24 17:25 Respiratory Rate 20 10/07/24 17:25 Blood Pressure 128/66 10/07/24 17:25 Pulse Oximetry 98 10/07/24 17:25 Oxygen Delivery Room Air 10/07/24 17:25 Imaging Data Radiologist's impression: [address] [address] XRay Report Signed Patient: Dori Hayward : 1960 MR#: [id number] Age: 64 Acct:[id number] Loc: [facility] ADM Date: 10/07/24Attending Dr: Ordering Physician: Liseth Bolivar ACTIVITY MANAGER Date of Service: 10/07/24 Procedure(s): XR ribs LT Accession Number(s): [id number] cc: UNKNOWN,DOCTOR; Liseth Bolivar ACTIVITY MANAGER~ XR ribs LT 2V Ordering provider: EULOGIO Box History: . pain to Left rib x 3 days . Comparison: December 15, 2022 FINDINGS: BONES: No acute left rib fracture or fracture of the visualized osseous structures. Healing fracture in the left fifth rib. LEFT LUNG: No effusions or infiltrates. No pneumothorax. SOFT TISSUES: Normal. IMPRESSION: No left rib fracture. Old fracture in the left fifth rib. Reviewed, dictated and finalized at location A. Critical Care Time Critical Care Time Critical Care Time: No Discharge Plan Discharge Clinical Impression: Left-sided chest wall pain Diabetic foot ulcer Qualifiers: Diabetic foot ulcer location: toe Diabetes mellitus type: type 2 Laterality: right Non-pressure ulcer stage: limited to breakdown of skin Qualified Code(s): E11.621 - Type 2 diabetes mellitus with foot ulcer Patient Disposition: Home Condition: Stable Instructions: Antibiotic Form, Chest Wall Pain (ED) Additional Instructions: There was no rib fracture noted on your x-ray today. Please continue to take [id number] Tylenol and ibuprofen as needed for pain. Continue to monitor the ulcer on your foot daily to ensure it is not getting worse and please take the antibiotics that were prescribed to you today to decrease risk of worsening infection. Please follow-up with your primary doctor as needed Patient Language: Egyptian Prescriptions: New clindamycin HCl [Cleocin HCl] 300 mg capsule 300 mg PO Q8H 7 Days Qty: 21 0RF clindamycin HCl [Cleocin HCl] 150 mg capsule 150 mg PO Q8H 7 Days Qty: 21 0RF No Action baclofen 10 mg tablet 5 mg PO TID PRN (Reason: Muscle Spasm) nortriptyline 25 mg capsule 25 mg PO TID duloxetine 30 mg capsule,delayed release(DR/EC) 60 mg PO TID prednisone 5 mg tablet 5 mg PO BID Qty: 10 0RF Rx Instructions: take with food melatonin 5 mg capsule 10 mg PO QHS PRN (Reason: Insomnia) Travatan Z 0.004 % drops 1 drop EACH EYE QPM hydroxychloroquine 200 mg tablet 200 mg PO BID (DME) Dexcom G7 Sensor Device See Rx Instructions .ROUTE .MEDSUPPLY Qty: 9 3RF Rx Instructions: Use to monitor glcuose ondansetron 4 mg tablet,disintegrating 4 mg PO Q8H PRN (Reason: nausea and vomiting) Qty: 10 0RF dorzolamide-timolol 22.3-6.8 mg/mL drops 1 drp RIGHT EYE BID brimonidine 0.2 % drops 1 drp RIGHT EYE BID warfarin 5 mg tablet 5 mg PO DAILY Astepro 0.15%(205.5mcg) nasal spray syringe 1 spray intranasal PRN cranberry fruit 1,000 mg Capsule 4,200 mg PO TID lancets [Microlet Lancet] Misc See Rx Instructions .ROUTE .COMPLEX Qty: 100 3RF Dose Instruction: USE TO CHECK BLOOD SUGAR ONE TIME DAILY Rx Instructions: USE TO CHECK BLOOD SUGAR ONE TIME DAILY (DME) lancets 32 gauge misc See Rx Instructions .Route Qty: 300 1RF Rx Instructions: use to check blood sugar 3 times daily promethazine 12.5 mg tablet 12.5 mg PO BID Qty: 10 0RF montelukast 10 mg tablet See Rx Instructions .ROUTE .COMPLEX Qty: 90 3RF Dose Instruction: TAKE 1 TABLET BY MOUTH DAILY Rx Instructions: TAKE 1 TABLET BY MOUTH DAILY nystatin-triamcinolone 100,000-0.1 unit/g-% cream 1 applic topical BID Qty: 60 1RF Trelegy Ellipta 100-62.5-25 mcg blister with device See Rx Instructions .ROUTE .COMPLEX Qty: 60 5RF Dose Instruction: INHALE 1 PUFF BY MOUTH EVERY 24 HOURS; RINSE AND SPIT AFTER EACH USE Rx Instructions: INHALE 1 PUFF BY MOUTH EVERY 24 HOURS; RINSE AND SPIT AFTER EACH USE levothyroxine 25 mcg tablet 25 mcg PO DAILY 90 Days Qty: 90 2RF Rx Instructions: TDD 225 mcg albuterol sulfate 90 mcg/actuation HFA aerosol inhaler See Rx Instructions .ROUTE .COMPLEX Qty: 18 2RF Dose Instruction: INHALE 2 PUFFS BY MOUTH EVERY 4 TO 6 HOURS NEEDED Rx Instructions: INHALE 2 PUFFS BY MOUTH EVERY 4 TO 6 HOURS NEEDED insulin degludec [Tresiba FlexTouch U-100] 100 unit/mL (3 mL) insulin pen 16 unit subcut DAILY 90 Days Qty: 15 3RF warfarin 1 mg tablet 1 mg PO DAILY Qty: 90 2RF rosuvastatin 40 mg tablet See Rx Instructions .ROUTE .COMPLEX Qty: 90 4RF Dose Instruction: TAKE 1 TABLET BY MOUTH DAILY Rx Instructions: TAKE 1 TABLET BY MOUTH DAILY magnesium oxide 400 mg (241.3 mg magnesium) tablet 400 mg PO DAILY Qty: 90 3RF omeprazole 40 mg capsule,delayed release(DR/EC) 40 mg PO BID Qty: 180 2RF insulin lispro [Humalog KwikPen Insulin] 100 unit/mL insulin pen 6 unit subcut TID MDD 40 Qty: 30 3RF Rx Instructions: 6 units pre meal (do not blood glucose is less than 80) + Sliding scale 150-200: 2 unit = 8 units 201-250: 4 units = 10 units 251-300: 6 units = 12 units 301-350: 8 units = 14 units 351-400: 10 units = 16 units >401: 12 units = 18 units azelastine 137 mcg (0.1 %) spray,non-aerosol See Rx Instructions .ROUTE .COMPLEX Qty: 30 5RF Dose Instruction: USE 1 SPRAY IN EACH NOSTRIL EVERY 12 HOURS Rx Instructions: USE 1 SPRAY IN EACH NOSTRIL EVERY 12 HOURS (DME) OneTouch Verio test strips Strip See Rx Instructions .Route Qty: 100 1RF Rx Instructions: Use to check blood sugar 3 times daily lisinopril 30 mg tablet 30 mg PO DAILY Qty: 90 2RF levothyroxine 200 mcg tablet 200 mcg PO DAILY 90 Days Qty: 90 2RF Rx Instructions: TDD 225 mcg amlodipine 5 mg tablet 5 mg PO DAILY Qty: 90 3RF furosemide 20 mg tablet 20 mg PO QAM Qty: 30 5RF warfarin 5 mg tablet 5 mg PO DAILY Qty: 30 5RF Protocol: Dose Management Condition: Wednesday Dose/Route: 5 mg Instruction: 1 x 5 mg tablet Condition: Wednesday Dose/Route: 5 mg Instruction: 1 x 5 mg tablet Condition: Wednesday Dose/Route: 5 mg Instruction: 1 x 5 mg tablet Condition: Wednesday Dose/Route: 5 mg Instruction: 1 x 5 mg tablet Condition: Dose/Route: 5 mg Instruction: 1 x 5 mg tablet Condition: Wednesday Dose/Route: 5 mg Instruction: 1 x 5 mg tablet Condition: Wednesday Dose/Route: 5 mg Instruction: 1 x 5 mg tablet Protocol Text: Adjustment Start Date: Wednesday02/03/23 INR Value: 2.7 INR Date: 02/02/23 Recheck Date: 03/05/23 (DME) pen needle, diabetic 32 gauge x 5/32 needle See Rx Instructions .Route Qty: 1200 3RF Rx Instructions: Use to admister insulin 4-6 times a day fluticasone propionate 50 mcg/actuation spray,suspension See Rx Instructions .ROUTE .COMPLEX Qty: 16 11RF Dose Instruction: SPRAY 1 SPRAY NASALLY TWICE DAILY NEEDED FOR NASAL CONGESTION; ADMINISTER INTO EACH NOSTRIL Rx Instructions: SPRAY 1 SPRAY NASALLY TWICE DAILY NEEDED FOR NASAL CONGESTION; ADMINISTER INTO EACH NOSTRIL Follow-up/Referrals: UNKNOWN,DOCTOR [Primary Care Provider] - Time of Disposition: 18:49
[2024-10-07 17:25] VITALS: BP 128/66; PULSE 82; RESP 20; TEMP 36.2; O2SAT 98
[2024-10-07] MEDS: TETANUS,DIPHTHERIA,AC PERTUSSIS ADULT (0.5 ML) BOOSTRIX IM (17:49)
== END 2024-10-07 18:49 | disposition home or self-care (01) ==
PROVIDERS: Emergency Provider Nurse Practitioner Family
DX: R07.89 Other chest pain (principal); E11.621 Type 2 diabetes mellitus with foot ulcer; L97.519 Non-pressure chronic ulcer of other part of right foot with unspecified severity; Z79.4 Long term (current) use of insulin; Z23 Encounter for immunization; M32.9 Systemic lupus erythematosus, unspecified; I12.9 Hypertensive chronic kidney disease with stage 1 through stage 4 chronic kidney disease, or unspecified chronic kidney disease; E11.22 Type 2 diabetes mellitus with diabetic chronic kidney disease; N18.30 Chronic kidney disease, stage 3 unspecified; J44.9 Chronic obstructive pulmonary disease, unspecified; E78.5 Hyperlipidemia, unspecified; K21.9 Gastro-esophageal reflux disease without esophagitis; M81.0 Age-related osteoporosis without current pathological fracture; M79.7 Fibromyalgia; M19.90 Unspecified osteoarthritis, unspecified site; N80.9 Endometriosis, unspecified; E11.39 Type 2 diabetes mellitus with other diabetic ophthalmic complication; H42 Glaucoma in diseases classified elsewhere; E11.40 Type 2 diabetes mellitus with diabetic neuropathy, unspecified; Z87.891 Personal history of nicotine dependence; Z79.01 Long term (current) use of anticoagulants; I25.10 Atherosclerotic heart disease of native coronary artery without angina pectoris; Z85.41 Personal history of malignant neoplasm of cervix uteri
CPT/HCPCS: 71100; 90471; 90715; 99213; G0463

== ENCOUNTER 2024-10-17 09:48 | Outpatient (CLI) | payer MEDICARE, MEDICAID, SELFPAY ==
--- OUTSIDE RECORDS SUMMARY | 2024-10-17 09:54 | XMS_ITS | Encounter Summary ---
Author Organization [facility] Healthcare Address [address] [place] [address] Care Team Providers Care Financial Planning Assistant Name Role Phone Salo Marte MD Primary Care Provider + [phone] Real Díaz Unavailable [phone] Fernando Sherman DO Primary Care Provider [phone] Encounter Details Date Type Department Care Team (Late st Contact Info) Description 07/12/2020 Telephone [facility] [address] [place] [id number] Bashir Diaz, RT Social History Tobacco Use Types Packs/Day Years Used Date Smoking Tobacco: Former Smokeless Tobacco: Never Alcohol Use Standard Drinks/Week Comments No 0 (1 standard drink = 0.6 oz pur e alcohol) Comments Unknown Sex and Gender Information Value Date Recorded Sex Assigned at Not on file Legal Sex Female 2:24 AM INTENSIVE CARE NURSE Gender Identity Not on file Sexual Orientation Not on file documented as of this encounter Plan of Treatment Not on file documented as of this encounter Visit Diagnoses Not on filedocumented in this encounter Care Teams Financial Planning Assistant Relationship Specialty Start Date End Date Salo Marte MD [address] [place], [place] [id number] PCP - General 07/31/16 01/09/24 Fernando Sherman DO [address] [place] [address] PCP - General Internal Medicine 01/10/24 Real Díaz PA [address] [facility] [address] [facility] [address] [place], [place] [id number] Physician Integrated Marketing Manager Physician Integrated Marketing Manager 03/19/21 documented as of this encounter
--- OUTSIDE RECORDS SUMMARY | 2024-10-17 09:54 | XMS_ITS | Data Portability ---
Author Organization [place] [facility], Main Office Address [address] [place] [address] Assessment Encounter Date Assessment Date Assessment LastModified [...] DO Not Attach Compendium, Do Not Delete/merge, 43674 4 12:33:57 injection/a spiration joint/bursa (PROC) - in office procedure, administere d by provider 2022 023 [email or web address] In-Office Order, Internal Use Only DO Not Attach Compendium DO Not Attach Compendium, Do Not Delete/merge, 35011 3 16:17:37 Surgeries None recorded. Imaging XR, hand, 3 or more view 2023 024 [facility] [place], [address], [place], [address], 4 08:25:28 XR, hand 2022 023 [email or web address] [facility] [place], [address], [place], [address], 3 16:45:10 Medication Orders Kenalog 10 mg/mL suspension for injection 2023 024 [email or web address] [facility] #[id number], [address] [place] [address], [id number], 4 16:47:48 Marcaine (PF) 0.5 % (5 mg/mL) injection solution 2023 024 [email or web address] Not available 4 16:47:48 Kenalog 10 mg/mL suspension for injection 2022 023 [email or web address] [facility] #85893, [address], [id number], 3 16:45:10 ropivacaine (PF) 5 mg/mL (0.5 %) injection solution 2022 023 [email or web address] [facility] #70267, [address], [id number], 3 16:45:10 Patient TargetsNo targets recorded. Patient InstructionsNo instructions recorded. Reason for Referral None Reported. Results Created Date Observation Date Name Description Value Unit Range Abnormal Flag Note LastModifiedBy Organization Detail LastModifiedTime 11/19/19 22 XR, ankle , 3 or more view No observ ation record ed. [id number] [facility] [place] [address], [place], [address], 07/22/2022 06:47:06 11/19/19 22 XR, knee, 3 view No observ ation record ed. [id number] [facility] [place] [address], [place], [address], 07/22/2022 06:47:06 11/11/19 23 XR, hand No observ ation record ed. [email or web address] [facility] [place] [address], [place], [address], 11/10/2022 16:43:45 12/29/19 24 XR, hand, 3 or more view No observ ation record ed. [email or web address] [facility] [place] [address], [place], [address], 12/29/2023 12:21:27 Result Notes None recorded. 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 1655844376647 9100 Active 2021 Not Available [facility] 3 06:42:47 Localized, primary osteoarthr itis of the hand 841831759 Active Not Available [facility] 3 06:42:47 Knee joint effusion 793151264 Active Not Available [facility] 3 06:42:47 Menopausal symptom 75945878 Active Not Available [facility] 3 06:42:47 Osteoarthr itis of knee 228667622 Active Not Available [facility] 3 06:42:47 Low back pain 366357337 Active Not Available [facility] 3 06:42:47 Current tear of medial cartilage AND/OR meniscus of knee Active Not Available [facility] 3 06:42:47 Enthesopat hy of hip region 47761557 Active Not Available [facility] 3 06:42:47 Knee pain Active Not Available [facility] 3 06:42:47 Tendinitis of right posterior tibial tendon 0976524517754 02 Active 2021 Not Available [facility] 3 06:42:47 Osteoarthr itis of left knee joint 8096007767636 09 Active 2021 Not Available [facility] 3 06:42:48 Inflammato ry disorder of extremity 175660915 Active Not Available [facility] 3 06:42:48 Osteoarthr osis of the carpometac arpal joint of the thumb 47897069 Active 2021 Not Available [facility] 3 06:42:48 Osteoarthr itis 263626742 Active Not Available [facility] 3 06:42:48 Arthropath y of joint of hand 675817294 Active Not Available [facility] 3 06:42:48 High antibody titer 937351692 Active Not Available [facility] 3 06:42:48 Pain of right knee joint 3669709438161 00 Active 2021 Not Available [facility] 3 06:42:48 Pain of left knee joint 9112474010597 07 Active 2021 Not Available [facility] 3 06:42:48 Pain of bilateral knee joints 7014777803636 04 Active 2021 Not Available [facility] 3 06:42:48 Dystrophy of vulva 63768753 Active Not Available [facility] 3 06:42:48 Urge incontinen ce of urine 34357447 Active Not Available [facility] 3 06:42:48 Breast lump 23139431 Active Not Available [facility] 3 06:42:48 Pain in limb 62220818 Active Not Available [facility] 3 06:42:49 Pain of right ankle joint 7336072292101 9106 Active 2022 PEYTON Tuttle null, [place] [facility] 3 15:55:48 Mechanical complicati on of implant 008102781 Active 2022 PEYTON Tuttle null, [facility] 3 15:57:30 Pain in right hand 2245962737173 09 Active 2022 PEYTON Tuttle null, [facility] 3 15:58:25 Bilateral thumb pain 5285579606517 9102 Active 2023 Aury Padgett null, [facility] 4 12:32:01 Problem Notes None recorded. Procedures Surgical History Date Name Laterality Status Provider Name and Address Organization Details Recorded Time 12/29/19 24 Ortho - Cortisone Injection completed Pastor Dickerson MD [address] [place] [address], [address], [facility] 12/29/2023 14:47:41 11/22/19 21 Breast Biopsy completed Not Available [facility] 2022 06:40:09 12/30/19 16 Drain/inj joint/bursa w/o us completed Not Available [facility] 07/22/2022 06:40:09 12/30/19 16 Orthopedic Surgery completed Not Available [facility] 07/22/2022 06:40:09 07/31/19 14 arthroplasty of knee completed Not Available [facility] 07/22/2022 06:40:09 05/24/19 14 biopsy of pancreas completed Not Available [facility] 07/22/2022 06:40:09 04/04/20 13 Most Recent Mammogram completed Not Available [facility] 07/22/2022 06:40:08 09/29/19 12 Date of Last Pap Smear completed Not Available [facility] 07/22/2022 06:40:08 05/24/18 96 [employer] Surgery completed Not Available [facility] 07/23/19 23 06:40:09 05/24/18 93 [employer] Surgery completed Not Available [facility] 07/23/19 23 06:40:09 05/24/18 92 other completed Not Available [facility] 3 06:40:09 05/24/18 78 Appendectomy completed Not Available [facility] 023 06:40:09 Hernia Repair completed Not Available [facility] 07/22/2022 06:40:09 Imaging Results None recorded. Procedure Notes None recorded. Medical Equipment None Reported. Allergies Allergen ID Allergen Name Allergen Category Reaction Reaction Severity Criticality Documentation Date Start Date Code Code System Note Provider Name and Address Organization Details Recorded Time 78682 Zocor medicatio n anaphylax is severe Not available 07/22/2022 30501 3 RxNorm Not Available [facility] 3 06:46:59 15988 Product containin g methylate d xanthine derivativ e (product) food,medi cation Not available Not available Not available 07/22/2022 07780 9002 SNOMED Not Available [facility] 3 06:46:59 82115 pramoxine hydrochlo ride medicatio n itching Not available Not available 07/22/2022 45264 RxNorm vagin al swell ing and pain Not Available [facility] 3 06:46:59 57093 theophyll ine anhydrous medicatio n hives moderate Not available 07/22/2022 06611 RxNorm Not Available [facility] 3 06:46:59 61307 Substance with sulfonami de structure and antibacte rial mechanism of action (substanc e) medicatio n Not available Not available Not available 07/22/2022 34967 8003 SNOMED Not Available [facility] 3 06:46:59 40640 simvastat in medicatio n Not available Not available Not available 07/22/2022 05809 RxNorm Not Available [facility] 3 06:46:59 73320 piroxicam medicatio n Not available Not available Not available 07/22/2022 8356 RxNorm Not Available [facility] 3 06:47:00 73809 nitrofura ntoin medicatio n Not available Not available Not available 07/22/2022 7454 RxNorm Not Available [facility] 3 06:47:00 42976 morphine medicatio n hives severe Not available 07/22/2022 7052 RxNorm Not Available [facility] 3 06:47:00 40092 meperidin e medicatio n Not available Not available Not available 07/22/2022 6754 RxNorm Not Available [facility] 3 06:47:00 51615 Librium medicatio n other moderate Not available 07/22/2022 3804 RxNorm mood alter ation s Not Available [facility] 3 06:47:00 86564 latex environme nt,medica tion itching moderate Not available 07/22/2022 63827 91 RxNorm Not Available [facility] 3 06:47:00 97425 diazepam medicatio n Not available Not available Not available 07/22/2022 3322 RxNorm Not Available [facility] 3 06:47:00 24629 Demerol medicatio n hives severe Not available 07/22/2022 54847 1 RxNorm Not Available [facility] 3 06:47:00 75543 codeine medicatio n nausea moderate Not available 07/22/2022 2670 RxNorm Not Available [facility] 3 06:47:00 36711 chlordiaz epoxide medicatio n Not available Not available Not available 07/22/2022 2356 RxNorm Not Available [facility] 3 06:47:00 65373 Ceftin medicatio n vomiting Not available Not available 07/22/2022 47866 6 RxNorm diarr hea Not Available [facility] 3 06:47:00 62825 salicylat e medicatio n Not available Not available Not available 11/10/2022 9522 RxNorm PEYTON Tuttle [facility] 3 15:47:06 04801 valsartan medicatio n Not available Not available Not available 11/10/2022 02901 RxNorm PEYTON Tuttle [employer] [facility] 3 15:47:40 Medications Name Sig Start Date [...] for injection in office 2023 active [facility]: 0003- 0494- 20 Not Available Not [...] red by the provider 10/16 completed [facility]: 0409- 4276- 17 Not Available Not [...] mg by injection route. 2022 active [facility] 60545 -064- 01 Not Available Not Available Not [...] Not Available Not Available Not Available Fluvirin 3947-2567 45 mcg (15 mcg x 3)/0.5 mL intramuscul ar suspension ADM 0.5ML UTD 05/31 completed Not Available Not Available Not Available dapaglifloz in propanediol 10 mg tablet TAKE 1 TABLET BY MOUTH EVERY MORNING active Not Available Not Available No t Available Fluvirin 2611-7469 45 mcg (15 mcg x 3)/0.5 mL [...] the office by the doctor 12/26 completed [facility]: [address] -1 Not Available Not Available Not [...] 2nd Gen Pen Needle 32 gauge x USE TO ADMINISTE R INSULIN 4 TO [...] Available Not Available Vitals Date Recorded Body height Provider Name an d Address Organization Details Last Updated DateTime 11/10/2022 165.1 cm Elma Dugan [facility] 11/10/2022 15:44:53 Date Recorded Body mass index (BMI) Body height Body weight Provider Name and Address Organization Details Last Updated DateTime 11/18/2021 43.9 kg/m2 165.1 cm 196016.39 g Not Available [facility] 07/22/2022 06:42:14 Date Recorded Body height Body mass index (BMI) Body weight Provider Name and Address Organization Details Last Updated DateTime 12/29/2023 170.18 cm 38.4 kg/m2 062021.13 g Portia Virk [facility] 12/29/2023 12:18:56 Date Recorded Body height Provider Name an d Address Organization Details Last Updated DateTime 01/05/2022 165.1 cm Not Available [facility] 06:42:13 Date Recorded Body height Provider Name an d Address Organization Details Last Updated DateTime 02/02/2022 165.1 cm Not Available [facility] 06:42:13 Social History Question Answer Notes LastModified by IPG Details LastModified Time Tobacco Smoking Status Former Smoker Not Available [facility] 07/22/2022 06:40:04 What Is Your Level Of Caffeine Consumption? None [id number] Information not available 07/22/2022 Which Illicit Or Recreational Drugs Have You Used? Marijuana Daily For Pain [id number] Information not available 07/22/2022 What Was The Date Of Your Most Recent Tobacco Screening? 10/16/2021 [id number] Information not available 07/22/2022 What Is Your Relationship Status? Single [id number].061561 9406 Information not available 07/22/2022 Do You Use Your Seat Belt Or Car Seat Routinely? Yes [id number].541354 0205 Information not available 07/22/2022 Sex: Unknown Functional Status Question Answer Note LastModified by IPG Details LastModified Time Do you use any illicit or recreational drugs? Yes [id number] 26 Information not available 07/22/2022 What is your level of alcohol consumption? None [id number] 26 Information not available 07/22/2022 What is your exercise level? None [id number] 26 Information not available 07/22/2022 Mental Status None recorded. Family History Relationship Description Onset Age of this Age Resolved Age Notes LastModified by Organization Details LastModified Time Mother Family history of malignant neoplasm [id number].092 [id number] Not available 07/22/2022 06:40:10 Mother Diabetes mellitus MIGRATION.292 [id number] Not available 07/22/2022 06:40:10 Mother History of hypertension MIGRATION.040 [id number] Not available 07/22/2022 06:40:10 Mother Heart disease MIGRATION.074 [id number] Not available 07/22/2022 06:40:10 Father History of hypertension MIGRATION.831 [id number] Not available 07/22/2022 06:40:10 Father Heart disease MIGRATION.665 [id number] Not available 07/22/2022 06:40:10 Medical History Condition Response LUNG DISEASE/DISORDER Y COPD Y HIGH CHOLESTEROL / HYPERLIPIDEMIA Y BOWEL PROBLEMS Y DEPRESSION (INCLUDING POST ) Y FIBROMYALGIA Y OSTEOPOROSIS Y ARTHRITIS Y USE OF BLOOD THINNERS Y SKIN PROBLEMS Y DIABETES, TYPE Y HEARTBURN / REFLUX Y BLOOD CLOTS Y HYPERTENSION Y CANCER: SPECIFY Y ANXIETY DISORDER Y ANEMIA/BLOOD DISORDER Y AUTOIMMUNE DISEASE Y Gynecological History Statement/Question [...] SNOMED-CT Code Diagnosis ICD10 Code Diagnosis Note [id number] MATTHIAS Ventura [facility] [place] [address] [place] [address] 09/26/2020 00:00:00 09/26/2020 15:16:13 [id number] [facility] _ATHENA_M IGRATION_ DEFAULT_1 _1 , 01/06/2021 00:00:00 01/06/2021 15:57:50 [id number] MATTHIAS Ventura [facility] [place] [address] [place] [address] 01/16/2021 00:00:00 01/16/2021 15:47:07 [id number] MATTHIAS Ventura [facility] [place] [address] [place] [address] 02/14/2021 00:00:00 02/14/2021 14:25:15 [id number] Darron Overton MD [facility] [place] [address] [place] [address] 04/24/2021 00:00:00 04/24/2021 10:04:13 [id number] Darron Overton MD [facility] [place] [address] [place] [address] 10/16/2021 00:00:00 10/16/2021 15:39:25 [id number] Darron Overton MD [facility] [place] [address] [place] [address] 10/23/2021 00:00:00 10/23/2021 15:22:43 [id number] Darron Overton MD [facility] [place] [address] [place] [address] 11/05/2021 00:00:00 11/05/2021 11:42:40 [id number] Darron Overton MD [facility] [place] [address] [place] [address] 11/11/2021 00:00:00 11/11/2021 15:31:01 [id number] Darron Ovetron MD [facility] [place] [address] [place] [address] 11/18/2021 00:00:00 11/18/2021 16:00:11 [id number] Darron Overton MD [facility] [place] [address] [place] [address] 01/05/2022 00:00:00 01/05/2022 09:56:15 [id number] Darron Overton MD [facility] [place] [address] [place] [address] 02/02/2022 00:00:00 02/02/2022 11:51:39 [id number] Darron Overton MD [facility] [place] [address] [place] [address] 11/10/2022 15:14:55 11/12/2022 15:51:01 Osteoarthritis of left knee joint 1893829920 42786 M17.12 Contusion of right knee 5238681239 1764500 S80.01XD Contusion of left knee 5122483168 0063475 S80.02XD Pain in right thumb 1076 630051 614258 M79.644 Osteoarthr osis of the carpometacarpal joint of the thumb 64266343 M18.0 History of right total knee replacement 1438295296 026003 Z96.651 Pain of ri ght ankle joint 3786027905 8197673 M25.571 Tendinitis of right posterior tibial tendon 6669667980 36120 M76.821 Chronic pa in following right total knee arthroplasty 4073188604 7000459 T84.84XD Mechanical complication of implant 879693989 T85.698D Pain of bi lateral knee joints 6182749054 25691 M25.561 M25.562 Pain in right hand 23816 87035 99669 M79.449 [id number] Pastor Dickerson MD [facility] [place] [address] [place] [address] 12/29/2023 11:45:53 12/29/2023 12:37:11 Pain in right thumb 4609332073 632894 M79.644 Pain in left thumb 51529 74484 812896 M79.645 Bilateral thumb pain 648 7912409 6189472 M79.644 M79.645 Health Concerns Section Related Observation LastModified by Organization Detai ls LastModified Time None Recorded Concern Status LastModified by Organization Details LastModified Time None Recorded Advance Directives Directive None Recorded Payers Encounter Date Sequence Insurance Name Policy Number Policy Dunn Covered Member ID Dunn Member ID Guarantor Name 11/10/2022 1 [place] Dori Becky Mainor [id number] Dori Hayward 11/10/2022 2 [place]ARE OR MEDICARE REPLACEMENT PRIMARY) Dori Hayward [id number] Dori Hayward 12/29/2023 1 [place] Dori Hayward [id number] Dori Hayward 12/29/2023 2 [place] OR MEDICARE REPLACEMENT PRIMARY) Dori Hayward [id number] Dori Hayward Notes Date Note Type Note [...] year since her last ones. MATTHIAS Ventura [address] [place] [address], [facility] [address], [place], [address], [place] [facility] [employer] [facility] 11/10/2022 16:44:30 OBGyn Episode No OBEpisode recorded.
--- OUTSIDE RECORDS SUMMARY | 2024-10-17 09:54 | XMS_ITS | Clinical Summary ---
Author Organization [facility] Address [address], [facility] [address] [place] [address] Phone Care Team Providers Care Manager Union Name Role Phone Salo Marte DO Primary Care Provider [phone] Donato May DO Unavailable [phone] Ben RodCullen Unavailable [phone] Allergies Active Allergy [...] [place] Care Teams Manager Union Relationship Specialty Start Date End Date Salo Marte DO [address] [place] [address] PCP - General Internal Medicine 06/19/15 Donato May DO [address] [place] [address] Gastroenterology 06/19/15 Ben Rod [address] [place] [phone] [phone] (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
--- OUTSIDE RECORDS SUMMARY | 2024-10-17 09:54 | XMS_ITS | Clinical Summary ---
Author Organization [facility] Address [address] [place] [address] Care Team Providers Care Director Of Student Financial Aid Name Role Phone Real Díaz PA Unavailable [phone] Fernando Sherman DO Primary Care Provider [phone] Allergies Active Allergy Reactions Criticality Noted Date [...] Simvastatin Unknown 05/23/2013 Closed throat up . Bhrtaih-Zxt-Tjv Reductase Inhibitors Unknown 05/23/2013 Sulfa (Sulfonamide Antibiotics) [...] PLAN - will reach to the patient's bilingual receptionist (Dr. Livan Jang / [phone]) to see if they can help getting [...] - 09/18/2024 11:59 PM CDT Hospital Encounter [facility] ([facility]) [address] [place] [address] 14542 Discharge Disposition: Discharge to home or self care 09/18/2024 4:38 PM CDT - 09/18/2024 11:59 PM CDT Hospital Encounter [facility] ([facility]) [address] [place] [address] 98145 Discharge Disposition: Discharge to home or self care 09/18/2024 4:36 PM CDT - 09/18/2024 11:59 PM CDT Hospital Encounter [facility] ([facility]) [address] [place] [address] 96834 Discharge Disposition: Discharge to home or self care 09/18/2024 4:35 PM CDT - 09/18/2024 11:59 PM CDT Hospital Encounter [facility] ([facility]) [address] [place] [address] 60577 Discharge Disposition: Discharge to home or self care 09/18/2024 4:32 PM CDT - 09/18/2024 11:59 PM CDT Hospital Encounter [facility] ([facility]) [address] [place] [address] Discharge Disposition: Discharge to home or self care 09/18/2024 4:31 PM CDT - 09/18/2024 11:59 PM CDT Hospital Encounter [facility] ([facility]) [address] [place] [address] 77005 Discharge Disposition: Discharge to home or self care 09/18/2024 4:21 PM CDT - 09/18/2024 11:59 PM CDT Hospital Encounter [facility] ([facility]) [address] [place] [address] Discharge Disposition: Discharge to home or self care 09/18/2024 4:21 PM CDT - 09/18/2024 11:59 PM CDT Hospital Encounter [facility] ([facility]) [address] [place] [address] 31924 Discharge Disposition: Discharge to home or self care 09/18/2024 2:20 PM CDT Office Visit [facility] Orthopaedic Surgery [address] [place] [address] Advanced Medicine [facility] [place] [address] [place] [address] Eleuterio Wiggins MD Myofascial pain (Primary Dx) 09/12/2024 Telephone [facility] Cardiology [address] [place] [address] Amari Manuel MD 08/22/2024 Results Follow-Up [facility] [address] [place] [address] [place] [address] [place] [address] Eleuterio Wiggins MD X-ray sacrum and coccyx 08/21/2024 2:22 PM CDT - 08/21/2024 11:59 PM CDT Hospital Encounter [facility] ([facility]) [address] [place] [address] Eleuterio Wiggins MD Coccyx pain Discharge Disposition: Discharge to home or self care 08/21/2024 1:20 PM CDT Office Visit [facility] Surgery [address] [place] [address] [place] [address] [place] [address] Eleuterio Wiggins MD Coccyx pain (Primary Dx) 07/24/2024 2:40 PM ALMOND SORTER Office Visit [facility] Surgery [address] [place] [address] [place] [address] [place] [address] Eleuterio Wiggins MD Trochanteric bursitis of both [...] Jenaro Riberajer hodgson. Learning disabilities Son Jenaro Hayward . Relation Name Status Comments Paul Guillory [...] on file Legal Sex Female 2:24 AM ALMOND SORTER Gender Identity Not on file Sexual Orientation [...] Plan Chronic Care Management Worsening( 10:43 AM ALMOND SORTER) Asya Aparicio, RN Note: Problem: Chronic Pain Goals: 1. Minimize further functional decline 2. Maximize quality of life 3. Control pain Strategies: - Activity/exercise program recommendation - Conservative stepwise pain medicine strategy with multi-disciplinary approach - Recommend healthy lifestyle strategies and compensatory methods as needed Medical Devices Implanted Type Area Shank Cementer Hand Device Identifier Shelf Expiration Date Model / [...] OUTSIDE FILMS Routine 09/18/2024 4:21 PM CDT AL INJECTION SINGLE/AUDIO VISUAL ENGINEER TRIGGER POINT 1/2 MUSCLES Routine 09/18/2024 2:20 PM CDT Myofascial pain XR SACRUM COCCYX 2 OR MORE VIEWS Schedule Routine, Read Routine (OP Routine) 08/21/2024 2:37 PM CDT Coccyx pain AL ARTHROCENTESIS ASPIR&/INJ MAJOR JT/BURSA W/O US Routine 07/24/2024 2:40 PM ALMOND SORTER Trochanteric bursitis of both hips from Last 3 Months Results * XR Outside Reference (09/18/2024 4:38 PM CDT) Impressions [facility] - 09/18/2024 4:38 PM CDT These images are for Reference purposes only and have not been reviewed by [facility]. There will be no report generated by a [facility] Radiologist. Narrative [facility] - 09/18/2024 4:38 PM CDT EXAMINATION: Images For Reference Purposes Only Eleuterio Wiggins MD IMG XR PROCEDURES Final Res ult Performing Organization Address [facility] Co de Phone Number [email or web address] * XR Outside Reference (09/18/2024 4:38 PM CDT) Impressions [facility] - 09/18/2024 4:38 PM CDT These images are for Reference purposes only and have not been reviewed by [facility]. There will be no report generated by a [facility] Radiologist. Narrative [facility] - 09/18/2024 4:38 PM CDT EXAMINATION: Images For Reference Purposes Only Eleuterio Wiggins MD IMG XR PROCEDURES Final Res ult Performing Organization Address [facility] de Phone Number [email or web address] * XR Outside Reference (09/18/2024 4:36 PM CDT) Impressions [facility] - 09/18/2024 4:36 PM CDT These images are for Reference purposes only and have not been reviewed by [facility]. There will be no report generated by a [facility] Radiologist. Narrative [facility] - 09/18/2024 4:36 PM CDT EXAMINATION: Images For Reference Purposes Only Eleuterio Wiggins MD IMG XR PROCEDURES Final Res ult Performing Organization Address [facility] Co de Phone Number [email or web address] * XR Outside Reference (09/18/2024 4:35 PM CDT) Impressions [facility] - 09/18/2024 4:35 PM CDT These images are for Reference purposes only and have not been reviewed by [facility]. There will be no report generated by a [facility] Radiologist. Narrative [facility] - 09/18/2024 4:35 PM CDT EXAMINATION: Images For Reference Purposes Only Eleuterio Wiggins MD IMG XR PROCEDURES Final Res ult Performing Organization Address [facility] Co de Phone Number [email or web address] * XR Outside Reference (09/18/2024 4:32 PM CDT) Impressions [facility] - 09/18/2024 4:32 PM CDT These images are for Reference purposes only and have not been reviewed by [facility]. There will be no report generated by a [facility] Radiologist. Narrative [facility] - 09/18/2024 4:32 PM CDT EXAMINATION: Images For Reference Purposes Only Eleuterio Wiggins MD IMG XR PROCEDURES Final Res ult Performing Organization Address [facility] de Phone Number [email or web address] * XR Outside Reference (09/18/2024 4:31 PM CDT) Impressions [facility] - 09/18/2024 4:31 PM CDT These images are for Reference purposes only and have not been reviewed by [facility]. There will be no report generated by a [facility] Radiologist. Narrative [facility] - 09/18/2024 4:31 PM CDT EXAMINATION: Images For Reference Purposes Only Eleuterio Wiggins MD IMG XR PROCEDURES Final Res ult Performing Organization Address [facility] de Phone Number [email or web address] * XR Outside Reference (09/18/2024 4:21 PM CDT) Impressions [facility] - 09/18/2024 4:21 PM CDT These images are for Reference purposes only and have not been reviewed by [facility]. There will be no report generated by a [facility] Radiologist. Narrative [facility] - 09/18/2024 4:21 PM CDT EXAMINATION: Images For Reference Purposes Only Eleuterio Wiggins MD IMG XR PROCEDURES Final Res ult Performing Organization Address [facility] de Phone Number [email or web address] * XR Outside Reference (09/18/2024 4:21 PM CDT) Impressions [facility] - 09/18/2024 4:21 PM CDT These images are for Reference purposes only and have not been reviewed by [facility]. There will be no report generated by a [facility] Radiologist. Narrative [facility] - 09/18/2024 4:21 PM CDT EXAMINATION: Images For Reference Purposes Only Eleuterio Wiggins MD IMG XR PROCEDURES Final Res ult Performing Organization Address [facility] de Phone Number [email or web address] * AL INJECTION SINGLE/AUDIO VISUAL ENGINEER TRIGGER POINT 1/2 MUSCLES (09/18/2024 2:20 PM [...] IMG XR PROCEDURES Final Res ult * AL ARTHROCENTESIS ASPIR&/INJ MAJOR JT/BURSA W/O US (07/24/2024 2:40 PM ALMOND SORTER) Narrative Eleuterio Wiggins MD - 07/24/2024 2:40 PM ALMOND SORTER Eleuterio Wiggins MD 07/24/2024 6:15 PM Large [...] Final Result from Last 3 Months Insurance [facility] MEDICARE ADVANTAGE MEDICARE [facility] IDPA [facility] MEDICARE ADVANTAGE Care Teams Director Of Student Financial Aid Relationship Specialty Start Date End Date Fernando Sherman DO [address] [place] [address] PCP - General Internal Medicine 01/10/24 Real Díaz PA [address] [facility] [[email or web address] [address] [place] [address] Physician Logistics Engineer Physician Logistics Engineer 03/19/21
--- OUTSIDE RECORDS SUMMARY | 2024-10-17 09:54 | XMS_ITS | Referral Summary ---
Author Organization [facility] Address [address] [place] [address] Care Team Providers Care Highway Safety Engineer Name Role Phone Real Díaz PA Unavailable [phone] Fernando Sherman DO Primary Care Provider [phone] Encounters Date Type Department Care Team Description 09/18/2024 4:38 PM CDT - 09/18/2024 11:59 PM CDT Hospital Encounter [facility] ([facility]) [address] [place] [address] 27691 Discharge Disposition: Discharge to home or self care 09/18/2024 4:38 PM CDT - 09/18/2024 11:59 PM CDT Hospital Encounter [facility]) [address] [place] [address] 05590 Discharge Disposition: Discharge to home or self care 09/18/2024 4:36 PM CDT - 09/18/2024 11:59 PM CDT Hospital Encounter [facility]) [address] [place] [address] 22264 Discharge Disposition: Discharge to home or self care 09/18/2024 4:35 PM CDT - 09/18/2024 11:59 PM CDT Hospital Encounter [facility] ([facility]) [address] [place] [address] 81666 Discharge Disposition: Discharge to home or self care 09/18/2024 4:32 PM CDT - 09/18/2024 11:59 PM CDT Hospital Encounter [facility] ([facility]) [address] [place] [address] 6[address]60 Discharge Disposition: Discharge to home or self care 09/18/2024 4:31 PM CDT - 09/18/2024 11:59 PM CDT Hospital Encounter [facility] ([facility]) [address] [place] [address] 54195 Discharge Disposition: Discharge to home or self care 09/18/2024 4:21 PM CDT - 09/18/2024 11:59 PM CDT Hospital Encounter [facility] ([facility]) [address] [place] [address] 53049 Discharge Disposition: Discharge to home or self care 09/18/2024 4:21 PM CDT - 09/18/2024 11:59 PM CDT Hospital Encounter [facility] ([facility]) [address] [place] [address] 61593 Discharge Disposition: Discharge to home or self care 09/18/2024 2:20 PM CDT Office Visit [facility] Orthopaedic Surgery [address] [facility] 6th [place] [address] [place] [address] Eleuterio Wiggins MD Myofascial pain (Primary Dx) 09/12/2024 Telephone [facility] Cardiology [address] [facility] [address] [place] [address] Amari Manuel MD 08/22/2024 Results Follow-Up [facility] Orthopaedic Surgery [address] [facility] Advanced Medicine 6th [place] [address] [place] [address] Eleuterio Wiggins MD X-ray sacrum and coccyx 08/21/2024 2:22 PM CDT - 08/21/2024 11:59 PM CDT Hospital Encounter [facility] ([facility]) [address] [place] [address] Eleuterio Wiggins MD Coccyx pain Discharge Disposition: Discharge to home or self care 08/21/2024 1:20 PM CDT Office Visit [facility] Orthopaedic Surgery [address] [facility] 6th [place] [address] [place] [address] Eleuterio Wiggins MD Coccyx pain (Primary Dx) 07/24/2024 2:40 PM ARBORER Office Visit [facility] Orthopaedic Surgery [address] [facility] 6th [place] [address] [place] [address] Eleuterio Wiggins MD Trochanteric bursitis of both [...] Simvastatin Unknown 05/23/2013 Closed throat up . Pnibngm-Npm-Kvg Reductase Inhibitors Unknown 05/23/2013 Sulfa (Sulfonamide Antibiotics) [...] DAY 240 tablet 5 10/07/19 25 Discontin ued([facility]) [facility], or Other Facility Administered Medication [...] PLAN - will reach to the patient's record producer (Dr. Livan Jang / [phone]) to see if they can help getting [...] on file Legal Sex Female 2:24 AM ARBORER Gender Identity Not on file Sexual Orientation [...] Plan Chronic Care Management Worsening( 10:43 AM ARBORER) No Asya Tran, RN Note: Problem: Chronic Pain Goals: 1. Minimize further functional decline 2. Maximize quality of life 3. Control pain Strategies: - Activity/exercise program recommendation - Conservative stepwise pain medicine strategy with multi-disciplinary approach - Recommend healthy lifestyle strategies and compensatory methods as needed Medical Devices Implanted Type Area Executive Wellness Programs Director Device Identifier Shelf Expiration Date Model / Serial / Lot [place] In Abdomen Abdomen Procedures Procedure Name Priority [...] OUTSIDE FILMS Routine 09/18/2024 4:21 PM CDT IN INJECTION SINGLE/LIFE CYCLE ASSESSMENT ANALYST TRIGGER POINT 1/2 MUSCLES Routine 09/18/2024 2:20 PM CDT Myofascial pain XR SACRUM COCCYX 2 OR MORE VIEWS Schedule Routine, Read Routine (OP Routine) 08/21/2024 2:37 PM CDT Coccyx pain IN ARTHROCENTESIS ASPIR&/INJ MAJOR JT/BURSA W/O US Routine 07/24/2024 2:40 PM ARBORER Trochanteric bursitis of both hips from Last 3 Months Results * XR Outside Reference (09/18/2024 4:38 PM CDT) Impressions [facility] - 09/18/2024 4:38 PM CDT These images are for Reference purposes only and have not been reviewed by [facility]. There will be no report generated by a [facility] Radiologist. Narrative [facility] - 09/18/2024 4:38 PM CDT EXAMINATION: Images For Reference Purposes Only us Eleuterio Wiggins MD IMG XR PROCEDURES Final Res ult [facility] * XR Outside Reference (09/18/2024 4:38 PM CDT) Impressions [facility] - 09/18/2024 4:38 PM CDT These images are for Reference purposes only and have not been reviewed by [facility]. There will be no report generated by a [facility] Radiologist. Narrative [facility] - 09/18/2024 4:38 PM CDT EXAMINATION: Images For Reference Purposes Only Eleuterio Wiggins MD IMG XR PROCEDURES Final Res ult Performing Organization Address [facility] Co de Phone Number [email or web address] * XR Outside Reference (09/18/2024 4:36 PM CDT) Impressions [facility] - 09/18/2024 4:36 PM CDT These images are for Reference purposes only and have not been reviewed by [facility]. There will be no report generated by a [facility] Radiologist. Narrative [facility] - 09/18/2024 4:36 PM CDT EXAMINATION: Images For Reference Purposes Only Eleuterio Wiggins MD IMG XR PROCEDURES Final Res ult Performing Organization Address [facility] de Phone Number [email or web address] * XR Outside Reference (09/18/2024 4:35 PM CDT) Impressions [facility] - 09/18/2024 4:35 PM CDT These images are for Reference purposes only and have not been reviewed by [facility]. There will be no report generated by a [facility] Radiologist. Narrative [facility] - 09/18/2024 4:35 PM CDT EXAMINATION: Images For Reference Purposes Only Eleuterio Wiggins MD IMG XR PROCEDURES Final Res ult Performing Organization Address [facility] Co de Phone Number [email or web address] * XR Outside Reference (09/18/2024 4:32 PM CDT) Impressions [facility] - 09/18/2024 4:32 PM CDT These images are for Reference purposes only and have not been reviewed by [facility]. There will be no report generated by a [facility] Radiologist. Narrative [facility] - 09/18/2024 4:32 PM CDT EXAMINATION: Images For Reference Purposes Only Eleuterio Wiggins MD IMG XR PROCEDURES Final Res ult Performing Organization Address [facility] Co de Phone Number [email or web address] * XR Outside Reference (09/18/2024 4:31 PM CDT) Impressions [facility] - 09/18/2024 4:31 PM CDT These images are for Reference purposes only and have not been reviewed by [facility]. There will be no report generated by a [facility] Radiologist. Narrative [facility] - 09/18/2024 4:31 PM CDT EXAMINATION: Images For Reference Purposes Only Eleuterio Wiggins MD IMG XR PROCEDURES Final Res ult Performing Organization Address [facility] de Phone Number [email or web address] * XR Outside Reference (09/18/2024 4:21 PM CDT) Impressions [facility] - 09/18/2024 4:21 PM CDT These images are for Reference purposes only and have not been reviewed by [facility]. There will be no report generated by a [facility] Radiologist. Narrative [facility] - 09/18/2024 4:21 PM CDT EXAMINATION: Images For Reference Purposes Only Eleuterio Wiggins MD IMG XR PROCEDURES Final Res ult Performing Organization Address [facility] Co de Phone Number [email or web address] * XR Outside Reference (09/18/2024 4:21 PM CDT) Impressions [facility] - 09/18/2024 4:21 PM CDT These images are for Reference purposes only and have not been reviewed by [facility]. There will be no report generated by a [facility] Radiologist. Narrative [facility] - 09/18/2024 4:21 PM CDT EXAMINATION: Images For Reference Purposes Only us Eleuterio Wiggins MD IMG XR PROCEDURES Final Res ult [email or web address] * IN INJECTION SINGLE/LIFE CYCLE ASSESSMENT ANALYST TRIGGER POINT 1/2 MUSCLES (09/18/2024 2:20 PM [...] IMG XR PROCEDURES Final Res ult * IN ARTHROCENTESIS ASPIR&/INJ MAJOR JT/BURSA W/O US (07/24/2024 2:40 PM ARBORER) Narrative Eleuterio Wiggins MD - 07/24/2024 2:40 PM ARBORER Eleuterio Wiggins MD 07/24/2024 6:15 PM Large [...] Final Result from Last 3 Months Insurance [facility] MEDICARE ADVANTAGE [facility] MEDICARE Address: [address] [address] [place] [address] MEDICARE [facility] IDPA [facility] MEDICARE ADVANTAGE [facility] MEDICARE Address: [address] [address] [place] [address] [address] Safety Engineer Relationship Specialty Start Date End Date Fernando Sherman DO [address] [place] [address] PCP - General Internal Medicine 01/10/24 Real Díaz PA [address] [place] [address] Physician Production Hardener Physician Production Hardener 03/19/21
== END 2024-10-17 09:49 | disposition home or self-care (01) ==
PROVIDERS: PCP Internal Medicine; Visit Provider Internal Medicine
DX: Z29.9 Encounter for prophylactic measures, unspecified (principal)
CPT/HCPCS: 36415; 86765

== ENCOUNTER 2024-11-07 12:52 | Outpatient (RCR) | payer MEDICARE, MEDICAID, SELFPAY | END 2025-01-29 12:17 | disposition home or self-care (01) | LOC: ANHDMC 12:52 | PROVIDERS: Visit Provider Nurse Practitioner Family | DX: E11.65 Type 2 diabetes mellitus with hyperglycemia (principal); I12.9 Hypertensive chronic kidney disease with stage 1 through stage 4 chronic kidney disease, or unspecified chronic kidney disease; N18.9 Chronic kidney disease, unspecified; Z71.89 Other specified counseling | CPT/HCPCS: G0108 ==

== ENCOUNTER 2024-12-14 09:57 | Outpatient (CLI) | payer MEDICARE, MEDICAID, SELFPAY ==
--- NOTE | ~2024-12-14 | DEXA_ITS ---
Bone Density Report Name: JOHN DEAL Age: 64 Sex: Female Ethnicity: White Date of : 1960 Indication: postmenopausal; screening for osteoporosis; height loss; asthma or emphysema; hysterectomy; Referring Provider: MILLER SPARKS Study: Bone densitometry was performed. Exam Date: December 14, 2024 Accession number: [id number] Bone Density: Region BMD T-score Z-score Classification AP Spine(L1, L2, L3) 0.787 -2.1 -0.5 Osteopenia Femoral Neck (Left) 0.622 -2.0 -0.6 Osteopenia Total Hip (Left) 0.694 -2.0 -0.9 Osteopenia Femoral Neck (Right) 0.618 -2.1 -0.7 Osteopenia Total Hip (Right) 0.767 -1.4 -0.3 Osteopenia Total Hip Mean 0.731 -1.7 -0.6 Osteopenia World Health Organization criteria for BMD impression classify patients as: Normal (T-score at or above -1.0), Osteopenia (T-score between -1.0 and -2.5), or Osteoporosis (T-score at or below -2.5). 10-year Fracture Risk(1): Major Osteoporotic Fracture 9.1% Hip Fracture 1.2% Reported Risk Factors: [place] (), Neck BMD=0.622, BMI=39.7 (1) FRAX(R) Version 3.08. Fracture probability calculated for an untreated patient. Fracture probability may be lower if the patient has received treatment. Clinical Information Provided by Patient: Has the following medical conditions: Asthma or Emphysema, Hysterectomy Patient maximum height was 66 Menopause Age: 34 No regular weight bearing exercise Onset of menses at age 14 Number of children 2 Impression: The patient has low bone mass, based on the Total Spine T-score. The patient has an estimated ten-year risk of hip fracture of 1.2% and an estimated ten-year risk of major fracture of 9.1%, based on the WHO FRAX algorithm. Discussion: BONE DENSITY IS LOW AT ONE OR MORE SKELETAL SITES. This patient's lowest T-score is low at one or more skeletal sites. It meets the World Health Organization's (WHO) criteria for ?low bone mass? (T-score between -1.0 and -2.5). The patient's 10-year risk of fracture as calculated by FRAX is less than the threshold where pharmacological therapy is recommended by the National Osteoporosis Foundation (NOF). However, all treatment decisions require clinical judgment and consideration of individual patient factors, including patient preferences, comorbidities, previous drug use, risk factors not captured in the FRAX model (e.g., frailty, falls, vitamin D deficiency, increased bone turnover, interval significant decline in bone density) and possible under or overestimation of fracture risk by FRAX. The patient should follow a healthful lifestyle (good nutrition with adequate calcium and vitamin D, and appropriate weight-bearing exercise). Follow-Up: Consider repeating this study in 2 to 3 years to reassess this patient's status, or sooner if there is some new clinical indication. Reported by: JOE on 12/14/2024 10:36:00 AM. Reviewed, dictated and finalized at location A.
--- OUTSIDE RECORDS SUMMARY | 2024-12-14 10:00 | XMS_ITS | Referral Summary ---
Author Organization [facility] Address [address] [place] [address] Care Team Providers Care Network Applications Specialist Name Role Phone Real Díaz PA Unavailable [phone] Fernando Sherman DO Primary Care Provider [phone] Encounters Date Type Department Care Team Description 12/07/2024 2:30 PM CDT Office Visit [facility] Cardiology [address] [facility] [address] [place] [phone] Amari Manuel MD Lipid screening (Primary Dx); Other chest pain; Exertional dyspnea 12/04/2024 1:00 PM CDT Office Visit [facility] Orthopaedic Surgery [address] [place] [address] 6th [place] [address] [place] [address] Eleuterio Wiggins MD Myofascial pain (Primary Dx) 11/29/2024 Telephone [facility] Medical [facility] Cardiology [address] [facility] [address] [place] [phone] Amari Manuel MD 10/23/2024 2:20 PM CDT Office Visit [facility] Orthopaedic Surgery [facility] 6th [place] [address] [place] [address] Eleuterio Wiggins MD Trochanteric bursitis of both hips (Primary Dx) 10/18/2024 Telephone [facility] Department of Hepatobiliary, Pancreatic, & Gastrointestinal Surgery [facility] 12th Floor, [place] [address] Malena Felton PA 10/18/2024 Telephone [facility] Surgery [facility] Floor [address] [place] [address] Kahtleen Juan MD 09/18/2024 4:38 PM CDT - 09/18/2024 11:59 PM CDT Hospital Encounter [facility] ([facility]) [address] [place] [address] Discharge Disposition: Discharge to home or self care 09/18/2024 4:38 PM CDT - 09/18/2024 11:59 PM CDT Hospital Encounter [facility] Rad[facility] ([facility]) [address] [place] [phone] Discharge Disposition: Discharge to home or self care 09/18/2024 4:36 PM CDT - 09/18/2024 11:59 PM CDT Hospital Encounter [facility] Rad[facility] ([facility]) [address] [place] [address] Discharge Disposition: Discharge to home or self care 09/18/2024 4:35 PM CDT - 09/18/2024 11:59 PM CDT Hospital Encounter [facility] Rad[facility] ([facility]) [address] [place] [address] Discharge Disposition: Discharge to home or self care 09/18/2024 4:32 PM CDT - 09/18/2024 11:59 PM CDT Hospital Encounter [facility] Rad[facility] ([facility]) [address] [place] [phone] Discharge Disposition: Discharge to home or self care 09/18/2024 4:31 PM CDT - 09/18/2024 11:59 PM CDT Hospital Encounter [facility] Rad[facility] ([facility]) [address] [place] [address] Discharge Disposition: Discharge to home or self care 09/18/2024 4:21 PM CDT - 09/18/2024 11:59 PM CDT Hospital Encounter [facility] Rad[facility] ([facility]) [address] [place] [address] Discharge Disposition: Discharge to home or self care 09/18/2024 4:21 PM CDT - 09/18/2024 11:59 PM CDT Hospital Encounter [facility] Radiology [facility] ([facility]) [address] [place] [address] Discharge Disposition: Discharge to home or self care 09/18/2024 2:20 PM CDT Office Visit [facility] Orthopaedic Surgery [address] [facility] 6th [place] [address] [place] [address] Eleuterio Wiggins MD Myofascial pain (Primary Dx) from Last 3 Months Allergies [...] Coumadin therapy. Simvastatin Unknown 05/23/2013 Closed throat up. Bobaakz-Gmk-Hjb Reductase Inhibitors Unknown 05/23/2013 Sulfa (Sulfonamide Antibiotics) Ruben-Dur Hives Medium 04/22/2020 My throat closed. Theophylline Anhydrous Unknown 05/23/2013 Valsartan Xanthines Unknown 05/23/2013 Xanthinol Niacinate Unknown 05/23/2013 Medications warfarin (COUMADIN) 4 mg tablet take 1 tablet by oral route every day 0 0 08/05/19 14 Active Additional Information Patient taking differently: 5 mg oral Daily, Reported on 12/07/2024 amLODIPine (NORVASC) 5 mg tablet Take 1 tablet (5 mg total) by mouth daily 10/21/19 18 Active lisinopril-hy droCHLOROthia zide (PRINZIDE,ZES TORETIC) 20-25 mg per tabletIndicat ions:hyperten debby Take 1 tablet by mouth daily 1 10/20/19 18 Active omeprazole (PriLOSEC) 40 mg capsule [...] by mouth every morning 11/14/19 23 Active baclofen (LIORESAL) 10 mg tabletIndicat [...] pain MAX 8 A DAY 240 tablet 12/01/19 25 Active rOPINIRole (REQUIP) 0.25 mg tablet Take 2 tablets (0.5 mg total) by mouth nightly Active nortriptyline (PAMELOR) 25 mg capsule Take 1 capsule (25 mg total) by mouth 3 (three) times a day 2 10/01/19 18 025 Discontinued gabapentin (NEURONTIN) 300 mg capsule TAKE 1 CAPSULE BY MOUTH THREE TIMES DAILY WITH MEALS 11/13/19 23 025 Discontinued oxyCODONE-devin taminophen (PERCOCET) 10-325 mg per tabletIndicat ions:Pain Take 1-2 tablets by mouth every 6 (six) hours as needed for pain MAX 8 A DAY 240 tablet 11/04/19 25 025 Discontinued(Re order) Hospital, Clinic, or Other Facility Administered Medication Ordered Dose Route Frequency Start Date End Date Status lidocaine (XYLOCAINE) 10 mg/mL (1 %) injection 4 mLIndications:Admi nistration of Local Anesthesia 4 mL One-Time Injection 12/04/2024 12/04/2024 Ended triamcinolone (KENALOG) 40 mg/mL injection 40 mgIndications:Myof ascial pain 40 mg intra-artic One-Time Injection 12/04/2024 12/04/2024 Ended Active Problems Problem Noted Date Diagnosed [...] PLAN - will reach to the patient's tip fixer (Dr. 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 Gender Identity Not on file Sexual Orientation Not on file Last Filed Vital Signs Vital Sign Reading Time Taken Comments Blood Pressure 136/72 12/07/2024 2:14 PM CDT Pulse 89 12/07/2024 2:14 PM CDT Temperature 36.2 C (97.1 F) 12/01/2022 9:35 AM CDT Respiratory Rate 18 12/07/2024 2:14 PM CDT Oxygen Saturation 96% 12/07/2024 2:14 PM CDT Inhaled Oxygen Concentration - - Weight 109.8 kg (242 lb) 12/07/2024 2:14 PM CDT Height 167.6 cm (5' 6) 12/07/2024 2:14 PM CDT Body Mass Index 39.06 12/07/2024 2:14 PM CDT Plan of Treatment Not on file Goals Goal Patient Goal Type Associated Problems Recent Progress Patient-Stated? Author CCM Chronic Pain Care Plan Chronic Care Management Worsening( 10:43 AM PHOTOCOPIER TECHNICIAN) No Asya Tran, RN Note: Problem: Chronic Pain Goals: 1. Minimize further functional decline 2. Maximize quality of life 3. Control pain Strategies: - Activity/exercise program recommendation - Conservative stepwise pain medicine strategy with multi-disciplinary approach - Recommend healthy lifestyle strategies and compensatory methods as needed Medical Devices Implanted Type Area Thread Tool Grinder Set Up Operator Device Identifier Shelf Expiration Date Model / Serial / Lot [place] In Abdomen Abdomen Procedures Procedure Name Priority Date/Time Associated Diagnosis Comments POCT LIPID PANEL Routine 12/07/2024 2:13 PM CDT Lipid screening ELECTROCARDIOGRAM REPORT Routine 12/07/2024 Other chest pain MD INJECTION SINGLE/PATIENT SAFETY COORDINATOR TRIGGER POINT 1/2 MUSCLES Routine 12/04/2024 1:00 PM CDT Myofascial pain MD ARTHROCENTESIS ASPIR&/INJ MAJOR JT/BURSA W/O US Routine 10/23/2024 2:20 PM CDT Trochanteric bursitis of both hips XR TRANSFER OF OUTSIDE FILMS Routine 09/18/2024 [...] OUTSIDE FILMS Routine 09/18/2024 4:21 PM CDT MD INJECTION SINGLE/PATIENT SAFETY COORDINATOR TRIGGER POINT 1/2 MUSCLES Routine 09/18/2024 2:20 PM CDT Myofascial pain from Last 3 Months Results * (ABNORMAL) POCT lipid panel (12/07/2024 2:13 PM CDT) Cholesterol, POC 137 <200 MG/DL HDL, POC 48 >=40 mg/dL Triglycerides, POC 184(A) <=149 mg/dL LDL Cholesterol POC 51 <=129 mg/dL Chol/HDL Ratio, POC 2.8 NONE Non-HDL Cholesterol, POC 88 NONE mg/dL Cholesterol Total, POC 137 30 - 199 mg/dL Capillary blood 12/07/2024 2 :13 PM CDT Amari Manuel MD POINT OF CARE TEST ORDER RYAN Final Result * Electrocardiogram Report (12/07/2024) 12/07/2024 Amari Manuel MD ECG ORDERABLES Edited R esult - Final * MD INJECTION SINGLE/PATIENT SAFETY COORDINATOR TRIGGER POINT 1/2 MUSCLES (12/04/2024 1:00 PM CDT) Narrative Eleuterio Wiggins MD - 12/04/2024 1:00 PM CDT Eleuterio Wiggins MD 12/04/2024 6:08 PM Trigger Point Injection Performed by: Eleuterio Wiggins MD Authorized by: Eleuterio Wiggins MD Consent Given by: Patient Location: R lumbar paraspinal and R thoracic paraspinal Ultrasound guidance: No Needle size: 25 G Number of muscles: 1 or 2 Medications: 4 mL lidocaine 10 mg/mL (1 %); 40 mg triamcinolone 40 mg/mL Eleuterio Wiggins MD IN CLINIC/BEDSIDE ORDERABLE S Final Result * MD ARTHROCENTESIS ASPIR&/INJ MAJOR JT/BURSA W/O US (10/23/2024 2:20 PM CDT) Narrative Eleuterio Wiggins MD - 10/23/2024 2:20 PM CDT Eleuterio Wiggins MD 10/24/2024 10:37 AM Greater trochanteric bursa injection Performed by: Eleuterio Wiggins MD Authorized by: Eleuterio Wiggins MD Greater Trochanteric Bursa Injection: Consent Given by: Patient Prior to the start of the procedure, verbal verification by the procedure participant(s) confirmed (as applicable): corect patient idenity; correct site/side marked and visible; agreement on the procedure to be done; correct patient positioning; an accurate procedure consent form, relevant images and results correctly labeled and displayed; any safety precautions based on clinical history and/or medication use have been addressed.: Procedure Details: Site: Right Greater Trochanteric Bursa Patient position: Sidelying Needle Size: 25 G Ultrasound guidance: No Medications: 40 mg triamcinolone 40 mg/mL; 4 mL lidocaine 10 mg/mL (1 %) Eleuterio Wiggins MD IN CLINIC/BEDSIDE ORDERABLE S Final Result * XR Outside Reference (09/18/2024 4:38 PM CDT) Impressions [facility] - 09/18/2024 4:38 PM CDT These images are for Reference purposes only and have not been reviewed by [facility]. There will be no report generated by a [facility] Radiologist. Narrative [facility] - 09/18/2024 4:38 PM CDT EXAMINATION: Images For Reference Purposes Only Eleuterio Wiggins MD IMG XR PROCEDURES Final Res ult [facility] * XR Outside Reference (09/18/2024 4:38 PM CDT) Impressions [facility] - 09/18/2024 4:38 PM CDT These images are for Reference purposes only and have not been reviewed by [facility]. There will be no report generated by a [facility] Radiologist. Narrative [facility] - 09/18/2024 4:38 PM CDT EXAMINATION: Images For Reference Purposes Only Eleuterio Wiggins MD IMG XR PROCEDURES Final Res ult Performing Organization Address [facility] de Phone Number [facility] * XR Outside Reference (09/18/2024 4:36 PM CDT) Impressions [facility] - 09/18/2024 4:36 PM CDT These images are for Reference purposes only and have not been reviewed by [facility]. There will be no report generated by a [facility] Radiologist. Narrative [facility] - 09/18/2024 4:36 PM CDT EXAMINATION: Images For Reference Purposes Only Eleuterio Wiggins MD IMG XR PROCEDURES Final Res ult Performing Organization Address [facility] de Phone Number [facility] * XR Outside Reference (09/18/2024 4:35 PM CDT) Impressions [facility] - 09/18/2024 4:35 PM CDT These images are for Reference purposes only and have not been reviewed by [facility]. There will be no report generated by a [facility] Radiologist. Narrative [facility] - 09/18/2024 4:35 PM CDT EXAMINATION: Images For Reference Purposes Only Eleuterio Wiggins MD IMG XR PROCEDURES Final Res ult Performing Organization Address [facility] de Phone Number [facility] * XR Outside Reference (09/18/2024 4:32 PM CDT) Impressions [facility] - 09/18/2024 4:32 PM CDT These images are for Reference purposes only and have not been reviewed by [facility]. There will be no report generated by a [facility] Radiologist. Narrative [facility] - 09/18/2024 4:32 PM CDT EXAMINATION: Images For Reference Purposes Only Eleuterio Wiggins MD IMG XR PROCEDURES Final Res ult Performing Organization Address [facility] de Phone Number [facility] * XR Outside Reference (09/18/2024 4:31 PM CDT) Impressions [facility] - 09/18/2024 4:31 PM CDT These images are for Reference purposes only and have not been reviewed by [facility]. There will be no report generated by a [facility] Radiologist. Narrative [facility] - 09/18/2024 4:31 PM CDT EXAMINATION: Images For Reference Purposes Only Eleuterio Wiggins MD IMG XR PROCEDURES Final Res ult Performing Organization Address [facility] Phone Number [facility] * XR Outside Reference (09/18/2024 4:21 PM CDT) Impressions [facility] - 09/18/2024 4:21 PM CDT These images are for Reference purposes only and have not been reviewed by [facility]. There will be no report generated by a [facility] Radiologist. Narrative [facility] - 09/18/2024 4:21 PM CDT EXAMINATION: Images For Reference Purposes Only Eleuterio Wiggins MD IMG XR PROCEDURES Final Res ult Performing Organization Address [facility] de Phone Number [facility] * XR Outside Reference (09/18/2024 4:21 PM CDT) Impressions [facility] - 09/18/2024 4:21 PM CDT These images are for Reference purposes only and have not been reviewed by [facility]. There will be no report generated by a [facility] Radiologist. Narrative [facility] - 09/18/2024 4:21 PM CDT EXAMINATION: Images For Reference Purposes Only Eleuterio Wiggins MD IMG XR PROCEDURES Final Res ult [facility] * MD INJECTION SINGLE/PATIENT SAFETY COORDINATOR TRIGGER POINT 1/2 MUSCLES (09/18/2024 2:20 PM [...] Result from Last 3 Months Insurance [facility] MEDICARE [facility] Address: [address] [address] [place] [address] MEDICARE [facility] MEDICARE [facility] Address: [address] [address] [place] [address] Care Teams Network Applications Specialist Relationship Specialty Start Date End Date Fernando Sherman DO [address] [place], [place] [id number] PCP - General Internal Medicine 01/10/24 Real Díaz PA [address] [place] [address] Physician B Operator Physician B Operator 03/19/21
--- OUTSIDE RECORDS SUMMARY | 2024-12-14 10:00 | XMS_ITS | Clinical Summary ---
Author Organization [facility] Address [address] [place] [address] Care Team Providers Care Angiographer Name Role Phone Real Díaz Unavailable Fernando Sherman DO Primary Care Provider [phone] Allergies Active Allergy Reactions Criticality Noted Date [...] therapy. Simvastatin Unknown 05/23/2013 Closed throat up. Pkfhgam-Lgj-And Reductase Inhibitors Unknown 05/23/2013 Sulfa (Sulfonamide Antibiotics) [...] PLAN - will reach to the patient's patient representative (Dr. Livan Jang / [phone]) to see if they can help getting [...] Description 12/07/2024 2:30 PM CDT Office Visit [facility] Cardiology [address] [place] [address] [place] [phone] Amari Manuel MD Lipid screening (Primary Dx); Other chest pain; Exertional dyspnea 12/04/2024 1:00 PM CDT Office Visit [facility] Orthopaedic Surgery [address] [place] [address] 6th [place] [address] [place] [address] Eleuterio Wiggins MD Myofascial pain (Primary Dx) 11/29/2024 Telephone [facility] Cardiology [address] [place] [address] [place] [phone] Amari Manuel MD 10/23/2024 2:20 PM CDT Office Visit [facility] 6th [place] [address] [place] [address] Eleuterio Wiggins MD Trochanteric bursitis of both hips (Primary Dx) 10/18/[address] [facility] Department of Hepatobiliary, Pancreatic, & Gastrointestinal Surgery [facility] 12th Floor, [place] [address] Malena Felton PA 10/18/[address] [facility] Surgery [address] [facility] [address] [place] [address] Kathleen Juan MD 09/18/2024 4:38 PM CDT - 09/18/2024 11:59 PM CDT Hospital Encounter [facility] ([facility]) [address] [place] [address] Discharge Disposition: Discharge to home or self care 09/18/2024 4:38 PM CDT - 09/18/2024 11:59 PM CDT Hospital Encounter [facility] ([facility]) [address] [place] [address] Discharge Disposition: Discharge to home or self care 09/18/2024 4:36 PM CDT - 09/18/2024 11:59 PM CDT Hospital Encounter [facility] ([facility]) [address] [place] [address] Discharge Disposition: Discharge to home or self care 09/18/2024 4:35 PM CDT - 09/18/2024 11:59 PM CDT Hospital Encounter [facility] ([facility]) [address] [place] [address] Discharge Disposition: Discharge to home or self care 09/18/2024 4:32 PM CDT - 09/18/2024 11:59 PM CDT Hospital Encounter [facility] ([facility]) [address] [place] [address] Discharge Disposition: Discharge to home or self care 09/18/2024 4:31 PM CDT - 09/18/2024 11:59 PM CDT Hospital Encounter [facility] ([facility]) [address] [place] [address] Discharge Disposition: Discharge to home or self care 09/18/2024 4:21 PM CDT - 09/18/2024 11:59 PM CDT Hospital Encounter [facility] ([facility]) [address] [place] [address] Discharge Disposition: Discharge to home or self care 09/18/2024 4:21 PM CDT - 09/18/2024 11:59 PM CDT Hospital Encounter [facility] ([facility]) [address] [place] [address] Discharge Disposition: Discharge to home or self care 09/18/2024 2:20 PM CDT Office Visit [facility] Orthopaedic Surgery [address] [facility] 6th [place] [address] [place] [address] Eleuterio Wiggins MD Myofascial pain (Primary Dx) from Last 3 Months Surgical [...] Maternal Grandmother Caron Meek Arthritis Maternal Grandmother Vera [place] Cervical cancer Maternal Grandmother Vera Fantasma Arthritis Mother Loly Rolan Blood Clot Mother Loly Rolan brain Cancer Mother Loly Rolan Cervical cancer Mother Loly Rolan Depression Mother Loly Rolan Diabetes Mother Loly Rolan Hypertension Mother Loly Rolan Kidney disease Mother Loly Rolan Memory loss Mother Loly Rolan Mental illness Mother Loly Rolan Obesity Mother Loly Rolan Rashes / Skin problems Mother Loly Rolan Cancer Paternal Grandmother Vera [place] Cancer Sister Crystal Rolan Cervical cancer Sister Crystal Rolan Developmental delay Son Jenaro Mainor hodgson. Drug abuse Son Jenaro Mainor hodgson. Learning disabilities Son Jenaro Mainor hodgson . Relation Name Status Comments Daughter Teresa Guillory Father Aleln Garrison Maternal Grandfather Edinson Meek Maternal Grandmother Vera [place] Mother Loly Rolan Paternal Grandmother Caron Meek Sister Jamilah Gongora Son Jenaro Hayward jr. 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 Gender Identity Not on file Sexual Orientation [...] 12/07/2024 2:14 PM CDT Plan of Treatment Health Maintenance Due Date Last Done Comments Breast Cancer Screening-Mammogram 1962 Colon Cancer Screening-Colonoscopy 1960 Depression Screening 1962 Hepatitis C Screening 1962 Regular Well Visit/Exam 18-64 1980 Covid-19 Vaccine (2023-2 5 season) 2024 06/23/2021, 12/19/2020, 11/21/2020 Pneumococcal vaccine <65 (3 of 3 - PPSV23, PCV20 or PCV21) 04/03/2024 04/03/2019, 04/10/2015 Influenza Vaccine (#1) 2025 , 03/23/2020, 01/29/2019, Additional history exists DTaP/Tdap/Td Vaccine (2 - Td or Tdap) 04/11/2029 04/11/2019 Hepatitis B Screening Completed 01/06/2013 , 08/06/2012, 07/09/2012 Zoster Vaccine Completed 06/26/2020, 03/23/2020 Goals Goal Patient Goal Type Associated Problems Recent Progress Patient-Stated? Author CCM Chronic Pain Care Plan Chronic Care Management Worsening( 10:43 AM SALES OPERATIONS ASSISTANT) Asya Aparicio, RN Note: Problem: Chronic Pain Goals: 1. Minimize further functional decline 2. Maximize quality of life 3. Control pain Strategies: - Activity/exercise program recommendation - Conservative stepwise pain medicine strategy with multi-disciplinary approach - Recommend healthy lifestyle strategies and compensatory methods as needed Medical Devices Implanted Type Area Assembly Detailer Device Identifier Shelf Expiration Date Model / Serial / Lot Clark In Abdomen Abdomen Procedures Procedure Name Priority Date/Time Associated Diagnosis Comments POCT LIPID PANEL Routine 12/07/2024 2:13 PM CDT Lipid screening ELECTROCARDIOGRAM REPORT Routine 12/07/2024 Other chest pain VT INJECTION SINGLE/PROGRESS WORKER TRIGGER POINT 1/2 MUSCLES Routine 12/04/2024 1:00 PM CDT Myofascial pain VT ARTHROCENTESIS ASPIR&/INJ MAJOR JT/BURSA W/O US Routine [...] OUTSIDE FILMS Routine 09/18/2024 4:21 PM CDT VT INJECTION SINGLE/PROGRESS WORKER TRIGGER POINT 1/2 MUSCLES Routine 09/18/2024 2:20 [...] Capillary blood 12/07/2024 2 :13 PM CDT us Amari Manuel MD POINT OF CARE TEST ORDER RYAN Final Result * Electrocardiogram Report (12/07/2024) 12/07/2024 us Amari Manuel MD ECG ORDERABLES Edited R esult - Final * VT INJECTION SINGLE/PROGRESS WORKER TRIGGER POINT 1/2 MUSCLES (12/04/2024 1:00 PM [...] IN CLINIC/BEDSIDE ORDERABLE S Final Result * VT ARTHROCENTESIS ASPIR&/INJ MAJOR JT/BURSA W/O US (10/23/2024 [...] 4 mL lidocaine 10 mg/mL (1 %) Result [facility] Eleuterio Wiggins MD IN CLINIC/BEDSIDE ORDERABLE S Final Result * XR Outside Reference (09/18/2024 4:38 PM CDT) Impressions RAD_PACS_[facility] - 09/18/2024 4:38 PM CDT These images are for Reference purposes only and have not been reviewed by [facility] Radiology. There will be no report generated by a [facility] Radiologist. Narrative [facility]_PACS[facility] - 09/18/2024 4:38 PM CDT EXAMINATION: Images For Reference Purposes Only Eleuterio Wiggins MD IMG XR PROCEDURES Final Res ult [facility] * XR Outside Reference (09/18/2024 4:38 PM CDT) Impressions [facility] - 09/18/2024 4:38 PM CDT These images are for Reference purposes only and have not been reviewed by [facility]. There will be no report generated by a [facility] Radiologist. Narrative [facility]_P[facility] - 09/18/2024 4:38 PM CDT EXAMINATION: Images For Reference Purposes Only Eleuterio Wiggins MD IMG XR PROCEDURES Final Res ult Performing Organization Address [facility] Co de Phone Number [facility] * XR Outside Reference (09/18/2024 4:36 PM CDT) Impressions [facility] - 09/18/2024 4:36 PM CDT These images are for Reference purposes only and have not been reviewed by [facility]iology. There will be no report generated by a [facility] Radiologist. Narrative [facility] - 09/18/2024 4:36 PM CDT EXAMINATION: Images For Reference Purposes Only Eleuterio Wiggins MD IMG XR PROCEDURES Final Res ult Performing Organization Address [facility] de Phone Number [facility]_P[facility] * XR Outside Reference (09/18/2024 4:35 PM CDT) Impressions [facility] - 09/18/2024 4:35 PM CDT These images are for Reference purposes only and have not been reviewed by [facility] Radiology. There will be no report generated by a [facility] Radiologist. Narrative [facility] - 09/18/2024 4:35 PM CDT EXAMINATION: Images For Reference Purposes Only Eleuterio Wiggins MD IMG XR PROCEDURES Final Res ult Performing Organization Address [facility] Co de Phone Number [facility] * XR Outside Reference (09/18/2024 4:32 PM CDT) Impressions [facility] - 09/18/2024 4:32 PM CDT These images are for Reference purposes only and have not been reviewed by [facility] Radiology. There will be no report generated by a [facility] Radiologist. Narrative [facility] - 09/18/2024 4:32 PM CDT EXAMINATION: Images For Reference Purposes Only Eleuterio Wiggins MD IMG XR PROCEDURES Final Res ult Performing Organization Address [facility] Co de Phone Number [facility] * XR Outside Reference (09/18/2024 4:31 PM CDT) Impressions [facility] - 09/18/2024 4:31 PM CDT These images are for Reference purposes only and have not been reviewed by [facility]iology. There will be no report generated by a [facility] Radiologist. Narrative [facility] - 09/18/2024 4:31 PM CDT EXAMINATION: Images For Reference Purposes Only Eleuterio Wiggins MD IMG XR PROCEDURES Final Res ult Performing Organization Address [facility] de Phone Number [facility] * XR Outside Reference (09/18/2024 4:21 PM CDT) Impressions [facility] - 09/18/2024 4:21 PM CDT These images are for Reference purposes only and have not been reviewed by [facility] Radiology. There will be no report generated by a [facility] Radiologist. Narrative [facility] - 09/18/2024 4:21 PM CDT EXAMINATION: Images For Reference Purposes Only Eleuterio Wiggins MD IMG XR PROCEDURES Final Res ult Performing Organization Address [facility] Co de Phone Number [facility] * XR Outside Reference (09/18/2024 4:21 PM CDT) Impressions [facility] - 09/18/2024 4:21 PM CDT These images are for Reference purposes only and have not been reviewed by [facility] Radiology. There will be no report generated by a [facility] Radiologist. Narrative [facility]Z_PACS_[facility] - 09/18/2024 4:21 PM CDT EXAMINATION: Images For Reference Purposes Only us Eleuterio Wiggins MD IMG XR PROCEDURES Final Res ult [facility] * VT INJECTION SINGLE/PROGRESS WORKER TRIGGER POINT 1/2 MUSCLES (09/18/2024 2:20 PM [...] Final Result from Last 3 Months Insurance [facility] MEDICARE ADVANTAGE MEDICARE [facility] Address: [address] [address] [place] [address] [employer] [facility] MEDICARE ADVANTAGE Care Teams Angiographer Relationship Specialty Start Date End Date Fernando Sherman DO [address] [place] [address] PCP - General Internal Medicine 01/10/24 Real Díaz PA [address] [place] [address] Physician Hogshead Packer Physician Hogshead Packer 03/19/21
--- OUTSIDE RECORDS SUMMARY | 2024-12-14 10:01 | XMS_ITS | Data Portability ---
Author Organization [place] [facility] [employer], Main Office Address [address] [place] [address] Assessment Encounter Date Assessment Date Assessment LastModified [...] DO Not Attach Compendium, Do Not Delete/merge, [id number] 4 12:33:57 injection/a spiration joint/bursa (PROC) - in office procedure, administere d by provider 2022 023 [email or web address] In-Office Order, Internal Use Only DO Not Attach Compendium DO Not Attach Compendium, Do Not Delete/merge, [id number] 3 16:17:37 Surgeries None recorded. Imaging XR, hand, 3 or more view 2023 024 [facility] [place], [address], [place], [address], 4 08:25:28 XR, hand 2022 023 [email or web address] [facility] [place], [address], [place], [address], 3 16:45:10 Medication Orders Kenalog 10 mg/mL suspension for injection 2023 024 [email or web address] [id number], [address] [place] [address], [id number], 4 16:47:48 Marcaine (PF) 0.5 % (5 mg/mL) injection solution 2023 024 [email or web address] Not available 4 16:47:48 Kenalog 10 mg/mL suspension for injection 2022 023 [email or web address] [facility], [address] [place] [address], [id number], 3 16:45:10 ropivacaine (PF) 5 mg/mL (0.5 %) injection solution 2022 023 [email or web address] [facility] #08702, [address] [place] [address], [id number], 3 16:45:10 Patient TargetsNo targets recorded. Patient InstructionsNo instructions recorded. Reason for Referral None Reported. Results Created Date Observation Date Name Description Value Unit Range Abnormal Flag Note LastModifiedBy Organization Detail LastModifiedTime 11/19/19 22 XR, ankle , 3 or more view No observ ation record ed. [id number] [facility] [place] [address], [place], [address], 07/22/2022 06:47:06 11/19/19 22 XR, knee, 3 view No observ ation record ed. [id number] [facility] [place] [address], [place], [address], 07/22/2022 06:47:06 11/11/19 23 XR, hand No observ ation record ed. [email or web address] [facility] [place] [address], [place], [address], 11/10/2022 16:43:45 12/29/19 24 XR, hand, 3 or more view No observ ation record ed. [email or web address] [facility] [place] [address], [place], [address], 12/29/2023 12:21:27 Result Notes None recorded. Problems Name Problem SNOMED Code Status Onset Date Resolution Date Notes Provider Name and Address Organization Details Recorded Time Localized, primary osteoarthr itis of the hand 157534251 Active Not Available [facility] 3 06:42:47 Knee joint effusion 103976189 Active Not Available [facility] 3 06:42:47 Menopausal symptom 88795467 Active Not Available [facility] 3 06:42:47 Osteoarthr itis of knee 887483381 Active Not Available [facility] 3 06:42:47 Low back pain 751534358 Active Not Available [facility] 3 06:42:47 Current tear of medial cartilage AND/OR meniscus of knee Active Not Available [facility] 3 06:42:47 Enthesopat hy of hip region 80750346 Active Not Available [facility] 3 06:42:47 Knee pain Active Not Available [facility] 3 06:42:47 Inflammato ry disorder of extremity 128051351 Active Not Available [facility] 3 06:42:48 Osteoarthr itis 730516526 Active Not Available [facility] 3 06:42:48 Arthropath y of joint of hand 531251972 Active Not Available [facility] 3 06:42:48 High antibody titer 366568496 Active Not Available [facility] 3 06:42:48 Dystrophy of vulva 85232535 Active Not Available [facility] 3 06:42:48 Urge incontinen ce of urine 82022255 Active Not Available [facility] 3 06:42:48 Breast lump 31851551 Active Not Available [facility] 3 06:42:48 Pain in limb 54049377 Active Not Available [facility] 3 06:42:49 Pain in left thumb 2474981452979 100 Active 2021 Not Available [facility] 3 06:42:47 Contusion of right knee 8020754044287 9104 Active 2021 Not Available [facility] 3 06:42:47 Contusion of left knee 6576893653002 9109 Active 2021 Not Available [facility] 3 06:42:47 Osteoarthr itis of left knee joint 3005191970301 09 Active 2021 Not Available [facility] 3 06:42:48 Osteoarthr osis of the carpometac arpal joint of the thumb 75646510 Active 2021 Not Available [facility] 3 06:42:48 Pain of right knee joint 4708419690968 00 Active 2021 Not Available [facility] 3 06:42:48 Pain of left knee joint 3619867829475 07 Active 2021 Not Available [facility] 3 06:42:48 Pain of bilateral knee joints 5303269642489 04 Active 2021 Not Available [facility] 3 06:42:48 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 2374891857046 9100 Active 2021 Not Available [facility] 3 06:42:47 Tendinitis of right posterior tibial tendon 0543741920209 02 Active 2021 Not Available [facility] 3 06:42:47 Pain in right thumb 4749190082947 102 Active 2021 Not Available [facility] 3 06:42:46 Pain of right ankle joint 3569358898052 9106 Active 2022 PEYTON Tuttle, [place] [facility] 3 15:55:48 Mechanical complicati on of implant 666785279 Active 2022 PEYTON Tuttle null, [facility] 3 15:57:30 Pain in right hand 8844186816123 09 Active 2022 PEYTON Tuttle null, [facility] 3 15:58:25 Bilateral thumb pain 9917376957920 9102 Active 2023 Aury Padgett null, [facility] 4 12:32:01 Problem Notes None recorded. Procedures Surgical History Date Name Laterality Status Provider Name and Address Organization Details Recorded Time 12/29/19 24 Ortho - Cortisone Injection completed Pastor Dickerson MD [address] [place] [address], [address], [facility] 12/29/2023 14:47:41 11/22/19 21 Breast Biopsy completed Not Available [facility] 2022 06:40:09 12/30/19 16 Drain/inj joint/bursa w/o us completed Not Available [facility] 07/22/2022 06:40:09 12/30/19 16 Orthopedic Surgery completed Not Available [facility] 07/22/2022 06:40:09 07/31/19 14 arthroplasty of knee completed Not Available [facility] 07/22/2022 06:40:09 05/24/19 14 biopsy of pancreas completed Not Available [facility] 07/22/2022 06:40:09 04/04/20 13 Most Recent Mammogram completed Not Available [facility] 07/22/2022 06:40:08 09/29/19 12 Date of Last Pap Smear completed Not Available [facility] 07/22/2022 06:40:08 05/24/18 96 [employer] SU[employer] CONSULTANT Surgery completed Not Available [facility] 07/23/19 23 06:40:09 05/24/18 93 [employer]KTOP SUPPORT CONSULTANT Surgery completed Not Available [facility] 07/23/19 23 06:40:09 05/24/18 92 other completed Not Available [facility] 3 06:40:09 05/24/18 78 Appendectomy completed Not Available [facility] 023 06:40:09 Hernia Repair completed Not Available [facility] 07/22/2022 06:40:09 Imaging Results None recorded. Procedure Notes None recorded. Medical Equipment None Reported. Allergies Allergen ID Allergen Name Allergen Category Reaction Reaction Severity Criticality Documentation Date Start Date Code Code System Note Provider Name and Address Organization Details Recorded Time 78930 Zocor medicatio n anaphylax is severe Not available 07/22/2022 51597 3 RxNorm Not Available [facility] 3 06:46:59 33393 Product containin g methylate d xanthine derivativ e (product) food,medi cation Not available Not available Not available 07/22/2022 33979 9002 SNOMED Not Available [facility] 3 06:46:59 37128 pramoxine hydrochlo ride medicatio n itching Not available Not available 07/22/2022 67554 RxNorm vagin al swell ing and pain Not Available [facility] 3 06:46:59 64892 theophyll ine anhydrous medicatio n hives moderate Not available 07/22/2022 99533 RxNorm Not Available [facility] 3 06:46:59 04351 Substance with sulfonami de structure and antibacte rial mechanism of action (substanc e) medicatio n Not available Not available Not available 07/22/2022 54348 8003 SNOMED Not Available [facility] 3 06:46:59 71508 simvastat in medicatio n Not available Not available Not available 07/22/2022 29759 RxNorm Not Available [facility] 3 06:46:59 61183 piroxicam medicatio n Not available Not available Not available 07/22/2022 8356 RxNorm Not Available [facility] 3 06:47:00 34117 nitrofura ntoin medicatio n Not available Not available Not available 07/22/2022 7454 RxNorm Not Available [facility] 3 06:47:00 22085 morphine medicatio n hives severe Not available 07/22/2022 7052 RxNorm Not Available [facility] 3 06:47:00 96073 meperidin e medicatio n Not available Not available Not available 07/22/2022 6754 RxNorm Not Available [facility] 3 06:47:00 64478 Librium medicatio n other moderate Not available 07/22/2022 3804 RxNorm mood alter ation s Not Available [facility] 3 06:47:00 86990 latex environme nt,medica tion itching moderate Not available 07/22/2022 32483 91 RxNorm Not Available [facility] 3 06:47:00 53899 diazepam medicatio n Not available Not available Not available 07/22/2022 3322 RxNorm Not Available [facility] 3 06:47:00 47209 Demerol medicatio n hives severe Not available 07/22/2022 57571 1 RxNorm Not Available [facility] 3 06:47:00 83994 codeine medicatio n nausea moderate Not available 07/22/2022 2670 RxNorm Not Available [facility] 3 06:47:00 60557 chlordiaz epoxide medicatio n Not available Not available Not available 07/22/2022 2356 RxNorm Not Available [facility] 3 06:47:00 51536 Ceftin medicatio n vomiting Not available Not available 07/22/2022 94611 6 RxNorm diarr hea Not Available [facility] 3 06:47:00 85524 salicylat e medicatio n Not available Not available Not available 11/10/2022 9522 RxNorm PEYTON Tuttle [facility] [employer] [facility] 3 15:47:06 26895 valsartan medicatio n Not available Not available Not available 11/10/2022 51928 RxNorm PEYTON Tuttle [facility] [employer] [facility] 3 15:47:40 Medications Name Sig Start [...] suspension for injection in office [address] [facility]: 0003- 0494- 20 Not Available Not Available Not Available meclizine 25 mg tablet active Not Available Not Available Not Available baclofen 10 mg tablet TAKE 1/2 TABLET BY MOUTH THREE TIMES DAILY 08/05 /2024 completed Not Available Not Available Not Available [...] administe red by the provider 10/[address] [facility]: 0409- 4276- 17 Not Available Not [...] 10 mg by injection route. [address] [facility] 21550 -064- 01 Not Available Not Available Not [...] Not Available Not Available Not Available Fluvirin 5095-0545 45 mcg (15 mcg x 3)/0.5 mL intramuscul ar suspension ADM 0.5ML UTD 05/31 completed Not Available Not Available Not Available dapaglifloz in propanediol 10 mg tablet TAKE 1 TABLET BY MOUTH EVERY MORNING active Not Available Not Available No t Available Fluvirin 45 mcg (15 mcg x 3)/0.5 mL [...] the office by the doctor 12/[address] [facility]: [address] -1 Not Available Not Available Not [...] DateTime 11/10/2022 165.1 cm Elma Dugan Natalie [facility] [place] 11/10/2022 15:44:53 Date Recorded Body mass index (BMI) Body height Body weight Provider Name and Address Organization Details Last Updated DateTime 11/18/2021 43.9 kg/m2 165.1 cm 883320.39 g Not Available [facility] 07/22/2022 06:42:14 Date Recorded Body height Body mass index (BMI) Body weight Pain severity - 0-10 verbal numeric rating [Score] - Reported Provider Name and Address Organization Details Last Updated DateTime 12/29/2023 170.18 cm 38.4 kg/m2 496727.13 g 6 Portia Virk [facility] [place] 12/29/2023 12:19:24 Date Recorded Body height Provider Name an d Address Organization Details Last Updated DateTime 01/05/2022 165.1 cm Not Available [facility] 06:42:13 Date Recorded Body height Provider Name an d Address Organization Details Last Updated DateTime 02/02/2022 165.1 cm Not Available [facility] 06:42:13 Social History Question Answer Notes LastModified by [employer] Details LastModified Time Tobacco Smoking Status Former Smoker Not Available [facility] 07/22/2022 06:40:04 What Is Your Level Of Caffeine Consumption? None [id number] 6106 Information not available 07/22/2022 Which Illicit Or Recreational Drugs Have You Used? Marijuana Daily For Pain MIGRATION.659676 4160 Information not available 07/22/2022 What Was The Date Of Your Most Recent Tobacco Screening? 10/16/2021 [id number].[id number] 7241 Information not available 07/22/2022 What Is Your Relationship Status? Single MIGRATION.357315 6137 Information not available 07/22/2022 Do You Use Your Seat Belt Or Car Seat Routinely? Yes MIGRATION.643197 9868 Information not available 07/22/2022 Sex: Unknown Functional Status Question Answer Note LastModified by [email or web address] Details LastModified Time Do you use any illicit or recreational drugs? Yes MIGRATION.[id number] 26 Information not available 07/22/2022 What is your level of alcohol consumption? None MIGRATION.41276760 26 Information not available 07/22/2022 What is your exercise level? None MIGRATION.17751557 26 Information not available 07/22/2022 Mental Status None recorded. Family History Relationship Description Onset Age of this Age Resolved Age Notes LastModified by Organization Details LastModified Time Mother Family history of malignant neoplasm MIGRATION.019 [id number] Not available 07/22/2022 06:40:10 Mother Diabetes mellitus MIGRATION.016 1920985 Not available 07/22/2022 06:40:10 Mother History of hypertension MIGRATION.097 1684223 Not available 07/22/2022 06:40:10 Mother Heart disease MIGRATION.868 [id number] Not available 07/22/2022 06:40:10 Father History of hypertension MIGRATION.619 7811045 Not available 07/22/2022 06:40:10 Father Heart disease MIGRATION.490 3284164 Not available 07/22/2022 06:40:10 Medical History Condition [...] SNOMED-CT Code Diagnosis ICD10 Code Diagnosis Note [id number] MATTHIAS Ventura [facility] [place] [address] [place] [place], [place] [address] 09/26/2020 00:00:00 09/26/2020 15:16:13 [id number] [facility] _ATHENA_M IGRATION_ DEFAULT_1 _1 , 01/06/2021 00:00:00 01/06/2021 15:57:50 [id number] MATTHIAS Ventura [facility] [place] [address] [place] [place], [place] [address] 01/16/2021 00:00:00 01/16/2021 15:47:07 [id number] MATTHIAS Ventura [facility] [place] [address] [place], [place] [address] 02/14/2021 00:00:00 02/14/2021 14:25:15 [id number] Darron Overton MD [facility] [place] [address] [place], [place] [address] 04/24/2021 00:00:00 04/24/2021 10:04:13 [id number] Darron Overton MD [facility] [place] [address] [place], [place] [address] 10/16/2021 00:00:00 10/16/2021 15:39:25 [id number] Darron Overton MD [facility] [place] [address] [place] [address] 10/23/2021 00:00:00 10/23/2021 15:22:43 [id number] Darron Overton MD [facility] [place] [address] [place] [address] 11/05/2021 00:00:00 11/05/2021 11:42:40 [id number] Darron Overton MD [facility] [place] [address] [place] [address] 11/11/2021 00:00:00 11/11/2021 15:31:01 [id number] Darron Overton MD [facility] [place] [address] [place] [address] 11/18/2021 00:00:00 11/18/2021 16:00:11 [id number] Darron Overton MD [facility] [place] [address] [place] [address] 01/05/2022 00:00:00 01/05/2022 09:56:15 [id number] Darron Overton MD [facility] [place] [address] [place] [address] 02/02/2022 00:00:00 02/02/2022 11:51:39 [id number] Darron Overton MD [facility] [place] [address] [place] [address] 11/10/2022 15:14:55 11/12/2022 15:51:01 Osteoarthritis of left knee joint 9873822030 51752 M17.12 Contusion of right knee 7438440160 8517640 S80.01XD Contusion of left knee 4114188667 6324145 S80.02XD Pain in right thumb 1076 549465 008881 M79.644 Osteoarthr osis of the carpometacarpal joint of the thumb 57053320 M18.0 History of right total knee replacement 5517009418 904406 Z96.651 Pain of ri ght ankle joint 5094168016 8580924 M25.571 Tendinitis of right posterior tibial tendon 9691342952 50105 M76.821 Chronic pa in following right total knee arthroplasty 1479376567 1151819 T84.84XD Mechanical complication of implant 333404462 T85.698D Pain of bi lateral knee joints 2757842965 28205 M25.561 M25.562 Pain in right hand 83469 22771 18639 M79.441 [id number] Pastor Dickerson MD [facility] [place] [address] [place] [address] 12/29/2023 11:45:53 12/29/2023 12:37:11 Pain in right thumb 6167767557 219682 M79.644 Pain in left thumb 17620 23447 157204 M79.645 Bilateral thumb pain 692 7297331 2987830 M79.644 M79.645 Health Concerns Section Related Observation LastModified by Organization Detai ls LastModified Time None Recorded Concern Status LastModified by Organization Details LastModified Time None Recorded Advance Directives Directive None Recorded Payers Insurance Date Sequence Insurance Name Policy Number Policy Dunn Covered Member ID Dunn Member ID Guarantor Name 02/04/2024 1 [facility] (MEDICARE REPLACEMENT/ADVA NTAGE - PPO) [id number] Dori Hayward [id number] Dori Hayward 02/04/2024 2 [facility] ON OR AFTER 11/21/20 (MEDICAID REPLACEMENT - HMO) Dori Hayward [id number] Dori Hayward 12/30/2023 1 [place] Dori Hayward [id number] Dori Hayward 02/04/2024 2 [place] WHEN MEDICARE OR MEDICARE REPLACEMENT PRIMARY) Dori Hayward [id number] Dori Hayward 12/30/2023 [facility] - DOS ON OR AFTER 20 (MEDICAID REPLACEMENT - HMO) Dori Hayward [id number] Dori Hayward 12/26/2023 [place] DURABLE MEDICAL EQUIPMENT Dori [place] [id number] Dori [place] 12/30/2023 [employer] - [employer] ASSIGNED (MEDICARE DME REGION B) Dori [place] [id number] Dori [place] Notes Date Note Type Note [...] since her last ones. MATTHIAS Ventura [address] [facility] [address], [place], [address], [place] [facility] [employer] 11/10/2022 16:44:30 OBGyn Episode No OBEpisode recorded.
--- OUTSIDE RECORDS SUMMARY | 2024-12-14 10:01 | XMS_ITS | Encounter Summary ---
Author Organization [facility] Healthcare Address [address] [place] [address] Care Team Providers Care Rotating Equipment Specialist Name Role Phone Salo Marte MD Primary Care Provider + [phone] Real Díaz Unavailable [phone] Fernando Sherman DO Primary Care Provider [phone] Encounter Details Date Type Department Care Team (Late st Contact Info) Description 07/12/2020 Telephone [facility] [address] [place] [id number] Bashir Diaz, RT Social History Tobacco Use Types Packs/Day Years Used Date Smoking Tobacco: Former Smokeless Tobacco: Never Alcohol Use Standard Drinks/Week Comments No 0 (1 standard drink = 0.6 oz pur e alcohol) Comments Unknown Sex and Gender Information Value Date Recorded Sex Assigned at Not on file Legal Sex Female 2:24 AM [employer]AB WORK[employer] Gender Identity Not on file Sexual Orientation Not on file documented as of this encounter Plan of Treatment Not on file documented as of this encounter Visit Diagnoses Not on filedocumented in this encounter Care Teams Rotating Equipment Specialist Relationship Specialty Start Date End Date Salo Marte MD [address] [place], [place] [id number] PCP - General 07/31/16 01/09/24 Fernando Sherman DO [address] [place] [address] PCP - General Internal Medicine 01/10/24 Real Díaz PA [address] [facility] [address] [address] Physician Electrical Tester Physician Electrical Tester 03/19/21 documented as of this encounter
--- OUTSIDE RECORDS SUMMARY | 2024-12-14 10:01 | XMS_ITS | Clinical Summary ---
Author Organization [facility] Address [address], [facility] [[email or web address] [address] [place] [address] Phone Care Team Providers Care Fiberglass Boat Maker Name Role Phone Salo Marte DO Primary Care Provider Donato May DO Unavailable [phone] Ben Rod. Unavailable [phone] Allergies Active Allergy Reactions Criticality [...] Cancer Screening (CCS) 1992 HPV/Cotest 1992 Cologuard 2007 Immunochemical Fecal Occult Blood 2007 Zoster Immunization (1 of 2) 2012 Colonoscopy 04/13/2015 04/13/2005 Colorectal Cancer Screening 04/13/2015 Pneumococcal Immunization (50+ years) (2 of 2 - PPSV23) 04/10/2016 04/10/2015 Respiratory Syncytial Virus (RSV) Immunization (Adult) (1 - Risk 60-74 years 1-dose series) 2022 SARS-COV-2 Immunization ( season) 2024 11/03/2021, 06/23/2021, 12/19/2020, Additional history exists Influenza Immunization (#1) 01/22/202502/21, 03/04/2016, 04/10/2015, Additional history exists Hepatitis B Immunization Completed 013, 08/06/2012, 07/09/2012 Pneumococcal Immunization Combined Discontinued 04/10/2015 Human Papillomavirus (HPV) Immunization Aged Out No longer eligible based on patient's age to complete this topic Meningococcal Immunization (ACWY) Aged Out No longer [...] [place] Care Teams Fiberglass Boat Maker Relationship Specialty Start Date End Date Salo Marte DO [address] [place], [place] [id number] PCP - General Internal Medicine 06/19/15 Donato May DO [address] [place] [address] Gastroenterology 06/19/15 Ben Rod [address] [place] [address] [phone] (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
== END 2024-12-14 09:58 | disposition home or self-care (01) ==
PROVIDERS: PCP Internal Medicine; Visit Provider Nurse Practitioner Family
DX: E55.9 Vitamin D deficiency, unspecified (principal); N95.9 Unspecified menopausal and perimenopausal disorder; M85.88 Other specified disorders of bone density and structure, other site; M85.852 Other specified disorders of bone density and structure, left thigh; M85.851 Other specified disorders of bone density and structure, right thigh
CPT/HCPCS: 77080

== ENCOUNTER 2025-01-03 13:17 | Outpatient (CLI) | payer MEDICARE, OTHER, SELFPAY ==
--- OUTSIDE RECORDS SUMMARY | 2025-01-03 13:19 | XMS_ITS | Clinical Summary ---
Author Organization [facility] Address [address] [place] [address] Care Team Providers Care Superintendent Compressor Stations Name Role Phone Real Díaz Unavailable [phone] Fernando Sherman DO Primary Care Provider [phone] Allergies Active Allergy Reactions Criticality Noted Date [...] therapy. Simvastatin Unknown 05/23/2013 Closed throat up. Lqrnzot-Mja-Eyw Reductase Inhibitors Unknown 05/23/2013 Sulfa (Sulfonamide Antibiotics) Ruben-Dur Hives Medium 04/22/2020 My throat closed. Theophylline Anhydrous Unknown 05/23/2013 Valsartan Xanthines Unknown 05/23/2013 Xanthinol Niacinate Unknown 05/23/2013 Medications warfarin (COUMADIN) 4 mg tablet take 1 tablet by oral route every day 0 0 4 Active Additional Information Patient taking differently: 5 mg oral Daily, Reported on 12/20/2024 amLODIPine (NORVASC) 5 mg tablet Take 1 tablet (5 mg total) by mouth daily 8 Active lisinopril-hyd roCHLOROthiazi de (PRINZIDE,ZEST ORETIC) 20-25 mg per tabletIndicati ons:hypertensi on Take 1 tablet by mouth daily 1 8 Active omeprazole (PriLOSEC) 40 mg capsule [...] total) by mouth every morning 3 Active baclofen (LIORESAL) 10 mg tabletIndicati [...] mg total) by mouth daily 4 Active rOPINIRole (REQUIP) 0.25 mg tablet Take 2 tablets (0.5 mg total) by mouth nightly Active oxyCODONE-acet aminophen (PERCOCET) 10-325 mg per tabletIndicati ons:Pain Take 1-2 tablets by mouth every 6 (six) hours as needed for pain MAX 8 A DAY 240 tablet 5 Active oxyCODONE-acet aminophen (PERCOCET) 10-325 mg per tabletIndicati ons:Pain Take 1-2 tablets by mouth every 6 (six) hours as needed for pain MAX 8 A DAY 240 tablet 5 12/29/19 25 Discontin ued([facility]) Hospital, Clinic, or Other Facility Administered Medication Ordered Dose Route Frequency Start Date End Date Status lidocaine (XYLOCAINE) 10 mg/mL (1 %) injection 4 mLIndications:Admi nistration of Local Anesthesia 4 mL One-Time Injection 12/20/2024 12/20/2024 Ended triamcinolone (KENALOG) 40 mg/mL injection 40 mgIndications:Myof ascial pain 40 mg intra-artic One-Time Injection 12/20/2024 12/20/2024 Ended Active Problems Problem Noted Date Diagnosed [...] PLAN - will reach to the patient's foreign languages professor (Dr. Livan Jang / [phone]) to see if they can help getting a skin biopsy for sarah-path + mycobacterial, and fungal cultures. - CMP, CBC, CRP today. - no empirical antimicrobial therapy at this time. RTC in 6 weeks. Breast abscess 12/26/2020 Morbid obesity with BMI of 40.0-44.9, adult 01/22 Exertional dyspnea 10/26/2017 Other chest pain 10/26/2017 Encounters Date Type Department Care Team Description 12/20/2024 2:00 PM CDT Office Visit [facility] Orthopaedic Surgery [address] [facility] [address] [place] [phone] Eleuterio Wiggins MD Chronic pain syndrome (Primary Dx); Myofascial pain 12/07/2024 2:30 PM CDT Office Visit [facility] Medical [facility] Cardiology [address] [place] [address] [place] [phone] Amari Manuel MD Lipid screening (Primary Dx); Other chest pain; Exertional dyspnea 12/04/2024 1:00 PM CDT Office Visit [facility] Orthopaedic Surgery [address] [place] [address] 6th [place] [address] [place] [phone] Eleuterio Wiggins MD Myofascial pain (Primary Dx) 11/29/2024 Telephone [facility] Cardiology [address] [place] [phone] Amari Manuel MD 10/23/2024 2:20 PM CDT Office Visit [facility] Orthopaedic Surgery [address] [place] [address] 6th [place] [address] [place] [phone] Eleuterio Wiggins MD Trochanteric bursitis of both hips (Primary Dx) 10/18/2024 Telephone [facility] Department of Hepatobiliary, Pancreatic, & Gastrointestinal Surgery [facility] 12th Floor, [place] [phone] Malena Felton PA 10/18/2024 Telephone [facility] Surgery [address] [facility] [place] Floor 8 [place] [phone] Kathleen Juan MD from Last 3 Months Surgical History Surgery [...] Chronic back pain DVT (deep venous thrombosis) GERD (gastroesophageal reflux disease) 2013 Anxiety Arthritis [...] Jenaro Hayward . Drug abuse Son Jenaro Mainor hodgson. 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 Author CCM Chronic Pain Care Plan Chronic Care Management Worsening( 10:43 AM MANAGER CHANNEL) No Asya Tran, RN Note: Problem: Chronic Pain Goals: 1. Minimize further functional decline 2. Maximize quality of life 3. Control pain Strategies: - Activity/exercise program recommendation - Conservative stepwise pain medicine strategy with multi-disciplinary approach - Recommend healthy lifestyle strategies and compensatory methods as needed Medical Devices Implanted Type Area Leasing Professional Device Identifier Shelf Expiration Date Model / Serial / Lot José Miguel In Abdomen Abdomen Procedures Procedure Name Priority Date/Time Associated Diagnosis Comments W[place] INJECTION SINGLE/CARPET WINDER TRIGGER POINT 1/2 MUSCLES Routine 12/20/2024 2:00 PM CDT Myofascial pain POCT LIPID PANEL Routine 12/07/2024 2:13 PM CDT Lipid screening ELECTROCARDIOGRAM REPORT Routine 12/07/2024 Other chest pain WV INJECTION SINGLE/CARPET WINDER TRIGGER POINT 1/2 MUSCLES Routine 12/04/2024 1:00 PM CDT Myofascial pain WV ARTHROCENTESIS ASPIR&/INJ MAJOR JT/BURSA W/O US Routine 10/23/2024 2:20 PM CDT Trochanteric bursitis of both hips from Last 3 Months Results * [place] INJECTION SINGLE/CARPET WINDER TRIGGER POINT 1/2 MUSCLES (12/20/2024 2:00 PM CDT) Narrative Eleuterio Wiggins MD - 12/20/2024 2:00 PM CDT Eleuterio Wiggins MD 12/20/2024 4:49 PM Trigger Point Injection Performed by: Eleuterio Wiggins MD Authorized by: Eleuterio Wiggins MD Consent Given by: Patient Consent obtained:: Verbal Location: R piriformis and R lumbar paraspinal Ultrasound guidance: No Needle size: 25 G Number of muscles: 1 or 2 Medications: 4 mL lidocaine 10 mg/mL (1 %); 40 mg triamcinolone 40 mg/mL us Eleuterio Wiggins MD IN CLINIC/BEDSIDE ORDERABLE S Final Result * (ABNORMAL) POCT lipid panel (12/07/2024 2:13 [...] ORDERABLES Edited R esult - Final * [place] INJECTION SINGLE/CARPET WINDER TRIGGER POINT 1/2 MUSCLES (12/04/2024 1:00 PM [...] IN CLINIC/BEDSIDE ORDERABLE S Final Result * [place] ARTHROCENTESIS ASPIR&/INJ MAJOR JT/BURSA W/O US (10/23/2024 [...] 4 mL lidocaine 10 mg/mL (1 %) us Eleuterio Wiggins MD IN CLINIC/BEDSIDE ORDERABLE S Final Result from Last 3 Months Insurance [facility] MEDICARE ADVANTAGE MEDICARE [facility] Address: [address] [address] [place] [address] [facility] MEDICARE ADVANTAGE Care Teams Superintendent Compressor Stations Relationship Specialty Start Date End Date Fernando Sherman DO [address] [place] [address] PCP - General Internal Medicine 01/10/24 Real Díaz PA [address] [place] [address] Physician Bundle Tier And Labeler Physician Bundle Tier And Labeler 03/19/21
--- OUTSIDE RECORDS SUMMARY | 2025-01-03 13:19 | XMS_ITS | Clinical Summary ---
Author Organization [facility] Address [address], [facility] 1 [place] [address] Phone Care Team Providers Care Airplane Tester Name Role Phone Salo Marte DO Primary Care Provider Donato May DO Unavailable [phone] Ben RodCuleln Unavailable [phone] Allergies Active Allergy Reactions Criticality Noted [...] Immunization (50+ years) (2 of 2 - PCV20 or PCV21) 04/10/2016 04/10/2015 Respiratory Syncytial Virus (RSV) Immunization (Adult) (1 - Risk 60-74 years 1-dose series) 2022 SARS-COV-2 Immunization ( - season) 2024 11/03/2021, 06/23/2021, 12/19/2020, Additional history [...] Recently Relevant to Health Maintenance Results * HM COLONOSCOPY (04/13/2005) us Not On File Provider PROCEDURE/MINOR SURGICAL OR DERABLES Final Result from Last 3 Months or Most Recently Relevant to Health Maintenance Insurance [place] Care Teams Airplane Tester Relationship Specialty Start Date End Date Salo Marte DO [address] [place], [place] [phone] PCP - General Internal Medicine 06/19/15 Donato May DO [address] [place] [address] Gastroenterology 06/19/15 Ben Rod [address] [place] [address] [phone] (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
--- OUTSIDE RECORDS SUMMARY | 2025-01-03 13:19 | XMS_ITS | Encounter Summary ---
Author Organization [facility] Healthcare Address [address] [place] [address] Care Team Providers Care Supervisor Locomotive Name Role Phone Salo Marte MD Primary Care Provider [phone] Real Díaz Unavailable [phone] Fernando Sherman DO Primary Care Provider [phone] Encounter Details Date Type Department Care Team (Late st Contact Info) Description 07/12/2020 Telephone [facility] [address] [place] [address] Bashir Diaz, RT Social History Tobacco Use Types Packs/Day Years Used Date Smoking Tobacco: Former Smokeless Tobacco: Never Alcohol Use Standard Drinks/Week Comments No 0 (1 standard drink = 0.6 oz pur e alcohol) Comments Unknown Sex and Gender Information Value Date Recorded Sex Assigned at Not on file Legal Sex Female 2:24 AM PRECISION AGRONOMIST Gender Identity Not on file Sexual Orientation Not on file documented as of this encounter Plan of Treatment Not on file documented as of this encounter Visit Diagnoses Not on filedocumented in this encounter Care Teams Supervisor Locomotive Relationship Specialty Start Date End Date Salo Marte MD [address] [place], [place] [id number] PCP - General 07/31/16 01/09/24 Fernando Sherman DO [address] [place] [address] PCP - General Internal Medicine 01/10/24 Real Díaz PA [address] [facility] [address] [address] Physician Compress Trucker Physician Compress Trucker 03/19/21 documented as of this encounter
[2025-01-03 14:28] LABS: Albumin Level 4.2 g/dL (3.5-5.1); Anion Gap 9 mmol/L (4-12); Blood Urea Nitrogen 24 mg/dL (7-17); Calcium 9.1 mg/dL (8.4-10.2); Carbon Dioxide 21 mmol/L (22-30); Chloride 106 mmol/L (98-107); Estimated Glomerular Filt Rate > 60; Glucose 141 mg/dL (65-110); Potassium 3.9 mmol/L (3.4-5.0); Sodium 136 mmol/L (137-145)
[2025-01-03 15:06] LABS: Total Protein Urine Random 7 mg/dL; Ur Ttl Prot Creatinine Ratio 0.07 mg/mg (0-0.20)
== END 2025-01-03 13:18 | disposition home or self-care (01) ==
PROVIDERS: PCP Internal Medicine; Visit Provider Internal Medicine Nephrology
DX: E11.22 Type 2 diabetes mellitus with diabetic chronic kidney disease (principal); I12.9 Hypertensive chronic kidney disease with stage 1 through stage 4 chronic kidney disease, or unspecified chronic kidney disease; N18.31 Chronic kidney disease, stage 3a
CPT/HCPCS: 36415; 80069; 82570; 84156

== ENCOUNTER 2025-01-05 13:57 | Outpatient (NON) | payer MEDICARE, MEDICAID, SELFPAY ==
--- OUTSIDE RECORDS SUMMARY | 2025-01-05 14:00 | XMS_ITS | Clinical Summary ---
Author Organization [facility] Address [address] [place] [address] Care Team Providers Care Planning Technician Name Role Phone Real Díaz Unavailable [phone] Fernando Sherman DO Primary Care Provider [phone] Allergies Active Allergy Reactions Criticality Noted Date [...] therapy. Simvastatin Unknown 05/23/2013 Closed throat up. Kcmunca-Sfn-Uqk Reductase Inhibitors Unknown 05/23/2013 Sulfa (Sulfonamide Antibiotics) [...] DAY 240 tablet 5 12/29/19 25 Discontin ued([facility]) Hospital, Clinic, or Other Facility Administered Medication [...] PLAN - will reach to the patient's instrumentation supervisor (Dr. Livan Jang / [phone]) to see if they can help getting [...] Description 12/20/2024 2:00 PM CDT Office Visit [facility] Orthopaedic Surgery [address] [facility] [address] Office [address] [place] [phone] Eleuterio Wiggins MD Chronic pain syndrome (Primary Dx); Myofascial pain 12/07/2024 2:30 PM CDT Office Visit [facility] Medical [facility] Cardiology [address] [place] [address] [place] [phone] Amari Manuel MD Lipid screening (Primary Dx); Other chest pain; Exertional dyspnea 12/04/2024 1:00 PM CDT Office Visit [facility] Orthopaedic Surgery [address] [place] [address] 6th [place] [address] [place] [phone] Eleuterio Wiggins MD Myofascial pain (Primary Dx) 11/29/2024 Telephone [facility] Cardiology [address] [place] [phone] Amari Manuel MD 10/23/2024 2:20 PM CDT Office Visit [facility] Orthopaedic Surgery [address] [place] [address] 6th [place] [address] [place] [phone] Eleuterio Wiggins MD Trochanteric bursitis of both hips (Primary Dx) 10/18/2024 Telephone [facility] Department of Hepatobiliary, Pancreatic, & Gastrointestinal Surgery [facility] 12th Floor, [place] [phone] Malena Felton PA 10/18/2024 Telephone [facility] Surgery [address] [facility] Floor 8 [place] [phone] Kathleen Juan MD from Last 3 Months [...] Jenaro Mainor hodgson. Learning disabilities Son Jenaro iRberajer hodgson . Relation Name Status Comments aPul Guillory Father Allen Garrison Maternal Grandfather Edinson [...] on file Legal Sex Female 2:24 AM SOFTWARE INTEGRATION DEVELOPER Gender Identity Not on file Sexual Orientation [...] Plan Chronic Care Management Worsening( 10:43 AM SOFTWARE INTEGRATION DEVELOPER) No Asya Tran, RN Note: Problem: Chronic Pain Goals: 1. Minimize further functional decline 2. Maximize quality of life 3. Control pain Strategies: - Activity/exercise program recommendation - Conservative stepwise pain medicine strategy with multi-disciplinary approach - Recommend healthy lifestyle strategies and compensatory methods as needed Medical Devices Implanted Type Area Sea Captain Device Identifier Shelf Expiration Date Model / Serial / Lot José Miguel In Abdomen Abdomen Procedures Procedure Name Priority Date/Time Associated Diagnosis Comments OK INJECTION SINGLE/AIR BRAKE MECHANIC TRIGGER POINT 1/2 MUSCLES Routine 12/20/2024 2:00 PM CDT Myofascial pain POCT LIPID PANEL Routine 12/07/2024 2:13 PM CDT Lipid screening ELECTROCARDIOGRAM REPORT Routine 12/07/2024 Other chest pain OK INJECTION SINGLE/AIR BRAKE MECHANIC TRIGGER POINT 1/2 MUSCLES Routine 12/04/2024 1:00 PM CDT Myofascial pain OK ARTHROCENTESIS ASPIR&/INJ MAJOR JT/BURSA W/O US Routine 10/23/2024 2:20 PM CDT Trochanteric bursitis of both hips from Last 3 Months Results * OK INJECTION SINGLE/AIR BRAKE MECHANIC TRIGGER POINT 1/2 MUSCLES (12/20/2024 2:00 PM [...] ORDERABLES Edited R esult - Final * OK INJECTION SINGLE/AIR BRAKE MECHANIC TRIGGER POINT 1/2 MUSCLES (12/04/2024 1:00 PM [...] IN CLINIC/BEDSIDE ORDERABLE S Final Result * [place] ARTHROCENTESIS ASPIR&/INJ MAJOR JT/BURSA W/O US (10/23/2024 [...] Final Result from Last 3 Months Insurance [facility] [place] [address] [facility] MEDICARE ADVANTAGE MEDICARE [facility] MEDICARE ADVANTAGE Care Teams Planning Technician Relationship Specialty Start Date End Date Fernando Sherman DO [address] [place] [address] PCP - General Internal Medicine 01/10/24 Real Díaz PA [address] [place] [address] Physician Project Landscape Architect Physician Project Landscape Architect 03/19/21
--- OUTSIDE RECORDS SUMMARY | 2025-01-05 14:00 | XMS_ITS | Clinical Summary ---
Author Organization [facility] Address [address], [facility] 1 [place] [address] Phone Care Team Providers Care Health Service Worker Name Role Phone Salo Marte DO Primary Care Provider [phone] Donato May DO Unavailable [phone] Ben RodCullen Unavailable [phone] Allergies Active [...] [place] Care Teams Health Service Worker Relationship Specialty Start Date End Date Salo Marte DO [address] [place], [place] [phone] PCP - General Internal Medicine 06/19/15 Donato May DO [address] [place] [address] Gastroenterology 06/19/15 Ben Rod [address] [place] [phone] (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
--- OUTSIDE RECORDS SUMMARY | 2025-01-05 14:00 | XMS_ITS | Encounter Summary ---
Author Organization [facility] Healthcare Address [address] [place] [address] Care Team Providers Care Driller Portable Name Role Phone Salo Marte MD Primary Care Provider + [phone] Real Díaz Unavailable [phone] Fernando Sherman DO Primary Care Provider [phone] Encounter Details Date Type Department Care Team (Late st Contact Info) Description 07/12/[address] [facility] [address] [place] [address] Bashir Diaz, RT Social History Tobacco Use Types Packs/Day Years Used Date Smoking Tobacco: Former Smokeless Tobacco: Never Alcohol Use Standard Drinks/Week Comments No 0 (1 standard drink = 0.6 oz pur e alcohol) Comments Unknown Sex and Gender Information Value Date Recorded Sex Assigned at Not on file Legal Sex Female 2:24 AM ADULT FAMILY HOME PROGRAM MANAGER Gender Identity Not on file Sexual Orientation Not on file documented as of this encounter Plan of Treatment Not on file documented as of this encounter Visit Diagnoses Not on filedocumented in this encounter Care Teams Driller Portable Relationship Specialty Start Date End Date Salo Marte MD [address] [place], [place] [phone] PCP - General 07/31/16 01/09/24 Fernando Sherman DO [address] [place] [address] PCP - General Internal Medicine 01/10/24 Real Díaz PA [address] [facility] [address] [address] Physician Coke Oven Patcher Physician Coke Oven Patcher 03/19/21 documented as of this encounter
[2025-01-05 15:29] LABS: Creatinine 24 Hour Urine 0.8 gm/24 (0.8-1.8); Total Volume 24 Hour Urine 2700 ml
[2025-01-07 09:07] LABS: Calcium, Urine 1.9 mg/dL (Not Estab.)
== END 2025-01-05 13:58 | disposition home or self-care (01) ==
PROVIDERS: PCP Internal Medicine; Visit Provider Nurse Practitioner Family
DX: M85.80 Other specified disorders of bone density and structure, unspecified site (principal)
CPT/HCPCS: 81050; 82340; 82570

== ENCOUNTER 2025-01-31 12:00 | Outpatient (CLI) | payer MEDICARE, MEDICAID, SELFPAY ==
[2025-01-31 12:15] LABS: Hematocrit 40.4 % (37.0-47.0); Hemoglobin 13.4 g/dL (12.0-15.0); Immature Granulocyte Percent A 0.3 % (0-0.5); Lymphocytes Absolute Auto 1.79 K/mm3 (0.9-3.2); Mean Corpuscular HGB Conc 33.2 g/dl (32-36); Mean Corpuscular Hemoglobin 32.3 pg (26-34); Mean Corpuscular Volume 97.3 fl (80-100); Nucleated Red Blood Cells Absolute Auto 0.000 K/mm3 (0.0-0.012); Nucleated Red Blood Cells Perc 0.0 % (0.0-0.2); Platelet Count Result 271 k/mm3 (150-375); Red Blood Count 4.15 M/mm3 (4.2-5.4); White Blood Count 9.0 K/mm3 (4.5-10.0)
--- OUTSIDE RECORDS SUMMARY | 2025-01-31 12:56 | XMS_ITS | Clinical Summary ---
Author Organization [facility] Address [address] [place] [address] Care Team Providers Care Geographic Information Scientist Name Role Phone Real Díaz Unavailable [phone] Fernando Sherman DO Primary Care Provider [phone] Allergies Active Allergy Reactions Criticality Noted Date [...] therapy. Simvastatin Unknown 05/23/2013 Closed throat up. Cyttxdn-Kzo-Gqq Reductase Inhibitors Unknown 05/23/2013 Sulfa (Sulfonamide Antibiotics) [...] (0.5 mg total) by mouth nightly Active travoprost (TRAVATAN Z) 0.004 % drops [...] pain MAX 8 A DAY 240 tablet 01/24/20 25 Discontin ued([facility]) Hospital, Clinic, or Other Facility Administered Medication Ordered Dose Route Frequency Start Date End Date Status lidocaine (XYLOCAINE) 10 mg/mL (1 %) injection 4 mLIndications:Admini stration of Local Anesthesia 4 mL One-Time Injection 01/15/2025 01/15/2025 Ended triamcinolone (KENALOG) 40 mg/mL injection 40 mgIndications:Myofas cial pain 40 mg IM One-Time Injection 01/15/2025 [...] PLAN - will reach to the patient's trampoline team coach (Dr. Livan Jang / [phone]) to see if they can help getting [...] Description 01/15/2025 1:00 PM CDT Office Visit [facility] Orthopaedic Surgery [address] [facility] 6th [place] [address] [place] [address] Eleuterio Wiggins MD Myofascial pain (Primary Dx) 12/20/2024 2:00 PM CDT Office Visit [facility] Orthopaedic Surgery [address] [facility] Medical Office Building [address] [place] [phone] Eleuterio Wiggins MD Chronic pain syndrome (Primary Dx); Myofascial pain 12/07/2024 2:30 PM CDT Office Visit [facility] Medical [facility] Cardiology [address] [place] [address] [place] [phone] Amari Manuel MD Lipid screening (Primary Dx); Other chest pain; Exertional dyspnea 12/04/2024 1:00 PM CDT Office Visit [facility] Orthopaedic Surgery [address] [place] [address] 6th [place] [address] [place] [phone] Eleuterio Wiggins MD Myofascial pain (Primary Dx) 11/29/2024 Telephone [facility] Cardiology [address] [place] [address] [place] [phone] Amari Manuel MD from Last 3 Months Surgical History [...] Hayward jr . 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 ASSISTANT Gender Identity Not on file Sexual [...] Well Visit/Exam 18-64 1980 eGFR 08/19/2022 08/19/2021 Pneumococcal vaccine <65 (4 of 4 - PCV20 or PCV21) 04/03/2024 04/03/2019, 04/11/2015, 04/10/2015 Covid-19 Vaccine (6 - 2024-2 6 season) 2025 03/10/2023, 11/03/2021, 06/23/2021, Additional history exists Influenza Vaccine (#1) 2025 , 02/11/2023, 06/22/2022, Additional history exists Lipid Panel 12/07/2025 12/07/2024, 12/2 07/2020, 02/09/2019, Additional history exists DTaP/Tdap/Td Vaccine (3 - Td or Tdap) 02/11/2033 02/11/2023, 04/11/2019 Hepatitis B Screening Completed 01/06/2013 , 08/06/2012, 07/09/2012 Zoster Vaccine Completed 06/26/2020, 03/23/2020 Goals Goal Patient Goal Type Associated Problems Recent Progress Patient-Stated? Author CCM Chronic Pain Care Plan Chronic Care Management Worsening( 10:43 AM DATA ANALYSIS ASSISTANT) Asya Aparicio, RN Note: Problem: Chronic Pain Goals: 1. Minimize further functional decline 2. Maximize quality of life 3. Control pain Strategies: - Activity/exercise program recommendation - Conservative stepwise pain medicine strategy with multi-disciplinary approach - Recommend healthy lifestyle strategies and compensatory methods as needed Medical Devices Implanted Type Area Ecological Risk Assessor Device Identifier Shelf Expiration Date Model / Serial / Lot José Miguel In Abdomen Abdomen Procedures Procedure Name Priority Date/Time Associated Diagnosis Comments NV INJECTION SINGLE/FIRE SUPERVISOR TRIGGER POINT 1/2 MUSCLES Routine 01/15/2025 1:00 PM CDT Myofascial pain NV INJECTION SINGLE/FIRE SUPERVISOR TRIGGER POINT 1/2 MUSCLES Routine 12/20/2024 2:00 PM CDT Myofascial pain POCT LIPID PANEL Routine 12/07/2024 2:13 PM CDT Lipid screening ELECTROCARDIOGRAM REPORT Routine 12/07/2024 Other chest pain NV INJECTION SINGLE/FIRE SUPERVISOR TRIGGER POINT 1/2 MUSCLES Routine 12/04/2024 1:00 PM CDT Myofascial pain EGFR Routine 08/19/2021 1:31 PM CDT Non-healing surgical wound, subsequent encounter from Last 3 Months or Most Recently Relevant to Health Maintenance Results * NV INJECTION SINGLE/FIRE SUPERVISOR TRIGGER POINT 1/2 MUSCLES (01/15/2025 1:00 PM CDT) Narrative Eleuterio Wiggins MD - 01/15/2025 1:00 PM CDT Eleuterio Wiggins MD 01/16/2025 4:56 PM Trigger Point Injection Performed by: Eleuterio Wiggins MD Authorized by: Eleuterio Wiggins MD Consent Given by: Patient Location: L upper trapezius and R upper trapezius Ultrasound guidance: No Needle size: 25 G Number of muscles: 1 or 2 Medications: 40 mg triamcinolone 40 mg/mL; 4 mL lidocaine 10 mg/mL (1 %) Eleuterio Wiggins MD IN CLINIC/BEDSIDE ORDERABLE S Final Result * NV INJECTION SINGLE/FIRE SUPERVISOR TRIGGER POINT 1/2 MUSCLES (12/20/2024 2:00 PM [...] ORDERABLES Edited R esult - Final * NV INJECTION SINGLE/FIRE SUPERVISOR TRIGGER POINT 1/2 MUSCLES (12/04/2024 1:00 PM [...] MD LAB BLOOD ORDERABLE S Final Result JUANJOSE LARA [facility] Department [place] [address] from Last 3 Months or Most Recently Relevant to Health Maintenance Insurance IDPA [facility] MEDICARE ADVANTAGE MEDICARE [facility] IDPA [facility] MEDICARE ADVANTAGE Care Teams Geographic Information Scientist Relationship Specialty Start Date End Date Fernando Sherman DO [address] [place] [address] PCP - General Internal Medicine 01/10/24 Real Díaz PA [address] [place] [address] Physician Meat Cutting Teacher Physician Meat Cutting Teacher 03/19/21
--- OUTSIDE RECORDS SUMMARY | 2025-01-31 12:56 | XMS_ITS | Encounter Summary ---
Author Organization [facility] Healthcare Address [address] [place] [address] Care Team Providers Care Pattern Layout Worker Name Role Phone Salo Marte MD Primary Care Provider [phone] Real Díaz Unavailable [phone] Fernando Sherman DO Primary Care Provider [phone] Encounter Details Date Type Department Care Team (Late st Contact Info) Description 07/12/2020 Telephone [facility] [address] [place] [phone] Bashir Diaz, RT Social History Tobacco Use Types Packs/Day Years Used Date Smoking Tobacco: Former Smokeless Tobacco: Never Alcohol Use Standard Drinks/Week Comments No 0 (1 standard drink = 0.6 oz pur e alcohol) Comments Unknown Sex and Gender Information Value Date Recorded Sex Assigned at Not on file Legal Sex 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 Gender Identity Not on file Sexual Orientation Not on file documented as of this encounter Plan of Treatment Not on file documented as of this encounter Visit Diagnoses Not on filedocumented in this encounter Care Teams Pattern Layout Worker Relationship Specialty Start Date End Date Salo Marte MD [address] [facility] [address] [place] [address] PCP - General 07/31/16 01/09/24 Fernando Sherman DO [address] [facility] [address] [place] [address] PCP - General Internal Medicine 01/10/24 Real Díaz PA [address] [facility] [address] [address] Physician Commuter Pilot Physician Commuter Pilot 03/19/21 documented as of this encounter
--- OUTSIDE RECORDS SUMMARY | 2025-01-31 12:56 | XMS_ITS | Clinical Summary ---
Author Organization [facility] Address [address], [facility] 1 [place] [address] Phone Care Team Providers Care System Consultant Name Role Phone Salo Marte DO Primary Care Provider Donato May DO Unavailable [phone] Ben RodCullen Unavailable [phone] Allergies Active [...] MEDIC[place] Care Teams System Consultant Relationship Specialty Start Date End Date Salo Marte DO [address] [place] [address] PCP - General Internal Medicine 06/19/15 Donato May DO [address] [place] [address] Gastroenterology 06/19/15 Ben Rod [address] [place] [address] [phone] (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
== END 2025-01-31 12:01 | disposition home or self-care (01) ==
PROVIDERS: PCP Internal Medicine; Visit Provider Internal Medicine
DX: E78.5 Hyperlipidemia, unspecified (principal)
CPT/HCPCS: 36415; 80053; 85025

== ENCOUNTER 2025-02-01 12:10 | Outpatient (CLI) | payer MEDICARE, MEDICAID, SELFPAY ==
[2025-02-01 12:47] LABS: Alanine Aminotransferase 33 U/L (6-35); Albumin Level 3.9 g/dL (3.5-5.1); Alkaline Phosphatase 84 U/L (38-126); Anion Gap 5 mmol/L (4-12); Aspartate Amino Transferase 30 U/L (14-36); Bilirubin,Total 0.2 mg/dL (0.2-1.3); Blood Urea Nitrogen 24 mg/dL (7-17); Calcium 9.0 mg/dL (8.4-10.2); Carbon Dioxide 27 mmol/L (22-30); Chloride 104 mmol/L (98-107); Estimated Glomerular Filt Rate 60; Glucose 140 mg/dL (65-110); Potassium 4.0 mmol/L (3.4-5.0); Sodium 136 mmol/L (137-145); Total Protein 7.0 g/dL (6.3-8.2)
--- OUTSIDE RECORDS SUMMARY | 2025-02-01 14:00 | XMS_ITS | Clinical Summary ---
Author Organization [facility] Address [address] [place] [address] Care Team Providers Care Managing Jeweler Name Role Phone Real Díaz Unavailable [phone] Fernando Sherman DO Primary Care Provider [phone] Allergies Active Allergy Reactions Criticality Noted Date [...] therapy. Simvastatin Unknown 05/23/2013 Closed throat up. Tizwkrs-Wbe-Zsr Reductase Inhibitors Unknown 05/23/2013 Sulfa (Sulfonamide Antibiotics) [...] A DAY 240 tablet 01/24/20 25 Discontin ued([facility]) Hospital, Clinic, or Other Facility Administered [...] PLAN - will reach to the patient's weather reporter (Dr. Livan Jang / [phone]) to see if they can help getting [...] Description 01/15/2025 1:00 PM CDT Office Visit [facility] Orthopaedic Surgery [address] [facility] 6th [place] [address] [place] [address] Eleuterio Wiggins MD Myofascial pain (Primary Dx) 12/20/2024 2:00 PM CDT Office Visit [facility] Orthopaedic Surgery [address] [facility] Medical Office Building [address] [place] [phone] Eleuterio Wiggins MD Chronic pain syndrome (Primary Dx); Myofascial pain 12/07/2024 2:30 PM CDT Office Visit [facility] Medical [facility] Cardiology [address] [place] [address] [place] [phone] Amari Manuel MD Lipid screening (Primary Dx); Other chest pain; Exertional dyspnea 12/04/2024 1:00 PM CDT Office Visit [facility] Orthopaedic Surgery [address] [place] [address] 6th [place] [address] [place] [phone] Eleuterio Wiggins MD Myofascial pain (Primary Dx) 11/29/2024 Telephone [facility] Cardiology [address] [place] [address] [place] [phone] Amari Manuel MD from Last 3 Months [...] Rolan Depression Mother Loly Rolan Diabetes Mother Olly Rolan Hypertension Mother Loly Rolan Kidney disease [...] on file Legal Sex Female 2:24 AM 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 Minimize further functional decline 2. Maximize quality of life 3. Control pain Strategies: - Activity/exercise program recommendation - Conservative stepwise pain medicine strategy with multi-disciplinary approach - Recommend healthy lifestyle strategies and compensatory methods as needed Medical Devices Implanted Type Area Tandem Mill Roller Device Identifier Shelf Expiration Date Model / Serial / Lot José Miguel In Abdomen Abdomen Procedures Procedure Name Priority Date/Time Associated Diagnosis Comments IN INJECTION SINGLE/WHEEL LOADER OPERATOR TRIGGER POINT 1/2 MUSCLES Routine 01/15/2025 1:00 PM CDT Myofascial pain IN INJECTION SINGLE/WHEEL LOADER OPERATOR TRIGGER POINT 1/2 MUSCLES Routine 12/20/2024 2:00 PM CDT Myofascial pain POCT LIPID PANEL Routine 12/07/2024 2:13 PM CDT Lipid screening ELECTROCARDIOGRAM REPORT Routine 12/07/2024 Other chest pain IN INJECTION SINGLE/WHEEL LOADER OPERATOR TRIGGER POINT 1/2 MUSCLES Routine 12/04/2024 1:00 PM CDT Myofascial pain EGFR Routine 08/19/2021 1:31 PM CDT Non-healing surgical wound, subsequent encounter from Last 3 Months or Most Recently Relevant to Health Maintenance Results * IN INJECTION SINGLE/WHEEL LOADER OPERATOR TRIGGER POINT 1/2 MUSCLES (01/15/2025 1:00 [...] IN CLINIC/BEDSIDE ORDERABLE S Final Result * IN INJECTION SINGLE/WHEEL LOADER OPERATOR TRIGGER POINT 1/2 MUSCLES (12/20/2024 2:00 [...] ORDERABLES Edited R esult - Final * IN INJECTION SINGLE/WHEEL LOADER OPERATOR TRIGGER POINT 1/2 MUSCLES (12/04/2024 1:00 [...] ORDERABLE S Final Result [facility] Department [place] [address] from Last 3 Months or Most Recently Relevant to Health Maintenance Insurance ID[facility] MEDICARE ADVANTAGE [facility] Address: [address] [address] [place] [address] MEDICARE [facility] IDPA [facility] MEDICARE ADVANTAGE [facility] Address: [address] [address] [place] [address] Care Teams Managing Jeweler Relationship Specialty Start Date End Date Fernando Sherman DO [address] [place] [address] PCP - General Internal Medicine 01/10/24 Real Díaz PA [address] [place] [address] Physician Photo Lab Specialist Physician Photo Lab Specialist 03/19/21
--- OUTSIDE RECORDS SUMMARY | 2025-02-01 14:00 | XMS_ITS | Encounter Summary ---
Author Organization [facility] Address [address] [place] [address] Care Team Providers Care Sewer And Drain Technician Name Role Phone Salo Marte MD Primary Care Provider [phone] Real Díaz Unavailable [phone] Fernando Sherman DO Primary Care Provider [phone] Encounter Details Date Type Department Care Team (Late st Contact Info) Description 07/12/2020 Telephone [facility] [address] [place] [address] Bashir Diaz, RT Social History Tobacco Use Types Packs/Day Years Used Date Smoking Tobacco: Former Smokeless Tobacco: Never Alcohol Use Standard Drinks/Week Comments No 0 (1 standard drink = 0.6 oz pur e alcohol) Comments Unknown Sex and Gender Information Value Date Recorded Sex Assigned at Not on file Legal Sex Female 2:24 AM EXECUTIVE DIRECTOR OF NURSING Gender Identity Not on file Sexual Orientation Not on file documented as of this encounter Plan of Treatment Not on file documented as of this encounter Visit Diagnoses Not on filedocumented in this encounter Care Teams Sewer And Drain Technician Relationship Specialty Start Date End Date Salo Marte MD [address] [facility] [address] [place] [address] PCP - General 07/31/16 01/09/24 Fernando Sherman DO [address] [facility] [address] [place] [address] PCP - General Internal Medicine 01/10/24 Real Díaz PA [address] [facility] [address] [address] Physician Marble Cutter Physician Marble Cutter 03/19/21 documented as of this encounter
--- OUTSIDE RECORDS SUMMARY | 2025-02-01 14:00 | XMS_ITS | Clinical Summary ---
Author Organization [facility] Address [address], [facility] 1 [place] [address] Phone Care Team Providers Care History Department Chair Name Role Phone Salo Marte DO Primary Care Provider Donato May DO Unavailable [phone] Ben RodCullen Unavailable [phone] Allergies Active Allergy Reactions Criticality Noted [...] [place] Care Teams History Department Chair Relationship Specialty Start Date End Date Salo Marte DO [address] [place] [address] PCP - General Internal Medicine 06/19/15 Donato May DO [address] [place] [address] Gastroenterology 06/19/15 Ben Rod [address] [place] [address] [phone] (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
== END 2025-02-01 12:11 | disposition home or self-care (01) ==
LOC: ANHLAB 12:11
PROVIDERS: PCP Internal Medicine; Visit Provider Internal Medicine
DX: E78.5 Hyperlipidemia, unspecified (principal)
CPT/HCPCS: 36415; 80053

== ENCOUNTER 2025-03-27 13:00 | Outpatient (RCR) | payer MEDICARE, MEDICAID, SELFPAY | END 2025-04-30 10:06 | disposition home or self-care (01) | LOC: ANHDMC 13:00 | PROVIDERS: PCP Internal Medicine; Visit Provider Nurse Practitioner Family | DX: E11.65 Type 2 diabetes mellitus with hyperglycemia (principal); I12.9 Hypertensive chronic kidney disease with stage 1 through stage 4 chronic kidney disease, or unspecified chronic kidney disease; N18.9 Chronic kidney disease, unspecified; Z71.3 Dietary counseling and surveillance; Z71.89 Other specified counseling | CPT/HCPCS: G0108 ==

== ENCOUNTER 2025-03-30 14:59 | Outpatient (CLI) | payer MEDICARE, MEDICAID, SELFPAY ==
--- OUTSIDE RECORDS SUMMARY | 2025-03-30 15:04 | XMS_ITS | Clinical Summary ---
Author Organization [facility] Address [address], [facility] 1 [place] [address] Phone Care Team Providers Care Blocker Heated Metal Forms Name Role Phone Salo Marte DO Primary Care Provider [phone] Donato May DO Unavailable [phone] Ben RodCullen Unavailable [phone] Allergies Active [...] Cervical Cancer Screening (CCS) 1992 HPV/Cotest 1992 Medicare Initial AWV [id number] 01/23/1996 Cologuard 2007 Immunochemical Fecal Occult Blood 2007 Zoster Immunization (1 of 2) 2012 Colonoscopy 04/13/2015 04/13/2005 Colorectal Cancer Screening 04/13/2015 Pneumococcal Immunization (50+ years) (2 of 2 - PCV20 or PCV21) 04/10/2016 04/10/2015 Respiratory Syncytial Virus (RSV) Immunization (Adult) (1 - Risk 60-74 years 1-dose series) 2022 Influenza Immunization (#1) 01/22/202502/21, 03/04/2016, 04/10/2015, Additional history exists SARS-COV-2 Immunization ( season) 2025 11/03/2021, 06/23/2021, 12/19/2020, Additional history exists Hepatitis B Immunization Completed [...] Procedure Name Priority Date/Time Associated Diagnosis Comments HM COLONOSCOPY Routine 04/13/2005 from Last 3 Months or Most Recently Relevant to Health Maintenance Results * HM COLONOSCOPY (04/13/2005) us Not On File Provider PROCEDURE/MINOR SURGICAL OR DERABLES Final Result from Last 3 Months or Most Recently Relevant to Health Maintenance Insurance [place] Care Teams Blocker Heated Metal Forms Relationship Specialty Start Date End Date Salo Marte DO [address] [place] [address] PCP - General Internal Medicine 06/19/15 Donato May DO [address] [place] [address] Gastroenterology 06/19/15 Ben Rod [address] [place] [address] [phone] (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
--- OUTSIDE RECORDS SUMMARY | 2025-03-30 15:04 | XMS_ITS | Clinical Summary ---
Author Organization [facility] Address [address] [place] [address] Care Team Providers Care Director Franchise Sales Name Role Phone Real Díaz Unavailable [phone] Fernando Sherman DO Primary Care Provider [phone] Allergies Active Allergy Reactions Criticality Noted Date [...] therapy. Simvastatin Unknown 05/23/2013 Closed throat up. Vbnmpdt-Wrj-Isu Reductase Inhibitors Unknown 05/23/2013 Sulfa (Sulfonamide Antibiotics) Ruben-Dur Hives Medium 04/22/2020 My throat closed. Theophylline Anhydrous Unknown 05/23/2013 Valsartan Xanthines Unknown 05/23/2013 Xanthinol Niacinate Unknown 05/23/2013 Medications warfarin (COUMADIN) 4 mg tablet take 1 tablet by oral route every day 0 0 4 Active Additional Information Patient taking differently: 7 mg oral Daily, Reported on 03/26/2025 amLODIPine (NORVASC) 5 mg tablet Take 1 [...] 8 A DAY 240 tablet [address] (CYMBALTA) 30 mg capsule Take 1 capsule (30 mg total) by mouth every morning 5 Active oxyCODONE-acet aminophen (PERCOCET) 10-325 mg per tabletIndicati ons:Pain Take 1-2 tablets by mouth every 6 (six) hours as needed for pain MAX 8 A DAY 240 tablet 5 03/20/20 25 Discontin u([facility]) [facility], Clinic, or Other Facility Administered Medication Ordered Dose Route Frequency Start Date End Date Status lidocaine (XYLOCAINE) 10 mg/mL (1 %) injection 4 mLIndications:Admini stration of Local Anesthesia 4 mL One-Time Injection 03/26/2025 5 Ended triamcinolone (KENALOG) 40 mg/mL injection 40 mgIndications:Primar y osteoarthritis of left knee 40 mg intra-artic One-Time Injection 03/26/2025 5 Ended Active Problems Problem Noted Date Diagnosed [...] PLAN - will reach to the patient's station cook (Dr. Livan Jang / [phone]) to see if they can help getting a skin biopsy for sarah-path + mycobacterial, and fungal cultures. - CMP, CBC, CRP today. - no empirical antimicrobial therapy at this time. RTC in 6 weeks. Breast abscess 12/26/2020 Morbid obesity with BMI of 40.0-44.9, adult 01/22 Exertional dyspnea 10/26/2017 Other chest pain 10/26/2017 Encounters Date Type Department Care Team Description 03/26/2025 1:20 PM CONTACT LENS MOLDER Office Visit [facility] Orthopaedic Surgery [address] [place] [address] [place] [address] Eleuterio Wiggins MD Primary osteoarthritis of left knee (Primary Dx) 02/26/2025 1:40 PM CDT Office Visit [facility] Orthopaedic Surgery [address] [place] [address] [place] [address] [place] [address] Eleuterio Wiggins MD Trochanteric bursitis of both hips (Primary Dx); Chronic pain syndrome; Lumbar spondylosis; Hereditary and idiopathic peripheral neuropathy; Low back pain, unspecified back pain laterality, unspecified chronicity, unspecified whether sciatica present 01/15/2025 1:00 PM CDT Office Visit [facility] Orthopaedic Surgery [address] [place] [address] [place] [address] [place] [address] Eleuterio Wiggins MD Myofascial pain (Primary Dx) [...] HERNIA REPAIR Two stomach repairs JOINT REPLACEMENT 2018? Right Knee replacement INSERT / REPLACE / REMOVE PACEMAKER Medical History Medical History Date Comments Hypertension Hypothyroidism Generalized headaches Cervical cancer (HCC) Chronic back pain DVT (deep venous thrombosis) GERD (gastroesophageal reflux disease) 2014 Anxiety Arthritis Asthma Osteoporosis Clotting disorder Depression 1995 Diabetes mellitus 2019 ? Glaucoma Sleep apnea Knee pain, [...] file Legal Sex Female 2:24 AM CONTACT LENS MOLDER Gender Identity Not on file Sexual Orientation [...] Additional history exists Lipid Panel 12/07/2025 12/07/2024, 04/24, 02/09/2019, Additional history exists DTaP/Tdap/Td Vaccine (3 - Td or Tdap) 02/11/2033 02/11/2023, 04/11/2019 Hepatitis B Screening Completed 01/06/2013 , 08/06/2012, 07/09/2012 Zoster Vaccine Completed 06/26/2020, 03/23/2020 Goals Goal Patient Goal Type Associated Problems Recent Progress Patient-Stated? Author CCM Chronic Pain Care Plan Chronic Care Management Worsening( 10:43 AM CONTACT LENS MOLDER) Asya Aparicio, RN Note: Problem: Chronic Pain Goals: 1. Minimize further functional decline 2. Maximize quality of life 3. Control pain Strategies: - Activity/exercise program recommendation - Conservative stepwise pain medicine strategy with multi-disciplinary approach - Recommend healthy lifestyle strategies and compensatory methods as needed Medical Devices Implanted Type Area Internet Security Specialist Device Identifier Shelf Expiration Date Model / Serial / Lot José Miguel In Abdomen Abdomen Procedures Procedure Name Priority Date/Time Associated Diagnosis Comments RI ARTHROCENTESIS ASPIR&/INJ MAJOR JT/BURSA W/O US Routine 03/26/2025 1:20 PM CONTACT LENS MOLDER Primary osteoarthritis of left knee DRUGS OF ABUSE SCREEN, URINE WITHOUT CONFIRMATION Routine 03/15/2025 2:47 PM CDT Chronic pain syndrome Lumbar spondylosis Hereditary and idiopathic peripheral neuropathy Low back pain, unspecified back pain laterality, unspecified chronicity, unspecified whether sciatica present RI ARTHROCENTESIS ASPIR&/INJ MAJOR JT/BURSA W/O US Routine 02/26/2025 1:40 PM CDT Trochanteric bursitis of both hips RI INJECTION SINGLE/VACUUM DRIER OPERATOR TRIGGER POINT 1/2 MUSCLES Routine 01/15/2025 1:00 PM CDT Myofascial pain POCT LIPID PANEL Routine 12/07/2024 2:13 PM CDT Lipid screening EGFR Routine 08/19/2021 1:31 PM CDT Non-healing surgical wound, subsequent encounter from Last 3 Months or Most Recently Relevant to Health Maintenance Results * RI ARTHROCENTESIS ASPIR&/INJ MAJOR JT/BURSA W/O US (03/26/2025 1:20 PM CONTACT LENS MOLDER) Narrative Eleuterio Wiggins MD - 03/26/2025 1:20 PM CONTACT LENS MOLDER Eleuterio Wiggins MD 03/27/2025 9:40 AM Large Joint Injection: L knee Performed by: Eleuterio Wiggins MD Authorized by: Eleuterio Wiggins MD Large Joint Injection/Aspiration: Consent Given by: Patient Procedure Details: Location: Knee Site: L knee Needle Size: 25 G Approach: Anterolateral Ultrasound guided: No Fluroscopic guidance: No Medications: 4 mL lidocaine 10 mg/mL (1 %); 40 mg triamcinolone 40 mg/mL Result [facility] Eleuterio Wiggins MD IN CLINIC/BEDSIDE ORDERABLE S Final Result * Drugs of Abuse Screen, Urine without Confirmation (03/15/2025 2:47 PM CDT) Urine Eleuterio Wiggins MD LAB URINE ORDERABLES Final Result EXTERNAL LAB * RI ARTHROCENTESIS ASPIR&/INJ MAJOR JT/BURSA W/O US (02/26/2025 1:40 PM CDT) Narrative Eleuterio Wiggins MD - 02/26/2025 1:40 PM CDT Eleuterio Wiggins MD 02/27/2025 6:44 PM Greater trochanteric bursa injection Performed by: Eleuterio Wiggins MD Authorized by: Eleuterio Wiggins MD Greater Trochanteric Bursa Injection: Consent Given by: Patient Verbal consent obtained?: Yes Prior to the start of the procedure, verbal verification by the procedure participant(s) confirmed (as applicable): corect patient idenity; correct site/side marked and visible; agreement on the procedure to be done; correct patient positioning; an accurate procedure consent form, relevant images and results correctly labeled and displayed; any safety precautions based on clinical history and/or medication use have been addressed.: Procedure Details: Site: Bilateral Greater Trochanteric Bursa Patient position: Sidelying Needle Size: 25 G Ultrasound guidance: No Medictions Right Greater Trochanteric Bursa Injection: 4 mL lidocaine 10 mg/mL (1 %); 40 mg triamcinolone 40 mg/mL Medications Left Greater Trochanteric Bursa Injection: 4 mL lidocaine 10 mg/mL (1 %); 40 mg triamcinolone 40 mg/mL Result [facility] Eleuterio Wiggins MD IN CLINIC/BEDSIDE ORDERABLE S Final Result * RI INJECTION SINGLE/VACUUM DRIER OPERATOR TRIGGER POINT 1/2 MUSCLES (01/15/2025 1:00 PM CDT) Narrative Eleuterio Wiggins MD - 01/15/2025 1:00 PM CDT lEeuterio Wiggins MD 01/16/2025 4:56 PM Trigger Point [...] CARE TEST ORDER RYAN Final Result * (ABNORMAL) eGFR (08/19/2021 1:31 PM CDT) eGFR 61(L) 90 - 130 mL/min/1. 73 m2 [facility] Comment: Interpretive Data Reference Interval Normal >/= [...] LAB BLOOD ORDERABLE S Final Result [facility] [place] [address] from Last 3 Months or Most Recently Relevant to Health Maintenance Insurance [facility] MEDICARE ADVANTAGE MEDICARE [facility] MEDICARE ADVANTAGE Care Teams Director Franchise Sales Relationship Specialty Start Date End Date Fernando Sherman DO [address] [facility] [address] [place] [address] PCP - General Internal Medicine 01/10/24 Real Díaz PA [address] [facility] [address] [place] [address] Physician Neuroscientist Physician Neuroscientist 03/19/21
--- OUTSIDE RECORDS SUMMARY | 2025-03-30 15:04 | XMS_ITS | Encounter Summary ---
Author Organization [facility] Healthcare Address [address] [place] [address] Care Team Providers Care Parks Worker Name Role Phone Salo Marte MD Primary Care Provider [phone] Real Díaz Unavailable [phone] Fernando Sherman DO Primary Care Provider [phone] Encounter Details Date Type Department Care Team (Late st Contact Info) Description 07/12/2020 Telephone [facility] [address] [place] [address] Bashir Diaz, RT Social History Tobacco Use Types Packs/Day Years Used Date Smoking Tobacco: Former Smokeless Tobacco: Never Alcohol Use Standard Drinks/Week Comments No 0 (1 standard drink = 0.6 oz pur e alcohol) Comments Unknown Sex and Gender Information Value Date Recorded Sex Assigned at Not on file Legal Sex Female 2:24 AM PARTS MANAGER Gender Identity Not on file Sexual Orientation Not on file documented as of this encounter Plan of Treatment Not on file documented as of this encounter Visit Diagnoses Not on filedocumented in this encounter Care Teams Parks Worker Relationship Specialty Start Date End Date Salo Marte MD [address] [facility] [address] [place], [place] [id number] PCP - General 07/31/16 01/09/24 Fernando Sherman DO [address] [facility] [address] [place] [address] PCP - General Internal Medicine 01/10/24 Real Díaz PA [address] [facility] [address] [address] Physician Brake Repair Mechanic Physician Brake Repair Mechanic 03/19/21 documented as of this encounter
[2025-03-30 16:09] LABS: Hematocrit 45.9 % (37.0-47.0); Hemoglobin 15.1 g/dL (12.0-15.0); Immature Granulocyte Percent A 0.5 % (0-0.5); Lymphocytes Absolute Auto 2.09 K/mm3 (0.9-3.2); Mean Corpuscular HGB Conc 32.9 g/dl (32-36); Mean Corpuscular Hemoglobin 32.5 pg (26-34); Mean Corpuscular Volume 98.9 fl (80-100); Nucleated Red Blood Cells Absolute Auto 0.000 K/mm3 (0.0-0.012); Nucleated Red Blood Cells Perc 0.0 % (0.0-0.2); Platelet Count Result 348 k/mm3 (150-375); Red Blood Count 4.64 M/mm3 (4.2-5.4); White Blood Count 12.1 K/mm3 (4.5-10.0)
[2025-03-30 16:23] LABS: Alanine Aminotransferase 61 U/L (6-35); Albumin Level 4.4 g/dL (3.5-5.1); Alkaline Phosphatase 92 U/L (38-126); Anion Gap 8 mmol/L (4-12); Aspartate Amino Transferase 39 U/L (14-36); Bilirubin,Total 0.3 mg/dL (0.2-1.3); Blood Urea Nitrogen 29 mg/dL (7-17); CRP < 0.5 mg/dL (<1.0); Calcium 9.2 mg/dL (8.4-10.2); Carbon Dioxide 26 mmol/L (22-30); Chloride 102 mmol/L (98-107); Estimated Glomerular Filt Rate 54; Glucose 125 mg/dL (65-110); Potassium 3.9 mmol/L (3.4-5.0); Sodium 136 mmol/L (137-145); Total Protein 8.1 g/dL (6.3-8.2); Uric Acid 4.8 mg/dL (2.5-7.5)
== END 2025-03-30 15:00 | disposition home or self-care (01) ==
PROVIDERS: PCP Internal Medicine; Visit Provider Nurse Practitioner Family
DX: M19.90 Unspecified osteoarthritis, unspecified site (principal); Z79.899 Other long term (current) drug therapy; E55.9 Vitamin D deficiency, unspecified; M10.9 Gout, unspecified
CPT/HCPCS: 36415; 80053; 82306; 84550; 85025; 85652; 86140

== ENCOUNTER 2025-04-18 11:56 | Outpatient (RCR) | payer MEDICARE, OTHER, SELFPAY ==
--- OUTSIDE RECORDS SUMMARY | 2025-01-19 10:49 | XMS_ITS | Encounter Summary ---
Author Organization [facility] Healthcare Address [address] [place] [address] Care Team Providers Care Block Bolter Mule Operator Name Role Phone Salo Marte MD Primary Care Provider + [phone] Real Díaz Unavailable [phone] Fernando Sherman DO Primary Care Provider [phone] Encounter Details Date Type Department Care Team (Late st Contact Info) Description 07/12/[address] [facility] [address] [place] [address] Bashir Diaz, RT Social History Tobacco Use Types Packs/Day Years Used Date Smoking Tobacco: Former Smokeless Tobacco: Never Alcohol Use Standard Drinks/Week Comments No 0 (1 standard drink = 0.6 oz pur e alcohol) Comments Unknown Sex and Gender Information Value Date Recorded Sex Assigned at Not on file Legal Sex Female 2:24 AM OPERATIONS TECH Gender Identity Not on file Sexual Orientation Not on file documented as of this encounter Plan of Treatment Not on file documented as of this encounter Visit Diagnoses Not on filedocumented in this encounter Care Teams Block Bolter Mule Operator Relationship Specialty Start Date End Date Salo Marte MD [address] [place], [place] [phone] PCP - General 07/31/16 01/09/24 Fernando Sherman DO [address] [place] [address] PCP - General Internal Medicine 01/10/24 Real Díaz PA [address] [facility] [address] [address] Physician Fleshing Machine Operator Physician Fleshing Machine Operator 03/19/21 documented as of this encounter
--- OUTSIDE RECORDS SUMMARY | 2025-01-19 10:49 | XMS_ITS | Clinical Summary ---
Author Organization [facility] Address [address] [place] [address] Care Team Providers Care Advertising Associate Name Role Phone Real Díaz Unavailable [phone] Fernando Sherman DO Primary Care Provider [phone] Allergies Active Allergy Reactions Criticality Noted Date [...] therapy. Simvastatin Unknown 05/23/2013 Closed throat up. Bzzorqt-Kyd-Lsu Reductase Inhibitors Unknown 05/23/2013 Sulfa (Sulfonamide Antibiotics) Ruben-Dur Hives Medium 04/22/2020 My throat closed. Theophylline Anhydrous Unknown 05/23/2013 Valsartan Xanthines Unknown 05/23/2013 Xanthinol Niacinate Unknown 05/23/2013 Medications warfarin (COUMADIN) 4 mg tablet take 1 tablet by oral route every day 0 0 4 Active Additional Information Patient taking differently: 5 mg oral Daily, Reported on 01/15/2025 amLODIPine (NORVASC) 5 mg tablet Take 1 [...] 8 A DAY 240 tablet 5 Active travoprost (TRAVATAN Z) 0.004 % drops INSTILL 1 DROP IN BOTH EYES AT BEDTIME 5 Active oxyCODONE-acet aminophen (PERCOCET) 10-325 mg per tabletIndicati ons:Pain Take 1-2 tablets by mouth every 6 (six) hours as needed for pain MAX 8 A DAY 240 tablet 12/29/19 25 Discontin ued([facility] Hospital, Clinic, or Other Facility Administered Medication Ordered Dose Route Frequency Start Date End Date Status lidocaine (XYLOCAINE) 10 mg/mL (1 %) injection 4 mLIndications:Admi nistration of Local Anesthesia 4 mL One-Time Injection 12/20/2024 12/20/2024 Ended triamcinolone (KENALOG) 40 mg/mL injection 40 mgIndications:Myof ascial pain 40 mg intra-artic One-Time Injection 12/20/2024 12/20/2024 Ended lidocaine (XYLOCAINE) 10 mg/mL (1 %) injection 4 mLIndications:Admi nistration of Local Anesthesia 4 mL One-Time Injection 01/15/2025 01/15/2025 Ended triamcinolone (KENALOG) 40 mg/mL injection 40 mgIndications:Myof ascial pain 40 mg IM One-Time Injection 01/15/2025 01/15/2025 Ended Active Problems Problem Noted Date Diagnosed [...] PLAN - will reach to the patient's dukey rider (Dr. Livan Jang / [phone]) to see if they can help getting a skin biopsy for sarah-path + mycobacterial, and fungal cultures. - CMP, CBC, CRP today. - no empirical antimicrobial therapy at this time. RTC in 6 weeks. Breast abscess 12/26/2020 Morbid obesity with BMI of 40.0-44.9, adult 01/22 Exertional dyspnea 10/26/2017 Other chest pain 10/26/2017 Encounters Date Type Department Care Team Description 01/15/2025 1:00 PM CDT Office Visit [facility] Orthopaedic Surgery [address] [place] [address] 6th [place] [address] [place] [address] Eleuterio Wiggins MD Myofascial pain (Primary Dx) 12/20/2024 2:00 PM CDT Office Visit [facility] Orthopaedic Surgery [address] [facility] Medical Office Building [address] [place] [phone] Eleuterio Wiggins MD Chronic pain syndrome (Primary Dx); Myofascial pain 12/07/2024 2:30 PM CDT Office Visit [facility] Cardiology [address] [place] [address] [place] [phone] Amari Manuel MD Lipid screening (Primary Dx); Other chest pain; Exertional dyspnea 12/04/2024 1:00 PM CDT Office Visit [facility] Orthopaedic Surgery [address] [place] [address] [place] [address] [place] [address] Eleuterio Wiggins MD Myofascial pain (Primary Dx) 11/29/2024 Telephone [facility] Cardiology [address] [place] [phone] Amari Manuel MD 10/23/2024 2:20 PM CDT Office Visit [facility] Medicine Orthopaedic Surgery [address] [facility] 6th [place] [address] [place] [address] Eleuterio Wiggins MD Trochanteric bursitis of both [...] Medical History Relation Name Comments Depression Paul Gulilory Arthritis Father Allen Garrison Heart attack Father Allen Garrison Kidney disease Father Allen Garrison COPD Maternal Grandfather Edinson Meek Alzheimer's disease Maternal Grandmother Caron Meek Arthritis Maternal Grandmother Vera Fantasma Cervical cancer Maternal Grandmother Vera Preble Arthritis Mother Loly Rolan Blood Clot Mother Loly Rolan brain Cancer Mother Loly Rolan Cervical cancer Mother Loly Rolan Depression Mother Loly Rolan Diabetes Mother Loly Rolan Hypertension Mother Loly Rolan Kidney disease Mother Loly Rolan Memory loss Mother Loly Rolan Mental illness Mother Loly Rolan Obesity Mother Loly Rolan Rashes / Skin problems Mother Loly Rolan Cancer Paternal Grandmother Vera Fantasma Cancer Sister Jamilah Rolan Cervical cancer Sister Jamilah Gongora Developmental delay Son Jenaro Hayward jr. Drug abuse Son Jenaro Hayward jr. Learning disabilities Son Jenaro Hayward jr . Relation Name Status Comments Daughter Tereas Guillory Father Allen Garrison Maternal Grandfather Edinson Meek Maternal Grandmother Vera Preble Mother Loly Rolan Paternal Grandmother Vera Fantasma Sister Jamilah Rolan Son Jenaro Hayward jr. 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 Gender Identity Not on file Sexual [...] Health Maintenance Due Date Last Done Comments Albumin Creatinine Ratio, Urine 1962 Breast Cancer Screening-Mammogram 1962 Colon Cancer Screening-Colonoscopy 1962 Depression Screening 1962 Hemoglobin A1C 1962 Hepatitis C Screening 1962 Dilated Eye Exam 1962 Foot Exam 1962 Regular Well Visit/Exam 18-64 1980 eGFR 08/19/2022 08/19/2021 Covid-19 Vaccine (2023-2 5 season) 2024 03/10/2023, 11/03/2021, 06/23/2021, Additional history exists Pneumococcal vaccine <65 (4 of 4 - PCV20 or PCV21) 04/03/2024 04/03/2019, 04/11/2015, 04/10/2015 Influenza Vaccine (#1) 2025 , 02/11/2023, 06/22/2022, Additional history exists Lipid Panel 12/07/2025 12/07/2024, 12/07/2020, 02/09/2019, Additional history exists DTaP/Tdap/Td Vaccine (3 - Td or Tdap) 02/11/2033 02/11/2023, 04/11/2019 Hepatitis B Screening Completed 01/06/2013 , 08/06/2012, 07/09/2012 Zoster Vaccine Completed 06/26/2020, 03/23/2020 Goals Goal Patient Goal Type Associated Problems Recent Progress Patient-Stated? Author CCM Chronic Pain Care Plan Chronic Care Management Worsening( 10:43 AM UI LEAD DEVELOPER) Asya Aparicio, RN Note: Problem: Chronic Pain Goals: 1. Minimize further functional decline 2. Maximize quality of life 3. Control pain Strategies: - Activity/exercise program recommendation - Conservative stepwise pain medicine strategy with multi-disciplinary approach - Recommend healthy lifestyle strategies and compensatory methods as needed Medical Devices Implanted Type Area Windmill Mechanic Device Identifier Shelf Expiration Date Model / Serial / Lot José Miguel In Abdomen Abdomen Procedures Procedure Name Priority Date/Time Associated Diagnosis Comments MO INJECTION SINGLE/ACOUSTIC SENSOR OPERATOR TRIGGER POINT 1/2 MUSCLES Routine 01/15/2025 1:00 PM CDT Myofascial pain MO INJECTION SINGLE/ACOUSTIC SENSOR OPERATOR TRIGGER POINT 1/2 MUSCLES Routine 12/20/2024 2:00 PM CDT Myofascial pain POCT LIPID PANEL Routine 12/07/2024 2:13 PM CDT Lipid screening ELECTROCARDIOGRAM REPORT Routine 12/07/2024 Other chest pain MO INJECTION SINGLE/ACOUSTIC SENSOR OPERATOR TRIGGER POINT 1/2 MUSCLES Routine 12/04/2024 1:00 PM CDT Myofascial pain MO ARTHROCENTESIS ASPIR&/INJ MAJOR JT/BURSA W/O US Routine 10/23/2024 2:20 PM CDT Trochanteric bursitis of both hips EGFR Routine 08/19/2021 1:31 PM CDT Non-healing surgical wound, subsequent encounter from Last 3 Months or Most Recently Relevant to Health Maintenance Results * MO INJECTION SINGLE/ACOUSTIC SENSOR OPERATOR TRIGGER POINT 1/2 MUSCLES (01/15/2025 1:00 PM CDT) Narrative Eleuterio Wiggins MD - 01/15/2025 1:00 PM CDT Eleuterio Wiggins MD 01/16/2025 4:56 PM Trigger Point Injection Performed by: lEeuterio Wiggins MD Authorized by: Eleuterio Wiggins MD Consent Given by: Patient Location: L upper trapezius and R upper trapezius Ultrasound guidance: No Needle size: 25 G Number of muscles: 1 or 2 Medications: 40 mg triamcinolone 40 mg/mL; 4 mL lidocaine 10 mg/mL (1 %) us Eleuterio Wiggins MD IN CLINIC/BEDSIDE ORDERABLE S Final Result * MO INJECTION SINGLE/ACOUSTIC SENSOR OPERATOR TRIGGER POINT 1/2 MUSCLES (12/20/2024 2:00 PM [...] ORDERABLES Edited R esult - Final * MO INJECTION SINGLE/ACOUSTIC SENSOR OPERATOR TRIGGER POINT 1/2 MUSCLES (12/04/2024 1:00 PM [...] IN CLINIC/BEDSIDE ORDERABLE S Final Result * MO ARTHROCENTESIS ASPIR&/INJ MAJOR JT/BURSA W/O US (10/23/2024 [...] CLINIC/BEDSIDE ORDERABLE S Final Result * (ABNORMAL) eGFR (08/19/2021 1:31 PM CDT) eGFR 61(L) 90 - 130 mL/min/1. 73 m2 JUANJOSE LARA Comment: Interpretive Data Reference Interval Normal >/= 90 mL/min/1.73m2 Mildly decreased* 60 - 89 mL/min/1.73m2 Mildly to moderately decreased 45 - 59 mL/min/1.73m2 Moderately to severely decreased 30 - 44 mL/min/1.73m2 Severely decreased 15 - 29 mL/min/1.73m2 Kidney Failure < 15 mL/min/1.73m2 *Relative to young adult level Estimated glomerular filtration rate is determined by the 2020 CKD-EPI equation recommended by the National Kidney Foundation (A Unifying Approach to GFR Estimation: Recommendations of the NKF-ASK Task Force on Reassessing the Inclusion of Race in Diagnosing Kidney Disease, JASN 2020). The CKD-EPI equation should not be used for patients with unstable renal function and has not been validated in children and those over 70. Current interpretive data was last reviewed 2021. Blood 08/19/2021 1:31 PM CDT 08/19/2021 6:41 PM CDT us Maikol Lombardi MD LAB BLOOD ORDERABLE S Final Result [facility] Department [place] [address] from Last 3 Months or Most Recently Relevant to Health Maintenance Insurance IDPA [facility] MEDICARE ADVANTAGE MEDICARE [facility] IDPA [facility] MEDICARE ADVANTAGE Care Teams Advertising Associate Relationship Specialty Start Date End Date Fernando Sherman DO [address] [place] [address] PCP - General Internal Medicine 01/10/24 Real Díaz PA [address] [place] [address] Physician Testing And Regulating Technician Physician Testing And Regulating Technician 03/19/21
--- OUTSIDE RECORDS SUMMARY | 2025-01-19 10:49 | XMS_ITS | Clinical Summary ---
Author Organization [facility] Address [address], [facility] [address] [place] [address] Phone Care Team Providers Care Route Driver Coin Machines Name Role Phone Salo Marte DO Primary Care Provider Donato May DO Unavailable [phone] Ben RodCullen Unavailable [phone] Allergies Active [...] to Health Maintenance Insurance [place] Care Teams Route Driver Coin Machines Relationship Specialty Start Date End Date Salo Marte DO [address] [place] [address] PCP - General Internal Medicine 06/19/15 Donato May DO [address] [place] [address] Gastroenterology 06/19/15 Ben Rod [address] [place] [address] [phone] (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
[2025-01-19 12:14] LABS: INR 1.4; Prothrombin Time 17.5 Seconds (11.1-14.7)
[2025-01-29 12:56] LABS: INR 1.5; Prothrombin Time 18.4 Seconds (11.1-14.7)
[2025-02-05 14:17] LABS: INR 2.6; Prothrombin Time 26.9 Seconds (11.1-14.7)
[2025-02-20 15:50] LABS: INR 3.3; Prothrombin Time 32.3 Seconds (11.1-14.7)
[2025-03-07 15:07] LABS: INR 3.5; Prothrombin Time 33.8 Seconds (11.1-14.7)
[2025-03-27 16:05] LABS: INR 1.6; Prothrombin Time 18.9 Seconds (11.1-14.7)
[2025-04-18 12:24] LABS: INR 1.6; Prothrombin Time 18.8 Seconds (11.1-14.7)
== END 2025-04-19 23:59 | disposition home or self-care (01) ==
LOC: ANHLAB 11:56
PROVIDERS: PCP Internal Medicine; Visit Provider Internal Medicine
DX: Z51.81 Encounter for therapeutic drug level monitoring (principal); E11.9 Type 2 diabetes mellitus without complications; Z79.01 Long term (current) use of anticoagulants; Z71.89 Other specified counseling
CPT/HCPCS: 36415; 85610; G0108

== ENCOUNTER 2025-04-27 12:51 | Outpatient (CLI) | payer MEDICARE, MEDICAID, SELFPAY ==
--- OUTSIDE RECORDS SUMMARY | 2025-04-27 12:56 | XMS_ITS | Clinical Summary ---
Author Organization [facility] Address [address] [place] [address] Care Team Providers Care Register In Chancery Name Role Phone Real Díaz Unavailable [phone] Fernando Sherman DO Primary Care Provider Allergies Active Allergy Reactions Criticality Noted Date [...] therapy. Simvastatin Unknown 05/23/2013 Closed throat up. Sejaudp-Upb-Cgv Reductase Inhibitors Unknown 05/23/2013 Sulfa (Sulfonamide Antibiotics) [...] IN BOTH EYES AT BEDTIME [address] (CYMBALTA) 30 mg [...] MAX 8 A DAY 240 tablet 5 04/16/20 25 Discontin ued(Reord er) Active Problems Problem Noted Date Diagnosed Date [...] PLAN - will reach to the patient's volunteer services manager (Dr. Livan Jang / [phone]) to see if they can help getting a skin biopsy for sarah-path + mycobacterial, and fungal cultures. - CMP, CBC, CRP today. - no empirical antimicrobial therapy at this time. RTC in 6 weeks. Breast abscess 12/26/2020 Morbid obesity with BMI of 40.0-44.9, adult 01/22 Exertional dyspnea 10/26/2017 Other chest pain 10/26/2017 Encounters Date Type Department Care Team Description 03/26/2025 1:20 PM SQL DATABASE PROGRAMMER Office Visit [facility] [address] [place] [address] [place] [address] Eleuterio Wiggins MD Primary osteoarthritis of left knee (Primary Dx) 02/26/2025 1:40 PM CDT Office Visit [facility] [address] [place] [address] [place] [address] Eleuterio Wiggins MD Trochanteric bursitis of both hips (Primary Dx); Chronic pain syndrome; Lumbar spondylosis; Hereditary and idiopathic peripheral neuropathy; Low back pain, unspecified back pain laterality, unspecified chronicity, unspecified whether sciatica present from Last 3 Months Surgical History Surgery [...] Grandfather Edinson Meek Alzheimer's disease Maternal Grandmother Vera Fantasma Arthritis Maternal Grandmother Vera Harper Cervical cancer Maternal Grandmother Vera Harper Arthritis Mother Loly Rolan Blood Clot Mother Loly Rolan brain Cancer Mother Loly Rolan Cervical cancer Mother Loly Rolan Depression Mother Loly Rolan Diabetes Mother Loly Rolan Hypertension Mother Loly Rolan Kidney disease Mother Loly Rolan Memory loss Mother Loly Rolan Mental illness Mother Loly Rolan Obesity Mother Loly Rolan Rashes / Skin problems Mother Loly Gongora Cancer Paternal Grandmother Caron Meek Cancer Sister Jamilah Gongora Cervical cancer Sister Jamilah Gongora Developmental delay Son Jenaro Hayward jr. Drug abuse Son Jenaro Hayward jr. Learning disabilities Son Jenaro Berman Relation Name Status Comments Paul Guillory Father [...] on file Legal Sex Female 2:24 AM SQL DATABASE PROGRAMMER Gender Identity Not on file Sexual Orientation [...] Plan Chronic Care Management Worsening( 10:43 AM SQL DATABASE PROGRAMMER) Asya Aparicio, RN Note: Problem: Chronic Pain Goals: 1. Minimize further functional decline 2. Maximize quality of life 3. Control pain Strategies: - Activity/exercise program recommendation - Conservative stepwise pain medicine strategy with multi-disciplinary approach - Recommend healthy lifestyle strategies and compensatory methods as needed Medical Devices Implanted Type Area Leasing Sales Consultant Device Identifier Shelf Expiration Date Model / Serial / Lot Enderlin In Abdomen Abdomen Procedures Procedure Name Priority Date/Time Associated Diagnosis Comments [place] ARTHROCENTESIS ASPIR&/INJ MAJOR JT/BURSA W/O US Routine 03/26/2025 1:20 PM SQL DATABASE PROGRAMMER Primary osteoarthritis of left knee DRUGS OF ABUSE SCREEN, URINE WITHOUT CONFIRMATION Routine 03/15/2025 2:47 PM CDT Chronic pain syndrome Lumbar spondylosis Hereditary and idiopathic peripheral neuropathy Low back pain, unspecified back pain laterality, unspecified chronicity, unspecified whether sciatica present MN ARTHROCENTESIS ASPIR&/INJ MAJOR JT/BURSA W/O US Routine 02/26/2025 1:40 PM CDT Trochanteric bursitis of both hips POCT LIPID PANEL Routine 12/07/2024 2:13 PM CDT Lipid screening EGFR Routine 08/19/2021 1:31 PM CDT Non-healing surgical wound, subsequent encounter from Last 3 Months or Most Recently Relevant to Health Maintenance Results * [place] ARTHROCENTESIS ASPIR&/INJ MAJOR JT/BURSA W/O US (03/26/2025 1:20 PM SQL DATABASE PROGRAMMER) Narrative Eleuterio Wiggins MD - 03/26/2025 1:20 PM SQL DATABASE PROGRAMMER Eleuterio Wiggins MD 03/27/2025 9:40 AM Large [...] without Confirmation (03/15/2025 2:47 PM CDT) Urine us Eleuterio Wiggins MD LAB URINE ORDERABLES Final Result EXTERNAL LAB * [place] ARTHROCENTESIS ASPIR&/INJ MAJOR JT/BURSA W/O US (02/26/2025 [...] 90 - 130 mL/min/1. 73 m2 [facility] Comment: Interpretive Data Reference Interval Normal >/= [...] MD LAB BLOOD ORDERABLE S Final Result [facility] Department [place] [address] from Last 3 Months or Most Recently Relevant to Health Maintenance [place] [address] [facility] MEDICARE ADVANTAGE MEDICARE [facility] MEDICARE ADVANTAGE Care Teams Register In Chancery Relationship Specialty Start Date End Date Fernando Sherman DO [address] [place], [place] [id number] PCP - General Internal Medicine 01/10/24 Real Díaz PA [address] [place], [place] [id number] Physician Renovation Plant Supervisor Physician Renovation Plant Supervisor 03/19/21
--- OUTSIDE RECORDS SUMMARY | 2025-04-27 12:56 | XMS_ITS | Encounter Summary ---
Author Organization [facility] Address [address] [place] [address] Care Team Providers Care Manager Of Administration Name Role Phone Salo Marte MD Primary Care Provider [phone] Real Díaz Unavailable [phone] Fernando Sherman DO Primary Care Provider [phone] Encounter Details Date Type Department Care Team (Late st Contact Info) Description 07/12/2020 Telephone [facility] [address] [place] [address] Bashir Diaz, RT Social History Tobacco Use Types Packs/Day Years Used Date Smoking Tobacco: Former Smokeless Tobacco: Never Alcohol Use Standard Drinks/Week Comments No 0 (1 standard drink = 0.6 oz pur e alcohol) Comments Unknown Sex and Gender Information Value Date Recorded Sex Assigned at Not on file Legal Sex Female 2:24 AM POLYMER SPECIALIST Gender Identity Not on file Sexual Orientation Not on file documented as of this encounter Plan of Treatment Not on file documented as of this encounter Visit Diagnoses Not on filedocumented in this encounter Care Teams Manager Of Administration Relationship Specialty Start Date End Date Salo Marte MD [address] [facility] [address] [place], [place] [id number] PCP - General 07/31/16 01/09/24 Fernando Sherman DO [address] [facility] [address] [place] [address] PCP - General Internal Medicine 01/10/24 Real Díaz PA [address] [facility] [address] [address] Physician Assistant Child Care Teacher Physician Assistant Child Care Teacher 03/19/21 documented as of this encounter
--- OUTSIDE RECORDS SUMMARY | 2025-04-27 12:56 | XMS_ITS | Clinical Summary ---
Author Organization [facility] Address [address], [facility] [address] [place] [address] Phone Care Team Providers Care Lace Stripper Name Role Phone Salo Marte DO Primary Care Provider [phone] Donato May DO Unavailable [phone] Ben RodCullen Unavailable [phone] Allergies Active Allergy Reactions Criticality Noted [...] [place] Care Teams Lace Stripper Relationship Specialty Start Date End Date Salo Marte DO [address] [place] [address] PCP - General Internal Medicine 06/19/15 Donato May DO [address] [place] [address] Gastroenterology 06/19/15 Ben Rod [address] [place] [address] [phone] (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
[2025-04-27 13:29] LABS: Hematocrit 41.3 % (37.0-47.0); Hemoglobin 13.5 g/dL (12.0-15.0); Mean Corpuscular HGB Conc 32.7 g/dl (32-36); Mean Corpuscular Hemoglobin 32.5 pg (26-34); Mean Corpuscular Volume 99.3 fl (80-100); Platelet Count Result 301 k/mm3 (150-375); Red Blood Count 4.16 M/mm3 (4.2-5.4); White Blood Count 8.9 K/mm3 (4.5-10.0)
[2025-04-27 14:00] LABS: Alanine Aminotransferase 31 U/L (6-35); Albumin Level 3.9 g/dL (3.5-5.1); Alkaline Phosphatase 80 U/L (38-126); Anion Gap 4 mmol/L (4-12); Aspartate Amino Transferase 26 U/L (14-36); Bilirubin,Total 0.4 mg/dL (0.2-1.3); Blood Urea Nitrogen 28 mg/dL (7-17); Calcium 9.0 mg/dL (8.4-10.2); Carbon Dioxide 25 mmol/L (22-30); Chloride 106 mmol/L (98-107); Estimated Glomerular Filt Rate 57; Glucose 144 mg/dL (65-110); Potassium 3.8 mmol/L (3.4-5.0); Sodium 135 mmol/L (137-145); Total Protein 7.0 g/dL (6.3-8.2)
[2025-04-27 15:31] LABS: Total Protein Urine Random 12 mg/dL; Ur Ttl Prot Creatinine Ratio 0.12 mg/mg (0-0.20)
== END 2025-04-27 12:52 | disposition home or self-care (01) ==
PROVIDERS: PCP Internal Medicine; Referring Provider Internal Medicine Nephrology; Visit Provider Nurse Practitioner
DX: D72.829 Elevated white blood cell count, unspecified (principal); I12.9 Hypertensive chronic kidney disease with stage 1 through stage 4 chronic kidney disease, or unspecified chronic kidney disease; N18.2 Chronic kidney disease, stage 2 (mild); E11.22 Type 2 diabetes mellitus with diabetic chronic kidney disease
CPT/HCPCS: 36415; 80053; 82570; 84100; 84156; 85027

== ENCOUNTER 2025-05-04 13:26 | Outpatient (CLI) | payer MEDICARE, MEDICAID, SELFPAY ==
--- OUTSIDE RECORDS SUMMARY | 2025-05-04 14:24 | XMS_ITS | Clinical Summary ---
Author Organization [facility] Address [address], [facility] [address] [place] [address] Phone Care Team Providers Care Electrical Maintenance Mechanic Name Role Phone Salo Marte DO Primary Care Provider Donato May DO Unavailable [phone] Ben RodCullen Unavailable [phone] Allergies Active Allergy Reactions Criticality Noted [...] [place] Care Teams Electrical Maintenance Mechanic Relationship Specialty Start Date End Date Salo Marte DO [address] [place] [address] PCP - General Internal Medicine 06/19/15 Donato May DO [address] [place] [address] Gastroenterology 06/19/15 Ben Rod [address] [place] [address] [phone] (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
--- OUTSIDE RECORDS SUMMARY | 2025-05-04 14:24 | XMS_ITS | Data Portability ---
Author Organization [place] [employer], Main Office Address [address] [place] [address] Assessment Encounter Date Assessment Date Assessment LastModified [...] for any further problems difficulties or questions. Not available 11/10/2022 16:41:56 12/29/2023 12/29/2023 63-year-old [...] different treatment. [email or web address] Not available 12/29/2023 14:47:28 04/17/2025 04/17/2025 The patient has severe thumb CMC arthrosis bilateral hands. We talked about treatment options she wanted to proceed with a cortisone therefore under sterile conditions I injected the patient's bilateral thumb CMC joints in the office today with 2 cc of 0.5% bupivacaine and 10 mg of Kenalog each. The patient tolerated both injections well. I will see her back as needed we could do this again in 3 months if necessary she made it almost a year and a half last time. She voiced understanding agrees above plan she will call for any further problems difficulties or questions. Not available 04/17/2025 14:59:10 Plan of Treatment Reminders Order Date Submit Date Provider Last Modified By Organization Details Last Modified Time Details Appointments None recorded. Lab None recorded. Referral None recorded. Procedures injection/a spiration joint/bursa (PROC) 2024 025 In-Office Order, Internal Use Only DO Not Attach Compendium DO Not Attach Compendium, Do Not Delete/merge, [id number] 5 14:32:00 injection/a spiration joint/bursa (PROC) - in office procedure, administere d by provider 2023 024 [email or web address] In-Office Order, Internal Use Only DO Not Attach Compendium DO Not Attach Compendium, Do Not Delete/merge, [id number] 4 12:33:57 injection/a spiration joint/bursa (PROC) - in office procedure, administere d by provider 2022 023 [email or web address] In-Office Order, Internal Use Only DO Not Attach Compendium DO Not Attach Compendium, Do Not Delete/merge, [id number] 3 16:17:37 Surgeries None recorded. Imaging XR, hand 2024 025 [email or web address] [facility] [place], [address], [place], [address], 5 15:29:50 XR, hand, 3 or more view 2023 024 [facility] [place], [address], [place], [address], 4 08:25:28 XR, hand 2022 023 [email or web address] [facility] [place], [address], [place], [address], 3 16:45:10 Medication Orders bupivacaine HCl 0.5 % (5 mg/mL) injection solution 2024 025 [email or web address] [facility] #[id number], [address], [id number], 5 15:29:50 triamcinolo ne acetonide 40 mg/mL suspension for injection 2024 025 [email or web address] [id number], [address], [id number], 5 15:29:50 Kenalog 10 mg/mL suspension for injection 2023 024 [email or web address] [id number], [address] [facility] [address] [place] [address], [id number], 4 16:47:48 Marcaine (PF) 0.5 % (5 mg/mL) injection solution 2023 024 [email or web address] Not available 4 16:47:48 Kenalog 10 mg/mL suspension for injection [address] [facility] #63799, [address] [facility], [place], [place], [id number], 3 16:45:10 ropivacaine (PF) 5 mg/mL (0.5 %) injection solution [address] [facility] #57511, [address] [facility], [place], [place], [phone], 3 16:45:10 Patient TargetsNo targets recorded. Patient InstructionsNo instructions recorded. Reason for Referral None Reported. Results Created Date Observation Date Name Description Value Unit Range Abnormal Flag Note LastModifiedBy Organization Detail LastModifiedTime 11/11/19 23 XR, hand No observ ation record ed. [email or web address] [facility] [place] [address] [facility] [address], [place], [address], 11/10/2022 16:43:45 12/29/19 24 XR, hand, 3 or more view No observ ation record ed. [email or web address] [facility] [place] [address] [facility] [address], [place], [address], 12/29/2023 12:21:27 04/17/20 25 XR, hand No observ ation record ed. [email or web address] [facility] [place] [address] [facility] [address], [place], [address], 04/17/2025 15:00:13 Result Notes None recorded. Problems Name Problem SNOMED Code Status Onset Date Resolution Date Notes Provider Name and Address Organization Details Recorded Time Localized, primary osteoarthr itis of the hand 613169710 Active Not Available [facility] 3 06:42:47 Knee joint effusion 802327975 Active Not Available [facility] 3 06:42:47 Menopausal symptom 93349810 Active Not Available [facility] 3 06:42:47 Osteoarthr itis of knee 497119987 Active Not Available [facility] 3 06:42:47 Low back pain 593806313 Active Not Available [facility] 3 06:42:47 Current tear of medial cartilage AND/OR meniscus of knee Active Not Available [facility] 3 06:42:47 Enthesopat hy of hip region 57985392 Active Not Available [facility] 3 06:42:47 Knee pain Active Not Available [facility] 3 06:42:47 Inflammato ry disorder of extremity 428827457 Active Not Available [facility] 3 06:42:48 Osteoarthr itis 348290172 Active Not Available [facility] 3 06:42:48 Arthropath y of joint of hand 969350938 Active Not Available [facility] 3 06:42:48 High antibody titer 464327061 Active Not Available [facility] 3 06:42:48 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 Not Available [facility] 3 06:42:48 Urge incontinen ce of urine 29021199 Active Not Available [facility] 3 06:42:48 Breast lump 74803325 Active Not Available [facility] 3 06:42:48 Pain in limb 70502270 Active Not Available [facility] 3 06:42:49 Pain in left thumb 9179196702559 100 Active 2021 Not Available [facility] 3 06:42:47 Contusion of right knee 1178592665074 9104 Active 2021 Not Available [facility] 3 06:42:47 Contusion of left knee 7955445123814 9109 Active 2021 Not Available [facility] 3 06:42:47 Osteoarthr itis of left knee joint 6094854964654 09 Active 2021 Not Available [facility] 3 06:42:48 Osteoarthr osis of the carpometac arpal joint of the thumb 08403428 Active 2021 Not Available [facility] 3 06:42:48 Pain of right knee joint 8835595346112 00 Active 2021 Not Available [facility] 3 06:42:48 Pain of left knee joint 0857885148475 07 Active 2021 Not Available [facility] 3 06:42:48 Pain of bilateral knee joints 2928179797100 04 Active 2021 Not Available [facility] 3 06:42:48 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 6965665061371 9100 Active 2021 Not Available [facility] 3 06:42:47 Tendinitis of right posterior tibial tendon 8937803582464 02 Active 2021 Not Available [facility] 3 06:42:47 Pain in right thumb 3914190861683 102 Active 2021 Not Available [facility] 3 06:42:46 Pain of right ankle joint 8408174882000 9106 Active 2022 PEYTON Tuttle, [employer] [facility] [employer] [facility] 3 15:55:48 Mechanical complicati on of implant 419165590 Active 2022 PEYTON uTttle, [employer] [facility] 3 15:57:30 Pain of right hand 1376393753196 09 Active 2022 PEYTON Tuttle, [employer] [facility] 3 15:58:25 Bilateral thumb pain 8187521363743 9102 Active 2023 Aury montes de oca, [employer] [facility] [employer] 4 12:32:01 Primary arthrosis of first carpometac arpal joints, bilateral 930006320 Active 2024 MATTHIAS Ventura [address] [facility], [place], [address] , [facility] [employer] [place] 15:00:41 Problem Notes None recorded. Procedures Surgical History Date Name Laterality Status Provider Name and Address Organization Details Recorded Time 12/29/19 24 Ortho - Cortisone Injection completed Pastor Dickerson MD [address], [place], [address], [facility] [employer] [facility] 12/29/2023 14:47:41 11/22/19 21 Breast Biopsy completed Not Available [facility] 2022 06:40:09 12/30/19 16 Drain/inj joint/bursa w/o us completed Not Available [facility] 07/22/2022 06:40:09 12/30/19 16 Orthopedic Surgery completed Not Available [facility] 07/22/2022 06:40:09 07/31/19 14 arthroplasty of knee completed Not Available [facility] 07/22/2022 06:40:09 05/24/19 14 biopsy of pancreas completed Not Available [facility] 07/22/2022 06:40:09 04/04/20 13 Most Recent Mammogram completed Not Available [facility] 07/22/2022 06:40:08 09/29/19 12 Date of Last Pap Smear completed Not Available [facility] 07/22/2022 06:40:08 05/24/18 96 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 Procedure Notes None recorded. Medical Equipment None Reported. Allergies Allergen ID Allergen Name Allergen Category Reaction Reaction Severity Criticality Documentation Date Start Date Code Code System Note Provider Name and Address Organization Details Recorded Time 04643 Zocor medicatio n anaphylax is severe Not available 07/22/2022 65381 3 RxNorm Not Available [facility] 3 06:46:59 99722 Product containin g methylate d xanthine derivativ e (product) food,medi cation Not available Not available Not available 07/22/2022 84353 9002 SNOMED Not Available [facility] 3 06:46:59 52889 pramoxine hydrochlo ride medicatio n itching Not available Not available 07/22/2022 76853 RxNorm vagin al swell ing and pain Not Available [facility] 3 06:46:59 33260 theophyll ine anhydrous medicatio n hives moderate Not available 07/22/2022 57454 RxNorm Not Available [facility] 3 06:46:59 05777 Substance with sulfonami de structure and antibacte rial mechanism of action (substanc e) medicatio n Not available Not available Not available 07/22/2022 71919 8003 SNOMED Not Available [facility] 3 06:46:59 70977 simvastat in medicatio n Not available Not available Not available 07/22/2022 10349 RxNorm Not Available [facility] 3 06:46:59 99909 piroxicam medicatio n Not available Not available Not available 07/22/2022 8356 RxNorm Not Available [facility] 3 06:47:00 09472 nitrofura ntoin medicatio n Not available Not available Not available 07/22/2022 7454 RxNorm Not Available [facility] 3 06:47:00 71059 morphine medicatio n hives severe Not available 07/22/2022 7052 RxNorm Not Available [facility] 3 06:47:00 80414 meperidin e medicatio n Not available Not available Not available 07/22/2022 6754 RxNorm Not Available [facility] 3 06:47:00 08556 Librium medicatio n other moderate Not available 07/22/2022 3804 RxNorm mood alter ation s Not Available [facility] 3 06:47:00 37920 latex environme nt,medica tion itching moderate Not available 07/22/2022 74831 91 RxNorm Not Available [facility] 3 06:47:00 09172 diazepam medicatio n Not available Not available Not available 07/22/2022 3322 RxNorm Not Available [facility] 3 06:47:00 08368 Demerol medicatio n hives severe Not available 07/22/2022 76089 1 RxNorm Not Available [facility] 3 06:47:00 01410 codeine medicatio n nausea moderate Not available 07/22/2022 2670 RxNorm Not Available [facility] 3 06:47:00 29474 chlordiaz epoxide medicatio n Not available Not available Not available 07/22/2022 2356 RxNorm Not Available [facility] 3 06:47:00 62838 Ceftin medicatio n vomiting Not available Not available 07/22/2022 84590 6 RxNorm diarr hea Not Available [facility] 3 06:47:00 79236 salicylat e medicatio n Not available Not available Not available 11/10/2022 9522 RxNorm Elma Dugan RMaNtalie null, [facility] 3 15:47:06 62202 valsartan medicatio n Not available Not available Not available 11/10/2022 28371 RxNorm Elma Dugan RMA null, [facility] 3 15:47:40 34494 theophyll ine medicatio n Not available Not available Not available 04/17/2025 26124 RxNorm unrec ogniz ed react ion (text : Unkno wn, code: 86261 5006) (from exter nal sour e) Not Available [facility] [employer] - prod 5 13:39:58 79679 benzocain e medicatio n Not available Not available Not available 04/17/2025 1399 RxNorm Not Available [facility] [employer] - prod 5 13:40:00 38311 Product containin g benzodiaz epine (product) medicatio n Not available Not available Not available 04/17/20252012 03284 007 SNOMED unrec ogniz ed react ion (text : Unkno wn, code: 25749 5006) (from exter nal sourc e) Not Available [facility] [employer] - prod 13:40:00 71038 cefuroxim e Not available Not available Not available Not available 04/17/2025 2194 RxNorm Not Available [facility] [employer] - prod 13:40:00 31486 chlordiaz epoxide hydrochlo ride medicatio n Not available Not available Not available 04/17/20252012 71220 3 RxNorm unrec ogniz ed react ion (text : Unkno wn, code: 82050 5006) (from exter nal sour e) Not Available [facility] [employer] - prod 13:40:00 10081 codeine phosphate medicatio n nausea Not available low 04/17/20252012 2672 RxNorm Not Available [facility] [employer] - [facility] 13:40:00 12827 dextromet horphan medicatio n Not available Not available Not available 04/17/2025 3289 RxNorm Not Available [facility] [employer] - [facility] 13:40:00 75594 doxycycli ne Not available rash Not available high 04/17/20252021 3640 RxNorm Not Available [facility] [employer] - [facility] 13:40:00 53678 meperidin e hydrochlo ride medicatio n Not available Not available Not available 04/17/20252012 40433 5 RxNorm unrec ogniz ed react ion (text : Unkno wn, code: 86769 5006) (from exter nal sourc e) Not Available [facility] [employer] External Data Service - prod 13:40:00 55271 morphine sulfate medicatio n Not available Not available Not available 04/17/20252012 25354 RxNorm unrec ogniz ed react ion (text : Unkno wn, code: 31112 5006) (from exter nal sourc e) Not Available [facility] [employer] - prod 13:40:00 12544 Non-stero idal anti-infl ammatory agent (substanc e) medicatio n Not available Not available Not available 04/17/20252012 03548 5008 SNOMED She avoid s NSAID s dur to couma din thera py unrec ogniz ed react ion (text : Michelle wn, code: 27193 5006) (from exter nal sourc e) Not Available [facility] [employer] - prod 13:40:00 83267 Substance with morphinan structure and opioid receptor agonist mechanism of action (substanc e) medicatio n Not available Not available Not available 04/17/20252012 67099 9000 SNOMED unrec ogniz ed react ion (text : Michelle nicole, code: 01412 5006) (from exter nal sourc e) Not Available [facility] [employer] - prod 13:40:00 08375 Pethidine analog (substanc e) medicatio n Not available Not available Not available 04/17/20252012 19341 0004 SNOMED unrec ogniz ed react ion (text : Michelle nicole, code: 94005 5006) (from exter nal sourc e) Not Available [facility] [employer] - prod 13:40:00 85253 apremilas t medicatio n swelling Not available high 04/17/20252021 43314 27 RxNorm & sores on gums Not Available [facility] [employer] - prod 13:40:00 55081 pramoxine hydrochlo ride medicatio n itching Not available low 04/17/20252023 83112 RxNorm Not Available [facility] [employer] - prod 13:40:00 44016 sodium salicylat e medicatio n Not available Not available Not available 04/17/20252012 9907 RxNorm Avods due to Couma din thera py. unrec ogniz ed react ion (text : Riao wn, code: 41269 5006) (from [facility]) Not Available [facility] [employer] - prod 13:40:00 67669 Product containin g 3-hydroxy -3-methyl glutaryl- coenzyme A reductase inhibitor (product) medicatio n Not available Not available Not available 04/17/20252012 78828 009 SNOMED unrec ogniz ed react ion (text : Unkno wn, code: 61068 5006) (from [facility]) Not Available [facility] [employer] - prod 13:40:00 87541 theophyll ine anhydrous medicatio n Not available Not available Not available 04/17/20252012 55203 RxNorm unrec ogniz ed react ion (text : Unkno wn, code: 51949 5006) (from [facility]) Not Available [facility] [employer] - prod 13:40:00 93746 xanthinol niacinate Not available Not available Not available Not available 04/17/20252012 48227 RxNorm unrec ogniz ed react ion (text : Unkno wn, code: 89337 5006) (from [facility]) Not Available [facility] [employer] - prod 13:40:00 Medications Name Sig Start Date Stop Date [...] Avai lable nystatin 100,000 unit/mL oral suspension SWISH AND SWALLOW 6 ML BY MOUTH FOUR TIMES DAILY FOR 7 DAYS active Not Available Not Available No t Available prednisone 10 mg tablet TK 1 [...] CAPSULE BY MOUTH EVERY 8 HOURS FOR 7 DAYS 04/14 completed Not Available Not Available Not Available [...] active Not Available Not Available Not Available bupivacaine HCl 0.5 % (5 mg/mL) injection solution Take 20 mg by injection route. 2024 active Not Available Not Available Not Avai lable prednisone 20 mg tablet TK 3 TS [...] Available Not Available prednisone 5 mg tablet TAKE 1 TABLET BY MOUTH TWICE DAILY WITH FOOD active Not Available Not Available No t Available terconazole 0.8 % vaginal cream active Not Available Not Available Not Available Mag-Oxide 400 mg tablet Take by oral route. 2014 active Not Available Not Available Not Avai lable clindamycin HCl 150 mg capsule TAKE 1 CAPSULE BY MOUTH EVERY 8 HOURS FOR 7 DAYS 04/14 completed Not Available Not Available Not Available travoprost 0.004 % eye drops INSTILL 1 DROP IN BOTH EYES AT BEDTIME active Not Available Not Available No t Available Accu-Chek Softclix Lancets USE TO TEST BLOOD SUGARS THREE TIMES DAILY active Not Available Not [...] 1 CAPSULE BY MOUTH THREE TIMES DAILY AT BEDTIME active Not Available Not Available [...] Available Not Available meclizine 25 mg tablet TAKE 1 TABLET BY MOUTH THREE TIMES DAILY NEEDED FOR VERTIGO active Not Available Not Available No t Available baclofen 10 mg tablet TAKE 1/2 [...] completed Not Available Not Available Not Available triamcinolo ne acetonide 40 mg/mL suspension for injection Take 20 mg by injection route. 2024 active Not Available Not Available Not Avai lable cephalexin 500 mg capsule 09/26 completed Not [...] drops INSTILL 1 DROP INTO RIGHT EYE TWICE DAILY active Not Available [...] Not Available Not Available Not Available lisinopril 30 mg tablet TAKE 1 TABLET BY MOUTH DAILY active Not Available Not Available No t Available gabapentin 300 mg capsule TAKE 1 [...] mg/mL eye drops INSTILL 1 DROP IN BOTH EYES TWICE DAILY active Not Available Not Available [...] (0.1 %) nasal spray USE 1 SPRAY IN EACH NOSTRIL EVERY 12 HOURS 04/17 completed Not Available Not Available Not Available warfarin 1 mg tablet TAKE 1 [...] completed Not Available Not Available Not Available colchicine 0.6 mg tablet TAKE 1 TABLET BY MOUTH TWICE DAILY FOR GOUT active Not Available Not Available No t Available doxycycline hyclate 20 mg tablet TAKE [...] propionate 50 mcg/actuati on nasal spray,suspe nsion USE 1 SPRAY IN EACH NOSTRIL TWICE DAILY NEEDED FOR NASAL CONGESTIO N 04/17 completed Not Available Not Available Not Available doxycycline hyclate 100 mg tablet TK 1 T PO QD AT DINNER TIME WITH FOOD FOR 3 WEEKS active Not Available Not Available No t Available nortriptyli ne 50 mg capsule active Not Available Not Available Not Available metoclopram karin 10 mg tablet active Not Available Not Available Not Available amoxicillin 875 mg-potassiu m clavulanate 125 mg tablet TAKE 1 TABLET BY MOUTH TWICE DAILY 12/28 completed Not Available Not Available Not Available amoxicillin 500 mg-potassiu m clavulanate 125 mg tablet TAKE 1 TABLET BY MOUTH EVERY 12 HOURS WITH FOOD 04/14 completed Not Available Not Available Not Available tobramycin 0.3 %-dexametha sone 0.1 % eye drops,suspe nsion active Not Available Not Available Not Available neomycin 3.5 mg/g-polymy armando B 10,000 unit/g-dexa meth 0.1 % eye oint APPLY A SMALL AMOUNT TO SURGICAL EYELID EVERY NIGHT AT BEDTIME active Not Available Not Available No t Available enoxaparin 30 mg/0.3 mL subcutaneou s [...] duloxetine 30 mg capsule,del ayed release TAKE 1 CAPSULE [...] completed Not Available Not Available Not Available aripiprazol e 2 mg tablet TAKE 1 TABLET BY MOUTH EVERY DAY FOR DEPRESSIO N active Not Available Not Available No t Available quetiapine 50 mg tablet TK 1 [...] injection route. 2022 active [facility] 76718 -064- 01 Not Available Not Available Not Available lidocaine 5 % topical ointment APPLY [...] Not Available Not Available Not Available Fluvirin 45 mcg (15 mcg x [...] the doctor 12/26 completed [facility]: [address] -1 Not Available Not Available Not Available Tresiba FlexTouch U-100 insulin 100 unit/mL (3 mL) subcutaneou s pen ADMINISTE R 16 UNITS UNDER THE SKIN DAILY active Not Available Not Available No t Available Narcan 4 mg/actuatio n nasal spray ERIN REP ALN 05/31 completed Not Available Not Available Not Available Flulaval Quad 60 mcg (15 mcg x 4)/0.5 mL IM suspension ADM 0.5ML IM UTD 05/31 completed Not Available Not Available Not Available Restasis MultiDose 0.05 % eye drops INT 1 GTT IN OU BID UTD active Not Available Not Available No t Available Accu-Chek Guide test strips USE TO CHECK BLOOD SUGARS THREE TIMES DAILY active Not Available Not Available No t Available Accu-Chek Guide Glucose Meter USE TO CHECK BLOOD SUGARS THREE TIMES DAILY active Not Available Not [...] Not Available Not Available Not Available OneTouch Delica Plus Lancet 33 gauge [...] completed Not Available Not Available Not Available Carmel 2nd Gen Pen Needle 32 gauge x USE TO INJECT INSULIN FOUR TO SIX TIMES DAILY active Not Available Not Available No t Available Vitals Date Recorded Body height Provider Name an d Address Organization Details Last Updated DateTime 11/10/2022 165.1 cm PEYTON Tuttle [place] - [facility] 11/10/2022 15:44:53 Date Recorded Body height Body mass index (BMI) Body weight Pain severity - 0-10 verbal numeric rating [Score] - Reported Provider Name and Address Organization Details Last Updated DateTime 12/29/2023 170.18 cm 38.4 kg/m2 965097.13 g Lakeisha Virk Natalie [facility] 12/29/2023 12:19:24 Date Recorded Body height Provider Name an d Address Organization Details Last Updated DateTime 01/05/2022 165.1 cm Not Available [facility] 3 06:42:13 Date Recorded Body height Provider Name an d Address Organization Details Last Updated DateTime 02/02/2022 165.1 cm Not Available [facility] 3 06:42:13 Date Recorded Body height Body mass index (BMI) Body weight Provider Name and Address Organization Details Last Updated DateTime 04/17/2025 165.1 cm 40.8 kg/m2 003902.13 g Corinne KIARA Ruiz [facility] 04/17/2025 14:23:26 Social History Question Answer Notes LastModified by Savorfull Details LastModified Time Tobacco Smoking Status Former Smoker Not Available [facility] 07/22/2022 06:40:04 What Is Your Level Of Caffeine Consumption? None [id number] Information not available 07/22/2022 Which Illicit Or Recreational Drugs Have You Used? Marijuana Daily For Pain [id number] Information not available 07/22/2022 When Did You Quit Smoking? 16+yearssince lastcigarette Quit 30yrs Ago After Smoking 3ppd For 15 Yrs Information not available 04/17/2025 What Was The Date Of Your Most Recent Tobacco Screening? 04/17/2025 Information not available 04/17/2025 What Is Your Relationship Status? Single [id number] Information not available 07/22/2022 Do You Use Your Seat Belt Or Car Seat Routinely? Yes [id number] Information not available 07/22/2022 Sex: Unknown Functional Status Question Answer Note LastModified by [employer] Details LastModified Time Do you use any illicit or recreational drugs? Yes [id number] Information not available 07/22/2022 What is your level of alcohol consumption? Heavy Information not available 04/17/2025 What is your exercise level? None [id number] Information not available 07/22/2022 Mental Status None recorded. Family History Relationship Description Onset Age of this Age Resolved Age Notes LastModified by Organization Details LastModified Time Mother Family history of malignant neoplasm MIGRATION.200 [id number] Not available 07/22/2022 06:40:10 Mother Diabetes mellitus MIGRATION.805 [id number] Not available 07/22/2022 06:40:10 Mother History of hypertension MIGRATION.817 [id number] Not available 07/22/2022 06:40:10 Mother Heart disease MIGRATION.161 [id number] Not available 07/22/2022 06:40:10 Father History of hypertension MIGRATION.154 [id number] Not available 07/22/2022 06:40:10 Father Heart disease MIGRATION.269 [id number] Not available 07/22/2022 06:40:10 Maternal Grandmother Family history of malignant neoplasm Not available 2024 14:24:27 Father History of cerebrovascu lar accident Not available 14:24:45 Medical History Condition Response ARTHRITIS Y USE OF BLOOD THINNERS Y SKIN PROBLEMS Y DIABETES, TYPE Y LUNG DISEASE/DISORDER Y HEARTBURN / REFLUX Y COPD Y HYPERTENSION Y HIGH CHOLESTEROL / HYPERLIPIDEMIA Y CANCER: [...] Diagnosis SNOMED-CT Code Diagnosis ICD10 Code Diagnosis IMO Codes Diagnosis Note [id number] MATTHIAS Ventura [facility] [address] [place] [address] 09/26/2020 00:00:00 09/26/2020 15:16:13 [id number] S_Histor ic_Gateway _ATHENA_M IGRATION_ DEFAULT_1 _1 , 01/06/2021 00:00:00 01/06/2021 15:57:50 [id number] MATTHIAS Ventura [facility] [address] [place] [address] 01/16/2021 00:00:00 01/16/2021 15:47:07 [id number] MATTHIAS Ventura [facility] [address] [place] [address] 02/14/2021 00:00:00 02/14/2021 14:25:15 [id number] Darron Overton MD [facility] [address] [place] [address] 04/24/2021 00:00:00 04/24/2021 10:04:13 [id number] Darron Overton MD [facility] [address] [place] [address] 10/16/2021 00:00:00 10/16/2021 15:39:25 [id number] Darron Overton MD [facility] [address] [place] [address] 10/23/2021 00:00:00 10/23/2021 15:22:43 [id number] Darron Overton MD [facility] [address] [place] [address] 11/05/2021 00:00:00 11/05/2021 11:42:40 [id number] Darron Overton MD [facility] [address] [place] [address] 11/11/2021 00:00:00 11/11/2021 15:31:01 [id number] Darron Overton MD [facility] [address] [place] [address] 11/18/2021 00:00:00 11/18/2021 16:00:11 [id number] Darron Overton MD [facility] [address] [place] [address] 01/05/2022 00:00:00 01/05/2022 09:56:15 [id number] Darron Overton MD [facility] [address] [place], [place] [address] 02/02/2022 00:00:00 02/02/2022 11:51:39 [id number] Darron Overton MD [facility] 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 [place], [place] [address] 12/29/2023 11:45:53 12/29/2023 12:37:11 Pain in right thumb 6406147534 267067 M79.644 Pain in left thumb 37932 37143 326933 M79.645 Bilateral thumb pain 952 6603442 4205603 M79.644 M79.363 [id number] Pastor Dickerson MD [facility] [address] [place] [address] 04/17/2025 13:37:30 04/17/2025 15:01:05 Bilateral thumb pain 0135112236 5911557 M79.644 M79.645 Pain of bi lateral knee joints 8603468950 69017 M25.561 M25.562 Primary ar throsis of first carpometacarpal joints, bilateral 255843532 M18.0 [id number] Health Concerns Section Related Observation LastModified by Organization Detai ls LastModified Time None Recorded Concern Status LastModified by Organization Details LastModified Time None Recorded Advance Directives Directive None Recorded Payers Insurance Date Sequence Insurance Name Policy Number Policy Dunn Covered Member ID Dunn Member ID Guarantor Name 04/17/2025 1 [facility] (MEDICARE REPLACEMENT/ADVA NTAGE - PPO) [id number] Dori Hayward [id number] Dori Hayward 04/17/2025 2 [facility] ON OR AFTER 11/21/20 (MEDICAID REPLACEMENT - HMO) Dori Hayward [id number] Dori Hayward 12/30/2023 1 [place] Dori Hayward [id number] Dori Hayward 02/04/2024 2 [place] WHEN MEDICARE OR MEDICARE REPLACEMENT PRIMARY) Dori Hayward [id number] Dori Hayward 12/30/2023 [facility] ON OR AFTER 11/21/20 (MEDICAID REPLACEMENT - HMO) Dori Hayward [id number] Dori Hayward 04/14/2025 [place] DURABLE MEDICAL EQUIPMENT Dori Hayward [id number] Dori Hayward 12/30/2023 [employer] - DMEPOS ASSIGNED (MEDICARE DME REGION B) Dori Hayward [id number] Dori Hayward Notes Date Note Type [...] since her last ones. MATTHIAS Ventura [address], [place], [address], [employer] 11/10/2022 16:44:30 04/17/2025 text/html The patient returns her last visit here was about 16 months ago. She has chronic pain in the bilateral thumb CMC joints she has hpqh-no-lxei changes here. She has gotten by with conservative measures we have talked about surgical options previously however she prefers to avoid surgery. She denies any new problems or injuries with the other hand most of her pain is localized to the thumb CMC joints particularly gripping or grasping. She can not take NSAIDs due to the fact that she is on blood thinners. Recently her pain has started to get more significant she would like to repeat cortisone injections bilateral thumb CMC joints. New past medical history sheet was reviewed and signed on the intake sheet of today's date drug allergies current medications family social history previous surgical history 10 point review of systems was reviewed and discussed in detail today with the patient. MATTHIAS Ventura [address], [address], [place], [address], [employer] 04/17/2025 15:07:34 OBGyn Episode No OBEpisode recorded.
== END 2025-05-04 13:27 | disposition home or self-care (01) ==
PROVIDERS: PCP Internal Medicine; Visit Provider Nurse Practitioner
DX: H90.3 Sensorineural hearing loss, bilateral (principal)
CPT/HCPCS: 92557; 92567